=== PATIENT | female | born 1940 | race Caucasian/White ===

== ENCOUNTER 2018-11-06 17:23 | Inpatient (IN) | payer MEDICARE, BC ==
[2018-11-06] MEDS ORDERED: SODIUM CHLORIDE 0.9% 500 ML 500 ML IV STA (17:53)
[2018-11-06] MEDS ORDERED: fentaNYL (PF) 50 MCG/ML 2 ML AMP IVP STA ×3 (17:54→21:16)
--- NOTE | 2018-11-06 17:57 | ED ---
Abdominal Pain HPI - General Chief Complaint: Abdominal Pain Stated Complaint: HBP, CONSTIPATION, HEADACHE,OTHER ISSUES Time Seen by Provider: 11/06/18 17:44 Source: patient, RN notes reviewed, old records reviewed Mode of arrival: wheelchair Limitations: no limitations - History of Present Illness Initial Comments: 78-year-old female presenting for evaluation of elevated blood pressure and abdominal pain. Patient has been noted by the primary care physician of elevated blood pressure and has no known history of hypertension. She was diagnosed and treated with a salivary gland infection. She's been on multiple antibiotics over the past several weeks. Including Augmentin and clindamycin. Patient is presenting with chief complaint of abdominal pain, right-sided and hypertension today. Pain is right lower abdomen and right flank. Pain is nonradiating and constant in nature. Patient describes it as severe pain. Her last bowel movement was 5 days ago. She's had some nausea without significant vomiting. No chest pain or dyspnea. No upper abdominal pain. No fever chills , no dysuria or hematuria. - Related Data Home Medications Medication Instructions Recorded Confirmed Bisacodyl [Dulcolax] 15 mg PO DAILY 11/06/18 11/06/18 Clindamycin HCl [Cleocin] 300 mg PO TID 11/06/18 11/06/18 busPIRone HCL [Buspar] 7.5 mg PO BID 11/06/18 11/06/18 Allergies Allergy/AdvReac Type Severity Reaction Status Date / Time codeine Allergy Unknown Verified 11/06/18 18:19 Review of Systems ROS Statement: Those systems with pertinent positive or pertinent negative responses have been documented in the HPI. ROS Other: All systems not noted in ROS Statement are negative. Past Medical History Past Medical History: No Reported History History of Any Multi-Drug Resistant Organisms: None Reported Past Surgical History: Back Surgery, Orthopedic Surgery Past Psychological History: Anxiety Smoking Status: Never smoker Past Alcohol Use History: None Reported Past Drug Use History: None Reported General Exam Limitations: no limitations General appearance: alert, in no apparent distress Head exam: Present: atraumatic, normocephalic Eye exam: Present: normal appearance, PERRL ENT exam: Present: mucous membranes dry Neck exam: Present: normal inspection. Absent: tenderness, meningismus Respiratory exam: Present: normal lung sounds bilaterally. Absent: respiratory distress, wheezes Cardiovascular Exam: Present: regular rate, normal rhythm GI/Abdominal exam: Present: soft, tenderness (Right lower quadrant tenderness to palpation). Absent: distended Extremities exam: Present: normal inspection, normal capillary refill. Absent: pedal edema, calf tenderness Neurological exam: Present: alert, oriented X3, CN II-XII intact. Absent: motor sensory deficit Psychiatric exam: Present: normal affect, normal mood Skin exam: Present: warm, dry, intact. Absent: cyanosis, diaphoretic Course Vital Signs 11/06/18 11/06/18 11/06/18 17:34 19:05 20:00 Temperature 98.2 F Pulse Rate 67 65 63 Respiratory 16 18 18 Rate Blood Pressure 213/64 186/100 194/84 O2 Sat by Pulse 97 98 97 Oximetry 11/06/18 11/06/18 20:43 21:10 Temperature Pulse Rate 65 64 Respiratory 18 18 Rate Blood Pressure 190/73 152/59 O2 Sat by Pulse 98 98 Oximetry Medical Decision Making - Medical Decision Making 78-year-old female presenting with right lower quadrant abdominal pain and right flank pain. Patient's concerns for constipation as she has not had a bowel movement 5 days. Patient is noted to be hypertensive on initial evaluation, she has no history of hypertension. This may be somewhat secondary to pain as she is in moderate to severe pain. Workup in the emergency department reveals normal white blood cell count, stable hemoglobin, creatinine 1.06, normal lactic acid. Urinalysis shows signs of significant infection including greater than 182 white cells, 46 red cells, nitrate positive. Urine culture is obtained and patient is started on Rocephin. CT abdomen shows severe right-sided hydronephrosis with perinephric edema, no obstructing stone visualized on CT. These findings are discussed with urology, Dr. Leung, patient will be kept nothing by mouth for possible intervention. Case also discussed with the admitting physician. - Lab Data Result diagrams: 11/06/18 18:33 11/06/18 18:33 Lab Results 11/06/18 11/06/18 11/06/18 Range/Units 18:33 18:33 18:33 WBC 7.3 (3.8-10.6) k/uL RBC 3.76 L (3.80-5.40) m/uL Hgb 11.6 (11.4-16.0) gm/dL Hct 35.8 (34.0-46.0) % MCV 95.2 (80.0-100.0) fL MCH 30.9 (25.0-35.0) pg MCHC 32.5 (31.0-37.0) g/dL RDW 13.9 (11.5-15.5) % Plt Count 168 (150-450) k/uL Neutrophils % 80 % Lymphocytes % 12 % Monocytes % 6 % Eosinophils % 1 % Basophils % 0 % Neutrophils # 5.8 (1.3-7.7) k/uL Lymphocytes # 0.9 L (1.0-4.8) k/uL Monocytes # 0.4 (0-1.0) k/uL Eosinophils # 0.1 (0-0.7) k/uL Basophils # 0.0 (0-0.2) k/uL PT (9.0-12.0) sec INR (<1.2) APTT (22.0-30.0) sec Sodium 136 L (137-145) mmol/L Potassium 4.7 (3.5-5.1) mmol/L Chloride 102 (98-107) mmol/L Carbon Dioxide 25 (22-30) mmol/L Anion Gap 9 mmol/L BUN 25 H (7-17) mg/dL Creatinine 1.06 H (0.52-1.04) mg/dL Est GFR (CKD-EPI)AfAm 58 (>60 ml/min/1.73 sqM) Est GFR (CKD-EPI)NonAf 50 (>60 ml/min/1.73 sqM) Glucose 120 H (74-99) mg/dL Plasma Lactic Acid Rodri 1.1 (0.7-2.0) mmol/L Calcium 9.1 (8.4-10.2) mg/dL Total Bilirubin 1.2 (0.2-1.3) mg/dL AST 162 H (14-36) U/L ALT 108 H (9-52) U/L Alkaline Phosphatase 94 (38-126) U/L Total Protein 8.9 H (6.3-8.2) g/dL Albumin 4.1 (3.5-5.0) g/dL Amylase 63 (30-110) U/L Lipase 52 (23-300) U/L Urine Color Urine Appearance (Clear) Urine pH (5.0-8.0) Ur Specific [place] (1.001-1.035) Urine Protein (Negative) Urine Glucose (UA) (Negative) Urine Ketones (Negative) Urine Blood (Negative) Urine Nitrite (Negative) Urine Bilirubin (Negative) Urine Urobilinogen (<2.0) mg/dL Ur Leukocyte Esterase (Negative) Urine RBC (0-5) /hpf Urine WBC (0-5) /hpf Urine WBC Clumps (None) /hpf Ur Squamous Epith Cells (0-4) /hpf Urine Mucus (None) /hpf 11/06/18 11/06/18 Range/Units 18:33 20:29 WBC (3.8-10.6) k/uL RBC (3.80-5.40) m/uL Hgb (11.4-16.0) gm/dL Hct (34.0-46.0) % MCV (80.0-100.0) fL MCH (25.0-35.0) pg MCHC (31.0-37.0) g/dL RDW (11.5-15.5) % Plt Count (150-450) k/uL Neutrophils % % Lymphocytes % % Monocytes % % Eosinophils % % Basophils % % Neutrophils # (1.3-7.7) k/uL Lymphocytes # (1.0-4.8) k/uL Monocytes # (0-1.0) k/uL Eosinophils # (0-0.7) k/uL Basophils # (0-0.2) k/uL PT 10.7 (9.0-12.0) sec INR 1.0 (<1.2) APTT 23.1 (22.0-30.0) sec Sodium (137-145) mmol/L Potassium (3.5-5.1) mmol/L Chloride (98-107) mmol/L Carbon Dioxide (22-30) mmol/L Anion Gap mmol/L BUN (7-17) mg/dL Creatinine (0.52-1.04) mg/dL Est GFR (CKD-EPI)AfAm (>60 ml/min/1.73 sqM) Est GFR (CKD-EPI)NonAf (>60 ml/min/1.73 sqM) Glucose (74-99) mg/dL Plasma Lactic Acid Rodri (0.7-2.0) mmol/L Calcium (8.4-10.2) mg/dL Total Bilirubin (0.2-1.3) mg/dL AST (14-36) U/L ALT (9-52) U/L Alkaline Phosphatase (38-126) U/L Total Protein (6.3-8.2) g/dL Albumin (3.5-5.0) g/dL Amylase (30-110) U/L Lipase (23-300) U/L Urine Color Yellow Urine Appearance Cloudy H (Clear) Urine pH 6.5 (5.0-8.0) Ur Specific [place] 1.013 (1.001-1.035) Urine Protein 1+ H (Negative) Urine Glucose (UA) Negative (Negative) Urine Ketones 1+ H (Negative) Urine Blood Large H (Negative) Urine Nitrite Positive H (Negative) Urine Bilirubin Negative (Negative) Urine Urobilinogen <2.0 (<2.0) mg/dL Ur Leukocyte Esterase Large H (Negative) Urine RBC 43 H (0-5) /hpf Urine WBC >182 H (0-5) /hpf Urine WBC Clumps Many H (None) /hpf Ur Squamous Epith Cells 2 (0-4) /hpf Urine Mucus Rare H (None) /hpf Disposition Clinical Impression: Hydronephrosis, Urinary tract infection Disposition[facility] Condition: Stable Is patient prescribed a controlled substance at d/c from ED?: No Referrals: Dixie Staples MD [Primary Care Provider] - 1-2 days Time of Disposition: 21:41
[2018-11-06 18:52] LABS: Basophils % (A) 0 %; Eosinophils # (A) 0.1 k/uL (0-0.7); Eosinophils % (A) 1 %; HCT 35.8 % (34.0-46.0); HGB 11.6 gm/dL (11.4-16.0); Lymphocytes # (A) 0.9 k/uL (1.0-4.8); Lymphocytes % (A) 12 %; MCH 30.9 pg (25.0-35.0); MCHC 32.5 g/dL (31.0-37.0); MCV 95.2 fL (80.0-100.0); Mean Platelet Volume 8.2; Monocytes # (A) 0.4 k/uL (0-1.0); Monocytes % (A) 6 %; Neutrophils # (A) 5.8 k/uL (1.3-7.7); Neutrophils % (A) 80 %; Platelet Count 168 k/uL (150-450); RBC 3.76 m/uL (3.80-5.40); RDW 13.9 % (11.5-15.5); WBC 7.3 k/uL (3.8-10.6)
[2018-11-06 19:02] LABS: Albumin 4.1 g/dL (3.5-5.0); Calcium 9.1 mg/dL (8.4-10.2); Total Bilirubin 1.2 mg/dL (0.2-1.3); Total Protein 8.9 g/dL (6.3-8.2)
[2018-11-06 19:03] LABS: Potassium 4.7 mmol/L (3.5-5.1)
[2018-11-06 19:38] LABS: Partial Thromboplastin Time 23.1 sec (22.0-30.0); Prothrombin Time 10.7 sec (9.0-12.0)
--- NOTE | 2018-11-06 20:06 | CT ---
EXAMINATION TYPE: CT abdomen pelvis wo con DATE OF EXAM: 11/06/2018 COMPARISON: None HISTORY: Right flank pain. CT DLP: 629.2 mGycm Automated exposure control for dose reduction was used. TECHNIQUE: Helical acquisition of images was performed from the lung bases through the pelvis. FINDINGS: There is a large hiatal hernia. Heart size is slightly enlarged. There is no pericardial effusion. Th ere is interstitial infiltrate and atelectasis at the lung bases. Liver shows no focal defect. Spleen appears normal. There is no pancreatic mass. There is no adrenal mass. There is moderately severe right-sided hydronephrosis. There is right-sided perinephric edema. There is 3 cm cortical cyst anterior left kidney. Right ureter does not appear dilated. There is righ t sided periureteral edema. There is vascular calcification. There is air bubbles in the urinary blad jose that could be from catheterization. There is no free fluid in the pelvis. There are numerous dive rticula in the sigmoid colon. There is 3 cm cortical cyst upper pole right kidney. I see no evidence of a bowel obstruction. There are no dilated bowel loops. There are spondylotic changes in the lumbar spine. There is vertebroplasty of L3 with 25% compression fracture of L3 vertebral body. Uterus is anteverted. IMPRESSION: THERE IS SEVERE RIGHT-SIDED HYDRONEPHROSIS WITH EXTENSIVE PERINEPHRIC EDEMA CONSISTENT WITH HIGH-GRAD E OBSTRUCTION. BILATERAL RENAL CORTICAL CYSTS. NO DEFINITE URETERAL CALCULUS SEEN. OBSTRUCTION DUE TO NONOPAQUE STONE OR TUMOR AT THE URETEROPELVIC JUNCTION SHOULD BE CONSIDERED. ATHEROSCLEROTIC VASCULAR DISEASE. COLONIC DIVERTICULOSIS WITHOUT DIVERTICULITIS. LARGE HIATAL HERNIA.
--- NOTE | 2018-11-06 20:07 | XR ---
EXAMINATION TYPE: XR KUB DATE OF EXAM: 11/06/2018 COMPARISON: NONE HISTORY: Abdominal pain TECHNIQUE: 2 views FINDINGS: Bowel gas pattern is normal. There is no sign of intestinal obstruction or pneumoperitoneum . Fecal pattern is normal. There are no pathologic calcifications over the kidneys. Lung bases are cl ear. There is large hiatal hernia. IMPRESSION: Nonacute abdomen.
[2018-11-06] MEDS ORDERED: hydrALAZINE HCL 20 MG/ML 1 ML VIAL IVP STA ×2 (20:12→21:31)
[2018-11-06] MEDS: SODIUM CHLORIDE 0.9% 1,000 ML IV SCH (20:40)
[2018-11-06 21:07] LABS: Appearance,Urine Cloudy (Clear); Bilirubin,Urine Negative (Negative); Blood,Urine Large (Negative); Color,Urine Yellow; Glucose,Urine (UA) Negative (Negative); Ketones,Urine 1+ (Negative); Leukocyte Esterase,Urine Large (Negative); Mucus,Urine Rare /hpf; Nitrite,Urine Positive (Negative); PH, Urine 6.5 (5.0-8.0); Protein,Urine 1+ (Negative); RBC,Urine 43 /hpf (0-5); Specific Gravity,Urine 1.013 (1.001-1.035); Squamous Epithelial Cell,Urine 2 /hpf (0-4); Urobilinogen,Urine <2.0 mg/dL (<2.0); WBC,Urine >182 /hpf (0-5)
[2018-11-06] MEDS ORDERED: NALOXONE 0.4 MG/ML 1 ML VIAL IV PRN (21:29)
[2018-11-06] MEDS ORDERED: ACETAMINOPHEN TAB 325 MG TAB PO PRN (21:29)
[2018-11-06] MEDS ORDERED: amLODIPine 5 MG TAB PO STA (21:32)
[2018-11-06 22:32] LABS: Glucose,Whole Blood 123 mg/dL (75-99)
[2018-11-06] MEDS: fentaNYL (PF) 50 MCG/ML 2 ML AMP IVP PRN (23:24)
[2018-11-07] MEDS: fentaNYL (PF) 50 MCG/ML 2 ML AMP IVP PRN ×2 (02:14→07:59)
--- NOTE | 2018-11-07 07:33 | P.GSCN ---
History of Present Illness Consult date: 11/07/18 Reason for Consult: Right Hydronephrosis Requesting physician: Effie Echavarria History of present illness: The patient is an 78-year-old white female with an unremarkable urologic history. She has been treated for uncomplicated UTIs throughout her adult life. She has no prior history of urolithiasis. An ultrasound in July 2016 showed the right kidney to be normal, other than an upper pole cyst. She currently reports a one-month history of right flank pain radiating to the right lower quadrant. She has been treated with several courses of antibiotics , without symptomatic improvement. She presented to the emergency room yesterday, and a computed tomography scan showed significant right hydronephrosis with perinephric stranding. The ureter was not dilated. She was also noted to be hypertensive and was admitted. A urine culture is pending , and she is currently receiving Rocephin. Review of Systems - Constitutional Denies chills, Denies fever - Cardiovascular Reports high blood pressure - Gastrointestinal Reports nausea, Denies vomiting - Genitourinary Genitourinary: Reports flank pain, Denies dysuria, Denies hematuria, Denies kidney stones Past Medical History Past Medical History: Osteoarthritis (OA) History of Any Multi-Drug Resistant Organisms: None Reported Past Surgical History: Back Surgery, Joint Replacement, Orthopedic Surgery Past Anesthesia/Blood Transfusion Reactions: No Reported Reaction Smoking Status: Never smoker Medications and Allergies Home Medications Medication Instructions Recorded Confirmed Type Bisacodyl [Dulcolax] 15 mg PO DAILY 11/06/18 11/06/18 History Clindamycin HCl [Cleocin] 300 mg PO TID 11/06/18 11/06/18 History busPIRone HCL [Buspar] 7.5 mg PO BID 11/06/18 11/06/18 History Allergies Allergy/AdvReac Type Severity Reaction Status Date / Time codeine Allergy Unknown Verified 11/06/18 18:19 Surgical - Exam Vital Signs Temp Pulse Resp BP Pulse Ox 98.2 F 67 16 213/64 97 11/06/18 17:34 11/06/18 17:34 11/06/18 17:34 11/06/18 17:34 11/06/18 17:34 - General well developed, well nourished, no distress - Respiratory normal respiratory effort - Abdomen Abdomen: soft, tender (Mild right lower quadrant tenderness to palpation), no guarding, no rigid, no rebound - Psychiatric oriented to time, oriented to person, oriented to place, speech is normal, memory intact Results - Labs 18 18:33 18 18:33 Abnormal Lab Results - Last 24 Hours (Table) 11/06/18 11/06/18 11/06/18 Range/Units 18:33 18:33 20:29 RBC 3.76 L (3.80-5.40) m/uL Lymphocytes # 0.9 L (1.0-4.8) k/uL Sodium 136 L (137-145) mmol/L BUN 25 H (7-17) mg/dL Creatinine 1.06 H (0.52-1.04) mg/dL Glucose 120 H (74-99) mg/dL POC Glucose (mg/dL) (75-99) mg/dL AST 162 H (14-36) U/L ALT 108 H (9-52) U/L Total Protein 8.9 H (6.3-8.2) g/dL Urine Appearance Cloudy H (Clear) Urine Protein 1+ H (Negative) Urine Ketones 1+ H (Negative) Urine Blood Large H (Negative) Urine Nitrite Positive H (Negative) Ur Leukocyte Esterase Large H (Negative) Urine RBC 43 H (0-5) /hpf Urine WBC >182 H (0-5) /hpf Urine WBC Clumps Many H (None) /hpf Urine Mucus Rare H (None) /hpf 11/06/18 Range/Units 22:21 RBC (3.80-5.40) m/uL Lymphocytes # (1.0-4.8) k/uL Sodium (137-145) mmol/L BUN (7-17) mg/dL Creatinine (0.52-1.04) mg/dL Glucose (74-99) mg/dL POC Glucose (mg/dL) 123 H (75-99) mg/dL AST (14-36) U/L ALT (9-52) U/L Total Protein (6.3-8.2) g/dL Urine Appearance (Clear) Urine Protein (Negative) Urine Ketones (Negative) Urine Blood (Negative) Urine Nitrite (Negative) Ur Leukocyte Esterase (Negative) Urine RBC (0-5) /hpf Urine WBC (0-5) /hpf Urine WBC Clumps (None) /hpf Urine Mucus (None) /hpf Microbiology - Last 24 Hours (Table) 11/06/18 20:29 Urine Culture - Preliminary Urine,Voided Diabetes panel 11/06/18 Range/Units 18:33 Sodium 136 L (137-145) mmol/L Potassium 4.7 (3.5-5.1) mmol/L Chloride 102 (98-107) mmol/L Carbon Dioxide 25 (22-30) mmol/L BUN 25 H (7-17) mg/dL Creatinine 1.06 H (0.52-1.04) mg/dL Glucose 120 H (74-99) mg/dL Calcium 9.1 (8.4-10.2) mg/dL AST 162 H (14-36) U/L ALT 108 H (9-52) U/L Alkaline Phosphatase 94 (38-126) U/L Total Protein 8.9 H (6.3-8.2) g/dL Albumin 4.1 (3.5-5.0) g/dL Calcium panel 11/06/18 Range/Units 18:33 Calcium 9.1 (8.4-10.2) mg/dL Albumin 4.1 (3.5-5.0) g/dL Pituitary panel 11/06/18 Range/Units 18:33 Sodium 136 L (137-145) mmol/L Potassium 4.7 (3.5-5.1) mmol/L Chloride 102 (98-107) mmol/L Carbon Dioxide 25 (22-30) mmol/L BUN 25 H (7-17) mg/dL Creatinine 1.06 H (0.52-1.04) mg/dL Glucose 120 H (74-99) mg/dL Calcium 9.1 (8.4-10.2) mg/dL Adrenal panel 11/06/18 Range/Units 18:33 Sodium 136 L (137-145) mmol/L Potassium 4.7 (3.5-5.1) mmol/L Chloride 102 (98-107) mmol/L Carbon Dioxide 25 (22-30) mmol/L BUN 25 H (7-17) mg/dL Creatinine 1.06 H (0.52-1.04) mg/dL Glucose 120 H (74-99) mg/dL Calcium 9.1 (8.4-10.2) mg/dL Total Bilirubin 1.2 (0.2-1.3) mg/dL AST 162 H (14-36) U/L ALT 108 H (9-52) U/L Alkaline Phosphatase 94 (38-126) U/L Total Protein 8.9 H (6.3-8.2) g/dL Albumin 4.1 (3.5-5.0) g/dL - Imaging CT scan - abdomen: report reviewed, image reviewed Assessment and Plan (1) Hydronephrosis Current Visit: Yes Status: Acute Code(s): N13.30 - UNSPECIFIED HYDRONEPHROSIS SNOMED Code(s): 14103530 (2) Urinary tract infection Current Visit: Yes Status: Acute Code(s): N39.0 - URINARY TRACT INFECTION, SITE NOT SPECIFIED SNOMED Code(s): 25743095 Plan: I had a lengthy discussion with the patient and her granddaughter. I explained that hydronephrosis is typically due to obstruction, in this case at the level of the ureteropelvic junction. The presence of perinephric stranding is consistent with inflammation, and urinalysis is consistent with infection. I have suggested she undergo cystoscopy, right retrograde pyelogram, and right ureteral stent insertion. This will relieve the obstruction and make it more likely that antibiotics will effectively treat her infection. She would then require a secondary procedure after the infection has cleared, which would consist of stent removal and ureteroscopy to determine the etiology of the obstruction. Potential risks associated with stent placement were discussed, which include anesthesia and ureteral injury. She wishes to proceed and I'm hopeful that I can perform this later today. Time with Patient: Greater than 30
[2018-11-07] MEDS: amLODIPine 5 MG TAB PO SCH ×2 (09:03→09:56)
[2018-11-07] MEDS ORDERED: KETOROLAC 30 MG/ML 1 ML VIAL IVP PRN (09:43)
[2018-11-07] MEDS: SODIUM CHLORIDE 0.9% 1,000 ML IV SCH (09:56)
[2018-11-07] MEDS ORDERED: MORPHINE SULFATE 2 MG/ML SYRINGE IVP PRN (10:17)
[2018-11-07 11:42] VITALS: BMI 32.5
[2018-11-07] MEDS ORDERED: IV FLUID CONTINUATION 800 ML IV ONE (15:57)
[2018-11-07] MEDS ORDERED: ROCURONIUM BROMIDE 10 MG/ML 10 ML VIAL IV ONE (16:34)
[2018-11-07] MEDS ORDERED: ePHEDrine SULFATE/0.9% NACL/PF 50 MG/5 ML SYRINGE IV ONE (16:34)
[2018-11-07] MEDS ORDERED: PROPOFOL 10 MG/ML 20 ML VIAL IV ONE (16:34)
[2018-11-07] MEDS ORDERED: IOHEXOL 350 MG/ML 125ML BOTTLE MISCELLANE ONE (17:02)
--- NOTE | 2018-11-07 17:30 | P.OP ---
Date of Procedure: 11/07/18 Preoperative Diagnosis: Right hydronephrosis Postoperative Diagnosis: Same Procedure(s) Performed: Cystoscopy, right retrograde pyelogram, right ureteral stent insertion Anesthesia: CHEMA Surgeon: Omari Leung Estimated Blood Loss (ml): 0 IV fluids (ml): 400 Pathology: none sent Condition: stable Disposition: PACU Indications for Procedure: The patient is an 78-year-old white female with an unremarkable urologic history. An ultrasound in July 2016 showed the right kidney to be normal, other than an upper pole cyst. She currently reports a one-month history of right flank pain radiating to the right lower quadrant. She has been treated with several courses of antibiotics, without symptomatic improvement. She presented to the emergency room yesterday, and a computed tomography scan showed significant right hydronephrosis with perinephric stranding. The ureter was not dilated. She was also noted to be hypertensive and was admitted. A urine culture is pending, and she is currently receiving Rocephin. She now comes for cystoscopy, right retrograde pyelogram, right ureteral stent insertion. Operative Findings: Fibrinous exudate adherent to the bladder mucosa, consistent with chronic cystitis. Marked right hydronephrosis with obstruction at the ureteropelvic junction. Description of Procedure: The patient was taken to the operating room and placed in the dorsolithotomy position, with legs supported in Vince stirrups. The external genitalia was prepped and draped sterilely. The 30 lens was used to introduce the 22-Burkinan Stortz cystoscopic sheath through the urethra and into the bladder under direct vision. The bladder was examined in its entirety. Both ureteral orifices were of normal anatomic location and configuration, and clear urine effluxed from both. No tumors or foreign bodies were seen. However, there was evidence of cystitis, and fibrinous exudate was adherent to the bladder mucosa on much of the posterior bladder wall, greater on the right side. With several courses of bladder irrigation, and the cystoscope gently used as to sweep the exudate from the mucosa, the overwhelming majority of this was removed. Using a 10-Burkinan cone-tip catheter, a right retrograde pyelogram was performed in the standard fashion. The entire course of the ureter was seen on fluoroscopy and appeared normal. There appeared to be obstruction at the level of the ureteropelvic junction, and the right intrarenal collecting systems showed evidence of marked dilation. A 0.035 inch Glidewire was passed through the cystoscope. The right ureteral orifice was cannulated, and the Glidewire was slowly advanced up to the renal pelvis. A 26 cm, 6-Burkinan double-J ureteral stent was placed over the wire. Proper stent positioning was verified fluoroscopically and endoscopically. The bladder was emptied and the cystoscope removed. The patient tolerated the procedure well was taken to the recovery room in stable condition.
[2018-11-07] MEDS ORDERED: hydrALAZINE HCL 20 MG/ML 1 ML VIAL IVP PRN (20:06)
[2018-11-08] MEDS: SODIUM CHLORIDE 0.9% 1,000 ML IV SCH ×2 (01:07→11:59)
--- NOTE | 2018-11-08 08:24 | FL ---
EXAMINATION TYPE: FL urography retrograde DATE OF EXAM: 11/07/2018 COMPARISON: NONE HISTORY: Fluoroscopy TECHNIQUE: Fluoroscopy. FINDINGS: Fluoroscopic guidance was provided during procedure of 35 seconds. IMPRESSION: As Above.
[2018-11-08] MEDS: BISACODYL 5 MG TABLET.DR PO SCH (08:31)
[2018-11-08] MEDS: amLODIPine 10 MG TAB PO SCH (08:32)
[2018-11-08 08:33] LABS: Basophils % (A) 0 %; Eosinophils # (A) 0.1 k/uL (0-0.7); Eosinophils % (A) 1 %; HCT 30.4 % (34.0-46.0); Lymphocytes # (A) 0.8 k/uL (1.0-4.8); Lymphocytes % (A) 18 %; MCH 30.8 pg (25.0-35.0); MCHC 31.9 g/dL (31.0-37.0); MCV 96.6 fL (80.0-100.0); Mean Platelet Volume 7.9; Monocytes # (A) 0.4 k/uL (0-1.0); Monocytes % (A) 10 %; Neutrophils % (A) 69 %; Platelet Count 138 k/uL (150-450); RBC 3.15 m/uL (3.80-5.40); RDW 14.2 % (11.5-15.5); WBC 4.3 k/uL (3.8-10.6)
[2018-11-08 08:39] LABS: HGB 9.7 gm/dL (11.4-16.0)
[2018-11-08 08:41] LABS: Calcium 8.5 mg/dL (8.4-10.2); Potassium 3.7 mmol/L (3.5-5.1)
--- NOTE | 2018-11-08 09:21 | P.HPIM ---
History of Present Illness H&P Date: 11/07/18 Chief Complaint: Abdominal and right flank pain 78 female with a PMH stated below comes in with above mentioned complians.She says she started to have abdominal pain mostly in the right flank about 1 months ago. She was treated with 2 different antibiotics augmentin and clindamycin on 2 different occassions without much relief. She also says she was recenlty diagnosed with High BP about 1 month ago. She says she is nauseus without much vomiting. She otherwise does not c/o chest pain, no racing heart, no cough, no sob, no diarrhea, says she is constipated. no lightheadedness , no dizziness, no tich , no rash. In the ER lab mwork was done which was reviewed. UA was positive. CT abd was done which shows hydronephrosis and obstruction. UROLOGY was consulted and was started on rocephin. Review of Systems All systems: negative Past Medical History Past Medical History: Osteoarthritis (OA) History of Any Multi-Drug Resistant Organisms: None Reported Past Surgical History: Back Surgery, Joint Replacement, Orthopedic Surgery Past Anesthesia/Blood Transfusion Reactions: No Reported Reaction Smoking Status: Never smoker Medications and Allergies Home Medications Medication Instructions Recorded Confirmed Type Bisacodyl [Dulcolax] 15 mg PO DAILY 11/06/18 11/06/18 History Clindamycin HCl [Cleocin] 300 mg PO TID 11/06/18 11/06/18 History busPIRone HCL [Buspar] 7.5 mg PO BID 11/06/18 11/06/18 History Allergies Allergy/AdvReac Type Severity Reaction Status Date / Time codeine Allergy Unknown Verified 11/06/18 18:19 Physical Exam Vitals: Vital Signs Temp Pulse Pulse Pulse Resp BP BP 11/07/18 18:05 66 16 172/76 11/07/18 17:51 72 16 174/74 11/07/18 17:34 98.1 F 79 17 177/75 11/07/18 15:58 98.2 F 61 180/84 11/07/18 12:00 97.7 F 61 16 168/72 11/07/18 08:00 98.4 F 61 19 142/68 11/07/18 07:33 97.5 F L 67 16 181/77 11/07/18 06:00 64 18 142/68 11/07/18 04:00 98.4 F 65 15 142/68 18 02:00 66 20 151/64 11/07/18 00:00 98.1 F 68 12 157/68 18 23:30 64 14 160/64 18 23:00 62 21 162/74 11/06/18 22:50 65 11 L 166/73 11/06/18 22:40 65 17 172/69 11/06/18 22:30 97.9 F 74 17 172/69 11/06/18 22:09 98.4 F 11/06/18 22:02 68 18 165/66 11/06/18 21:10 64 18 152/59 11/06/18 20:43 65 18 190/73 11/06/18 20:00 63 18 194/84 Pulse Ox 11/07/18 18:05 94 L 11/07/18 17:51 93 L 11/07/18 17:34 94 L 11/07/18 15:58 98 11/07/18 12:00 96 11/07/18 08:00 97 11/07/18 07:33 98 11/07/18 06:00 93 L 11/07/18 04:00 94 L 11/07/18 02:00 96 11/07/18 00:00 94 L 11/06/18 23:30 96 11/06/18 23:00 97 11/06/18 22:50 97 11/06/18 22:40 96 11/06/18 22:30 97 11/06/18 22:09 11/06/18 22:02 99 11/06/18 21:10 98 11/06/18 20:43 98 11/06/18 20:00 97 Intake and Output 11/07/18 11/07/18 11/07/18 06:59 14:59 22:59 Intake Total 134 287 6105 Output Total 200 0 0 Balance 270 822 5209 Intake: IV 897 001 4807 Sodium Chloride 0.9% 1, 600 150 600 000 ml @ 75 mls/hr IV . [id number] [facility] Rx#:[id number] cefTRIAXone 1,000 mg In 50 Sodium Chloride 0.9% 50 ml @ 100 mls/hr IVPB ONCE STA Rx#:[id number] Output: Urine 200 0 Estimated Blood Loss 0 Other: Voiding Method Toilet Toilet Toilet # Voids 1 2 Weight 91.6 kg 91.6 kg - Constitutional General appearance: cooperative, mild distress - EENT Eyes: PERRLA Ears: bilateral: normal - Neck Neck: no lymphadenopathy, no thyromegaly - Respiratory Respiratory: bilateral: CTA - Cardiovascular Heart sounds: normal: S1, S2 - Gastrointestinal General gastrointestinal: no hepatomegaly, normal bowel sounds, no splenomegaly , tenderness (in the right flank and right groin area) - Neurologic Neurologic: CNII-XII intact - Musculoskeletal Musculoskeletal: strength equal bilaterally - Psychiatric Psychiatric: A&O x's 3, appropriate affect Results CBC & Chem 7: 11/06/18 18:33 11/06/18 18:33 Labs: Abnormal Lab Results - Last 24 Hours (Table) 11/06/18 11/06/18 Range/Units 20:29 22:21 POC Glucose (mg/dL) 123 H (75-99) mg/dL Urine Appearance Cloudy H (Clear) Urine Protein 1+ H (Negative) Urine Ketones 1+ H (Negative) Urine Blood Large H (Negative) Urine Nitrite Positive H (Negative) Ur Leukocyte Esterase Large H (Negative) Urine RBC 43 H (0-5) /hpf Urine WBC >182 H (0-5) /hpf Urine WBC Clumps Many H (None) /hpf Urine Mucus Rare H (None) /hpf Microbiology - Last 24 Hours (Table) 11/06/18 20:29 Urine Culture - Preliminary Urine,Voided CT scan - abdomen: report reviewed Thrombosis Risk Factor Assmnt - DVT/VTE Prophylaxis DVT/VTE Prophylaxis: Pharmacologic Prophylaxis ordered - Choose All That Apply Each Factor Represents 1 point: Obesity (BMI >25) Other Risk Factors: Yes Each Risk Factor Represents 3 Points: Age 75 years or older Other congenital or acquired thrombophilia - If yes, enter type in comment: No Thrombosis Risk Factor Assessment Total Risk Factor Score: 4 Thrombosis Risk Factor Assessment Level: Moderate Risk Assessment and Plan Assessment: 1. UTI 2. Right sided hydronephrosis secondary to obstruction 3. Accelerated HTN 4. Obesity Plan: - Will admit the patient to step down - The patient is NPO for possible cystoscopy - Will continue the antibiotics for noW, awaiting C & S. - The patient's BP is high. Probbaly due to pain. Will give her toradol and put her on morphine 2 mg [id number] PRN - Will continue norvasc. If the patient's BP remains high after pain is controlled, then cardio might need to be consulted for it - DVT and GI ppx - Will order for labs in the am - Expected length of stay is more than 2 midnights
--- NOTE | 2018-11-08 09:29 | P.PN ---
Subjective Progress Note Date: 11/08/18 Patient says that she is doing much better Pain much improved when compared to yesterday. Blood pressure also much improved when compared to yesterday. Patient complaining of no nausea no vomiting, no chest pain racing heart, no cough no shortness of breath, no diarrhea or constipation. Objective - Vital Signs Vital signs: Vital Signs Temp 98.9 F 11/08/18 08:42 Pulse 69 11/08/18 08:44 Resp 18 11/08/18 08:44 BP 133/64 11/08/18 08:42 Pulse Ox 97 11/08/18 08:42 Intake & Output 11/07/18 11/08/18 11/08/18 18:59 06:59 18:59 Intake Total 1550 1000 118 Output Total 0 1000 Balance 1550 0 118 Weight 91.6 kg 86.7 kg Intake: IV 1550 Sodium Chloride 0.9% 1, 750 000 ml @ 75 mls/hr IV . [id number] [facility] Rx#:[id number] cefTRIAXone 1,000 mg In 50 Sodium Chloride 0.9% 50 ml @ 100 mls/hr IVPB ONCE STA Rx#:[id number] Intake, IV Titration 600 Amount Sodium Chloride 0.9% 1, 600 000 ml @ 75 mls/hr IV . [id number] [facility] Rx#:[id number] Oral 400 118 Output: Urine 0 1000 Estimated Blood Loss 0 Other: Voiding Method Toilet Toilet Toilet # Voids 2 1 - Exam Constitutional General appearance: cooperative, mild distress - EENT Eyes: PERRLA Ears: bilateral: normal - Neck Neck: no lymphadenopathy, no thyromegaly - Respiratory Respiratory: bilateral: CTA - Cardiovascular Heart sounds: normal: S1, S2 - Gastrointestinal General gastrointestinal: no hepatomegaly, normal bowel sounds, no splenomegaly , she has more tenderness in the flank and groin area - Neurologic Neurologic: CNII-XII intact - Musculoskeletal Musculoskeletal: strength equal bilaterally - Psychiatric Psychiatric: A&O x's 3, appropriate affect - Labs CBC & Chem 7: 11/08/18 07:13 11/08/18 07:13 Labs: Abnormal Lab Results - Last 24 Hours (Table) 11/08/18 11/08/18 Range/Units 07:13 07:13 RBC 3.15 L (3.80-5.40) m/uL Hgb 9.7 L D (11.4-16.0) gm/dL Hct 30.4 L (34.0-46.0) % Plt Count 138 L (150-450) k/uL Lymphocytes # 0.8 L (1.0-4.8) k/uL Chloride 111 H (98-107) mmol/L BUN 21 H (7-17) mg/dL Microbiology - Last 24 Hours (Table) 11/06/18 20:29 Urine Culture - Preliminary Urine,Voided Assessment and Plan Assessment: 1. UTI 2. Right sided hydronephrosis secondary to obstruction 3. Accelerated HTN blood pressure much better controlled today 4. Obesity Plan: - Patient complains of no pain - Patient apparently had a cystoscopy with stent placement. There was purulent fluid with a stent placed that was released - Since it is a complicated UTI, will continue Rocephin, will wait for the culture results. She probably needs to be on antibiotics for 10-14 days - Her Norvasc was increased from 5 to10 mg daily. We'll see how she responds - Continue rest of the home medications - DVT and GI prophylaxis - We will order for lab work in the morning - We will continue to follow the patient
[2018-11-09] MEDS: SODIUM CHLORIDE 0.9% 1,000 ML IV SCH (02:01)
[2018-11-09 02:13] VITALS: RESP 20
[2018-11-09 07:33] VITALS: BP 152/71; PULSE 57; TEMP 98.5
[2018-11-09] MEDS: BISACODYL 5 MG TABLET.DR PO SCH (07:33)
[2018-11-09] MEDS: amLODIPine 10 MG TAB PO SCH (07:33)
[2018-11-09] MEDS ORDERED: CIPROFLOXACIN HCL 500 MG TAB PO SCH (09:00)
[2018-11-09 09:39] LABS: Calcium 8.5 mg/dL (8.4-10.2); Potassium 3.5 mmol/L (3.5-5.1)
--- NOTE | 2018-11-09 10:36 | P.PN ---
Progress Note - Text Progress Note Date: 11/09/18 Mrs. Lake's right flank pain has resolved. She remains afebrile with stable vital signs. She is being discharged home today on ciprofloxacin, and will follow-up with me in 2 weeks. The urine culture has shown gram-negative bacilli, but identification of the bacteria is pending at this time. I will follow up on this and contact her if a change in antibiotics as needed. Please notify me if I can be of any further assistance during this hospitalization.
--- NOTE | 2018-11-09 11:54 | P.DS ---
Providers Date of admission: 11/06/18 21:40 Expected date of discharge: 11/09/18 Attending physician: Effie Echavarria Consults: 11/06/18 21:30 Consult Physician Routine Consulting Provider: Omari Leung Consult Reason/Comments: Severe hydronephrosis Do you want consulting provider notified?: Yes Primary care physician: Dixie Staples - Discharge Diagnosis(es) (1) Ureteral obstruction, right Status: Acute (2) Urinary tract infection Status: Acute (3) HTN (hypertension) Status: Acute Hospital Course: Pleasant 78-year-old female comes in with complaints of right-sided flank pain radiating to the right groin since about a month. She was treated with 2 different antibiotics for her operative gland swelling on 2 different location without much relief. She said that she's been also having blood pressure elevations about a month. She was nauseous but no vomiting. She did not complain of any fever or chills, no other complaints. Patient had a UA which was positive for UTI. She also had a computed tomography scan of the abdomen and pelvis which shows that she is having obstruction in the right ureteropelvic junction. Urology was consulted and she was put on Rocephin. She had a cystoscopy with stent placement at the site of obstruction. Patient's pain significantly improved after the stent placement and a blood pressure also was stabilized with increasing dose of Norvasc from 5 mg daily to 10 mg daily. Patient's urine grew gram-negative bacilli. She was on Rocephin while in the hospital which was changed to ciprofloxacin 500 mg twice a day to complete a course of 14 days total. Patient will does be discharged if cleared by urology. She will be followed up by urology service for any changes in the bed antibiotics depending upon the urine cultures. Patient Condition at Discharge: Stable Plan - Discharge Summary Discharge Rx Participant: No New Discharge Prescriptions: New Acetaminophen Tab [Tylenol] 650 mg PO Q6HR PRN tab PRN Reason: Mild Pain Or Fever > 100.5 amLODIPine [Norvasc] 10 mg PO DAILY #30 tab Ciprofloxacin HCl [Cipro] 500 mg PO BID #22 tab Continue busPIRone HCL [Buspar] 7.5 mg PO BID Bisacodyl [Dulcolax] 15 mg PO DAILY Discontinued Clindamycin HCl [Cleocin] 300 mg PO TID Discharge Medication List Bisacodyl [Dulcolax] 15 mg PO DAILY 11/06/18 [History] busPIRone HCL [Buspar] 7.5 mg PO BID 11/06/18 [History] Acetaminophen Tab [Tylenol] 650 mg PO Q6HR PRN tab 11/09/18 [Rx] Ciprofloxacin HCl [Cipro] 500 mg PO BID #22 tab 11/09/18 [Rx] amLODIPine [Norvasc] 10 mg PO DAILY #30 tab 11/09/18 [Rx] Follow up Appointment(s)/Referral(s): Omari Leung MD [STAFF PHYSICIAN] - 2 Weeks (office will call you to set up appointment) Dixie Staples MD [Primary Care Provider] - 1-2 days (patient to call and schedule appointment) [facility] Visiting Nurse, [NON-STAFF] - Patient Instructions/Handouts: Urinary Tract Infection in Women (DC), Hypertension (DC), Hydronephrosis (DC), Ureteral Stent Placement (DC) Discharge Disposition: HOME SELF-CARE
== END 2018-11-09 10:55 | disposition home health service (06) | DRG 661 ==
LOC: EC 17:23 → 2SICU 21:40 → 3SCARD 11-07 09:45 → 4MS4W 11-09 01:10
PROVIDERS: ADMIT Hospitalist; ATTEND Hospitalist
PROC: BT1D1ZZ Fluoroscopy of Right Kidney, Ureter and Bladder using Low Osmolar Contrast (ICD-10-PCS; principal; 2018-11-07 08:20)
PROC: 0T768DZ Dilation of Right Ureter with Intraluminal Device, Via Natural or Artificial Opening Endoscopic (ICD-10-PCS; principal; 2018-11-07 08:20)
DX: N13.6 Pyonephrosis (principal); E66.9 Obesity, unspecified; I10 Essential (primary) hypertension; K59.00 Constipation, unspecified; N30.20 Other chronic cystitis without hematuria; Z88.5 Allergy status to narcotic agent; Z79.899 Other long term (current) drug therapy; Z68.31 Body mass index [BMI] 31.0-31.9, adult
CPT/HCPCS: 36415; 74018; 74176; 74420; 80048; 80053; 81001; 82150; 83605; 83690; 85025; 85610; 85730; 87077; 87086; 87186; 93005; 96365; 96375; 96376; 99285

== ENCOUNTER → 2018-12-07 | Day surgery (SDC) | payer MEDICARE, BC ==
--- NOTE | 2018-12-02 09:04 | P.GSHP ---
History of Present Illness H&P Date: 12/02/18 Chief Complaint: Right hydronephrosis The patient is an 78-year-old white female with an unremarkable urologic history. An ultrasound in July 2016 showed the right kidney to be normal, other than an upper pole cyst. She was recently hospitalized with a one-month history of right flank pain radiating to the right lower quadrant. She had been treated with several courses of antibiotics, without symptomatic improvement. She presented to the emergency room, and a CT scan showed significant right hydronephrosis with perinephric stranding. The ureter was not dilated. She was also noted to be hypertensive and was admitted. A urine culture showed Pseudomonas, and her treatment consisted of antibiotics and right ureteral stent insertion. Her pain has resolved. She now comes for cystoscopy, right ureteral stent removal, and right ureteroscopy. - Constitutional Constitutional: Denies chills, Denies fever - Gastrointestinal Gastrointestinal: Reports nausea - Genitourinary (Female) Genitourinary: Denies flank pain Past Medical History Past Medical History: Osteoarthritis (OA) History of Any Multi-Drug Resistant Organisms: None Reported Past Surgical History: Back Surgery, Joint Replacement, Orthopedic Surgery Past Anesthesia/Blood Transfusion Reactions: No Reported Reaction Smoking Status: Never smoker Medications and Allergies Home Medications Medication Instructions Recorded Confirmed Type Bisacodyl [Dulcolax] 15 mg PO DAILY 11/06/18 11/06/18 History busPIRone HCL [Buspar] 7.5 mg PO BID 11/06/18 11/06/18 History Acetaminophen Tab [Tylenol] 650 mg PO Q6HR PRN tab 11/09/18 Rx Ciprofloxacin HCl [Cipro] 500 mg PO BID #22 tab 11/09/18 Rx amLODIPine [Norvasc] 10 mg PO DAILY #30 tab 11/09/18 Rx Allergies Allergy/AdvReac Type Severity Reaction Status Date / Time codeine Allergy Unknown Verified 11/06/18 18:19 Surgical - Exam - General well developed, well nourished, no distress - Respiratory normal respiratory effort, clear to auscultation - Cardiovascular Rhythm: regular Abnormal Heart Sounds: no systolic murmur, no diastolic murmur, no rub, no S3 Gallop, no S4 Gallop, no click, no other - Abdomen Abdomen: soft, non tender, no guarding, no rigid, no rebound - Musculoskeletal normal gait, normal posture, other Assessment and Plan (1) Hydronephrosis Status: Acute Code(s): N13.30 - UNSPECIFIED HYDRONEPHROSIS SNOMED Code(s): 37121061 Plan: Cystoscopy, right ureteral stent removal, right ureteroscopy. Findings thus far are consistent with UPJ obstruction, but the fact she had a normal renal ultrasound in 2016 argues against a congenital anomaly. If indeed she was found to have UPJ obstruction, balloon dilation of the UPJ may be performed. If there are findings suggestive of malignancy, a biopsy will be obtained. All of this is been reviewed with the patient and her son. They understand the possible need for stent replacement. Potential risks were also reviewed. These include anesthesia, bleeding, infection, and ureteral injury.
[2018-12-06 08:28] VITALS: BMI 28.1
[~2018-12-07] MED LIST: DEXAMETHASONE SOD PHOSPHATE 10 MG/ML 1 ML VIAL IV ONE; HYDROmorphone 0.5 MG/0.5 ML SYRINGE IVP PRN; IOPAMIDOL-370 50ML BTL IRRIGATION ONE; LACTATED RINGERS 1,000 ML IV SCH; LEVOFLOXACIN 500MG-D5W PMX 500 MG in DEXTROSE/WATER 1 100ML.BAG IVPB ONE; LIDOCAINE 1% 20 ML VIAL (10MG/ML) FOR IV START INTRADERMA PRN; LIDOCAINE 1% INJ 10MG/ML (20 ML MDV) ONE; MIDAZOLAM (PF) 2 MG/2 ML VIAL IV PRN; ONDANSETRON 4 MG/2 ML VIAL IVP ONE; PROPOFOL 10 MG/ML 20 ML VIAL IV ONE; SCOPOLAMINE 1.5MG/72HR PATCH TRANSDERM ONE; ePHEDrine SULFATE/0.9% NACL/PF 50 MG/5 ML SYRINGE IV ONE; fentaNYL (PF) 50 MCG/ML 2 ML AMP ONE
--- NOTE | 2018-12-07 09:47 | P.OP ---
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 An ultrasound in July 2016 showed the right kidney to be normal, other than an upper pole cyst. She was recently hospitalized with a one-month history of right flank pain radiating to the right lower quadrant. She had been treated with several courses of antibiotics, without symptomatic improvement. She presented to the emergency room, and a CT scan showed significant right hydronephrosis with perinephric stranding. The ureter was not dilated. She was also noted to be hypertensive and was admitted. A urine culture showed Pseudomonas, and her treatment consisted of antibiotics and right ureteral stent insertion. Her pain has resolved. She now comes for cystoscopy, right ureteral stent removal, and right ureteroscopy. Operative Findings: Kinking of the right ureteropelvic junction is noted. Description of Procedure: The patient was taken to the operating room and placed in the dorsolithotomy position, with legs supported in Vince stirrups. The external genitalia was prepped and draped sterilely. The 30 lens was used to introduce the 22-Uzbek Stortz cystoscopic sheath through the urethra and into the bladder under direct vision. The bladder was examined in its entirety. The distal end of the right ureteral stent was readily visualized. No tumors or foreign bodies were seen. Grasping forceps were used to grasp the distal end of the right ureteral stent, which was withdrawn along with the cystoscope. The mini flexible ureteroscope was advanced into the bladder, and the right ureteral orifice was cannulated. The ureteroscope was slowly advanced under direct vision. The ureter appeared normal. Kinking of the right ureteropelvic junction was noted. There was evidence of hydronephrosis. No tumors or calculi were seen within the ureter or the renal collecting system. A 0.038 inch Glidewire was passed through the ureteroscope, which was then withdrawn. An 18-Uzbek, 4 cm balloon dilating catheter was then advanced over the wire, up to the ureteropelvic junction. The balloon was inflated, and inflation of the balloon was completed without any apparent areas of narrowing. The balloon dilating catheter was then removed, and the Glidewire was backloaded into the cystoscope. A 26 cm, 6-Uzbek double-J ureteral stent was placed over the wire. Proper stent positioning was verified fluoroscopically and endoscopically. The bladder was emptied and the cystoscope removed. The patient tolerated the procedure well and was taken to the recovery room in stable condition.
[2018-12-07 09:50] VITALS: TEMP 97
[2018-12-07 10:03] VITALS: RESP 16
[2018-12-07 10:43] VITALS: BP 175/77; PULSE 61
--- NOTE | 2018-12-07 11:59 | FL ---
Fluoroscopy HISTORY: Right ureteral stent placement 34 seconds fluoroscopy time supplied to the referring clinician. 2 intraoperative C-arm images docum ent the procedure. See dictated report from urology.
== END | disposition home or self-care (01) ==
LOC: OR 06:50
PROVIDERS: ATTEND Urology
DX: N13.0 Hydronephrosis with ureteropelvic junction obstruction (principal); I10 Essential (primary) hypertension; M19.90 Unspecified osteoarthritis, unspecified site; Z79.899 Other long term (current) drug therapy; Z88.5 Allergy status to narcotic agent; Z96.653 Presence of artificial knee joint, bilateral
CPT/HCPCS: 52332; C2625; C1758 ×2; C1769 ×2; J1100; J2405; J1956; J2001; J3010; J2704; Q9967

== ENCOUNTER → 2019-03-23 | Outpatient (CLI) | payer MEDICARE, BC ==
--- NOTE | 2019-03-24 11:25 | US ---
EXAMINATION TYPE: US kidneys/renal and bladder DATE OF EXAM: 03/23/2019 COMPARISON: NONE CLINICAL HISTORY: R93.4Abnormal findings on diagnostic imaging of ur. h/o hydronephrosis in right kid nima for months, rt flank pain EXAM MEASUREMENTS: Right Kidney: 10.3 x 5.6 x 5.7 cm Left Kidney: 10.3 x 5.0 x 5.7 cm limited imaging on the left due to elderly female with short ribcage and limited mobility. Right Kidney: severe hydronephrosis persists. Cyst seen superior pole = 3.4cm Left Kidney: Loop of bowel obscures portion of kidney, 4.1cm cyst seen superior pole. Bladder: 2 echogenic foci that may represent stones, anterior stone =0.8cm, posterior stone = 1.5cm Bilateral Jets seen: only left IMPRESSION: 1. Severe right-sided hydronephrosis. 2. Probable urinary bladder calculi. 3. Bilateral renal cysts.
== END ==
LOC: RADUSWWP 15:39
PROVIDERS: ATTEND Urology
DX: N13.30 Unspecified hydronephrosis (principal); N28.1 Cyst of kidney, acquired
CPT/HCPCS: 76770

== ENCOUNTER 2019-04-15 10:45 | Emergency (ER) | payer MEDICARE, BC ==
[2019-04-15 10:53] VITALS: PULSE 69; RESP 18; TEMP 98.5
--- NOTE | 2019-04-15 11:13 | ED ---
Fall HPI - General Chief Complaint: Fall Stated Complaint: left foot injury Time Seen by Provider: 04/15/19 10:59 Source: patient, RN notes reviewed Mode of arrival: wheelchair Limitations: no limitations - History of Present Illness Initial Comments: 78-year-old female presents emergency Department chief complaint left foot pain. Patient states [facility] States She Tripped Injuring Her Left Foot. Patient States That There Is No Ankle Tenderness No Other Injuries Noted No Head Injury No Loss Conscious. Patient States She Cannot Bear Weight on Her Left Foot Secondary to Pain. Patient States She's Had No Prior Foot Fracture. Patient Does Have Bilateral Total Knee Replacements. - Related Data Previous Rx's Medication Instructions Recorded traMADol HCl [Ultram] 50 mg PO Q6H PRN #12 tab 04/15/19 Allergies Allergy/AdvReac Type Severity Reaction Status Date / Time codeine Allergy Unknown Verified 04/15/19 11:01 Review of Systems ROS Statement: Those systems with pertinent positive or pertinent negative responses have been documented in the HPI. ROS Other: All systems not noted in ROS Statement are negative. Past Medical History Past Medical History: Hypertension, Osteoarthritis (OA) History of Any Multi-Drug Resistant Organisms: None Reported Past Surgical History: Back Surgery, Joint Replacement, Orthopedic Surgery Additional Past Surgical History / Comment(s): kidney stent Past Anesthesia/Blood Transfusion Reactions: No Reported Reaction Past Psychological History: Anxiety Smoking Status: Never smoker Past Alcohol Use History: None Reported Past Drug Use History: None Reported General Exam Limitations: no limitations General appearance: alert, in no apparent distress Head exam: Present: atraumatic, normocephalic, normal inspection Neck exam: Present: normal inspection. Absent: tenderness, meningismus, lymphadenopathy Respiratory exam: Present: normal lung sounds bilaterally. Absent: respiratory distress, wheezes, rales, rhonchi, stridor Cardiovascular Exam: Present: regular rate, normal rhythm, normal heart sounds. Absent: systolic murmur, diastolic murmur, rubs, gallop, clicks Extremities exam: Present: other (Left foot there is moderate swelling, tenderness with palpation to the metatarsal region neurovascular intact no ankle tenderness no proximal tib-fib tenderness) Skin exam: Present: warm, dry, intact, normal color. Absent: rash Course Vital Signs 04/15/19 10:49 Temperature 98.5 F Pulse Rate 69 Respiratory 18 Rate Blood Pressure 181/73 O2 Sat by Pulse 99 Oximetry Medical Decision Making - Medical Decision Making 78-year-old female presented emergency department for chief complaint of left foot pain. Patient had injury x-rays were obtained no acute fracture identified. Patient we discharged the left foot sprain. Patient will follow-up with orthopedics if no improvement return parameters were discussed. Disposition Clinical Impression: Fall, Sprain of left foot Disposition: HOME SELF-CARE Condition: Stable Instructions (If sedation given, give patient instructions): Foot Sprain (ED) Additional Instructions: Please return to the Emergency Department if symptoms worsen or any other concerns. Prescriptions: traMADol HCl [Ultram] 50 mg PO Q6H PRN #12 tab PRN Reason: Pain Is patient prescribed a controlled substance at d/c from ED?: Yes When asked, does pt state using other controlled substances?: No If prescribed controlled substance>3 days was MAPS reviewed?: Prescribed <3 Days Referrals: Dixie Staples MD [Primary Care Provider] - 1-2 days Time of Disposition: 11:48
[2019-04-15] MEDS ORDERED: HYDROcodone/APAP 5-325MG 1 EACH TAB PO STA (11:16)
[2019-04-15] MEDS ORDERED: ONDANSETRON ODT 4 MG TAB PO STA (11:16)
--- NOTE | 2019-04-15 11:36 | XR ---
Left foot HISTORY: Trauma and pain, swelling 3 views of the left foot There is soft tissue swelling. Low bone mineralization may limit sensitivity. Alignment and joint spa javan are maintained. There is a plantar calcaneal spur. IMPRESSION: Osteopenia and soft tissue swelling. No fracture or dislocation is evident. Follow-up as indicated.
[2019-04-15 12:55] VITALS: BP 137/90
== END 2019-04-15 12:41 | disposition home or self-care (01) ==
LOC: EC 10:45
DX: S93.602A Unspecified sprain of left foot, initial encounter (principal); Z88.5 Allergy status to narcotic agent; Z96.653 Presence of artificial knee joint, bilateral; W18.40XA Slipping, tripping and stumbling without falling, unspecified, initial encounter
CPT/HCPCS: 99283

== ENCOUNTER 2020-07-24 14:26 | Inpatient (IN) | payer MEDICARE, BC ==
[2020-07-24] MEDS ORDERED: SODIUM CHLORIDE 0.9% 1,000 ML IV STA (14:58)
[2020-07-24] MEDS ORDERED: SODIUM CHLORIDE 0.9% 500 ML 500 ML IV STA (14:58)
--- NOTE | 2020-07-24 15:17 | ED ---
Recheck HPI - General Source: patient Mode of arrival: ambulatory Limitations: no limitations <Mimi Hoyos - Last Filed: 07/24/20 18:30> <Bhargavi Aranda - Last Filed: 07/25/20 16:28> - General Chief Complaint: Recheck/Abnormal Lab/Rx Stated Complaint: Dehydration, Hypotensive Time Seen by Provider: 07/24/20 14:40 - History of Present Illness Initial Comments: 80-year-old female no currently on any home medications, who admits to history of HTN presenting to the emergency department today for chief complaint of sent by primary care office for possible dehydration. Patient states that she has had recent symptoms for the past 3 weeks a burning sensation in her epigastric region of her abdomen and decreased appetite. She denies any chest pain shortness of breath and nausea vomiting diarrhea dark stools or bloody stools. Patient denies any presyncope or syncope but states she has been fatigued. Patient went to her primary for basic laboratory studies there unable to obtain online and stated that this is most likely probably secondary to dehydration as she has had decreased appetite and told her to come to the emergency department for labs and IV hydration. Patient appears in no distress on arrival. (Mimi Hoyos) - Related Data Home Medications Medication Instructions Recorded Confirmed No Known Home Medications 07/24/20 07/24/20 Allergies Allergy/AdvReac Type Severity Reaction Status Date / Time codeine Allergy Unknown Verified 07/24/20 17:33 Review of Systems ROS Other: All systems not noted in ROS Statement are negative. <Mimi Hoyos - Last Filed: 07/24/20 18:30> ROS Other: All systems not noted in ROS Statement are negative. <Bhargavi Aranda - Last Filed: 07/25/20 16:28> ROS Statement: Those systems with pertinent positive or pertinent negative responses have been documented in the HPI. Past Medical History Past Medical History: Hypertension, Osteoarthritis (OA) History of Any Multi-Drug Resistant Organisms: None Reported Past Surgical History: Back Surgery, Joint Replacement, Orthopedic Surgery Additional Past Surgical History / Comment(s): kidney stent Past Anesthesia/Blood Transfusion Reactions: No Reported Reaction Past Psychological History: Anxiety Smoking Status: Never smoker Past Alcohol Use History: None Reported Past Drug Use History: None Reported <Mimi Hoyos - Last Filed: 07/24/20 18:30> General Exam Limitations: no limitations <Mimi Hoyos - Last Filed: 07/24/20 18:30> - General Exam Comments Initial Comments: General: The patient is awake and alert, in no distress, and does not appear acutely ill. Eye: +3 mm pupils are equal, round and reactive to light, extra-ocular movements are intact. No nystagmus. There is normal conjunctiva bilaterally. No signs of icterus. Ears, nose, mouth and throat: There are moist mucous membranes and no oral lesions. Neck: The neck is supple, there is no tenderness or JVD. Cardiovascular: There is a regular rate and rhythm. No murmur, rub or gallop is appreciated. Respiratory: Lungs are clear to auscultation, respirations are non-labored, breath sounds are equal. No wheezes, stridor, rales, or rhonchi. Gastrointestinal: Soft, non-distended, non-tender abdomen without masses or organomegaly noted. There is no rebound or guarding present. Musculoskeletal: Normal ROM, no tenderness. Strength 5/5. Sensation intact. Radial pulses equal bilaterally 2+. Neurological: A&O x 3. CN II-XII intact grossly, There are no obvious motor or sensory deficits. Coordination appears grossly intact. Speech is normal. Skin: Skin is warm and dry and no rashes or lesions are noted. Psychiatric: Cooperative, appropriate mood & affect, normal judgment. (Mimi Hoyos) Course Vital Signs 07/24/20 07/24/20 07/24/20 14:31 17:44 18:38 Temperature 98.1 F 97.7 F 98.6 F Pulse Rate 66 67 Pulse Rate [ 65 Pulse Oximetery ] Respiratory 18 18 18 Rate Blood Pressure 158/65 179/93 Blood Pressure 161/79 [Left Arm Supine] O2 Sat by Pulse 100 99 97 Oximetry 07/24/20 19:14 Temperature 97.8 F Pulse Rate 70 Pulse Rate [ Pulse Oximetery ] Respiratory 18 Rate Blood Pressure 175/92 Blood Pressure [Left Arm Supine] O2 Sat by Pulse 99 Oximetry Medical Decision Making - Lab Data Result diagrams: 07/24/20 15:19 07/24/20 16:10 <Mimi Hoyos - Last Filed: 07/24/20 18:30> - Lab Data Result diagrams: 07/24/20 15:19 07/25/20 05:32 <Bhargavi Aranda - Last Filed: 07/25/20 16:28> - Medical Decision Making Labs reveal leukopenia, mild anemia, denies rectal bleeding, or dark stools. AST/ALT elevated. US gas over pancreas, previous ana. CT reveals liver lesions, no noted pancreatic lesions. Lipase WNL. EKG LBBB. Troponin (-). Patient CXR clear. UA concerning for UTI. Patient does not appear toxic, given rocephin. Patient has bump in creatinine bun concerning for dehydration givne IVF after discussing case with Dr. Aranda we feel admission for IV abx, hydration appropriate at this time. Ventricular rate 64 bpm, HI interval 180 ms, QRS duration 142 ms, QT/QTC 458/472ms, myositis with left bundle branch block no ST elevation or depression appreciated. Reviewed by Shaun Aranda (Mimi Hoyos) I was available for consultation in the emergency department. The history and physical exam were done by the midlevel provider. I was consulted for this patients care. I reviewed the case with the midlevel provider and based on their presentation of the patient, I agree with the assessment, medical decision making and plan of care as documented. Chart was dictated using [employer] dictation software. Attempts were made to correct any dictation errors however some typographical errors may persist. Patient was seen during a national state of emergency due to the Covid-19 pandemic. (Bhargavi Aranda) - Lab Data Lab Results 07/24/20 07/24/20 07/24/20 Range/Units 15:19 15:19 15:19 WBC 3.3 L (3.8-10.6) k/uL RBC 3.52 L (3.80-5.40) m/uL Hgb 11.1 L (11.4-16.0) gm/dL Hct 35.3 (34.0-46.0) % MCV 100.2 H (80.0-100.0) fL MCH 31.5 (25.0-35.0) pg MCHC 31.5 (31.0-37.0) g/dL RDW 16.2 H (11.5-15.5) % Plt Count 89 L (150-450) k/uL Neutrophils % 60 % Lymphocytes % 26 % Monocytes % 10 % Eosinophils % 1 % Basophils % 1 % Neutrophils # 2.0 (1.3-7.7) k/uL Lymphocytes # 0.8 L (1.0-4.8) k/uL Monocytes # 0.3 (0-1.0) k/uL Eosinophils # 0.0 (0-0.7) k/uL Basophils # 0.0 (0-0.2) k/uL Manual Slide Review Performed Anisocytosis Slight Macrocytosis Slight PT 11.8 (9.0-12.0) sec INR 1.2 H (<1.2) APTT 21.2 L (22.0-30.0) sec Sodium (137-145) mmol/L Potassium (3.5-5.1) mmol/L Chloride (98-107) mmol/L Carbon Dioxide (22-30) mmol/L Anion Gap mmol/L BUN (7-17) mg/dL Creatinine (0.52-1.04) mg/dL Est GFR (CKD-EPI)AfAm (>60 ml/min/1.73 sqM) Est GFR (CKD-EPI)NonAf (>60 ml/min/1.73 sqM) Glucose (74-99) mg/dL Calcium (8.4-10.2) mg/dL Total Bilirubin (0.2-1.3) mg/dL AST (14-36) U/L ALT (4-34) U/L Alkaline Phosphatase (38-126) U/L Troponin I (0.000-0.034) ng/mL Total Protein (6.3-8.2) g/dL Albumin (3.5-5.0) g/dL Amylase (30-110) U/L Lipase (23-300) U/L Urine Color Light Red Urine Appearance Turbid H (Clear) Urine pH 8.0 (5.0-8.0) Ur Specific [place] 1.016 (1.001-1.035) Urine Protein 1+ H (Negative) Urine Glucose (UA) Negative (Negative) Urine Ketones Negative (Negative) Urine Blood Small H (Negative) Urine Nitrite Negative (Negative) Urine Bilirubin Negative (Negative) Urine Urobilinogen 6.0 (<2.0) mg/dL Ur Leukocyte Esterase Large H (Negative) Urine RBC 7 H (0-5) /hpf Urine WBC 41 H (0-5) /hpf Urine WBC Clumps Occasional H (None) /hpf Ur Squamous Epith Cells 7 H (0-4) /hpf Calcium Oxalate Crystal Few H (None) /hpf Urine Bacteria Moderate H (None) /hpf Hyaline Casts 5 H (0-2) /lpf Urine Mucus Rare H (None) /hpf Urine Yeast (Budding) Few H (None) /hpf Hepatitis A IgM Ab Hep Bs Antigen (Non-Reactive) Hep B Core IgM Ab (Non-Reactive) Hep C IgG Ab (Non-Reactive) Heterophile Antibody (Negative) 07/24/20 07/24/20 07/24/20 Range/Units 15:19 15:19 15:19 WBC (3.8-10.6) k/uL RBC (3.80-5.40) m/uL Hgb (11.4-16.0) gm/dL Hct (34.0-46.0) % MCV (80.0-100.0) fL MCH (25.0-35.0) pg MCHC (31.0-37.0) g/dL RDW (11.5-15.5) % Plt Count (150-450) k/uL Neutrophils % % Lymphocytes % % Monocytes % % Eosinophils % % Basophils % % Neutrophils # (1.3-7.7) k/uL Lymphocytes # (1.0-4.8) k/uL Monocytes # (0-1.0) k/uL Eosinophils # (0-0.7) k/uL Basophils # (0-0.2) k/uL Manual Slide Review Anisocytosis Macrocytosis PT (9.0-12.0) sec INR (<1.2) APTT (22.0-30.0) sec Sodium (137-145) mmol/L Potassium (3.5-5.1) mmol/L Chloride (98-107) mmol/L Carbon Dioxide (22-30) mmol/L Anion Gap mmol/L BUN (7-17) mg/dL Creatinine (0.52-1.04) mg/dL Est GFR (CKD-EPI)AfAm (>60 ml/min/1.73 sqM) Est GFR (CKD-EPI)NonAf (>60 ml/min/1.73 sqM) Glucose (74-99) mg/dL Calcium (8.4-10.2) mg/dL Total Bilirubin (0.2-1.3) mg/dL AST (14-36) U/L ALT (4-34) U/L Alkaline Phosphatase (38-126) U/L Troponin I 0.020 (0.000-0.034) ng/mL Total Protein (6.3-8.2) g/dL Albumin (3.5-5.0) g/dL Amylase (30-110) U/L Lipase (23-300) U/L Urine Color Urine Appearance (Clear) Urine pH (5.0-8.0) Ur Specific [place] (1.001-1.035) Urine Protein (Negative) Urine Glucose (UA) (Negative) Urine Ketones (Negative) Urine Blood (Negative) Urine Nitrite (Negative) Urine Bilirubin (Negative) Urine Urobilinogen (<2.0) mg/dL Ur Leukocyte Esterase (Negative) Urine RBC (0-5) /hpf Urine WBC (0-5) /hpf Urine WBC Clumps (None) /hpf Ur Squamous Epith Cells (0-4) /hpf Calcium Oxalate Crystal (None) /hpf Urine Bacteria (None) /hpf Hyaline Casts (0-2) /lpf Urine Mucus (None) /hpf Urine Yeast (Budding) (None) /hpf Hepatitis A IgM Ab Hep Bs Antigen Non-Reactive (Non-Reactive) Hep B Core IgM Ab Non-Reactive (Non-Reactive) Hep C IgG Ab Non-Reactive (Non-Reactive) Heterophile Antibody Negative (Negative) 07/24/20 07/24/20 Range/Units 16:10 17:20 WBC (3.8-10.6) k/uL RBC (3.80-5.40) m/uL Hgb (11.4-16.0) gm/dL Hct (34.0-46.0) % MCV (80.0-100.0) fL MCH (25.0-35.0) pg MCHC (31.0-37.0) g/dL RDW (11.5-15.5) % Plt Count (150-450) k/uL Neutrophils % % Lymphocytes % % Monocytes % % Eosinophils % % Basophils % % Neutrophils # (1.3-7.7) k/uL Lymphocytes # (1.0-4.8) k/uL Monocytes # (0-1.0) k/uL Eosinophils # (0-0.7) k/uL Basophils # (0-0.2) k/uL Manual Slide Review Anisocytosis Macrocytosis PT (9.0-12.0) sec INR (<1.2) APTT (22.0-30.0) sec Sodium 133 L (137-145) mmol/L Potassium 4.2 (3.5-5.1) mmol/L Chloride 103 (98-107) mmol/L Carbon Dioxide 26 (22-30) mmol/L Anion Gap 4 mmol/L BUN 29 H (7-17) mg/dL Creatinine 1.05 H (0.52-1.04) mg/dL Est GFR (CKD-EPI)AfAm 57 (>60 ml/min/1.73 sqM) Est GFR (CKD-EPI)NonAf 50 (>60 ml/min/1.73 sqM) Glucose 120 H (74-99) mg/dL Calcium 8.5 (8.4-10.2) mg/dL Total Bilirubin 1.3 (0.2-1.3) mg/dL AST 560 H (14-36) U/L ALT 325 H (4-34) U/L Alkaline Phosphatase 134 H (38-126) U/L Troponin I (0.000-0.034) ng/mL Total Protein 7.4 (6.3-8.2) g/dL Albumin 2.9 L (3.5-5.0) g/dL Amylase 50 (30-110) U/L Lipase 157 (23-300) U/L Urine Color Urine Appearance (Clear) Urine pH (5.0-8.0) Ur Specific [place] (1.001-1.035) Urine Protein (Negative) Urine Glucose (UA) (Negative) Urine Ketones (Negative) Urine Blood (Negative) Urine Nitrite (Negative) Urine Bilirubin (Negative) Urine Urobilinogen (<2.0) mg/dL Ur Leukocyte Esterase (Negative) Urine RBC (0-5) /hpf Urine WBC (0-5) /hpf Urine WBC Clumps (None) /hpf Ur Squamous Epith Cells (0-4) /hpf Calcium Oxalate Crystal (None) /hpf Urine Bacteria (None) /hpf Hyaline Casts (0-2) /lpf Urine Mucus (None) /hpf Urine Yeast (Budding) (None) /hpf Hepatitis A IgM Ab NEGATIVE Hep Bs Antigen (Non-Reactive) Hep B Core IgM Ab (Non-Reactive) Hep C IgG Ab (Non-Reactive) Heterophile Antibody (Negative) Disposition Is patient prescribed a controlled substance at d/c from ED?: No Time of Disposition: 17:25 Decision to Admit Reason: Admit from EC Decision Date: 07/24/20 Decision Time: 17:25 <Mimi Hoyos - Last Filed: 07/24/20 18:30> <Bhargavi Aranda - Last Filed: 07/25/20 16:28> Clinical Impression: UTI (urinary tract infection), Dehydration, Elevated liver enzymes, Epigastric pain, Lack of appetite Disposition: ADMITTED IP TO THIS HOSP Condition: Stable
[2020-07-24 16:06] LABS: INR 1.2 (<1.2); Partial Thromboplastin Time 21.2 sec (22.0-30.0); Prothrombin Time 11.8 sec (9.0-12.0)
--- NOTE | 2020-07-24 16:09 | US ---
EXAMINATION TYPE: US abdomen limited DATE OF EXAM: 07/24/2020 COMPARISON: 03/23/2019 CLINICAL HISTORY: epigastric region. GB removed x many years ago. Hx severe right kidney hydronephro sis per previous exams EXAM MEASUREMENTS: Liver Length: 14.2 cm CBD: 0.5 cm Right Kidney: 9.5 x 5.6 x 6.2 cm Pancreas: Obscured by bowel gas Liver: wnl Gallbladder: Surgically absent Evidence for sonographic Corey's sign: neg CBD: wnl Right Kidney: Possible severe hydronephrosis. upper pole cystic lesion - 4.2 x 3.4 x 3.2 cm IMPRESSION: Severe hydronephrosis right kidney.
[2020-07-24 16:16] LABS: Anisocytosis Slight; Basophils % (A) 1 %; Eosinophils % (A) 1 %; HCT 35.3 % (34.0-46.0); HGB 11.1 gm/dL (11.4-16.0); Lymphocytes # (A) 0.8 k/uL (1.0-4.8); Lymphocytes % (A) 26 %; MCH 31.5 pg (25.0-35.0); MCHC 31.5 g/dL (31.0-37.0); MCV 100.2 fL (80.0-100.0); Macrocytosis Slight; Mean Platelet Volume 8.2; Monocytes # (A) 0.3 k/uL (0-1.0); Monocytes % (A) 10 %; Neutrophils % (A) 60 %; Platelet Count 89 k/uL (150-450); RBC 3.52 m/uL (3.80-5.40); RDW 16.2 % (11.5-15.5); WBC 3.3 k/uL (3.8-10.6)
[2020-07-24 16:22] LABS: Appearance,Urine Turbid (Clear); Bacteria,Urine Moderate /hpf; Bilirubin,Urine Negative (Negative); Blood,Urine Small (Negative); Budding Yeast,Urine Few /hpf; Calcium Oxalate Crystals,Urine Few /hpf; Color,Urine Light Red; Glucose,Urine (UA) Negative (Negative); Hyaline Casts,Urine 5 /lpf (0-2); Ketones,Urine Negative (Negative); Leukocyte Esterase,Urine Large (Negative); Mucus,Urine Rare /hpf; Nitrite,Urine Negative (Negative); Protein,Urine 1+ (Negative); RBC,Urine 7 /hpf (0-5); Specific Gravity,Urine 1.016 (1.001-1.035); Squamous Epithelial Cell,Urine 7 /hpf (0-4); WBC,Urine 41 /hpf (0-5)
--- NOTE | 2020-07-24 16:29 | XR ---
EXAMINATION TYPE: XR chest 2V DATE OF EXAM: 07/24/2020 COMPARISON: NONE HISTORY: Shortness of breath TECHNIQUE: Frontal and lateral views of the chest are obtained. FINDINGS: Scattered senescent parenchymal changes noted. Hyperinflation compatible with COPD. No evidence for infiltrate. No evidence for atelectasis. Large fixed hiatal hernia noted. Heart size is stable. Mediastinal structures are stable and grossly unremarkable. No evidence for hilar prominence. Degenerative changes dorsal spine. IMPRESSION: 1. No evidence for acute pulmonary disease.
[2020-07-24 16:30] LABS: Albumin 2.9 g/dL (3.5-5.0); Calcium 8.5 mg/dL (8.4-10.2); Potassium 4.2 mmol/L (3.5-5.1); Total Bilirubin 1.3 mg/dL (0.2-1.3); Total Protein 7.4 g/dL (6.3-8.2)
[2020-07-24] MEDS ORDERED: cefTRIAXone IN SWFI 1,000 MG/10 ML SYRINGE IVP STA (16:47)
--- NOTE | 2020-07-24 18:05 | CT ---
EXAMINATION TYPE: CT abdomen pelvis w con DATE OF EXAM: 07/24/2020 COMPARISON: 07/24/2020 ultrasound HISTORY: Epigastric pain CT DLP: 902.7 mGycm Automated exposure control for dose reduction was used. TECHNIQUE: Helical acquisition of images was performed from the lung bases through the pelvis. CONTRAST: Performed without Oral Contrast and with IV Contrast, patient injected with 80 mL of Isovue 300. FINDINGS: VISUALIZED LOWER CHEST: There is moderate cardiomegaly and panchamber enlargement. No pericardial eff usion. There is a 1.5 cm hyperdensity in the upper right hepatic lobe posterior segment, axial image . Would suggest further characterization using liver MRI. LIVER/GB: There is caudate lobe enlargement and scalloped margins throughout the liver. PANCREAS: No significant abnormality is seen. SPLEEN: No focal lesions, but mild splenomegaly is noted. ADRENALS: No significant abnormality is seen. KIDNEYS: No significant abnormality is seen. Bilateral simple appearing renal cysts redemonstrated. FREE AIR: No free air is visualized. RETROPERITONEAL ADENOPATHY: None visualized REPRODUCTIVE ORGANS: No significant abnormality is seen URINARY BLADDER: No significant abnormality is seen. PELVIC ADENOPATHY: None visualized. OSSEOUS STRUCTURES: Heterogeneous trabecular pattern redemonstrated, no definite acute skeletal find ings. BOWEL: Only the gastric antrum is within the abdomen, the remainder of the stomach is intrathoracic in position, unchanged since the [address] OTHER: No acute vascular findings, but prominently enlarged portal venous system and prominent abdomi nal varices are noted. However, widespread atherosclerotic intimal calcifications are seen throughout the visualized arteria l anatomy with evidence of a hemodynamically significant stenosis involving the proximal right common iliac artery. IMPRESSION: NO DEFINITE ACUTE PROCESS. HEPATIC FINDINGS, WITH PORTAL VENOUS PROMINENCE, ABDOMINAL VARICES, AND MILD SPLENOMEGALY. NONURGENT ABDOMINAL MRI LIVER PROTOCOL SUGGESTED.
[2020-07-24 18:12] LABS: Hepatitis A Antibody IgM NEGATIVE
[2020-07-24] MEDS ORDERED: NALOXONE 0.4 MG/ML 1 ML VIAL IV PRN (18:23)
[2020-07-24] MEDS ORDERED: amLODIPine 5 MG TAB PO STA (18:50)
[2020-07-24] MEDS ORDERED: MORPHINE SULFATE 4 MG/ML SYRINGE IVP PRN (21:01)
[2020-07-24] MEDS: LORazepam 0.5 MG TAB PO PRN (21:21)
[2020-07-25 02:13] LABS: Hepatitis B Core IgM Non-Reactive (Non-Reactive); Hepatitis B Surface Antigen Non-Reactive (Non-Reactive); Hepatitis C IgG Antibody Non-Reactive (Non-Reactive)
[2020-07-25 06:47] LABS: Albumin 2.4 g/dL (3.5-5.0); Calcium 8.2 mg/dL (8.4-10.2); Potassium 4.1 mmol/L (3.5-5.1); Total Bilirubin 1.2 mg/dL (0.2-1.3); Total Protein 6.5 g/dL (6.3-8.2)
[2020-07-25] MEDS: SODIUM CHLORIDE 0.9% 1,000 ML IV SCH ×2 (10:19→13:16)
--- NOTE | 2020-07-25 14:47 | P.HPIM ---
History of Present Illness H&P Date: 07/25/20 Chief Complaint: Recheck/Abnormal Lab/Rx/ Dehydration, Hypotensive 80-year-old female no currently on any home medications, who admits to history of HTN presenting to the emergency department today for chief complaint of sent by primary care office for possible dehydration. Patient states that she has had recent symptoms for the past 3 weeks a burning sensation in her epigastric region of her abdomen and decreased appetite. She denies any chest pain shortness of breath and nausea vomiting diarrhea dark stools or bloody stools. Patient denies any presyncope or syncope but states she has been fatigued. Patient went to her primary for basic laboratory studies there unable to obtain online and stated that this is most likely probably secondary to dehydration as she has had decreased appetite and told her to come to the emergency department for labs and IV hydration. Patient appears in no distress on arrival. Review of Systems REVIEW OF SYSTEMS: CONSTITUTIONAL: No fever, no malaise, no fatigue. HEENT: No recent visual problems or hearing problems. Denied any sore throat. CARDIOVASCULAR: No chest pain, orthopnea, PND, no palpitations, no syncope. PULMONARY: No shortness of breath, no cough, no hemoptysis. GASTROINTESTINAL: No diarrhea, no nausea, no vomiting, no abdominal pain. NEUROLOGICAL: No headaches, no weakness, no numbness. HEMATOLOGICAL: Denies any bleeding or petechiae. GENITOURINARY: Denies any burning micturition, frequency, or urgency. MUSCULOSKELETAL/RHEUMATOLOGICAL: Denies any joint pain, swelling, or any muscle pain. ENDOCRINE: Denies any polyuria or polydipsia. The rest of the 14-point review of systems is negative. Past Medical History Past Medical History: Hypertension, Osteoarthritis (OA) History of Any Multi-Drug Resistant Organisms: None Reported Past Surgical History: Back Surgery, Cholecystectomy, Joint Replacement, Orthopedic Surgery Additional Past Surgical History / Comment(s): kidney stent Past Anesthesia/Blood Transfusion Reactions: No Reported Reaction Past Psychological History: Anxiety Smoking Status: Never smoker Past Alcohol Use History: None Reported Past Drug Use History: None Reported Medications and Allergies Home Medications Medication Instructions Recorded Confirmed Type No Known Home Medications 07/24/20 07/24/20 History Allergies Allergy/AdvReac Type Severity Reaction Status Date / Time codeine Allergy Unknown Verified 07/24/20 17:33 Physical Exam Vitals: Vital Signs Temp Pulse Pulse Resp BP BP Pulse Ox 07/25/20 03:00 98 F 80 18 145/64 97 07/24/20 21:00 98.6 F 65 16 161/79 97 07/24/20 19:30 97.8 F 70 20 185/85 99 07/24/20 19:14 97.8 F 70 18 175/92 99 07/24/20 18:38 98.6 F 65 18 161/79 97 07/24/20 17:44 97.7 F 67 18 179/93 99 07/24/20 14:31 98.1 F 66 18 158/65 100 Intake and Output 07/24/20 07/25/20 07/25/20 22:59 06:59 14:59 Intake Total 190 1040 240 Balance 190 1040 240 Intake: Intake, IV Titration 1040 Amount Sodium Chloride 0.9% 1, 1040 000 ml @ 130 mls/hr IV . Q7H42M STA Rx#:[id number] Oral 190 240 Other: Voiding Method Bedside Commode Bedside Commode # Voids 3 3 Weight 72.575 kg General: The patient is awake and alert, in no distress, and does not appear acutely ill. Eye: +3 mm pupils are equal, round and reactive to light, extra-ocular movements are intact. No nystagmus. There is normal conjunctiva bilaterally. No signs of icterus. Ears, nose, mouth and throat: There are moist mucous membranes and no oral lesions. Neck: The neck is supple, there is no tenderness or JVD. Cardiovascular: There is a regular rate and rhythm. No murmur, rub or gallop is appreciated. Respiratory: Lungs are clear to auscultation, respirations are non-labored, breath sounds are equal. No wheezes, stridor, rales, or rhonchi. Gastrointestinal: Soft, non-distended, non-tender abdomen without masses or organomegaly noted. There is no rebound or guarding present. Musculoskeletal: Normal ROM, no tenderness. Strength 5/5. Sensation intact. Ra dial pulses equal bilaterally 2+. Neurological: A&O x 3. CN II-XII intact grossly, There are no obvious motor or sensory deficits. Coordination appears grossly intact. Speech is normal. Skin: Skin is warm and dry and no rashes or lesions are noted. Results CBC & Chem 7: 07/24/20 15:19 07/25/20 05:32 Labs: Abnormal Lab Results - Last 24 Hours (Table) 07/24/20 07/24/20 07/24/20 Range/Units 15:19 15:19 15:19 WBC 3.3 L (3.8-10.6) k/uL RBC 3.52 L (3.80-5.40) m/uL Hgb 11.1 L (11.4-16.0) gm/dL MCV 100.2 H (80.0-100.0) fL RDW 16.2 H (11.5-15.5) % Plt Count 89 L (150-450) k/uL Lymphocytes # 0.8 L (1.0-4.8) k/uL INR 1.2 H (<1.2) APTT 21.2 L (22.0-30.0) sec Sodium (137-145) mmol/L Chloride (98-107) mmol/L BUN (7-17) mg/dL Creatinine (0.52-1.04) mg/dL Glucose (74-99) mg/dL Calcium (8.4-10.2) mg/dL AST (14-36) U/L ALT (4-34) U/L Alkaline Phosphatase (38-126) U/L Albumin (3.5-5.0) g/dL Urine Appearance Turbid H (Clear) Urine Protein 1+ H (Negative) Urine Blood Small H (Negative) Ur Leukocyte Esterase Large H (Negative) Urine RBC 7 H (0-5) /hpf Urine WBC 41 H (0-5) /hpf Urine WBC Clumps Occasional H (None) /hpf Ur Squamous Epith Cells 7 H (0-4) /hpf Calcium Oxalate Crystal Few H (None) /hpf Urine Bacteria Moderate H (None) /hpf Hyaline Casts 5 H (0-2) /lpf Urine Mucus Rare H (None) /hpf Urine Yeast (Budding) Few H (None) /hpf 07/24/20 07/25/20 Range/Units 16:10 05:32 WBC (3.8-10.6) k/uL RBC (3.80-5.40) m/uL Hgb (11.4-16.0) gm/dL MCV (80.0-100.0) fL RDW (11.5-15.5) % Plt Count (150-450) k/uL Lymphocytes # (1.0-4.8) k/uL INR (<1.2) APTT (22.0-30.0) sec Sodium 133 L 135 L (137-145) mmol/L Chloride 108 H (98-107) mmol/L BUN 29 H 23 H (7-17) mg/dL Creatinine 1.05 H (0.52-1.04) mg/dL Glucose 120 H (74-99) mg/dL Calcium 8.2 L (8.4-10.2) mg/dL AST 560 H 455 H (14-36) U/L ALT 325 H 288 H (4-34) U/L Alkaline Phosphatase 134 H (38-126) U/L Albumin 2.9 L 2.4 L (3.5-5.0) g/dL Urine Appearance (Clear) Urine Protein (Negative) Urine Blood (Negative) Ur Leukocyte Esterase (Negative) Urine RBC (0-5) /hpf Urine WBC (0-5) /hpf Urine WBC Clumps (None) /hpf Ur Squamous Epith Cells (0-4) /hpf Calcium Oxalate Crystal (None) /hpf Urine Bacteria (None) /hpf Hyaline Casts (0-2) /lpf Urine Mucus (None) /hpf Urine Yeast (Budding) (None) /hpf Thrombosis Risk Factor Assmnt - Choose All That Apply Any of the Below Risk Factors Present?: No Other Risk Factors: Yes Each Risk Factor Represents 3 Points: Age 75 years or older Other congenital or acquired thrombophilia - If yes, enter type in comment: No Thrombosis Risk Factor Assessment Total Risk Factor Score: 3 Thrombosis Risk Factor Assessment Level: Moderate Risk Assessment and Plan Assessment: 1. Acute renal injury/dehydration; patient remains on IV fluids in form of normal saline at rate of 75 mL an hour; we will monitor strict BALDO's, daily weights, renal function and electrolytes; avoid nephrotoxic agents and hypotension 2. UTI; ceftriaxone 1 g IV every 12 hours; blood cultures and urine cultures obtained; we will adjust antibiotic therapy once culture results are available 3. Elevated liver enzymes; CT of abdomen and pelvis done in ED reveals 1.5 cm hypodensity and right hepatic lobe; liver MRI is recommended; we will hold off on further testing Patient is seen by GI; liver enzymes are slowly trending down; we will continue to monitor closely; await GI recommendations 4. Epigastric pain/decreased appetite; etiology unclear; gastritis versus peptic ulcer disease; we will start patient on PPI; consult GI for further evaluation 5. Uncontrolled Hypertension; currently not on any antihypertensive therapy at home; patient was started on Norvasc 5 mg daily from ED; blood pressure has since stabilized and Norvasc has been discontinued; we will monitor blood pressure closely and resume Norvasc if blood pressure remains elevated DVT prophylaxis; SCDs/subcu heparin CODE STATUS; full code
[2020-07-25] MEDS: ENOXAPARIN 30 MG/0.3 ML SYRINGE SQ SCH (16:09)
--- NOTE | 2020-07-25 17:19 | CONS ---
CONSULTATION DATE OF DICTATION: 07/25/2020 REASON FOR CONSULTATION: Epigastric pain and elevated LFTs. HISTORY OF PRESENT ILLNESS: The patient is an 80-year-old pleasant white female with no significant past medical history. She went to see Dr. Staples yesterday because of epigastric pain for the last 2 weeks' duration. The pain continued to progressively get worse. She initially thought it was heartburn, took some Pepto-Bismol, with no help. The pain continued to progressively get worse with decreased appetite, some nausea and vomiting, and hence she went to see Dr. Staples yesterday. She was advised to go to the emergency room for further evaluation. In the ER, she had routine labs done which showed elevated serum transaminases and hence we are consulted in regard to this issue. The patient is feeling much better today. The abdominal pain has resolved. No nausea, no vomiting. No fever, chills or night sweats. She never had these symptoms in the past. She has remote history of gallbladder surgery almost 40 years ago. PAST MEDICAL HISTORY: Hypertension, degenerative joint disease. PAST SURGICAL HISTORY: Cholecystectomy, back surgery and kidney stent placement. MEDICATIONS AT HOME: None. ALLERGIES: CODEINE. SOCIAL HISTORY: No smoking. No alcohol use. FAMILY HISTORY: Unremarkable. REVIEW OF SYSTEMS: CARDIOPULMONARY: No chest pain or shortness of breath. GENITOURINARY: No dysuria or hematuria. MUSCULOSKELETAL: Unremarkable. SKIN: Unremarkable. ENDOCRINE: Unremarkable. PSYCHIATRIC: Unremarkable. NEUROLOGY: Unremarkable. ENT/VISION: Unremarkable. CONSTITUTIONAL: No recent weight loss. No fever, chills, night sweats. PHYSICAL EXAMINATION: She appears comfortable. No apparent distress. Vital signs are stable. Blood pressure 134/61, pulse rate 67, temperature 97.9. HEENT examination unremarkable. Conjunctivae pink. Sclerae anicteric. Oral cavity no lesions. NECK: No JVD or lymph node enlargement. CHEST: Clear to auscultation. HEART: Regular rate and rhythm. ABDOMEN: Soft. It was non-tender, non-distended. No organomegaly. EXTREMITIES: No pedal edema. SKIN: No rashes. NEUROLOGIC: Alert and oriented x3. No focal deficits. LABS: Labs at the time of admission to the hospital: WBC 3.3, hemoglobin 11.1, platelets 89,000. INR 1.2. AST and ALT are 560 and 325, respectively. T-bilirubin 1.3, alkaline phosphatase 134. Today AST is down to 455, ALT is down to 288, alkaline phosphatase 118, and T-bilirubin is 1.2. Hepatitis serologies for A, B and C were negative. She initially had an ultrasound of the abdomen that showed absent gallbladder, severe right kidney hydronephrosis. She subsequently had a CT of the abdomen and pelvis done last night that showed mild irregularity throughout the liver with enlargement of the caudate lobe but no biliary ductal dilation seen. Large hiatal hernia noted. Prominent and large portal venous system and abdominal varices noted. IMPRESSION: 1. This is a lady who presented to the hospital with severe epigastric pain for the last 2 weeks' duration and elevated serum transaminases and remote history of cholecystectomy. At this time, possibility of choledocholithiasis needs to be considered. However, this morning her symptoms have significantly improved and the pain has completely subsided. Her serum transaminases are slightly improved. T- bilirubin is normal. Alkaline phosphatase is minimally elevated. CT of the abdomen and ultrasound of the abdomen did not show any evidence of biliary ductal dilation. 2. Possible liver cirrhosis based on imaging studies with evidence of portal hypertension, abdominal varices, splenomegaly and enlarged caudate lobe of the liver, all suspicious for cirrhosis of the liver. 3. History of hypertension. 4. Remote history of cholecystectomy. RECOMMENDATIONS: 1. Obtain MRCP to rule out any CBD stones and MRI of the liver to evaluate the 1.5 cm lesion that was noted in the upper right hepatic lobe of the liver. 2. Patient already started on antibiotics, which can be continued. 3. Repeat LFTs in the morning. 4. Further workup based on MRI results. Thank you for this consultation. Will follow with you closely during this hospital stay. MMODL / IJN: [id number] /
[2020-07-25] MEDS: ONDANSETRON 4 MG/2 ML VIAL IVP PRN (19:01)
[2020-07-26 07:50] LABS: Anisocytosis Slight; Basophils % (A) 0 %; Eosinophils # (A) 0.1 k/uL (0-0.7); Eosinophils % (A) 2 %; HCT 32.6 % (34.0-46.0); HGB 10.5 gm/dL (11.4-16.0); Hypochromasia Slight; Lymphocytes # (A) 0.7 k/uL (1.0-4.8); Lymphocytes % (A) 26 %; MCH 32.6 pg (25.0-35.0); MCHC 32.3 g/dL (31.0-37.0); MCV 100.9 fL (80.0-100.0); Macrocytosis Slight; Mean Platelet Volume 8.9; Monocytes # (A) 0.3 k/uL (0-1.0); Monocytes % (A) 9 %; Neutrophils # (A) 1.7 k/uL (1.3-7.7); Neutrophils % (A) 59 %; Platelet Count 102 k/uL (150-450); RBC 3.23 m/uL (3.80-5.40); RDW 16.3 % (11.5-15.5); WBC 2.8 k/uL (3.8-10.6)
[2020-07-26 07:55] LABS: Albumin 2.2 g/dL (3.5-5.0); Bilirubin, Delta 0.5 mg/dL (0.0-0.2); Bilirubin,Unconjugated 0.4 mg/dL (0.0-1.1); Calcium 7.8 mg/dL (8.4-10.2); Potassium 4.1 mmol/L (3.5-5.1); Total Bilirubin 0.9 mg/dL (0.2-1.3); Total Protein 6.2 g/dL (6.3-8.2)
--- NOTE | 2020-07-26 11:49 | PN ---
PROGRESS NOTE Patient is an 80-year-old pleasant white female admitted to the hospital with epigastric pain for the last 3 weeks duration. She was noted to have elevated LFTs. CT scan showed nodular liver with portal hypertension suspicious for liver cirrhosis. In the meantime, patient is doing better. Her LFTs are gradually improving. She has remote history of gallbladder surgery many years ago. Because of clinical suspicion for CBD stone, she is scheduled for an MRCP today, which is scheduled for 2:00 PM this afternoon. In the meantime, she is doing well. No abdominal pain. No nausea, no vomiting. PHYSICAL EXAMINATION: Appears comfortable. VITAL SIGNS: Stable. Blood pressure 136/77, pulse rate 77, temperature 97.2. HEENT: Examination unremarkable. Conjunctivae are pink. Sclerae anicteric. Oral cavity no lesions. NECK: No JVD or lymph node enlargement. CHEST: Clear to auscultation. HEART: Regular rate and rhythm. ABDOMEN: Soft. No tenderness in the epigastric area. Bowel sounds are positive. No organomegaly. EXTREMITIES: No pedal edema. SKIN: No rashes. NEUROLOGIC: Alert and oriented x3. No focal deficits. LABS: From today WBC 2.9, hemoglobin 10.5, platelets 102. AST and ALT are 415 and 260 respectively, alkaline phosphatase is 108, and T-bilirubin is 0.9. Hepatitis serologies for A, B and C are negative. IMPRESSION: 1. Epigastric pain of 2 weeks duration and elevated serum transaminases in this lady with remote history of previous gallbladder surgery 20 years ago. At this time, possibility of common bile duct stones cannot be excluded. The patient is doing well. Her abdominal pain has resolved. LFTs are gradually improving. 2. Mild pancytopenia probably explained on the basis of underlying chronic liver disease. 3. Nodular liver with portal hypertension and abdominal varices noted on recent CT scan suggestive of cirrhosis of the liver. RECOMMENDATION: 1. Await for MRCP results. 2. Advance diet as tolerated after the MRCP is done. 3. Further recommendations will be made based on the MRCP results. The nursing staff were notified to page me with the results. Thank you for this consultation. MMODL / IJN: [id number] /
--- NOTE | 2020-07-26 14:14 | MR ---
EXAMINATION TYPE: MR liver wo/w con and MRCP DATE OF EXAM: 07/26/2020 COMPARISON: Correlation CT 07/24/2020 HISTORY: 80-year-old female 1.5 cm lesion in the liver, elevated LFT, r/o CBD stone Technique: Multiplanar, multisequence images of the abdomen were obtained before and after administra tion of 7 mL intravenous Gadavist gadolinium contrast. Additional highly T2 weighted images of the p ancreaticobiliary system for MRCP. Rotational 3-D reconstructions generated on a dedicated workstatio n. FINDINGS: Heart is mildly enlarged. Large hiatal hernia is demonstrated. Trace pleural effusions. Liver normal size 13.6 cm. No T2-weighted focal liver lesion seen. No abnormal area of accelerated wa shout on the postcontrast images. Mild loss of signal within the liver parenchyma on out of phase T1- weighted sequence suggests mild fatty infiltration. Possible portosystemic shunt is noted at the righ t upper lobe. Mild nodular contour outlined by trace perihepatic ascites. Portal venous system is patent. Large caliber to the main portal vein at 1.5 cm. Prominent collateral s noted in the left upper quadrant. Bile duct has a caliber of 9 mm with normal distal tapering. This is acceptable given postcholecystec shavon status and patient's age. No suspicious filling defect is seen. Gallbladder surgically absent. Multiple left-sided renal cysts measuring up to 4.8 cm. Pancreas and adrenal glands show no gross abnormality. There is severe right-sided hydronephrosis. No excretion of contrast from the right kidney is visuali zed during the course of the study. Right renal parenchymal thinning. Spleen measures up to 12.8 cm but is thickened up to 6.6 cm. Generalized anasarca change. Bettie hepatic lymph nodes are borderline enlarged measuring up to 1 cm. Trace perihepatic ascites. No gross bowel abnormality in the upper abdomen. IMPRESSION: 1. Bile duct mildly dilated at 9 mm with normal distal tapering. This is acceptable given postcholecy stectomy status and patient's age. No suspicious filling defect is seen. 2. Cirrhotic morphology of the liver. There is anasarca change with trace effusions and trace perihep atic ascites as well as large caliber to the main portal vein suggesting underlying portal venous hyp ertension. No suspicious finding to suggest hepatoma. 3. Severe right-sided hydronephrosis with renal parenchymal thinning. Correlate for possible UPJ obst ruction. 4. Large hiatal hernia.
[2020-07-26] MEDS: SODIUM CHLORIDE 0.9% 1,000 ML IV SCH (15:46)
[2020-07-26] MEDS: ENOXAPARIN 30 MG/0.3 ML SYRINGE SQ SCH (17:07)
--- NOTE | 2020-07-26 17:11 | P.PN ---
Subjective Progress Note Date: 07/26/20 Principal diagnosis: Abnormal labs/dehydration/hypotension Hepatic lesion with elevated liver enzymes UTI Pancytopenia AK I 80-year-old female no currently on any home medications, who admits to history of HTN presenting to the emergency department today for chief complaint of sent by primary care office for possible dehydration. Patient states that she has had recent symptoms for the past 3 weeks a burning sensation in her epigastric region of her abdomen and decreased appetite. She denies any chest pain shortness of breath and nausea vomiting diarrhea dark stools or bloody stools. Patient denies any presyncope or syncope but states she has been fatigued. Patient went to her primary for basic laboratory studies there unable to obtain online and stated that this is most likely probably secondary to dehydration as she has had decreased appetite and told her to come to the emergency department for labs and IV hydration. Patient appears in no distress on arrival. 07/26/2020 Patient is seen and evaluated with family members at bedside; did have MRCP/MRI of the liver done this morning; results are pending Vital signs are reviewed and are stable; renal function is stable. BUN/creatinine of 20/0.97; we will continue with IV fluid hydration; AST/ALT 455/288 trending down to 415/260; patient remains on IV antibiotics for UTI; antibiotic therapy will be tailored once final culture and sensitivity results are available; patient has pancytopenia; given hepatic lesion we will consult oncology for further recommendations Objective - Vital Signs Vital signs: Vital Signs Temp 97.2 F L 07/26/20 08:43 Pulse 77 07/26/20 08:43 Resp 13 07/26/20 08:43 BP 136/77 07/26/20 08:43 Pulse Ox 96 07/26/20 08:43 Intake & Output 07/25/20 07/26/20 07/26/20 18:59 06:59 18:59 Intake Total 615 Output Total 401 Balance 214 Intake: Oral 415 Other 200 Output: Urine 400 Stool 1 Other: Voiding Method Bedside Commode Bedside Commode # Voids 1 2 - Exam General: The patient is awake and alert, in no distress, and does not appear acutely ill. Eye: +3 mm pupils are equal, round and reactive to light, extra-ocular movements are intact. No nystagmus. There is normal conjunctiva bilaterally. No signs of icterus. Ears, nose, mouth and throat: There are moist mucous membranes and no oral lesions. Neck: The neck is supple, there is no tenderness or JVD. Cardiovascular: There is a regular rate and rhythm. No murmur, rub or gallop is appreciated. Respiratory: Lungs are clear to auscultation, respirations are non-labored, breath sounds are equal. No wheezes, stridor, rales, or rhonchi. Gastrointestinal: Soft, non-distended, non-tender abdomen without masses or organomegaly noted. There is no rebound or guarding present. Musculoskeletal: Normal ROM, no tenderness. Strength 5/5. Sensation intact. Radial pulses equal bilaterally 2+. Neurological: A&O x 3. CN II-XII intact grossly, There are no obvious motor or sensory deficits. Coordination appears grossly intact. Speech is normal. Skin: Skin is warm and dry and no rashes or lesions are noted. - Labs CBC & Chem 7: 07/26/20 07:03 07/26/20 07:03 Labs: Abnormal Lab Results - Last 24 Hours (Table) 07/26/20 07/26/20 Range/Units 07:03 07:03 WBC 2.8 L (3.8-10.6) k/uL RBC 3.23 L (3.80-5.40) m/uL Hgb 10.5 L (11.4-16.0) gm/dL Hct 32.6 L (34.0-46.0) % MCV 100.9 H (80.0-100.0) fL RDW 16.3 H (11.5-15.5) % Plt Count 102 L (150-450) k/uL Lymphocytes # 0.7 L (1.0-4.8) k/uL Sodium 136 L (137-145) mmol/L Chloride 109 H (98-107) mmol/L BUN 20 H (7-17) mg/dL Calcium 7.8 L (8.4-10.2) mg/dL Delta Bilirubin 0.5 H (0.0-0.2) mg/dL AST 415 H (14-36) U/L ALT 260 H (4-34) U/L Total Protein 6.2 L (6.3-8.2) g/dL Albumin 2.2 L (3.5-5.0) g/dL Microbiology - Last 24 Hours (Table) 07/24/20 15:19 Urine Culture - Preliminary Urine,Voided Assessment and Plan Assessment: 1. Acute renal injury/dehydration; patient remains on IV fluids in form of normal saline at rate of 75 mL an hour; we will monitor strict BALDO's, daily weights, renal function and electrolytes; avoid nephrotoxic agents and hypotension 2. UTI; ceftriaxone 1 g IV every 12 hours; blood cultures and urine cultures obtained; we will adjust antibiotic therapy once culture results are available 3. Elevated liver enzymes; CT of abdomen and pelvis done in ED reveals 1.5 cm hypodensity and right hepatic lobe; liver MRI is recommended; we will hold off on further testing Patient is seen by GI; liver enzymes are slowly trending down; we will continue to monitor closely; await GI recommendations 4. Epigastric pain/decreased appetite; etiology unclear; gastritis versus peptic ulcer disease; we will start patient on PPI; consult GI for further evaluation 5. Uncontrolled Hypertension; currently not on any antihypertensive therapy at home; patient was started on Norvasc 5 mg daily from ED; blood pressure has since stabilized and Norvasc has been discontinued; we will monitor blood pressure closely and resume Norvasc if blood pressure remains elevated DVT prophylaxis; SCDs/subcu heparin CODE STATUS; full code
[2020-07-26] MEDS: ONDANSETRON 4 MG/2 ML VIAL IVP PRN (17:13)
[2020-07-27] MEDS: ONDANSETRON 4 MG/2 ML VIAL IVP PRN (00:11)
[2020-07-27] MEDS: LORazepam 0.5 MG TAB PO PRN (00:15)
[2020-07-27] MEDS: SODIUM CHLORIDE 0.9% 1,000 ML IV SCH (03:05)
[2020-07-27 08:04] LABS: Albumin 2.3 g/dL (3.5-5.0); Bilirubin, Delta 0.6 mg/dL (0.0-0.2); Bilirubin,Unconjugated 0.5 mg/dL (0.0-1.1); Calcium 7.9 mg/dL (8.4-10.2); Potassium 3.9 mmol/L (3.5-5.1); Total Bilirubin 1.1 mg/dL (0.2-1.3); Total Protein 6.4 g/dL (6.3-8.2)
[2020-07-27 08:07] VITALS: BP 156/77; PULSE 68; RESP 14; TEMP 98.1
[2020-07-27 08:24] LABS: Anisocytosis Slight; Basophils % (A) 1 %; Eosinophils # (A) 0.1 k/uL (0-0.7); Eosinophils % (A) 3 %; HGB 10.4 gm/dL (11.4-16.0); Hypochromasia Slight; Lymphocytes # (A) 0.5 k/uL (1.0-4.8); Lymphocytes % (A) 19 %; MCH 31.7 pg (25.0-35.0); MCHC 31.5 g/dL (31.0-37.0); MCV 100.5 fL (80.0-100.0); Macrocytosis Slight; Monocytes # (A) 0.2 k/uL (0-1.0); Monocytes % (A) 9 %; Neutrophils # (A) 1.8 k/uL (1.3-7.7); Neutrophils % (A) 65 %; Platelet Count 101 k/uL (150-450); RBC 3.28 m/uL (3.80-5.40); RDW 16.3 % (11.5-15.5); WBC 2.8 k/uL (3.8-10.6)
--- NOTE | 2020-07-27 10:41 | PN ---
PROGRESS NOTE DATE OF SERVICE: 07/27/2020 INTERVAL HISTORY: The patient is an 80-year-old pleasant white female admitted to the hospital with epigastric pain for the last 2 weeks duration. She was noted to have elevated serum transaminases with AST and ALT at 560 and 325 respectively with normal T bilirubin and alkaline phosphatase. She has remote history of cholecystectomy. Because of clinical suspicion for CBD stone, she underwent an MRCP yesterday. The MRCP revealed a slightly dilated CBD at 9 mm, but no filling defects noted. However, there was nodular appearing liver consistent with liver cirrhosis and changes consistent with portal hypertension. In the meantime, patient continues to remain asymptomatic. She wants to go home. LABORATORY DATA: Labs from today show a bilirubin of 1.1, AST and ALT of 438 and 272 respectively, and alkaline phosphatase is 117. Hepatitis serologies for A, B and C negative. PHYSICAL EXAMINATION: She appears comfortable. No apparent distress. VITAL SIGNS: Stable. Blood pressure is 156/77, pulse rate 68, temperature 98.1. HEENT: Examination unremarkable. Conjunctivae are pink. Sclerae anicteric. Oral cavity no lesions. NECK: No JVD or lymph node enlargement. CHEST: Clear to auscultation. HEART: Regular rate and rhythm. ABDOMEN: Soft. Bowel sounds are positive. No organomegaly. EXTREMITIES: No pedal edema. SKIN: No rashes. NEUROLOGIC: Alert and oriented x3. No focal deficits. LABS: From today WBC 2.8, hemoglobin 10.4, platelets 101. AST and ALT are 438 and 272 respectively. T-bilirubin 1.1, alkaline phosphatase 117. Hepatitis serologies for A, B and C are negative. IMPRESSION: Epigastric pain, elevated LFTs. MRCP done yesterday did not show any evidence of common bile duct filling defects. Most likely the elevated LFTs are hepatocellular in origin. No evidence of biliary obstruction. MRI also showed liver cirrhosis of unclear etiology. RECOMMENDATIONS: 1. We will do workup for chronic liver disease. 2. After labs are done, she can be discharged home today with an outpatient followup within a week. 3. Based on the labs, we will decide if she needs to have a liver biopsy in the near future. The plan was discussed with the patient. She is agreeable to it. Thank you for this consultation. MMODL / IJN: [id number] /
--- NOTE | 2020-07-27 12:36 | P.GSCN ---
History of Present Illness Consult date: 07/27/20 Reason for Consult: right hydronehprosis History of present illness: Ms Lake is an 80-year-old female she is admittted to the hospital with chief complaint of epigastric pain and dehydration. Urology is consulted for right sided hydronephrosis. She has hx of right sided hydronephrosis since 2018, she underwent a diagnostic ureteroscopy and baloon dilation in 11/2018. diagnostic ureteroscopy showed no evidence of malignancy in UPJ. At this time she denies any flank pain or any urinary issues. Her CT showed evidence of severe hydronephrosis with parenchymal thinning, her creat is stable at her baseline. Review of Systems - Constitutional Reports weight loss, Denies chills, Denies fever - Cardiovascular Denies chest pain, Denies shortness of breath - Respiratory Denies cough, Denies 7 - Gastrointestinal Reports abdominal pain, Reports nausea - Genitourinary Genitourinary: Denies dysuria, Denies flank pain, Denies hematuria, Denies kidney stones Past Medical History Past Medical History: Hypertension, Osteoarthritis (OA) History of Any Multi-Drug Resistant Organisms: None Reported Past Surgical History: Back Surgery, Cholecystectomy, Joint Replacement, Orthope dic Surgery Additional Past Surgical History / Comment(s): kidney stent Past Anesthesia/Blood Transfusion Reactions: No Reported Reaction Past Psychological History: Anxiety Smoking Status: Never smoker Past Alcohol Use History: None Reported Past Drug Use History: None Reported Medications and Allergies Home Medications Medication Instructions Recorded Confirmed Type No Known Home Medications 07/24/20 07/24/20 History Allergies Allergy/AdvReac Type Severity Reaction Status Date / Time codeine Allergy Unknown Verified 07/24/20 17:33 Surgical - Exam Vital Signs Temp Pulse Resp BP Pulse Ox 98.1 F 66 18 158/65 100 07/24/20 14:31 07/24/20 14:31 07/24/20 14:31 07/24/20 14:31 07/24/20 14:31 - General well developed, well nourished, no distress, no pain - Eyes PERRL, normal ocular movement - ENT normal nares, normal mucosa - Respiratory normal expansion, normal respiratory effort - Psychiatric oriented to time, oriented to person, oriented to place Results - Labs 07/27/20 07:12 07/27/20 07:12 Abnormal Lab Results - Last 24 Hours (Table) 07/27/20 07/27/20 Range/Units 07:12 07:12 WBC 2.8 L (3.8-10.6) k/uL RBC 3.28 L (3.80-5.40) m/uL Hgb 10.4 L (11.4-16.0) gm/dL Hct 33.0 L (34.0-46.0) % MCV 100.5 H (80.0-100.0) fL RDW 16.3 H (11.5-15.5) % Plt Count 101 L (150-450) k/uL Lymphocytes # 0.5 L (1.0-4.8) k/uL Sodium 134 L (137-145) mmol/L Chloride 108 H (98-107) mmol/L BUN 18 H (7-17) mg/dL Calcium 7.9 L (8.4-10.2) mg/dL Delta Bilirubin 0.6 H (0.0-0.2) mg/dL AST 438 H (14-36) U/L ALT 272 H (4-34) U/L Albumin 2.3 L (3.5-5.0) g/dL Microbiology - Last 24 Hours (Table) 07/24/20 15:19 Urine Culture - Final Urine,Voided Escherichia coli Aerococcus urinae Diabetes panel 07/27/20 Range/Units 07:12 Sodium 134 L (137-145) mmol/L Potassium 3.9 (3.5-5.1) mmol/L Chloride 108 H (98-107) mmol/L Carbon Dioxide 24 (22-30) mmol/L BUN 18 H (7-17) mg/dL Creatinine 0.99 (0.52-1.04) mg/dL Glucose 74 (74-99) mg/dL Calcium 7.9 L (8.4-10.2) mg/dL AST 438 H (14-36) U/L ALT 272 H (4-34) U/L Alkaline Phosphatase 117 (38-126) U/L Total Protein 6.4 (6.3-8.2) g/dL Albumin 2.3 L (3.5-5.0) g/dL Calcium panel 07/27/20 Range/Units 07:12 Calcium 7.9 L (8.4-10.2) mg/dL Albumin 2.3 L (3.5-5.0) g/dL Pituitary panel 07/27/20 Range/Units 07:12 Sodium 134 L (137-145) mmol/L Potassium 3.9 (3.5-5.1) mmol/L Chloride 108 H (98-107) mmol/L Carbon Dioxide 24 (22-30) mmol/L BUN 18 H (7-17) mg/dL Creatinine 0.99 (0.52-1.04) mg/dL Glucose 74 (74-99) mg/dL Calcium 7.9 L (8.4-10.2) mg/dL Adrenal panel 07/27/20 Range/Units 07:12 Sodium 134 L (137-145) mmol/L Potassium 3.9 (3.5-5.1) mmol/L Chloride 108 H (98-107) mmol/L Carbon Dioxide 24 (22-30) mmol/L BUN 18 H (7-17) mg/dL Creatinine 0.99 (0.52-1.04) mg/dL Glucose 74 (74-99) mg/dL Calcium 7.9 L (8.4-10.2) mg/dL Total Bilirubin 1.1 (0.2-1.3) mg/dL AST 438 H (14-36) U/L ALT 272 H (4-34) U/L Alkaline Phosphatase 117 (38-126) U/L Total Protein 6.4 (6.3-8.2) g/dL Albumin 2.3 L (3.5-5.0) g/dL - Imaging CT scan - abdomen: other (severe right sided hydronephrosis with thinning of parenchyma) Assessment and Plan Assessment: 80 yo female admitted with epigastric pain and dehydration. Urology is consulted for right sided hydronephrosis, she is S/P right dignostic ureteroscopy which was negative for malignancy and balloon dilation on 11/2018. 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 She is asymptomatic at this time, and creat is at baseline. No acute intervention at this time, I discussed with her to address her UPJO she will need a pyeloplasty, but will need Mag3 prior to any intervention. I discussed with her given her age she is at an increased risk of complication. I discussed with her given her lack of symptoms and stable kidney function observation is an alternative. She can f/u with Dr Leung in 2-3 weeks to discuss options further, ok for discharge from urology standpoint
--- NOTE | 2020-07-27 14:07 | P.DS ---
Providers Date of admission: 07/26/20 09:12 Expected date of discharge: 07/27/20 Attending physician: Effie Echavarria Consults: 07/25/20 09:27 Consult Physician Routine Consulting Provider: Jennifer Mitchell Consult Reason/Comments: Elevated liver enzymes/ Heptic lesion Do you want consulting provider notified?: Yes 07/27/20 09:54 Consult Physician Routine Consulting Provider: Daniel Gillespie Consult Reason/Comments: Severe right-sided hydronephrosis Do you want consulting provider notified?: Yes Primary care physician: Dixie Staples [facility] Course: 80-year-old female no currently on any home medications, who admits to history of HTN presenting to the emergency department today for chief complaint of sent by primary care office for possible dehydration. Patient states that she has had recent symptoms for the past 3 weeks a burning sensation in her epigastric region of her abdomen and decreased appetite. She denies any chest pain shortness of breath and nausea vomiting diarrhea dark stools or bloody stools. Patient denies any presyncope or syncope but states she has been fatigued. Patient went to her primary for basic laboratory studies there unable to obtain online and stated that this is most likely probably secondary to dehydration as she has had decreased appetite and told her to come to the emergency department for labs and IV hydration. Patient appears in no distress on arrival. 07/26/2020 Patient is seen and evaluated with family members at bedside; did have MRCP/MRI of the liver done this morning; results are pending Vital signs are reviewed and are stable; renal function is stable. BUN/creatinine of 20/0.97; we will continue with IV fluid hydration; AST/ALT 455/288 trending down to 415/260; patient remains on IV antibiotics for UTI; antibiotic therapy will be tailored once final culture and sensitivity results are available; patient has pancytopenia; given hepatic lesion we will consult oncology for further recommendations Patient had an MRA done which did not show any hepatic lesion but did show right severe hydronephrosis; urology was consulted and due to patient being asymptomatic and given her age and medical history, no intervention was planned and she was recommended outpatient follow-up; patient will be placed on oral Cipro for UTI and will be discharged home to follow-up with PCP and also with Marilee Person as an outpatient Patient Condition at Discharge: Stable Plan - Discharge Summary Discharge Rx Participant: No New Discharge Prescriptions: New Ciprofloxacin HCl [Cipro] 250 mg PO Q12HR 3 Days #6 tab Discharge Medication List Ciprofloxacin HCl [Cipro] 250 mg PO Q12HR 3 Days #6 tab 07/27/20 [Rx] Follow up Appointment(s)/Referral(s): Omari Leung MD [STAFF PHYSICIAN] - 2 Weeks Jennifer Mitchell MD [STAFF PHYSICIAN] - 1 Week Dixie Staples MD [Primary Care Provider] - 1-2 days Activity/Diet/Wound Care/Special Instructions: Activity limited until follow up with primary care physician. Diet as tolerated. Please make follow up appointments with physicians. Offices currently closed. Recommendations to follow up with Dr. Leung in 2-3 weeks. Discharge Disposition: HOME SELF-CARE
[2020-07-27 16:36] LABS: % Iron Saturation 41.41 (12.00-45.00)
[2020-07-27 16:46] LABS: Ferritin 57.5 ng/mL (10.0-291.0)
[2020-07-28 11:08] LABS: Alpha Fetoprotein, Tumor Mkr 3.4 ng/mL (0.0-7.9)
[2020-07-29 07:44] LABS: Ceruloplasmin 25.3 mg/dL (20.0-60.0)
== END 2020-07-27 15:00 | disposition home or self-care (01) | DRG 683 ==
LOC: EC 14:26 → 1SOBS 18:19 → OBSVTOIN 07-26 09:12
PROVIDERS: ADMIT Hospitalist; ATTEND Hospitalist
DX: N17.9 Acute kidney failure, unspecified (principal); D61.818 Other pancytopenia; K76.6 Portal hypertension; N13.6 Pyonephrosis; E86.0 Dehydration; F41.9 Anxiety disorder, unspecified; I10 Essential (primary) hypertension; I44.7 Left bundle-branch block, unspecified; K74.60 Unspecified cirrhosis of liver; K83.8 Other specified diseases of biliary tract; Z90.49 Acquired absence of other specified parts of digestive tract; Z88.5 Allergy status to narcotic agent; Z96.60 Presence of unspecified orthopedic joint implant
CPT/HCPCS: 36415; 71046; 74177; 74183; 76705; 80048; 80053; 80074; 80076; 81001; 82103; 82105; 82150; 82390; 82728; 83516; 83540; 83550; 83690; 84165; 84484; 85025; 85610; 85730; 86038; 86308; 87077; 87086; 87186; 93005; 96361; 96374; 99285

== ENCOUNTER → 2020-08-27 | Outpatient (CLI) | payer MEDICARE, BC ==
[2020-08-27 15:10] LABS: Anisocytosis Slight; HCT 36.7 % (34.0-46.0); HGB 11.5 gm/dL (11.4-16.0); MCH 32.2 pg (25.0-35.0); MCHC 31.4 g/dL (31.0-37.0); MCV 102.6 fL (80.0-100.0); Macrocytosis Moderate; Mean Platelet Volume 7.8; Platelet Count 126 k/uL (150-450); RBC 3.57 m/uL (3.80-5.40); RDW 16.8 % (11.5-15.5); WBC 3.9 k/uL (3.8-10.6)
[2020-08-27 22:40] LABS: African American GFR (CKD) 54.1 (60.0-200.0); Albumin 2.7 g/dL (3.80-4.90); Albumin/Globulin Ratio 0.64 (1.60-3.17); Anion Gap 5.5 mmol/L (4.00-12.00); BUN/Creat Ratio 17.27 Ratio (12.00-20.00); Calcium 8.6 mg/dL (8.7-10.3); Carbon Dioxide 23.5 mmol/L (21.6-31.8); Globulin 4.2 g/dL (1.6-3.3); Non-African American GFR(CKD) 46.7 (60.0-200.0); Potassium 4.4 mmol/L (3.5-5.5); Total Bilirubin 1.3 mg/dL (0.3-1.2); Total Protein 6.9 g/dL (6.2-8.2)
[2020-08-28 02:28] LABS: INR 1.13 (0.90-1.11)
== END | disposition home or self-care (01) ==
LOC: LABWHC1 14:00
PROVIDERS: ATTEND Internal Medicine Gastroenterology
DX: K74.60 Unspecified cirrhosis of liver (principal)
CPT/HCPCS: 36415; 80053; 85027; 85610

== ENCOUNTER 2020-09-04 10:40 | Day surgery (SDC) | payer MEDICARE, BC ==
[2020-09-02 13:06] VITALS: BMI 29.6
[~2020-09-04 10:40] MED LIST changes: -DEXAMETHASONE SOD PHOSPHATE 10 MG/ML 1 ML VIAL IV ONE; -HYDROmorphone 0.5 MG/0.5 ML SYRINGE IVP PRN; -IOPAMIDOL-370 50ML BTL IRRIGATION ONE; -LEVOFLOXACIN 500MG-D5W PMX 500 MG in DEXTROSE/WATER 1 100ML.BAG IVPB ONE; -LIDOCAINE 1% 20 ML VIAL (10MG/ML) FOR IV START INTRADERMA PRN; -LIDOCAINE 1% INJ 10MG/ML (20 ML MDV) ONE; -MIDAZOLAM (PF) 2 MG/2 ML VIAL IV PRN; -ONDANSETRON 4 MG/2 ML VIAL IVP ONE; -PROPOFOL 10 MG/ML 20 ML VIAL IV ONE; -SCOPOLAMINE 1.5MG/72HR PATCH TRANSDERM ONE; -ePHEDrine SULFATE/0.9% NACL/PF 50 MG/5 ML SYRINGE IV ONE; -fentaNYL (PF) 50 MCG/ML 2 ML AMP ONE
[2020-09-04 11:11] VITALS: TEMP 97.3
[2020-09-04] MEDS ORDERED: LIDOCAINE 1% (10MG/ML) FOR IV START INTRADERMA ONE (11:23)
[2020-09-04] MEDS ORDERED: PROPOFOL 10 MG/ML 20 ML VIAL IV ONE (11:43)
[2020-09-04] MEDS ORDERED: KETAMINE 10 MG/ML 20 ML VIAL ONE (11:43)
[2020-09-04] MEDS ORDERED: LIDOCAINE 1% INJ 10MG/ML (20 ML MDV) ONE (11:43)
--- NOTE | 2020-09-04 12:09 | P.PCN ---
Date of Procedure: 09/04/20 Procedure(s) Performed: Brief history: Patient is a pleasant 80-year-old white female scheduled for an elective upper endoscopy as well as colonoscopy as a part of evaluation of epigastric pain, lower abdominal pain and progressive weight loss of almost 30 pounds in the last 1 year duration. She complains of early satiety and nausea and has been started on Omeprazole 20 Mg Daily and Symptoms Are Gradually Improving. Procedure performed: Esophagogastroduodenoscopy with biopsy Colonoscopy Preoperative diagnosis: Epigastric pain/lower abdominal pain Progressive weight loss of 30 pounds Anesthesia: MAC Procedure: After informed consent was obtained from the patient was brought into the endos copy unit and IV sedation was administered by anesthesia under continuous monitoring. Initially upper endoscopy was done. The Olympus GF 160 video endoscope was inserted inserted into the mouth and esophagus intubated without any difficulty and was gradually advanced into the stomach and duodenum and carefully examined. The bulb and second part of the duodenum appeared normal. Abscesses were done from the duodenum to rule out celiac disease. The scope was then withdrawn into the stomach adequately insufflated with air and upon careful examination the antrum had mild diffuse gastritis and biopsies were done from this area. The body, cardia and fundus appeared normal. There was a moderate to large size hiatal hernia. The diaphragmatic impression was located at 42 cm from the incisors. The scope was then withdrawn into the esophagus. The GE junction was located at 33 cm to the incisors. It appeared regular with no erythema erosions or ulcerations. Rest of the esophagus appeared normal. Patient tolerated the procedure well. At this time the patient continued to remain sedation. Initial digital rectal examination was normal. Olympus CF 160 video colonoscope was then inserted into the rectum and gradually advanced to the cecum without any difficulty. Careful examination was performed as the scope was gradually being withdrawn. The prep was excellent. The cecum, ascending colon, transverse colon, descending colon, sigmoid colon and rectum appeared normal. Scattered left-sided diverticulosis seen. Retroflexion was performed in the rectum and small internal hemorrhoids were noted. Patient tolerated the procedure well. Impression: 1. Upper endoscopy revealed moderate to large size hiatal hernia and diffuse antral gastritis 2. Colonoscopy revealed scattered left-sided diverticulosis and small internal hemorrhoids Recommendations: Findings of this examination were discussed with the patient as well as her family. She was advised to follow with the biopsy results. She will continue with Prilosec 20 mg daily and follow antireflux measures. She'll use Zofran as needed. He'll be seen in office in one week.
[2020-09-04 12:17] VITALS: RESP 20
[2020-09-04 12:41] VITALS: BP 187/62; PULSE 78
== END 2020-09-04 13:08 | disposition home or self-care (01) ==
LOC: ORWHC2ENDO 10:40
PROVIDERS: ATTEND Internal Medicine Gastroenterology
DX: K57.30 Diverticulosis of large intestine without perforation or abscess without bleeding (principal); K64.8 Other hemorrhoids; K29.50 Unspecified chronic gastritis without bleeding; K44.9 Diaphragmatic hernia without obstruction or gangrene; I10 Essential (primary) hypertension; K21.9 Gastro-esophageal reflux disease without esophagitis; I44.7 Left bundle-branch block, unspecified; K76.6 Portal hypertension; I85.10 Secondary esophageal varices without bleeding; F41.9 Anxiety disorder, unspecified; Z88.5 Allergy status to narcotic agent; Z79.899 Other long term (current) drug therapy; Z97.2 Presence of dental prosthetic device (complete) (partial); Z87.442 Personal history of urinary calculi; Z87.448 Personal history of other diseases of urinary system; Z98.890 Other specified postprocedural states; Z90.49 Acquired absence of other specified parts of digestive tract; Z96.0 Presence of urogenital implants
CPT/HCPCS: 88305; 45378; 43239; J2001; J2704

== ENCOUNTER → 2020-09-29 | Outpatient (CLI) | payer MEDICARE, BC ==
[2020-09-29 13:58] LABS: HCT 34.8 % (34.0-46.0); HGB 11.3 gm/dL (11.4-16.0); MCH 33.8 pg (25.0-35.0); MCHC 32.5 g/dL (31.0-37.0); MCV 104.1 fL (80.0-100.0); Macrocytosis Moderate; Mean Platelet Volume 8.2; Platelet Count 100 k/uL (150-450); RBC 3.34 m/uL (3.80-5.40); RDW 15.3 % (11.5-15.5); WBC 2.8 k/uL (3.8-10.6)
[2020-09-29 20:05] LABS: African American GFR (CKD) 37.2 (60.0-200.0); Albumin 2.7 g/dL (3.80-4.90); Albumin/Globulin Ratio 0.66 (1.60-3.17); Anion Gap 6.4 mmol/L (4.00-12.00); BUN/Creat Ratio 14.67 Ratio (12.00-20.00); Calcium 8.4 mg/dL (8.7-10.3); Carbon Dioxide 25.6 mmol/L (21.6-31.8); Globulin 4.1 g/dL (1.6-3.3); Non-African American GFR(CKD) 32.1 (60.0-200.0); Potassium 4.5 mmol/L (3.5-5.5); Total Bilirubin 1.3 mg/dL (0.2-1.2); Total Protein 6.8 g/dL (6.2-8.2)
== END | disposition home or self-care (01) ==
LOC: LABWHC1 10:14
PROVIDERS: ATTEND Internal Medicine Gastroenterology
DX: K57.30 Diverticulosis of large intestine without perforation or abscess without bleeding (principal)
CPT/HCPCS: 36415; 80053; 85027

== ENCOUNTER 2021-01-20 15:36 | Emergency (ER) | payer MEDICARE, BC ==
[2021-01-20 15:42] VITALS: RESP 18; TEMP 98.1
--- NOTE | 2021-01-20 16:27 | ED ---
General Adult HPI - General Chief complaint: Extremity Injury, Lower Stated complaint: feet swelling/bruising Source: patient Mode of arrival: wheelchair Limitations: no limitations - History of Present Illness Initial comments: 80-year-old female with a past medical history of GERD, hypertension presents to the emergency room for several complaints. Patient's main complaint today is left foot pain. Patient states she fell about a week ago and has had left foot pain since that time. States it was swollen and purple earlier but has since resolved. CT is able to walk on the foot especially towards the front of the foot. Patient also complaining of right shoulder pain. This has been ongoing for years. She sees orthopedics Dr. Childs for this. Denies any new symptoms about the right shoulder. Patient also states that she has had a sensation of feeling associates to urinate. Concerned she may have a urinary tract infection. No fevers. No abdominal pain. No constitutional symptoms.Patient has no other complaints at this time including shortness of breath, chest pain, abdominal pain, nausea or vomiting, headache, or visual changes. - Related Data Previous Rx's Medication Instructions Recorded Amoxicillin/Potassium Clav 1 tab PO Q12HR #20 tab 01/20/21 [Augmentin 875-125 Tablet] Allergies Allergy/AdvReac Type Severity Reaction Status Date / Time codeine Allergy dizziness Verified 01/20/21 17:01 and passes out Review of Systems ROS Statement: Those systems with pertinent positive or pertinent negative responses have been documented in the HPI. ROS Other: All systems not noted in ROS Statement are negative. Past Medical History Past Medical History: Cancer, GERD/Reflux, Hypertension, Osteoarthritis (OA) Additional Past Medical History / Comment(s): no blood pressure meds, states hx of cancer spine , hiatal hernia, right hydronephrosis, states stomach pain and nausea. History of Any Multi-Drug Resistant Organisms: None Reported Past Surgical History: Back Surgery, Cholecystectomy, Joint Replacement, Orthopedic Surgery Additional Past Surgical History / Comment(s): kidney stent, sarah shoulder surgery, sarah total knees. Past Anesthesia/Blood Transfusion Reactions: No Reported Reaction Past Psychological History: Anxiety Smoking Status: Never smoker Past Alcohol Use History: None Reported Past Drug Use History: None Reported - Past Family History Mother Family Medical History: No Reported History General Exam Limitations: no limitations General appearance: alert, in no apparent distress Head exam: Present: atraumatic, normocephalic, normal inspection Eye exam: Present: normal appearance, PERRL, EOMI. Absent: scleral icterus, conjunctival injection ENT exam: Present: normal exam, mucous membranes moist Neck exam: Present: normal inspection, full ROM. Absent: tenderness, meningismus, lymphadenopathy Respiratory exam: Present: normal lung sounds bilaterally. Absent: respiratory distress, wheezes, rales, rhonchi, stridor Cardiovascular Exam: Present: regular rate, normal rhythm, normal heart sounds. Absent: systolic murmur, diastolic murmur, rubs, gallop, clicks GI/Abdominal exam: Present: soft, normal bowel sounds. Absent: distended, tenderness, guarding, rebound, rigid Extremities exam: Present: full ROM (Full range of motion of the left foot), tenderness (Mild tenderness noted to the generalized forefoot of the left lower extremity. No ankle tenderness. No calf tenderness.), normal capillary refill (Capillary refill less than 2 seconds left lower extremity, DP pulse 2+. Patient does have several varicose veins noted of the left foot), joint swelling (Minimal edema of the left ankle. No significant edema noted.), other (Sensation intact left lower extremity. No erythema or evidence of infection). Absent: calf tenderness (Negative Homans sign) Course Vital Signs 01/20/21 15:41 Temperature 98.1 F Pulse Rate 76 Respiratory 18 Rate Blood Pressure 170/76 O2 Sat by Pulse 98 Oximetry Medical Decision Making - Medical Decision Making Vitals are stable. Patient is well-appearing. Patient is here for left foot pain after a fall about a week ago. Neurovascular status intact, DP pulse 2+. X-ray did show soft tissue swelling without fracture. Ultrasound of the left leg shows no evidence of DVT. Patient may have sprained her foot. She is ambulatory on the foot. At this point I think splinting the foot would lead to increased risk of falls. Patient will follow-up with orthopedics. She sees Dr. Childs. Urinalysis did show evidence of infection. She does not have any CVA or abdominal tenderness. No fever. No nausea vomiting, eating and drinking normally. Patient will be treated with Augmentin as I did review her past cultures and she is sensitive to this. This was discussed with Dr. Palomino. Patient will follow up with urology as she has had persistent urinary tract infections. She sees Dr. Leung. She will also follow up with primary care to review results. She'll return here for fevers or any other worsening symptoms. - Lab Data Lab Results 01/20/21 Range/Units 16:46 Urine Color Dark Yellow Urine Appearance Turbid H (Clear) Urine pH 7.5 (5.0-8.0) Ur Specific [place] 1.017 (1.001-1.035) Urine Protein 2+ H (Negative) Urine Glucose (UA) Negative (Negative) Urine Ketones Negative (Negative) Urine Blood Moderate H (Negative) Urine Nitrite Negative (Negative) Urine Bilirubin Negative (Negative) Urine Urobilinogen 8.0 (<2.0) mg/dL Ur Leukocyte Esterase Large H (Negative) Urine RBC 122 H (0-5) /hpf Urine WBC >182 H (0-5) /hpf Urine WBC Clumps Rare H (None) /hpf Ur Squamous Epith Cells 12 H (0-4) /hpf Amorphous Sediment Rare H (None) /hpf Urine Bacteria Many H (None) /hpf Hyaline Casts 5 H (0-2) /lpf Urine Mucus Rare H (None) /hpf Disposition Clinical Impression: Foot pain, left, Urinary tract infection Disposition: HOME SELF-CARE Condition: Good Instructions (If sedation given, give patient instructions): Urinary Tract Infection in Women (ED), Arthralgia (ED) Additional Instructions: Please take Tylenol for pain. Please follow-up with orthopedics for left foot pain. Take antibiotic as directed for urinary tract infection and follow-up with urology and primary care. If patient has any worsening symptoms such as fevers or inability to keep down antibiotics return to the emergency room. Prescriptions: Amoxicillin/Potassium Clav [Augmentin 875-125 Tablet] 1 tab PO Q12HR #20 tab Is patient prescribed a controlled substance at d/c from ED?: No Referrals: Dixie Staples MD [Primary Care Provider] - 1-2 days Time of Disposition: 18:22
--- NOTE | 2021-01-20 16:41 | XR ---
EXAMINATION TYPE: XR ankle complete LT DATE OF EXAM: 01/20/2021 COMPARISON: NONE HISTORY: Foot and ankle pain and swelling TECHNIQUE: 3 views FINDINGS: There is soft tissue swelling around the lower leg. Ankle mortise is anatomic. There is nidhi ntar calcaneal spurring. I see no fracture nor dislocation. IMPRESSION: Soft tissue swelling. No fracture.
--- NOTE | 2021-01-20 16:43 | XR ---
EXAMINATION TYPE: XR foot complete LT DATE OF EXAM: 01/20/2021 COMPARISON: NONE HISTORY: Foot and ankle pain TECHNIQUE: 3 views FINDINGS: There is soft tissue swelling of the foot and ankle. The metatarsals are intact there is mi ld multiple hammertoe deformity. There is plantar calcaneal spurring. I see no focal bone destruction . IMPRESSION: Soft tissue swelling. No fracture.
[2021-01-20 16:55] LABS: Amorphous Sediment,Urine Rare /hpf; Appearance,Urine Turbid (Clear); Bacteria,Urine Many /hpf; Bilirubin,Urine Negative (Negative); Blood,Urine Moderate (Negative); Glucose,Urine (UA) Negative (Negative); Hyaline Casts,Urine 5 /lpf (0-2); Ketones,Urine Negative (Negative); Leukocyte Esterase,Urine Large (Negative); Mucus,Urine Rare /hpf; Nitrite,Urine Negative (Negative); PH, Urine 7.5 (5.0-8.0); Protein,Urine 2+ (Negative); RBC,Urine 122 /hpf (0-5); Specific Gravity,Urine 1.017 (1.001-1.035); Squamous Epithelial Cell,Urine 12 /hpf (0-4); WBC,Urine >182 /hpf (0-5)
[2021-01-20 16:57] LABS: Color,Urine Dark Yellow
--- NOTE | 2021-01-20 17:35 | US ---
EXAMINATION TYPE: US venous doppler duplex LE LT DATE OF EXAM: 01/20/2021 5:24 PM COMPARISON: NONE CLINICAL HISTORY: edema. Edema x 1 day. Fall 1 week ago. Hx bilateral knee replacement. No hx of DVT. Patient does not take blood thinners. SIDE PERFORMED: Left TECHNIQUE: The lower extremity deep venous system is examined utilizing real time linear array sonog mushtaq with graded compression, doppler sonography and color-flow sonography. VESSELS IMAGED: Common Femoral Vein Deep Femoral Vein Greater Saphenous Vein * Femoral Vein Popliteal Vein Small Saphenous Vein * Proximal Calf Veins (* superficial vessels) Left Leg: No evidence of DVT in veins imaged at this time from prox calf veins to CFV/GSV. IMPRESSION: No evidence of deep vein thrombosis in the left leg.
[2021-01-20] MEDS ORDERED: AMOXIC-POT CLAV 875MG STARTER PACK 2 TAB BTL PO STA (18:18)
[2021-01-20 18:45] VITALS: BP 171/86; PULSE 68
== END 2021-01-20 18:44 | disposition home or self-care (01) ==
LOC: EC 15:36
DX: M79.672 Pain in left foot (principal); N39.0 Urinary tract infection, site not specified; I10 Essential (primary) hypertension; M19.90 Unspecified osteoarthritis, unspecified site; W19.XXXA Unspecified fall, initial encounter; Z90.49 Acquired absence of other specified parts of digestive tract; Z85.9 Personal history of malignant neoplasm, unspecified
CPT/HCPCS: 81001; 87077; 87086; 87186; 99284

== ENCOUNTER → 2021-02-05 | Outpatient (CLI) | payer MEDICARE, BC ==
[2021-02-06 00:35] LABS: Basophils # (A) 0.01 X 10*3/uL (0.00-0.10); Basophils % (A) 0.4 %; Eosinophils # (A) 0.05 X 10*3/uL (0.04-0.35); Eosinophils % (A) 2.1 %; HCT 29.1 % (37.2-46.3); HGB 9.5 g/dL (12.0-15.0); Lymphocytes # (A) 0.57 X 10*3/uL (0.90-5.00); Lymphocytes % (A) 24.3 %; MCH 32.2 pg (27.0-32.0); MCHC 32.6 g/dL (32.0-37.0); MCV 98.6 fL (80.0-97.0); Monocytes # (A) 0.33 X 10*3/uL (0.20-1.00); Neutrophils # (A) 1.39 X 10*3/uL (1.80-7.70); Neutrophils % (A) 59.2 %; Platelet Count 90 X 10*3/uL (140-440); RBC 2.95 X 10*6/uL (4.10-5.20); RDW 17.5 % (11.5-14.5); WBC 2.35 X 10*3/uL (4.50-10.00)
[2021-02-06 02:52] LABS: African American GFR (CKD) 37.2 (60.0-200.0); Albumin 3.1 g/dL (3.80-4.90); Albumin/Globulin Ratio 0.76 (1.60-3.17); Anion Gap 8.2 mmol/L (4.00-12.00); BUN/Creat Ratio 18.67 Ratio (12.00-20.00); Calcium 8.7 mg/dL (8.7-10.3); Carbon Dioxide 19.8 mmol/L (21.6-31.8); Chol/HDL Ratio 4.32; Globulin 4.1 g/dL (1.6-3.3); LDL Cholesterol,Calculated 101.2 mg/dL (0.0-131.0); Non-African American GFR(CKD) 32.1 (60.0-200.0); Potassium 4.1 mmol/L (3.5-5.5); Total Bilirubin 0.8 mg/dL (0.3-1.2); Total Protein 7.2 g/dL (6.2-8.2); VLDL Calculation 11.8 mg/dL (5.00-40.00)
== END | disposition home or self-care (01) ==
LOC: LABWHC1 12:05
PROVIDERS: ATTEND Internal Medicine
DX: Z00.01 Encounter for general adult medical examination with abnormal findings (principal); E78.00 Pure hypercholesterolemia, unspecified
CPT/HCPCS: 36415; 80053; 80061; 85025

== ENCOUNTER 2021-03-07 20:01 | Observation (INO) | payer MEDICARE, BC ==
[2021-03-07] MEDS ORDERED: SODIUM CHLORIDE 0.9% 1,000 ML IV STA (20:50)
[2021-03-07 21:30] LABS: Albumin 2.9 g/dL (3.5-5.0); Calcium 8.5 mg/dL (8.4-10.2); Magnesium 1.8 mg/dL (1.6-2.3); Potassium 4.2 mmol/L (3.5-5.1); Total Bilirubin 1.4 mg/dL (0.2-1.3); Total Protein 6.8 g/dL (6.3-8.2)
--- NOTE | 2021-03-07 21:34 | XR ---
EXAMINATION TYPE: XR chest 2V DATE OF EXAM: 03/07/2021 COMPARISON: 07/24/2020 HISTORY: Weakness TECHNIQUE: FINDINGS: Heart is enlarged. There is no heart failure. Costophrenic angles are clear. There are no h ilar masses. There is bilateral shoulder prosthesis. Lungs are clear of consolidation. There is hiata l hernia. IMPRESSION: No active cardiopulmonary disease. Cardiomegaly and hiatal hernia. No change.
[2021-03-07 21:35] LABS: INR 1.1 (<1.2); Prothrombin Time 11.6 sec (9.0-12.0)
--- NOTE | 2021-03-07 21:47 | ED ---
General Adult HPI - General Chief complaint: Weakness Stated complaint: poss reaction to covid vaccine Time Seen by Provider: 03/07/21 20:26 Source: patient, EMS Mode of arrival: EMS Limitations: no limitations - History of Present Illness Initial comments: 40-year-old female with history of hypertension and GERD presents to emergency Department with a chief complaint of weakness. Granddaughter is also present in the room to answer any additional questions. Patient reports ever since Tuesday she has developed increased weakness after getting the first dose of the moderna vaccine. Granddaughter reports the patient as having difficulty and bleeding between rooms with a walker. Patient has also complaining of bilateral lower extremity edema that has been going on for about one year and she was supposed to be started on diuretics but is yet to happen. Patient denies any chest pain or shortness of breath at this time. She denies any urinary symptoms. She denies any fevers or chills cough. Denies any headaches one- sided weakness of paresthesias. - Related Data Previous Rx's Medication Instructions Recorded Amoxicillin/Potassium Clav 1 tab PO Q12HR #20 tab 01/20/21 [Augmentin 875-125 Tablet] Allergies Allergy/AdvReac Type Severity Reaction Status Date / Time codeine Allergy dizziness Verified 01/20/21 17:01 and passes out Review of Systems ROS Statement: Those systems with pertinent positive or pertinent negative responses have been documented in the HPI. ROS Other: All systems not noted in ROS Statement are negative. Past Medical History Past Medical History: Cancer, GERD/Reflux, Hypertension, Osteoarthritis (OA) Additional Past Medical History / Comment(s): no blood pressure meds, states hx of cancer spine , hiatal hernia, right hydronephrosis, states stomach pain and nausea. History of Any Multi-Drug Resistant Organisms: None Reported Past Surgical History: Back Surgery, Cholecystectomy, Joint Replacement, Orthopedic Surgery Additional Past Surgical History / Comment(s): kidney stent, sarah shoulder surgery, sarah total knees. Past Anesthesia/Blood Transfusion Reactions: No Reported Reaction Past Psychological History: Anxiety Smoking Status: Never smoker Past Alcohol Use History: None Reported Past Drug Use History: None Reported - Past Family History Mother Family Medical History: No Reported History General Exam Limitations: no limitations General appearance: alert, in no apparent distress Head exam: Present: atraumatic, normocephalic, normal inspection Eye exam: Present: normal appearance, PERRL, EOMI Pupils: Present: normal accommodation ENT exam: Present: normal exam, normal oropharynx, mucous membranes moist, TM's normal bilaterally, normal external ear exam Neck exam: Present: normal inspection, full ROM. Absent: tenderness Respiratory exam: Present: normal lung sounds bilaterally. Absent: respiratory distress, wheezes, rales, rhonchi, stridor Cardiovascular Exam: Present: regular rate, normal rhythm, systolic murmur (Faint systolic murmur). Absent: diastolic murmur GI/Abdominal exam: Present: soft. Absent: distended, tenderness, guarding, rebound Extremities exam: Present: normal inspection, full ROM, normal capillary refill, pedal edema (Bilateral lower extremity edema), other (Palpable DP and PT bilat erally.). Absent: tenderness, joint swelling, calf tenderness Back exam: Present: normal inspection, full ROM. Absent: tenderness, CVA tenderness (R), CVA tenderness (L) Neurological exam: Present: alert, oriented X3 Psychiatric exam: Present: normal affect, normal mood Skin exam: Present: warm, dry, intact, normal color Course Vital Signs 03/07/21 03/07/21 03/07/21 20:04 21:56 22:55 Temperature 97.8 F Pulse Rate 76 80 75 Respiratory 16 16 16 Rate Blood Pressure 169/62 129/77 177/82 O2 Sat by Pulse 100 98 97 Oximetry EKG Findings - EKG Comments: EKG Findings:: Sinus rhythm with left sided ventricular hypertrophy. Ventricular rate 73, WA 164, QRS 140, QTC 469. Medical Decision Making - Medical Decision Making 80-year-old female presents to emergency Department with chief complaint of weakness. On physical examination, patient has a faint systolic murmur. Bilateral lower extremity edema. CBC reveals anemia of 10.5. Elevated BUN/creatinine of 35 and 1.17, respectively. Covid negative. UA unremarkable. Troponin within normal limits. BNP of 10,800.atient started on IV Lasix and emergency department. Chest x-ray reveals cardiomegaly. EKG showed left-sided ventricular hypertrophy. I spoke with who will admit the patient further medical management. He recommended neurology and cardiology consult. Case discussed with - Lab Data Result diagrams: 03/07/21 21:10 03/07/21 21:10 Lab Results 03/07/21 03/07/21 03/07/21 Range/Units 21:10 21:10 21:10 WBC 4.4 (3.8-10.6) k/uL RBC 3.18 L (3.80-5.40) m/uL Hgb 10.5 L (11.4-16.0) gm/dL Hct 32.2 L (34.0-46.0) % MCV 101.5 H (80.0-100.0) fL MCH 33.1 (25.0-35.0) pg MCHC 32.7 (31.0-37.0) g/dL RDW 17.5 H (11.5-15.5) % MPV 8.7 Anisocytosis Slight Macrocytosis Moderate PT 11.6 (9.0-12.0) sec INR 1.1 (<1.2) APTT 21.4 L (22.0-30.0) sec Sodium 132 L (137-145) mmol/L Potassium 4.2 (3.5-5.1) mmol/L Chloride 105 (98-107) mmol/L Carbon Dioxide 21 L (22-30) mmol/L Anion Gap 6 mmol/L BUN 35 H (7-17) mg/dL Creatinine 1.17 H (0.52-1.04) mg/dL Est GFR (CKD-EPI)AfAm 50 (>60 ml/min/1.73 sqM) Est GFR (CKD-EPI)NonAf 44 (>60 ml/min/1.73 sqM) Glucose 98 (74-99) mg/dL Plasma Lactic Acid Rodri (0.7-2.0) mmol/L Calcium 8.5 (8.4-10.2) mg/dL Magnesium 1.8 (1.6-2.3) mg/dL Total Bilirubin 1.4 H (0.2-1.3) mg/dL AST 95 H (14-36) U/L ALT 71 H (4-34) U/L Alkaline Phosphatase 82 (38-126) U/L Troponin I (0.000-0.034) ng/mL NT-Pro-B Natriuret Pep pg/mL Total Protein 6.8 (6.3-8.2) g/dL Albumin 2.9 L (3.5-5.0) g/dL Urine Color Urine Appearance (Clear) Urine pH (5.0-8.0) Ur Specific Graton (1.001-1.035) Urine Protein (Negative) Urine Glucose (UA) (Negative) Urine Ketones (Negative) Urine Blood (Negative) Urine Nitrite (Negative) Urine Bilirubin (Negative) Urine Urobilinogen (<2.0) mg/dL Ur Leukocyte Esterase (Negative) Urine RBC (0-5) /hpf Urine WBC (0-5) /hpf Ur Squamous Epith Cells (0-4) /hpf Triple Phos Crystals (None) /hpf Amorphous Sediment (None) /hpf Urine Bacteria (None) /hpf Urine Mucus (None) /hpf Coronavirus (PCR) (Not Detectd) 03/07/21 03/07/21 03/07/21 Range/Units 21:10 21:10 21:10 WBC (3.8-10.6) k/uL RBC (3.80-5.40) m/uL Hgb (11.4-16.0) gm/dL Hct (34.0-46.0) % MCV (80.0-100.0) fL MCH (25.0-35.0) pg MCHC (31.0-37.0) g/dL RDW (11.5-15.5) % MPV Anisocytosis Macrocytosis PT (9.0-12.0) sec INR (<1.2) APTT (22.0-30.0) sec Sodium (137-145) mmol/L Potassium (3.5-5.1) mmol/L Chloride (98-107) mmol/L Carbon Dioxide (22-30) mmol/L Anion Gap mmol/L BUN (7-17) mg/dL Creatinine (0.52-1.04) mg/dL Est GFR (CKD-EPI)AfAm (>60 ml/min/1.73 sqM) Est GFR (CKD-EPI)NonAf (>60 ml/min/1.73 sqM) Glucose (74-99) mg/dL Plasma Lactic Acid Rodri 1.4 (0.7-2.0) mmol/L Calcium (8.4-10.2) mg/dL Magnesium (1.6-2.3) mg/dL Total Bilirubin (0.2-1.3) mg/dL AST (14-36) U/L ALT (4-34) U/L Alkaline Phosphatase (38-126) U/L Troponin I 0.031 (0.000-0.034) ng/mL NT-Pro-B Natriuret Pep 08554 pg/mL Total Protein (6.3-8.2) g/dL Albumin (3.5-5.0) g/dL Urine Color Urine Appearance (Clear) Urine pH (5.0-8.0) Ur Specific Graton (1.001-1.035) Urine Protein (Negative) Urine Glucose (UA) (Negative) Urine Ketones (Negative) Urine Blood (Negative) Urine Nitrite (Negative) Urine Bilirubin (Negative) Urine Urobilinogen (<2.0) mg/dL Ur Leukocyte Esterase (Negative) Urine RBC (0-5) /hpf Urine WBC (0-5) /hpf Ur Squamous Epith Cells (0-4) /hpf Triple Phos Crystals (None) /hpf Amorphous Sediment (None) /hpf Urine Bacteria (None) /hpf Urine Mucus (None) /hpf Coronavirus (PCR) (Not Detectd) 03/07/21 03/07/21 Range/Units 21:56 22:08 WBC (3.8-10.6) k/uL RBC (3.80-5.40) m/uL Hgb (11.4-16.0) gm/dL Hct (34.0-46.0) % MCV (80.0-100.0) fL MCH (25.0-35.0) pg MCHC (31.0-37.0) g/dL RDW (11.5-15.5) % MPV Anisocytosis Macrocytosis PT (9.0-12.0) sec INR (<1.2) APTT (22.0-30.0) sec Sodium (137-145) mmol/L Potassium (3.5-5.1) mmol/L Chloride (98-107) mmol/L Carbon Dioxide (22-30) mmol/L Anion Gap mmol/L BUN (7-17) mg/dL Creatinine (0.52-1.04) mg/dL Est GFR (CKD-EPI)AfAm (>60 ml/min/1.73 sqM) Est GFR (CKD-EPI)NonAf (>60 ml/min/1.73 sqM) Glucose (74-99) mg/dL Plasma Lactic Acid Rodri (0.7-2.0) mmol/L Calcium (8.4-10.2) mg/dL Magnesium (1.6-2.3) mg/dL Total Bilirubin (0.2-1.3) mg/dL AST (14-36) U/L ALT (4-34) U/L Alkaline Phosphatase (38-126) U/L Troponin I (0.000-0.034) ng/mL NT-Pro-B Natriuret Pep pg/mL Total Protein (6.3-8.2) g/dL Albumin (3.5-5.0) g/dL Urine Color Yellow Urine Appearance Cloudy H (Clear) Urine pH 8.0 (5.0-8.0) Ur Specific Graton 1.015 (1.001-1.035) Urine Protein Trace H (Negative) Urine Glucose (UA) Negative (Negative) Urine Ketones Negative (Negative) Urine Blood Trace H (Negative) Urine Nitrite Negative (Negative) Urine Bilirubin Negative (Negative) Urine Urobilinogen 6.0 (<2.0) mg/dL Ur Leukocyte Esterase Negative (Negative) Urine RBC 11 H (0-5) /hpf Urine WBC 2 (0-5) /hpf Ur Squamous Epith Cells 2 (0-4) /hpf Triple Phos Crystals Occasional H (None) /hpf Amorphous Sediment Occasional H (None) /hpf Urine Bacteria Rare H (None) /hpf Urine Mucus Rare H (None) /hpf Coronavirus (PCR) Not Detected (Not Detectd) Disposition Clinical Impression: Weakness, Heart failure Disposition: ADMITTED IP TO THIS [facility] Condition: Fair Is patient prescribed a controlled substance at d/c from ED?: No Referrals: Dixie Staples MD [Primary Care Provider] - 1-2 days Time of Disposition: 00:34
[2021-03-07 22:12] LABS: Anisocytosis Slight; Basophils % (A) 0 %; Eosinophils # (A) 0.1 k/uL (0-0.7); Eosinophils % (A) 1 %; HCT 32.2 % (34.0-46.0); HGB 10.5 gm/dL (11.4-16.0); Lymphocytes # (A) 0.3 k/uL (1.0-4.8); Lymphocytes % (A) 7 %; MCH 33.1 pg (25.0-35.0); MCHC 32.7 g/dL (31.0-37.0); MCV 101.5 fL (80.0-100.0); Macrocytosis Moderate; Mean Platelet Volume 8.7; Monocytes # (A) 0.3 k/uL (0-1.0); Monocytes % (A) 6 %; Neutrophils # (A) 3.7 k/uL (1.3-7.7); RBC 3.18 m/uL (3.80-5.40); RDW 17.5 % (11.5-15.5); WBC 4.4 k/uL (3.8-10.6)
[2021-03-07 22:23] LABS: Partial Thromboplastin Time 21.4 sec (22.0-30.0)
[2021-03-07 23:01] LABS: Amorphous Sediment,Urine Occasional /hpf; Appearance,Urine Cloudy (Clear); Bacteria,Urine Rare /hpf; Bilirubin,Urine Negative (Negative); Blood,Urine Trace (Negative); Color,Urine Yellow; Glucose,Urine (UA) Negative (Negative); Ketones,Urine Negative (Negative); Leukocyte Esterase,Urine Negative (Negative); Mucus,Urine Rare /hpf; Nitrite,Urine Negative (Negative); Protein,Urine Trace (Negative); RBC,Urine 11 /hpf (0-5); Specific Gravity,Urine 1.015 (1.001-1.035); Squamous Epithelial Cell,Urine 2 /hpf (0-4); Triple Phosphate Crystal,Urine Occasional /hpf; WBC,Urine 2 /hpf (0-5)
[2021-03-08 00:14] LABS: Platelet Count 55 k/uL (150-450); Polychromasia Present
[2021-03-08] MEDS ORDERED: FUROSEMIDE 10 MG/ML 4 ML VIAL IV SCH (03:15)
[2021-03-08] MEDS: HEPARIN SODIUM,PORCINE/PF 5,000 UNIT/0.5 ML SYRINGE SQ SCH ×2 (09:27→21:40)
[2021-03-08] MEDS: NITROGLYCERIN OINT 1 INCH/GM PACKET TOPICAL SCH ×4 (09:28→22:12)
[2021-03-08] MEDS ORDERED: amLODIPine 10 MG TAB PO SCH (13:45)
[2021-03-08] MEDS: PANTOPRAZOLE 40 MG TABLET PO SCH (14:28)
--- NOTE | 2021-03-08 14:39 | XR ---
EXAMINATION TYPE: XR shoulder complete RT DATE OF EXAM: 03/08/2021 COMPARISON: NONE HISTORY: Shoulder pain. TECHNIQUE: 3 views FINDINGS: There is right shoulder prosthesis. There are some erosion of the glenoid. AC joint is spike omic. I see no fracture nor dislocation. IMPRESSION: There are erosive changes of the glenoid. No fracture seen.
[2021-03-08] MEDS ORDERED: IBUPROFEN 400 MG TAB PO PRN (17:53)
--- NOTE | 2021-03-08 22:43 | P.HPIM ---
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 Patient states that she did have Moderna vaccine on her right shoulder. Ever since redness did she developed increasing weakness and right shoulder pain and unable to lift her right shoulder. Patient was also complaining of bilateral lower extremity swelling for the past 1 year and supposed to be started on diuretics but currently not on any diuretic medications. Denies any complaints of chest pain or shortness of breath. No dysuria or hematuria. No fever no chills. No headache or dizziness or lightheadedness. No focal weakness. Chest x-ray showed no active cardiopulmonary disease. Cardiomegaly and hiatal hernia. No change. Laboratory showed WBC 4.4 hemoglobin 10.5 platelets 55 MCV one 1.5 Sodium 132 potassium 4.2 chloride 105 bicarb is 21 BUN 35 creatinine 1.1 pound magnesium 1.8 total bilirubin 1.4 AST 95 ALT 71 troponin times one 0.031 and NT proBNP [id number] Urinalysis negative for infection COVID-19 PCR not detected Review of Systems Constitutional: Patient does have generalized weakness. No fever no chills.. Abdomen: Patient denied nausea vomiting and diarrhea and abdominal pain. Cardiovascular: Patient denies any chest pain or short of breath no palpitations. Respiratory: patient denied any cough or sputum production. No shortness of breath Neurologic: Patient denied any numbness or tingling headache. Musculoskeletal: Patient denies any complaints of joint swelling or deformity.Right shoulder pain Complete review of systems could not be obtained from the patient. Past Medical History Past Medical History: Cancer, GERD/Reflux, Hypertension, Osteoarthritis (OA) Additional Past Medical History / Comment(s): no blood pressure meds, states hx of cancer spine , hiatal hernia, right hydronephrosis, states stomach pain and nausea. History of Any Multi-Drug Resistant Organisms: None Reported Past Surgical History: Back Surgery, Cholecystectomy, Joint Replacement, Orthopedic Surgery Additional Past Surgical History / Comment(s): kidney stent, sarah shoulder surgery, sarah total knees. Past Anesthesia/Blood Transfusion Reactions: No Reported Reaction Past Psychological History: Anxiety Smoking Status: Never smoker Past Alcohol Use History: None Reported Past Drug Use History: None Reported - Past Family History Mother Family Medical History: No Reported History Medications and Allergies Home Medications Medication Instructions Recorded Confirmed Type No Known Home Medications 03/08/21 03/08/21 History Allergies Allergy/AdvReac Type Severity Reaction Status Date / Time codeine AdvReac dizziness Verified 03/08/21 08:21 and passes out Physical Exam Vitals: Vital Signs Temp Pulse Pulse Resp BP BP Pulse Ox 03/08/21 13:14 184/69 03/08/21 11:58 98.5 F 77 18 182/72 96 03/08/21 04:52 98.4 F 74 18 184/72 96 03/08/21 04:25 78 18 171/76 98 03/08/21 03:15 98.3 F 80 16 158/71 98 03/08/21 02:00 72 16 141/86 97 03/08/21 00:45 98.0 F 75 16 162/91 97 03/07/21 22:55 75 16 177/82 97 03/07/21 21:56 80 16 129/77 98 03/07/21 20:04 97.8 F 76 16 169/62 100 Intake and Output 03/07/21 03/08/21 03/08/21 22:59 06:59 14:59 Output Total 1 Balance -1 Output: Urine 1 Other: Voiding Method Bedside Commode # Voids 1 Weight 74.843 kg 74.843 kg PHYSICAL EXAMINATION: Patient is lying in the bed comfortably, no acute distress, awake alert and oriented.Mild cognitive impairment. HEENT: Normocephalic. Neck is supple. Pupils reactive. Nostrils clear. Oral cavity is moist. Ears reveal no drainage. Neck reveals no JVD, carotid bruits, or thyromegaly. CHEST EXAMINATION: Trachea is central. Symmetrical expansion. Lung ludwig clear to auscultation and percussion. CARDIAC: Normal S1, S2 with no gallops. No murmurs ABDOMEN: Soft. Bowel sounds normal. No organomegaly. No abdominal bruits. Extremities: Bilateral lower extremity nonpitting edema. No clubbing or cyanosis Neurologically awake, alert, oriented x2-3 with well-coordinated movements. No focal deficits noted Skin: No rash or skin lesions. Psychiatric: Coperative. Nonsuicidal Musculoskeletal: No joint swelling or deformity. Normal range of motion. Results CBC & Chem 7: 03/07/21 21:10 03/07/21 21:10 Labs: Abnormal Lab Results - Last 24 Hours (Table) 03/07/21 03/07/21 03/07/21 Range/Units 21:10 21:10 21:10 RBC 3.18 L (3.80-5.40) m/uL Hgb 10.5 L (11.4-16.0) gm/dL Hct 32.2 L (34.0-46.0) % MCV 101.5 H (80.0-100.0) fL RDW 17.5 H (11.5-15.5) % Plt Count 55 L (150-450) k/uL Lymphocytes # 0.3 L (1.0-4.8) k/uL APTT 21.4 L (22.0-30.0) sec Sodium 132 L (137-145) mmol/L Carbon Dioxide 21 L (22-30) mmol/L BUN 35 H (7-17) mg/dL Creatinine 1.17 H (0.52-1.04) mg/dL Total Bilirubin 1.4 H (0.2-1.3) mg/dL AST 95 H (14-36) U/L ALT 71 H (4-34) U/L Albumin 2.9 L (3.5-5.0) g/dL Urine Appearance (Clear) Urine Protein (Negative) Urine Blood (Negative) Urine RBC (0-5) /hpf Triple Phos Crystals (None) /hpf Amorphous Sediment (None) /hpf Urine Bacteria (None) /hpf Urine Mucus (None) /hpf 03/07/21 Range/Units 21:56 RBC (3.80-5.40) m/uL Hgb (11.4-16.0) gm/dL Hct (34.0-46.0) % MCV (80.0-100.0) fL RDW (11.5-15.5) % Plt Count (150-450) k/uL Lymphocytes # (1.0-4.8) k/uL APTT (22.0-30.0) sec Sodium (137-145) mmol/L Carbon Dioxide (22-30) mmol/L BUN (7-17) mg/dL Creatinine (0.52-1.04) mg/dL Total Bilirubin (0.2-1.3) mg/dL AST (14-36) U/L ALT (4-34) U/L Albumin (3.5-5.0) g/dL Urine Appearance Cloudy H (Clear) Urine Protein Trace H (Negative) Urine Blood Trace H (Negative) Urine RBC 11 H (0-5) /hpf Triple Phos Crystals Occasional H (None) /hpf Amorphous Sediment Occasional H (None) /hpf Urine Bacteria Rare H (None) /hpf Urine Mucus Rare H (None) /hpf Thrombosis Risk Factor Assmnt - DVT/VTE Prophylaxis DVT/VTE Prophylaxis: Pharmacologic Prophylaxis ordered - Choose All That Apply Any of the Below Risk Factors Present?: Yes Each Factor Represents 1 point: Heart failure (<1month), Obesity (BMI >25), Swollen legs (current) Other Risk Factors: Yes Each Risk Factor Represents 3 Points: Age 75 years or older Thrombosis Risk Factor Assessment Total Risk Factor Score: 6 Thrombosis Risk Factor Assessment Level: High Risk Assessment and Plan Assessment: Generalized weakness and right shoulder pain.. Started 1 day after having coronavirus vaccine first dose. Chronic bilateral lower extremity lymphedema. Elevated D-dimer level without other evidence of CHF Uncontrolled hypertension. 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 Outpatient GI follow-up recommended. 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 DVT prophylaxis with heparin subcu Plan: Patient was given IV fluid bolus in the ER. Patient was given IV Lasix which will be discontinued since there is no pitting edema of the bilateral lower extremities except minimal ankle swelling.. X-ray of the shoulder showed no acute fracture. Monitor electrolytes and monitor hemoglobin level. 2D echocardiogram. TSH, B12 and folate levels will be ordered. PT OT will be consulted encourage oral intake. Further recommendations based on clinical course. Prognosis guarded this time. Time with Patient: Greater than 30
[2021-03-08 23:13] LABS: Hemoglobin A1C 4.9 % (4.0-6.0)
[2021-03-09 06:42] LABS: Anisocytosis Slight; Basophils % (A) 0 %; Eosinophils % (A) 1 %; HCT 28.9 % (34.0-46.0); HGB 9.9 gm/dL (11.4-16.0); Lymphocytes # (A) 0.5 k/uL (1.0-4.8); Lymphocytes % (A) 14 %; MCH 34.4 pg (25.0-35.0); MCHC 34.3 g/dL (31.0-37.0); MCV 100.3 fL (80.0-100.0); Macrocytosis Slight; Mean Platelet Volume 8.3; Monocytes # (A) 0.2 k/uL (0-1.0); Monocytes % (A) 7 %; Neutrophils # (A) 2.5 k/uL (1.3-7.7); Neutrophils % (A) 75 %; RBC 2.88 m/uL (3.80-5.40); RDW 16.7 % (11.5-15.5); WBC 3.3 k/uL (3.8-10.6)
[2021-03-09 06:44] LABS: Platelet Count 61 k/uL (150-450)
[2021-03-09] MEDS: ASPIRIN 81 MG PO SCH (09:36)
[2021-03-09] MEDS: HEPARIN SODIUM,PORCINE/PF 5,000 UNIT/0.5 ML SYRINGE SQ SCH ×2 (09:36→21:32)
[2021-03-09] MEDS: PANTOPRAZOLE 40 MG TABLET PO SCH (09:36)
[2021-03-09] MEDS: amLODIPine 5 MG TAB PO SCH (09:36)
[2021-03-09] MEDS: NITROGLYCERIN OINT 1 INCH/GM PACKET TOPICAL SCH (09:38)
--- NOTE | 2021-03-09 10:28 | P.CRDCN ---
History of Present Illness History of present illness: HISTORY OF PRESENTING ILLNESS This is a pleasant 80-year-old female past medical history significant for hypertension not on meds. She denies prior history of coronary and does not follow in the office with a help desk supervisor. We have been asked to see in consultation for elevated BNP. She presented to the hospital with symptoms of generalized weakness mostly in the legs and right should pain after getting her COVID vaccine Tuesday. The patient herself denies having any symptoms of shortness of breath or chest pain. However, ER documentation states her granddaughter was present there and she has noticed increased shotness of breath recently with some associated lower extremity edema. Apparently this has been going on for the last 1-year. She is seen and examined sitting up in bed in no acute distress. DIAGNOSTICS EKG reveals sinus mechanism with biphasic and inverted T-waves laterally and LVH. Telemetry tracings indicate sinus mechanism. Chest xray negative for an acute cardiopulmonary process. Laboratory reviewed, WBC 3.3, hgb 9.9, plt 31, sodium 132, potassium 4.2, creatinine 1.17, magnesium 1.8, troponin negative x1, NTproBNP 10,800, TSH 3.42. She takes no daily medications. REVIEW OF SYSTEMS At the time of my exam: CONSTITUTIONAL: Denies fever or chills. CARDIOVASCULAR: Denies chest pain, shortness of breath, orthopnea, PND or palpitations. RESPIRATORY: Denies cough. GASTROINTESTINAL: Denies abdominal pain, diarrhea, constipation, nausea or vomiting. MUSCULOSKELETAL: Denies myalgias. NEUROLOGIC: Denies numbness, tingling, headacbe or weakness. ENDOCRINE: Denies fatigue, weight change, polydipsia or polyurina. GENITOURINARY: Denies burning, hematuria or urgency with micturation. HEMATOLOGIC: Denies history of anemia or bleeding. PHYSICAL EXAMINATION Blood pressure 152/78 heart rate 67 afebrile and maintaining oxygen saturation on room air. CONSTITUTIONAL: No apparent distress. HEENT: Head is normocephalic. Pupils are equal, round. Sclerae anicteric. Mucous membranes of the mouth are moist. No JVD. No carotid bruit. CHEST EXAMINATION: Lungs are clear to auscultation. No chest wall tenderness is noted on palpation or with deep breathing. HEART EXAMINATION: Regular rate and rhythm. S1, S2 heard. Soft systolic ejection murmur at the left sternal border, no gallops or rub. ABDOMEN: Soft, nontender. Positive bowel sounds. EXTREMITIES: 2+ peripheral pulses, bilatearal lower extremity edema with JEAN-PIERRE wraps in place, non-pitting and no calf tenderness. NEUROLOGIC EXAMINATION: Patient is awake, alert and oriented x3. ASSESSMENT Generalized weakness Pancytopenia Acute kidney injury Elevated BNP of unclear significance. Clinically euvolemic Hypertension PLAN Clinically she is euvolemic and not in acute heart failure. Elevated BNP could be related to renal function as well. We will obtain and echo and assess LV function. Continue current medical regimen. Thank you kindly for this consultation. Nurse Practitioner note has been reviewed, I agree with a documented findings and plan of care. Patient was seen and examined. Past Medical History Past Medical History: Cancer, GERD/Reflux, Hypertension, Osteoarthritis (OA) Additional Past Medical History / Comment(s): no blood pressure meds, states hx of cancer spine , hiatal hernia, right hydronephrosis, states stomach pain and nausea. History of Any Multi-Drug Resistant Organisms: None Reported Past Surgical History: Back Surgery, Cholecystectomy, Joint Replacement, Orthopedic Surgery Additional Past Surgical History / Comment(s): kidney stent, sarah shoulder surgery, sarah total knees. Past Anesthesia/Blood Transfusion Reactions: No Reported Reaction Past Psychological History: Anxiety Smoking Status: Never smoker Past Alcohol Use History: None Reported Past Drug Use History: None Reported - Past Family History Mother Family Medical History: No Reported History Medications and Allergies Home Medications Medication Instructions Recorded Confirmed Type No Known Home Medications 03/08/21 03/08/21 History Allergies Allergy/AdvReac Type Severity Reaction Status Date / Time codeine AdvReac dizziness Verified 03/08/21 08:21 and passes out Physical Exam Vitals: Vital Signs Temp Pulse Resp BP BP Pulse Ox 03/09/21 04:45 98.1 F 67 20 152/78 99 03/08/21 19:35 99.6 F 74 20 169/70 97 03/08/21 13:14 184/69 03/08/21 11:58 98.5 F 77 18 182/72 96 Intake and Output 03/08/21 03/09/21 03/09/21 22:59 06:59 14:59 Intake Total 100 Balance 100 Intake: Oral 100 Other: Voiding Method Bedside Commode # Voids 3 1 Results 03/09/21 05:28 03/07/21 21:10 CBC 03/09/21 Range/Units 05:28 WBC 3.3 L (3.8-10.6) k/uL RBC 2.88 L (3.80-5.40) m/uL Hgb 9.9 L (11.4-16.0) gm/dL Hct 28.9 L (34.0-46.0) % Plt Count 61 L (150-450) k/uL Current Medications Generic Name Dose Route Start Last Admin Trade Name Freq PRN Reason Stop Dose Admin Amlodipine Besylate 5 mg 03/09/21 09:00 03/09/21 09:36 Amlodipine 5 Mg Tab PO 5 mg DAILY DEBORA Administration Aspirin 81 mg 03/09/21 09:00 03/09/21 09:36 Aspirin 81 Mg PO 81 mg DAILY DEBORA Administration Heparin Sodium (Porcine) 5,000 unit 03/08/21 09:00 03/09/21 09:36 Heparin Sodium,Porcine/Pf 5,000 Unit/0.5 Ml Syringe SQ 5,000 unit Q12HR DEBORA Administration Ibuprofen 400 mg 03/08/21 17:53 03/08/21 18:26 Ibuprofen 400 Mg Tab PO 400 mg Q4HR PRN Administration Menstrual Cramps Pantoprazole Sodium 40 mg 03/08/21 13:45 03/09/21 09:36 Pantoprazole 40 Mg Tablet PO 40 mg [id number] DEBORA Administration Sodium Chloride 10 ml 03/08/21 09:00 03/09/21 09:36 Sodium Chloride 0.9% Flush 10 Ml Syringe IV 10 ml BID DEBORA Administration Intake and Output 03/08/21 03/09/21 03/09/21 22:59 06:59 14:59 Intake Total 100 Balance 100 Intake: Oral 100 Other: Voiding Method Bedside Commode # Voids 3 1 03/09/21 05:28 03/07/21 21:10
[2021-03-09 10:49] LABS: African American GFR (CKD) 48.7 (60.0-200.0); Albumin 2.5 g/dL (3.80-4.90); Albumin/Globulin Ratio 0.81 (1.60-3.17); Anion Gap 5.5 mmol/L (4.00-12.00); BUN/Creat Ratio 27.5 Ratio (12.00-20.00); Calcium 8.1 mg/dL (8.7-10.3); Carbon Dioxide 23.5 mmol/L (21.6-31.8); Globulin 3.1 g/dL (1.6-3.3); Non-African American GFR(CKD) 42.1 (60.0-200.0); Potassium 3.8 mmol/L (3.5-5.5); Total Bilirubin 1.3 mg/dL (0.3-1.2); Total Protein 5.6 g/dL (6.2-8.2)
--- NOTE | 2021-03-09 12:00 | ECHOF ---
Referral Reason:Elevated BNP MEASUREMENTS -------- HEIGHT: 170.2 cm WEIGHT: 74.8 kg BP: 152/78 RVIDd: 2.8 cm (< 3.3) IVSd: 1.8 cm (0.6 - 1.1) LVIDd: 3.2 cm (3.9 - 5.3) LVPWd: 1.6 cm (0.6 - 1.1) IVSs: 2.2 cm LVIDs: 1.8 cm LVPWs: 1.9 cm LAESV Index (A-L): 56.31 ml/m Ao Diam: 3.0 cm (2.0 - 3.7) AV Cusp: 1.7 cm (1.5 - 2.6) LA Diam: 3.9 cm (2.7 - 3.8) MV EXCURSION: 15.944 mm (> 18.000) MV EF SLOPE: 44 mm/s (70 - 150) EPSS: 0.4 cm MV E Nathan: 0.91 m/s MV DecT: 233 ms MV A Nathan: 0.50 m/s MV E/A Ratio: 1.84 RAP: 15.00 mmHg RVSP: 60.27 mmHg FINDINGS -------- This was a technically good study. The left ventricular size is normal. There is severe concentric left ventricular hypertrophy. Ove rall left ventricular systolic function is normal with, an EF between 55 - 60 %. Increased LAP Grad e 3 Diastolic Dysfunction. The right ventricle is normal in size. LA is severely dilated >40 ml/m2 The right atrial size is normal. Aortic valve is trileaflet and is mildly thickened. The mitral valve is normal. The mitral valve leaflets are mildly thickened. Mild mitral annular c alcification present. Yktyfklh-jn-bxeihy mitral regurgitation is present , predominately a posterio rly directed jet. The tricuspid valve appears structurally normal. Moderate tricuspid regurgitation present. There is moderate pulmonary hypertension. The right ventricular systolic pressure, as measured by Doppler , is 60.27mmHg. Moderate pulmonic regurgitation. The aortic root size is normal. The inferior vena cava is mildly dilated. There is no pericardial effusion. CONCLUSIONS -------- 1. The left ventricular size is normal. 2. There is severe concentric left ventricular hypertrophy. 3. Overall left ventricular systolic function is normal with, an EF between 55 - 60 %. 4. Increased LAP Grade 3 Diastolic Dysfunction. 5. LA is severely dilated >40 ml/m2 6. Aortic valve is trileaflet and is mildly thickened. 7. The mitral valve leaflets are mildly thickened. 8. Mild mitral annular calcification present. 9. Vvshocsc-qh-jtyyas mitral regurgitation is present. 10. , predominately a posteriorly directed jet. 11. Moderate tricuspid regurgitation present. 12. There is moderate pulmonary hypertension. 13. The right ventricular systolic pressure, as measured by Doppler, is 60.27mmHg. 14. Moderate pulmonic regurgitation. 15. The inferior vena cava is mildly dilated. 16. There is no pericardial effusion. DIRECTOR OF PAYROLL: Anila Lambert RDCS
[2021-03-09 12:49] VITALS: BMI 25.8
--- NOTE | 2021-03-09 13:14 | P.CNNES ---
History of Present Illness Consult date: 03/09/21 Requesting physician: Vish Guillory Reason for Consult: Weakness History of Present Illness: Patient is a 80-year-old the hospital by ambulance on 03/07/2021 at 8:01 PM for increased weakness since Tuesday, 5 days ago, since she received her first dose of Moderna Covid vaccine. Patient complaining of bilateral lower extremity edema, that has been going on for about 1 year. No chest pain or shortness of breath. No urinary symptoms. No focal weakness or focal paresthesias. Per EMS flow sheet, on their arrival, patient was seated accompanied by family members, in some distress and she makes eye contact upon greeting. She was alert 4, complaining of generalized weakness, no recent changes to her medication, fever or chills. Patient's vitals at the scene was blood pressure 190/84, pulse rate 78, respiration 18, saturation 98% Vital signs on arrival blood pressure 169/62, pulse rate 76, temperature 97.8. Patient's chest x-ray showed no active cardiac pulmonary disease. Cardiomegaly and hiatal hernia. EKG shows normal sinus rhythm. Left ventricle hypertrophy with QRS widening and repolarization abnormality. Shoulder x-ray showed erosive changes of the glenoid. No fracture. Blood test shows normal WBC hemoglobin 10.5, platelets are low 55. PT/PTT normal, sodium 132 potassium is 4.2, BUN 35, creatinine 1.17. AST is mildly elevated 95, ALT 71, troponin negative. B12 381, TSH 3.42. UA shows no infection. Feliz virus PCR negative. Patient does have chronically elevated LFTs. She had negative hepatitis panel in the past. Anti-smooth muscle antibodies were +86/20. Alpha-1 antitrypsin and ceruloplasmin are normal. I spoke to patient's son Mr. Calderon on the phone, who informed me that patient received Covid back sedation on 03/04/2021. The next day she got significant chills. On Tuesday she was somewhat better. However on Tuesday she felt very weak, could not get out of the chair. Patient has been getting physical therapy twice a week since last week and also had an appointment with the doctor. Patient probably was significantly worn out, and could not get up on her feet. Therefore patient was brought to the hospital. Patient's son and the patient herself denies any slurred speech facial droop, focal numbness tingling weakness or any strokelike symptoms. Patient lives alone, and her son lives close to her and checks on her. Patient does have a visiting nurse comes once a week and physical therapy twice a week. Patient has been started on aspirin 81 mg, amlodipine 5 mg daily. 2-D echo has been initiated. Patient denies any history of tobacco or alcohol use. He Has history of bilateral knee replacement. Review of Systems As above in HPI. All other 14 point review of systems unremarkable. Denies any chest pain shortness of breath, wheezing or cough. Denies any loss of vision, double vision, denies any focal numbness tingling. Denies diarrhea. No constipation. No nausea vomiting. Patient does have arthritis. Patient has bilateral knee replacement in the past. Patient has edema. Past Medical History Past Medical History: Cancer, GERD/Reflux, Hypertension, Osteoarthritis (OA) Additional Past Medical History / Comment(s): no blood pressure meds, states hx of cancer spine , hiatal hernia, right hydronephrosis, states stomach pain and nausea. History of Any Multi-Drug Resistant Organisms: None Reported Past Surgical History: Back Surgery, Cholecystectomy, Joint Replacement, Or thopedic Surgery Additional Past Surgical History / Comment(s): kidney stent, sarah shoulder surgery, sarah total knees. Past Anesthesia/Blood Transfusion Reactions: No Reported Reaction Past Psychological History: Anxiety Smoking Status: Never smoker Past Alcohol Use History: None Reported Past Drug Use History: None Reported - Past Family History Mother Family Medical History: No Reported History Medications and Allergies Home Medications Medication Instructions Recorded Confirmed Type No Known Home Medications 03/08/21 03/08/21 History Allergies Allergy/AdvReac Type Severity Reaction Status Date / Time codeine AdvReac dizziness Verified 03/08/21 08:21 and passes out Physical Examination - Vital Signs Vital Signs: Vital Signs Temp Pulse Resp BP BP Pulse Ox 03/09/21 04:45 98.1 F 67 20 152/78 99 03/08/21 19:35 99.6 F 74 20 169/70 97 03/08/21 13:14 184/69 03/08/21 11:58 98.5 F 77 18 182/72 96 Intake and Output 03/08/21 03/09/21 03/09/21 22:59 06:59 14:59 Intake Total 100 Balance 100 Intake: Oral 100 Other: Voiding Method Bedside Commode # Voids 3 1 Patient is an elderly female, very pleasant, in no acute distress. Patient is laying comfortably in the bed. Patient is alert awake oriented to time place and person. Patient knows it is 03/09/2021 and that she is in [place] in [place]. Speech and language functions are normal. Attention, concentration and fund of knowledge is adeq uate. On cranial examination, pupils are round and reacting to light, visual ludwig are full on confrontation, extraocular muscles are intact with no nystagmus. Face is symmetric, tongue protrudes to the midline. Palatal elevation and sensation normal, hearing and shoulder shrug normal, facial sensation normal. Shoulder shrug normal. On muscle strength testing, there is no pronator drift and the strength is normal in arms and legs distally and proximally, except hip flexion, which is 3 on the right, 2 on the left. Patient has evidence of bilateral knee replacement. Deep tendon reflexes are 2 in the upper limbs, absent in the lower limbs and plantars downgoing bilaterally. Sensory to touch is equal with no neglect. Cerebellar function showed no ataxia for wvdiam-jf-aplo testing. No dysdiadochokinesia. Tone and bulk of muscles normal. Gait deferred. On general examination, there is no carotid bruit or murmur, S1-S2 audible. Mild murmur heard. Abdomen is soft nontender. Chest is clear. Patient has moderate peripheral edema bilaterally. Results - Laboratory Findings CBC and BMP: 03/09/21 05:28 03/09/21 05:28 Abnormal Lab Findings: Abnormal Labs 03/07/21 03/07/21 03/07/21 21:10 21:10 21:10 WBC RBC 3.18 L Hgb 10.5 L Hct 32.2 L MCV 101.5 H RDW 17.5 H Plt Count 55 L Lymphocytes # 0.3 L APTT 21.4 L Sodium 132 L Carbon Dioxide 21 L BUN 35 H Creatinine 1.17 H Total Bilirubin 1.4 H AST 95 H ALT 71 H Albumin 2.9 L Urine Appearance Urine Protein Urine Blood Urine RBC Triple Phos Crystals Amorphous Sediment Urine Bacteria Urine Mucus 03/07/21 03/09/21 21:56 05:28 WBC 3.3 L RBC 2.88 L Hgb 9.9 L Hct 28.9 L MCV 100.3 H RDW 16.7 H Plt Count 61 L Lymphocytes # 0.5 L APTT Sodium Carbon Dioxide BUN Creatinine Total Bilirubin AST ALT Albumin Urine Appearance Cloudy H Urine Protein Trace H Urine Blood Trace H Urine RBC 11 H Triple Phos Crystals Occasional H Amorphous Sediment Occasional H Urine Bacteria Rare H Urine Mucus Rare H Assessment and Plan Assessment: * Generalized weakness, likely multifactorial. Patient's recent receiving Moderna Covid vaccination, along with mild renal insufficiency, ?CHF and worsening peripheral edema are the likely causes. Her examination is nonfocal. * Elevated liver enzymes, chronic. * Hypertension * Peripheral edema * Osteoarthritis Plan: * Patient's examination is nonfocal. * No other neurological workup indicated. * Patient's B12 is borderline 381, therefore we will give B12 injection 1000 g 1. * Await folic acid * Hydration * 2-D echo showed normal left-ventricular size. Severe concentric LVH, EF is 55-60%. Left atrium is severely dilated. Aortic valve is trileaflet and is mildly thickened. Moderate to severe MR, predominantly a posteriorly directed jet. Moderate TR. Cardiology on board. * Neurologically clear.
[2021-03-09] MEDS ORDERED: CYANOCOBALAMIN 1,000 MCG/ML 1 ML VIAL IM ONE (13:30)
--- NOTE | 2021-03-09 14:11 | P.PN ---
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 Patient states that she did have Moderna vaccine on her right shoulder. Ever since redness did she developed increasing weakness and right shoulder pain and unable to lift her right shoulder. Patient was also complaining of bilateral lower extremity swelling for the past 1 year and supposed to be started on diuretics but currently not on any diuretic medications. Denies any complaints of chest pain or shortness of breath. No dysuria or hematuria. No fever no chills. No headache or dizziness or lightheadedness. No focal weakness. Chest x-ray showed no active cardiopulmonary disease. Cardiomegaly and hiatal hernia. No change. Laboratory showed WBC 4.4 hemoglobin 10.5 platelets 55 MCV one 1.5 Sodium 132 potassium 4.2 chloride 105 bicarb is 21 BUN 35 creatinine 1.1 pound magnesium 1.8 total bilirubin 1.4 AST 95 ALT 71 troponin times one 0.031 and NT proBNP 00111 Urinalysis negative for infection COVID-19 PCR not detected 03/09/2021 Patient is seen and evaluated this morning and follow-up with no acute overnight issues. Patient does continue to have bilateral lower extremity swelling but no pitting edema noted. Patient underwent 2-D echo showing severe concentric left ventricular hypertrophy with overall left ventricular systolic function is normal with an EF between 55 and 60% with increased LEP grade 3 diastolic dysfunction with moderate to severe mitral regurgitation present and moderate tricuspid regurgitation present with moderate pulmonary hypertension and m oderate pulmonic regurgitation. Cardiology is following. Lasix has been discontinued and we'll continue with Vinicius wraps to bilateral lower extremities from the toes up to the knees and elevate extremities while at rest. Will have PT/OT evaluate the patient. Patient was cleared neurologically. Review of systems: Constitutional: No reports of fatigue, fever, or chills, reports continued right arm discomfort and inability to raise above shoulder height Cardiovascular: No reports of chest pain or palpitations Respiratory: No reports of shortness of breath or cough GI: No reports of nausea, vomiting, or diarrhea : No reports of dysuria or retention Neurovascular: No reports of weakness or numbness All medications have been reviewed Objective - Vital Signs Vital signs: Vital Signs Temp 97.8 F 03/09/21 12:25 Pulse 59 L 03/09/21 12:25 Resp 18 03/09/21 12:25 BP 164/75 03/09/21 12:25 Pulse Ox 99 03/09/21 12:25 Intake & Output 03/08/21 03/09/21 03/09/21 18:59 06:59 18:59 Intake Total 100 Balance 100 Weight 74.843 kg Intake: Oral 100 Other: Voiding Method Bedside Commode Bedside Commode # Voids 3 1 - Exam Patient is sitting up at the side of the bed comfortably, no acute distress, awake alert and oriented.Mild cognitive impairment. HEENT: Normocephalic. Neck is supple. Pupils reactive. Nostrils clear. Oral cavity is moist. Ears reveal no drainage. Neck reveals no JVD, carotid bruits, or thyromegaly. CHEST EXAMINATION: Trachea is central. Symmetrical expansion. Lung ludwig clear to auscultation and percussion. CARDIAC: Normal S1, S2 with no gallops. No murmurs ABDOMEN: Soft. Bowel sounds normal. No organomegaly. No abdominal bruits. Extremities: Bilateral lower extremity non-pitting edema. No clubbing or cyanosis Vinicius wraps noted Neurologically awake, alert, oriented x2-3 with well-coordinated movements. No focal deficits noted Skin: No rash or skin lesions. Psychiatric: Cooperative. Non-suicidal Musculoskeletal: No joint swelling or deformity. Normal range of motion. - Labs CBC & Chem 7: 03/09/21 05:28 03/09/21 05:28 Labs: Abnormal Lab Results - Last 24 Hours (Table) 03/09/21 03/09/21 Range/Units 05:28 05:28 WBC 3.3 L (3.8-10.6) k/uL RBC 2.88 L (3.80-5.40) m/uL Hgb 9.9 L (11.4-16.0) gm/dL Hct 28.9 L (34.0-46.0) % MCV 100.3 H (80.0-100.0) fL RDW 16.7 H (11.5-15.5) % Plt Count 61 L (150-450) k/uL Lymphocytes # 0.5 L (1.0-4.8) k/uL BUN 33.0 H (9.0-27.0) mg/dL Est GFR (CKD-EPI)AfAm 48.7 L (60.0-200.0) Est GFR (CKD-EPI)NonAf 42.1 L (60.0-200.0) BUN/Creatinine Ratio 27.50 H (12.00-20.00) Ratio Calcium 8.1 L (8.7-10.3) mg/dL Total Bilirubin 1.3 H (0.3-1.2) mg/dL AST 52 H (13-35) U/L ALT 52 H (8-44) U/L Total Protein 5.6 L (6.2-8.2) g/dL Albumin 2.50 L (3.80-4.90) g/dL Albumin/Globulin Ratio 0.81 L (1.60-3.17) g/dL Assessment and Plan Assessment: Generalized weakness and right shoulder pain.. Started 1 day after having coronavirus vaccine first dose. Chronic bilateral lower extremity lymphedema. Elevated D-dimer level without other evidence of CHF Uncontrolled hypertension. 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 Outpatient GI follow-up recommended. 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 DVT prophylaxis with heparin subcu Plan: Continue with current medications. Cardiology following the patient and patient underwent 2-D echo as mentioned previously. Patient was also seen and evaluated by neurology and was cleared with no deficits noted. Patient will be evaluated by PT/OT therapy. Continue with Vinicius wraps from the toes up to the knees and elevate lower extremities while at rest. Will continue to monitor closely and await PT/OT therapy notes and anticipate possible discharge in 24 hours.
[2021-03-10 01:28] VITALS: RESP 20
[2021-03-10 06:15] VITALS: BP 167/76; PULSE 69; TEMP 97.8
[2021-03-10] MEDS: HEPARIN SODIUM,PORCINE/PF 5,000 UNIT/0.5 ML SYRINGE SQ SCH (08:36)
[2021-03-10] MEDS: amLODIPine 5 MG TAB PO SCH (08:36)
[2021-03-10] MEDS: PANTOPRAZOLE 40 MG TABLET PO SCH (08:36)
[2021-03-10] MEDS: ASPIRIN 81 MG PO SCH (08:36)
--- NOTE | 2021-03-10 12:41 | P.PN ---
Subjective HISTORY OF PRESENTING ILLNESS This is a pleasant 80-year-old female past medical history significant for hypertension not on meds. She denies prior history of coronary and does not follow in the office with a x ray equipment mechanic. We have been asked to see in consultation for elevated BNP. She presented to the hospital with symptoms of generalized weakness mostly in the legs and right should pain after getting her COVID vaccine Tuesday. The patient herself denies having any symptoms of shortness of breath or chest pain. However, ER documentation states her granddaughter was present there and she has noticed increased shotness of breath recently with some associated lower extremity edema. Apparently this has been going on for the last 1-year. She is seen and examined sitting up in bed in no acute distress. 03/11/2021 Echocardiogram obtained reveals preserved LV systolic function with ejection fraction 55-60%, grade 3 diastolic dysfunction, moderate to severe mitral regurgitation with posterior directed jet, moderate tricuspid regurgitation and pulmonary hypertension with an RVSP of 60 mmHg. Laboratory data reviewed, WBC 3.3, hemoglobin 9.9, platelets 61, sodium 136, potassium 3.8 and creatinine 1.2. PHYSICAL EXAMINATION CONSTITUTIONAL: No apparent distress. HEENT: Head is normocephalic. Pupils are equal, round. Sclerae anicteric. Mucous membranes of the mouth are moist. No JVD. No carotid bruit. CHEST EXAMINATION: Lungs are clear to auscultation. No chest wall tenderness is noted on palpation or with deep breathing. HEART EXAMINATION: Regular rate and rhythm. S1, S2 heard. Soft systolic ejection murmur at the left sternal border, no gallops or rub. EXTREMITIES: 2+ peripheral pulses, bilatearal lower extremity edema with JEAN-PIERRE wraps in place, non-pitting and no calf tenderness. ASSESSMENT Generalized weakness Pancytopenia Acute kidney injury Elevated BNP of unclear significance. Clinically euvolemic Hypertension PLAN Add small dose of daily diuretics. Follow up with Dr. Enamorado in the office in 2 weeks. Nurse Practitioner note has been reviewed, I agree with a documented findings and plan of care. Patient was seen and examined. Objective - Vital Signs Vital signs: Vital Signs Temp 97.8 F 03/10/21 05:15 Pulse 69 03/10/21 05:15 Resp 20 03/10/21 05:15 BP 167/76 03/10/21 05:15 Pulse Ox 97 03/10/21 05:15 Intake & Output 03/09/21 03/10/21 03/10/21 18:59 06:59 18:59 Intake Total 200 Balance 200 Weight 74.843 kg Intake: Oral 200 Other: Voiding Method Bedside Commode # Voids 3 2 - Labs CBC & Chem 7: 03/09/21 05:28 03/09/21 05:28 Labs: Abnormal Lab Results - Last 24 Hours (Table) 03/08/21 Range/Units 16:06 RBC Folate 978 H (280 - 791) ng/mL
[2021-03-10 14:23] LABS: Reticulocyte % 2.3 % (0.5-2.0)
--- NOTE | 2021-03-10 15:13 | P.DS ---
Providers Date of admission: 03/08/21 03:03 Expected date of discharge: 03/10/21 Attending physician: Effie Echavarria Consults: 03/09/21 08:26 Consult Physician Routine Consulting Provider: Negro Enamorado Consult Reason/Comments: Right sided heart failure Do you want consulting provider notified?: Already Contacted 03/09/21 08:46 Consult Physician Routine Consulting Provider: Victor M Anthony Consult Reason/Comments: Weakness Do you want consulting provider notified?: Yes Primary care physician: Dixie Staples Hospital Course: Final diagnosis Generalized weakness and right shoulder pain.. Started 1 day after having coronavirus vaccine first dose. Chronic bilateral lower extremity lymphedema. Elevated D-dimer level without other evidence of CHF Uncontrolled hypertension. 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 Outpatient GI follow-up recommended. 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 DVT prophylaxis Discharge disposition Patient is being discharged in a stable condition with guarded prognosis to [facility] for continued PT/OT therapy. Patient will follow-up with Dr. Staples upon discharge. Patient also instructed to follow-up with GI and cardiology and hematology oncology once discharged from the [facility]. Total time taken is greater than 35 minutes. Hospital course Patient is a 80-year-old female with known history of hypertension, GERD, osteoarthritis, chronic right hydronephrosis with ureteral outlet chronic obstruction, hiatal hernia status post EGD about 1 year ago and chronic hepatitis on follow-up with the GI clinic list ER with complaints of generalized weakness. Patient states that she did have Moderna vaccine on her right shoulder. Ever since redness did she developed increasing weakness and right s houlder pain and unable to lift her right shoulder. Patient was also complaining of bilateral lower extremity swelling for the past 1 year and supposed to be started on diuretics but currently not on any diuretic medications. Denies any complaints of chest pain or shortness of breath. No dysuria or hematuria. No fever no chills. No headache or dizziness or lightheadedness. No focal weakness. Chest x-ray showed no active cardiopulmonary disease. Cardiomegaly and hiatal hernia. No change. Laboratory showed WBC 4.4 hemoglobin 10.5 platelets 55 MCV one 1.5 Sodium 132 potassium 4.2 chloride 105 bicarb is 21 BUN 35 creatinine 1.1 pound magnesium 1.8 total bilirubin 1.4 AST 95 ALT 71 troponin times one 0.031 and NT proBNP 81341 Urinalysis negative for infection COVID-19 PCR not detected 03/09/2021 Patient is seen and evaluated this morning and follow-up with no acute overnight issues. Patient does continue to have bilateral lower extremity swelling but no pitting edema noted. Patient underwent 2-D echo showing severe concentric left ventricular hypertrophy with overall left ventricular systolic function is normal with an EF between 55 and 60% with increased LEP grade 3 diastolic dysfunction with moderate to severe mitral regurgitation present and moderate tricuspid regurgitation present with moderate pulmonary hypertension and moderate pulmonic regurgitation. Cardiology is following. Lasix has been discontinued and we'll continue with Vinicius wraps to bilateral lower extremities from the toes up to the knees and elevate extremities while at rest. Will have PT/OT evaluate the patient. Patient was cleared neurologically. 03/10/2021 Patient is seen and evaluated and follow-up and was seen and evaluated by PT/OT therapy and unable to get up out of the wheelchair and family at the bedside unable to transport the patient as well and is now agreeable to rehab. Social work consult was placed and patient will be going to [facility] for continued PT/OT therapy. Patient to continue to elevate lower extremities while at rest and continue to Vinicius wrap from the toes up to the knees and patient was started on low-dose Lasix 20 mg daily and will need to follow-up with cardiology outpatient. Patient will also need GI follow-up for elevated liver enzymes that appear to be chronic. Patient was to follow with Dr. Villagran a few weeks ago for labs and further testing and labs were drawn prior to discharge and patient will need to follow-up once discharged from the ECF with nurse practitioner Kasandra Forbes and Dr. Villagran. Currently no reports of chest pain, shortness of breath, or palpitations. Patient is afebrile. No reports of nausea or vomiting and patient is tolerating diet. Patient will be discharged to ECF today. Guarded prognosis. On exam vital signs are stable. Cardio S1, S2 are muffled. Respiratory shows diminished breath sounds at the bases with a few scattered rhonchi noted. Abdomen is soft and nontender. Nervous system shows diffuse weakness. Please refer to medication reconciliation sheet for a list of medications. Patient Condition at Discharge: Fair Plan - Discharge Summary Discharge Rx Participant: Yes New Discharge Prescriptions: New Aspirin 81 mg PO DAILY 30 Days #30 chew Furosemide [Lasix] 20 mg PO DAILY #90 tab Ibuprofen [Motrin] 400 mg PO Q4HR PRN tab PRN Reason: Menstrual Cramps amLODIPine [Norvasc] 5 mg PO DAILY 30 Days #30 tab Pantoprazole [Protonix] 40 mg PO AC-BRKFST 30 Days #30 tablet.dr Discharge Medication List Aspirin 81 mg PO DAILY 30 Days #30 chew 03/10/21 [Rx] Furosemide [Lasix] 20 mg PO DAILY #90 tab 03/10/21 [Rx] Ibuprofen [Motrin] 400 mg PO Q4HR PRN tab 03/10/21 [Rx] Pantoprazole [Protonix] 40 mg PO AC-BRKFST 30 Days #30 tablet. 03/10/21 [Rx] amLODIPine [Norvasc] 5 mg PO DAILY 30 Days #30 tab 03/10/21 [Rx] Follow up Appointment(s)/Referral(s): Negro Enamorado MD [STAFF PHYSICIAN] - 2 Weeks Jennifer Mitchell MD [STAFF PHYSICIAN] - 1 Week Dixie Staples MD [Primary Care Provider] - 1-2 days Activity/Diet/Wound Care/Special Instructions: [facility] - Activity Limited until follow-up Follow-up with primary care provider upon discharge Follow-up cardiology outpatient Follow-up GI outpatient Continue current diet Continue with Vinicius wraps from the toes up to the knees and elevate lower extremities while at rest Continue with home care and rehab in the home Discharge Disposition: HOME WITH HOME HEALTH SERVICES
[2021-03-10 15:21] LABS: Anisocytosis (M) Present; Poikilocytosis (M) Present
[2021-03-10 15:22] LABS: Crenated RBC Present; RBC Fragments Present
--- NOTE | 2021-03-10 15:46 | P.PN ---
Subjective Progress Note Date: 03/10/21 Patient offers no complaints. Sitting in the recliner. Very comfortable. Objective - Vital Signs Vital signs: Vital Signs Temp 97.8 F 03/10/21 05:15 Pulse 69 03/10/21 05:15 Resp 20 03/10/21 05:15 BP 167/76 03/10/21 05:15 Pulse Ox 97 03/10/21 05:15 Intake & Output 03/09/21 03/10/21 03/10/21 18:59 06:59 18:59 Intake Total 200 Balance 200 Weight 74.843 kg Intake: Oral 200 Other: Voiding Method Bedside Commode # Voids 3 2 - Exam Patient's mental status, speech and language functions are normal. Cranial nerves are normal. Muscle strength is normal. No ataxia. - Labs CBC & Chem 7: 03/09/21 05:28 03/09/21 05:28 Labs: Abnormal Lab Results - Last 24 Hours (Table) 03/08/21 03/09/21 Range/Units 16:06 05:28 WBC 3.3 L (3.8-10.6) k/uL RBC 2.88 L (3.80-5.40) m/uL Hgb 9.9 L (11.4-16.0) gm/dL Hct 28.9 L (34.0-46.0) % MCV 100.3 H (80.0-100.0) fL RDW 16.7 H (11.5-15.5) % Plt Count 61 L (150-450) k/uL Lymphocytes # 0.5 L (1.0-4.8) k/uL Retic Count 2.3 H (0.5-2.0) % RBC Folate 978 H (280 - 791) ng/mL Assessment and Plan Assessment: * Generalized weakness, likely multifactorial. Patient's recent receiving Moderna Covid vaccination, along with mild renal insufficiency, ?CHF and worsening peripheral edema are the likely causes. Her examination is n onfocal. * Elevated liver enzymes, chronic. * Hypertension * Peripheral edema * Osteoarthritis Plan: * Patient's examination is nonfocal. * No other neurological workup indicated. * Patient's B12 is borderline 381, therefore we will give B12 injection 1000 g 1. Recommend continue oral B12 replacement 1000 g per day. * RBC folate is normal. * Hydration * 2-D echo showed normal left-ventricular size. Severe concentric LVH, EF is 55-60%. Left atrium is severely dilated. Aortic valve is trileaflet and is mildly thickened. Moderate to severe MR, predominantly a posteriorly directed jet. Moderate TR. Cardiology on board. * Neurologically clear. We will sign off.
[2021-03-10] MEDS ORDERED: FUROSEMIDE 20 MG TAB PO SCH (16:00)
[2021-03-10] MEDS ORDERED: CYANOCOBALAMIN 500 MCG TAB PO SCH (16:00)
--- NOTE | 2021-03-10 21:46 | P.CONS ---
History of Present Illness - Reason for Consult Consult date: 03/10/21 Pancytopenia Requesting physician: Yulisa Mathew - Chief Complaint Weakness - History of Present Illness Mrs. Lake was originally referred to Dr. Loredo by her Primary Care Provider regarding her pancytopenia. She was scheduled for a new patient consultation last week in office although she was unable to make this appointment as she was not feeling well. She was rescheduled yesterday in office, although due to hospitalization we have been asked to evaluate while inpatient. Over review of Mrs. Garcia bloodwork trends it appears she has chronic anemia, although since July of 2020 this has become progressively worse and with evidence of macrocytosis. Her platelet count has slowing trended down since this time (07/2020), and lymphocytopenia has also been evidence since this time. July of 2020 it is noted her liver function was increased (known hx of chronic hepatitis). She received her covid vaccination recently in right shoulder and since this time has felt increased muscle/skeletal pains and weakness. She has a documented medical history of hypertension, GERD, osteoarthritis, chronic right hydronephrosis with ureteral outlet chronic obstruction, hiatal hernia status post EGD about 1 year ago and chronic hepatitis. Patient up in chair, son at bedside. She is unable to stand and ADLs alone without assistance, therefore primary team is currently working on discharge plan for rehab at this time. SHe complains of feeling weak and fatigued that has worsened since her hospitalization in July of 2020, and this is in alignment with her trending down of labs. Review of Systems All systems: negative Constitutional: Reports as per HPI Past Medical History Past Medical History: Cancer, GERD/Reflux, Hypertension, Osteoarthritis (OA) Additional Past Medical History / Comment(s): no blood pressure meds, states hx of cancer spine , hiatal hernia, right hydronephrosis, states stomach pain and nausea. History of Any Multi-Drug Resistant Organisms: None Reported Past Surgical History: Back Surgery, Cholecystectomy, Joint Replacement, Orthopedic Surgery Additional Past Surgical History / Comment(s): kidney stent, sarah shoulder surgery, sarah total knees. Past Anesthesia/Blood Transfusion Reactions: No Reported Reaction Past Psychological History: Anxiety Smoking Status: Never smoker Past Alcohol Use History: None Reported Past Drug Use History: None Reported - Past Family History Mother Family Medical History: No Reported History Medications and Allergies Home Medications Medication Instructions Recorded Confirmed Type Aspirin 81 mg PO DAILY 30 Days #30 chew 03/10/21 Rx Furosemide [Lasix] 20 mg PO DAILY #90 tab 03/10/21 Rx Ibuprofen [Motrin] 400 mg PO Q4HR PRN tab 03/10/21 Rx Pantoprazole [Protonix] 40 mg PO AC-BRKFST 30 Days #30 03/10/21 Rx tablet. amLODIPine [Norvasc] 5 mg PO DAILY 30 Days #30 tab 03/10/21 Rx Allergies Allergy/AdvReac Type Severity Reaction Status Date / Time codeine AdvReac dizziness Verified 03/08/21 08:21 and passes out Physical Exam Vitals: Vital Signs Temp Pulse Resp BP Pulse Ox 03/10/21 05:15 97.8 F 69 20 167/76 97 03/09/21 20:00 98.2 F 72 20 147/68 97 03/09/21 12:25 97.8 F 59 L 18 164/75 99 Intake and Output 03/09/21 03/10/21 03/10/21 22:59 06:59 14:59 Intake Total 100 100 Balance 100 100 Intake: Oral 100 100 Other: Voiding Method Bedside Commode # Voids 3 2 - Constitutional General appearance: cooperative, no acute distress - EENT Eyes: EOMI ENT: hard of hearing, NA/AT - Neck Neck: normal ROM - Respiratory Respiratory: bilateral: diminished - Cardiovascular Rhythm: irregularly irregular leg Peripheral Edema: bilateral: Trace - Gastrointestinal General gastrointestinal: distended, hepatomegaly, soft - Integumentary Integumentary: pale - Neurologic Neurologic: CNII-XII intact - Musculoskeletal Musculoskeletal: generalized weakness, strength equal bilaterally - Psychiatric poor historian Results CBC & Chem 7: 03/09/21 05:28 03/09/21 05:28 Labs: Abnormal Lab Results - Last 24 Hours (Table) 03/08/21 Range/Units 16:06 RBC Folate 978 H (280 - 791) ng/mL Assessment and Plan Plan: Assessment and Recommendations: Pancytopenia: Mild Leukopenia, Lymphopenia: Macrocytic Anemia: - Stable although trending down over past 7 months Thrombocytopenia: - Continued mild decrease over past 7 months Pancytopenia work-up has been ordered, differentials include chronic liver disease plus/minus low grade MDS/Marrow disorder. Plan for patient to be discharged to [facility] for increased performance. She will follow-up after she is discharged from rehab and further recommendations will be provided as initial work-up will be resulted.
[2021-03-10 23:40] LABS: Protein, Total 6.4 g/dL (6.2-8.2)
[2021-03-11 15:33] LABS: Gamma Globulin 1.82 g/dL (0.70-1.50)
[2021-03-12 08:07] LABS: Methylmalonic Acid 0.58 umol/L (<0.40)
== END 2021-03-10 17:05 ==
LOC: EC 20:01 → 5NMEDONC 03-08 03:03
PROVIDERS: ADMIT Hospitalist; ATTEND Hospitalist
DX: I11.0 Hypertensive heart disease with heart failure (principal); I50.810 Right heart failure, unspecified; I27.29 Other secondary pulmonary hypertension; K73.9 Chronic hepatitis, unspecified; N13.30 Unspecified hydronephrosis; D61.818 Other pancytopenia; I89.0 Lymphedema, not elsewhere classified; N17.9 Acute kidney failure, unspecified; I08.1 Rheumatic disorders of both mitral and tricuspid valves; D75.89 Other specified diseases of blood and blood-forming organs; K44.9 Diaphragmatic hernia without obstruction or gangrene; M25.511 Pain in right shoulder; M19.90 Unspecified osteoarthritis, unspecified site; K21.9 Gastro-esophageal reflux disease without esophagitis; F41.9 Anxiety disorder, unspecified; E66.9 Obesity, unspecified; Z68.25 Body mass index [BMI] 25.0-25.9, adult; Z88.5 Allergy status to narcotic agent; Z79.899 Other long term (current) drug therapy; Z79.82 Long term (current) use of aspirin; Z90.49 Acquired absence of other specified parts of digestive tract; Z20.822 Contact with and (suspected) exposure to COVID-19; Z96.653 Presence of artificial knee joint, bilateral; Z85.830 Personal history of malignant neoplasm of bone
CPT/HCPCS: 96361 ×2; 96372 ×3; 96375; 96374; 99285; 36415; 93005; 93306; 97162; 97535; 97166; 83921; 82747; 83880; 80053 ×2; 84443; 82607; 83605; 83625; 83735; 84484; 85025 ×2; 85610; 85045; 85730; 86431; 81001; 82784 ×3; 84165; 82668; 83010; 86038; 86334; 83883; 83036; 87635; 73030; 71046; G0378 ×3; J3420; J1940; J1644 ×3

== ENCOUNTER 2021-04-11 15:01 | Inpatient (IN) | payer MEDICARE, BC ==
--- NOTE | 2021-04-11 15:19 | ED ---
Altered Mental Status HPI - General Chief Complaint: Altered Mental Status Stated Complaint: unresponsive Time Seen by Provider: 04/11/21 15:04 Source: patient, EMS Mode of arrival: EMS Limitations: altered mental status - History of Present Illness Initial Comments: Melly is an 80-year-old female who is brought to the ER today by ambulance unresponsive. Per the son the patient has not been sleeping well the past couple nights she's had urinary frequency. Her son brought her in bed around 4 AM and reports he got she was sleeping all day however when he checked on her is afternoon he could not wake her and EMS was contacted. EMS reports that the patient was hypotensive bradycardic upon their initial evaluation. - Related Data Home Medications Medication Instructions Recorded Confirmed Atorvastatin [Lipitor] 20 mg PO HS 04/11/21 04/11/21 Omeprazole 20 mg PO DAILY 04/11/21 04/11/21 Potassium Chloride ER [K-Dur 20] 40 meq PO DAILY 04/11/21 04/11/21 amLODIPine [Norvasc] 10 mg PO DAILY 04/11/21 04/11/21 traMADol HCL 50 mg PO Q6H PRN 04/11/21 04/11/21 Previous Rx's Medication Instructions Recorded Aspirin 81 mg PO DAILY 30 Days #30 chew 03/10/21 Furosemide [Lasix] 20 mg PO DAILY #90 tab 03/10/21 Allergies Allergy/AdvReac Type Severity Reaction Status Date / Time codeine AdvReac dizziness Verified 04/11/21 16:58 and passes out Review of Systems ROS Statement: Those systems with pertinent positive or pertinent negative responses have been documented in the HPI. ROS Other: All systems not noted in ROS Statement are negative. Past Medical History Past Medical History: Cancer, GERD/Reflux, Hypertension, Osteoarthritis (OA) Additional Past Medical History / Comment(s): no blood pressure meds, states hx of cancer spine , hiatal hernia, right hydronephrosis, states stomach pain and nausea. History of Any Multi-Drug Resistant Organisms: None Reported Past Surgical History: Back Surgery, Cholecystectomy, Joint Replacement, Orthopedic Surgery Additional Past Surgical History / Comment(s): kidney stent, sarah shoulder surgery, sarah total knees. Past Anesthesia/Blood Transfusion Reactions: No Reported Reaction Past Psychological History: Anxiety Smoking Status: Never smoker Past Alcohol Use History: None Reported Past Drug Use History: None Reported - Past Family History Mother Family Medical History: No Reported History General Exam - General Exam Comments Initial Comments: Physical Exam GENERAL: Chronically ill appearing HENT: Normocephalic, Atraumatic. EYES: Eyes deviated to right PULMONARY: Minimal respiratory effort CARDIOVASCULAR: Bradycardia ABDOMEN: Soft and nontender with normal bowel sounds. SKIN: Skin is clear with no lesions or rashes and otherwise unremarkable. : Normal external genitalia NEUROLOGIC: Unresponsive Cough during intubation MUSCULOSKELETAL: No obvious trauma PSYCHIATRIC: Unable to assess Limitations: altered mental status Course Vital Signs 04/11/21 04/11/21 04/11/21 15:02 15:11 15:28 Temperature 97.3 F L Pulse Rate 56 L 54 L 50 L Respiratory 18 12 12 Rate Blood Pressure 143/125 110/47 111/47 O2 Sat by Pulse 78 L 97 98 Oximetry 04/11/21 04/11/21 04/11/21 15:38 15:45 15:51 Temperature Pulse Rate 55 L 52 L 58 L Respiratory 12 14 16 Rate Blood Pressure 135/56 127/56 139/59 O2 Sat by Pulse 100 98 98 Oximetry 04/11/21 04/11/21 04/11/21 15:55 15:59 16:17 Temperature Pulse Rate 55 L 55 L 51 L Respiratory 20 18 18 Rate Blood Pressure 138/57 132/54 115/48 O2 Sat by Pulse 98 99 99 Oximetry 04/11/21 04/11/21 04/11/21 16:31 16:58 17:05 Temperature Pulse Rate 49 L 48 L 48 L Respiratory 18 18 18 Rate Blood Pressure 109/46 106/47 108/49 O2 Sat by Pulse 99 98 98 Oximetry 04/11/21 04/11/21 04/11/21 17:22 17:40 17:55 Temperature Pulse Rate 49 L 80 68 Respiratory 18 Rate Blood Pressure 115/51 O2 Sat by Pulse 98 Oximetry 04/11/21 04/11/21 04/11/21 18:09 18:11 18:24 Temperature Pulse Rate 38 L 58 L 50 L Respiratory 16 18 Rate Blood Pressure 112/44 119/56 O2 Sat by Pulse 100 98 Oximetry 04/11/21 18:42 Temperature Pulse Rate 44 L Respiratory 16 Rate Blood Pressure 114/47 O2 Sat by Pulse 10 L Oximetry Procedures - Intubation Sedative: Etomidate Paralytic: Rocuronium Laryngoscope: fiber optic video scope Size: 4 ET Tube Size: 7 ET Tube Uncuffed: No Tube Secured Depth (cm): 22 Tube Secured Location: lips Tube Placement Confirmation: visualized tube passing through cords, equal breath sounds bilaterally, no breath sounds over epigastrium, confirmation by capnometry Patient Tolerated Procedure: well Intubation Complications: none Medical Decision Making - Medical Decision Making Visual seen and evaluated upon arrival to the emergency department patient was unresponsive but was breathing oxygen saturation was 9090s with a nonrebreather mask Patient's eyes were deviated I had concern that she may have intracranial hemorrhage, accompanied the patient to computed tomography scan EMS was able to contact patient's family while patient was in computed tomography scan they confirm full CODE STATUS I saw no acute intracranial abnormalities during the scan we return to the resuscitation Dan patient was intubated NG tube and John catheter replaced, thick dark urine was collected CBC was reviewed, urinalysis concerning for urinary tract infection Due to significant abnormalities the CMP was reran 2 times per the lab and didn' t result for nearly 2 hours, it resulted with critical hyperkalemia which was treated with insulin, D50, bicarb, calcium and IV fluids She is in acute renal failure she appears to be prerenal therefore IV fluids were ordered Patient was noted to have some bradycardia in the emergency department and calcium was ordered for further cardiac stabilization due to hyperkalemia She care was discussed with Dr. Echavarria and Dr. Anthony who accept the patient to the ICU for unresponsiveness, acute renal failure, urinary tract infection - Lab Data Result diagrams: 04/11/21 15:09 04/11/21 15:09 Lab Results 04/11/21 04/11/21 04/11/21 Range/Units 15:09 15:09 15:09 WBC 6.4 (3.8-10.6) k/uL RBC 3.47 L (3.80-5.40) m/uL Hgb 10.7 L (11.4-16.0) gm/dL Hct 34.3 (34.0-46.0) % MCV 99.0 (80.0-100.0) fL MCH 30.9 (25.0-35.0) pg MCHC 31.2 (31.0-37.0) g/dL RDW 17.5 H (11.5-15.5) % Plt Count 289 D (150-450) k/uL MPV 7.5 Neutrophils % 85 % Lymphocytes % 8 % Monocytes % 5 % Eosinophils % 0 % Basophils % 0 % Neutrophils # 5.4 (1.3-7.7) k/uL Lymphocytes # 0.5 L (1.0-4.8) k/uL Monocytes # 0.3 (0-1.0) k/uL Eosinophils # 0.0 (0-0.7) k/uL Basophils # 0.0 (0-0.2) k/uL Anisocytosis Slight Macrocytosis Slight PT 12.4 H (9.0-12.0) sec INR 1.2 H (<1.2) APTT 39.1 H (22.0-30.0) sec Sample Site ABG pH (7.35-7.45) ABG pCO2 (35-45) mmHg ABG pO2 (83-108) mmHg ABG HCO3 (21-25) mmol/L ABG Total CO2 (19-24) mmol/L ABG O2 Saturation (94-97) % ABG Base Excess mmol/L Vince Test FiO2 % Sodium (137-145) mmol/L Potassium (3.5-5.1) mmol/L Chloride (98-107) mmol/L Carbon Dioxide (22-30) mmol/L Anion Gap mmol/L BUN (7-17) mg/dL Creatinine (0.52-1.04) mg/dL Est GFR (CKD-EPI)AfAm (>60 ml/min/1.73 sqM) Est GFR (CKD-EPI)NonAf (>60 ml/min/1.73 sqM) Glucose (74-99) mg/dL Calcium (8.4-10.2) mg/dL Total Bilirubin (0.2-1.3) mg/dL AST (14-36) U/L ALT (4-34) U/L Alkaline Phosphatase (38-126) U/L Troponin I (0.000-0.034) ng/mL Total Protein (6.3-8.2) g/dL Albumin (3.5-5.0) g/dL TSH (0.465-4.680) mIU/L Free T4 (0.78-2.19) ng/dL Urine Color Red Urine Appearance Turbid H (Clear) Urine pH 7.5 (5.0-8.0) Ur Specific [place] 1.018 (1.001-1.035) Urine Protein 2+ H (Negative) Urine Glucose (UA) Negative (Negative) Urine Ketones Negative (Negative) Urine Blood Moderate H (Negative) Urine Nitrite Negative (Negative) Urine Bilirubin Negative (Negative) Urine Urobilinogen 4.0 (<2.0) mg/dL Ur Leukocyte Esterase Large H (Negative) Urine RBC 143 H (0-5) /hpf Urine WBC >182 H (0-5) /hpf Urine WBC Clumps Many H (None) /hpf Ur Squamous Epith Cells 6 H (0-4) /hpf Amorphous Sediment Moderate H (None) /hpf Urine Bacteria Many H (None) /hpf Urine Mucus Few H (None) /hpf 04/11/21 04/11/21 04/11/21 Range/Units 15:09 15:09 16:37 WBC (3.8-10.6) k/uL RBC (3.80-5.40) m/uL Hgb (11.4-16.0) gm/dL Hct (34.0-46.0) % MCV (80.0-100.0) fL MCH (25.0-35.0) pg MCHC (31.0-37.0) g/dL RDW (11.5-15.5) % Plt Count (150-450) k/uL MPV Neutrophils % % Lymphocytes % % Monocytes % % Eosinophils % % Basophils % % Neutrophils # (1.3-7.7) k/uL Lymphocytes # (1.0-4.8) k/uL Monocytes # (0-1.0) k/uL Eosinophils # (0-0.7) k/uL Basophils # (0-0.2) k/uL Anisocytosis Macrocytosis PT (9.0-12.0) sec INR (<1.2) APTT (22.0-30.0) sec Sample Site RAD ABG pH 7.44 (7.35-7.45) ABG pCO2 32 L (35-45) mmHg ABG pO2 91 (83-108) mmHg ABG HCO3 21 (21-25) mmol/L ABG Total CO2 22 (19-24) mmol/L ABG O2 Saturation 96.9 (94-97) % ABG Base Excess -2.7 mmol/L Vince Test Yes FiO2 60 % Sodium 131 L (137-145) mmol/L Potassium 7.1 H* (3.5-5.1) mmol/L Chloride 106 (98-107) mmol/L Carbon Dioxide 16 L (22-30) mmol/L Anion Gap 9 mmol/L BUN 89 H (7-17) mg/dL Creatinine 3.49 H (0.52-1.04) mg/dL Est GFR (CKD-EPI)AfAm 13 (>60 ml/min/1.73 sqM) Est GFR (CKD-EPI)NonAf 12 (>60 ml/min/1.73 sqM) Glucose 89 (74-99) mg/dL Calcium 8.0 L (8.4-10.2) mg/dL Total Bilirubin 2.1 H (0.2-1.3) mg/dL AST 291 H (14-36) U/L ALT 111 H (4-34) U/L Alkaline Phosphatase 770 H (38-126) U/L Troponin I 0.066 H* (0.000-0.034) ng/mL Total Protein 6.8 (6.3-8.2) g/dL Albumin 2.6 L (3.5-5.0) g/dL TSH 14.100 H (0.465-4.680) mIU/L Free T4 2.41 H (0.78-2.19) ng/dL Urine Color Urine Appearance (Clear) Urine pH (5.0-8.0) Ur Specific [place] (1.001-1.035) Urine Protein (Negative) Urine Glucose (UA) (Negative) Urine Ketones (Negative) Urine Blood (Negative) Urine Nitrite (Negative) Urine Bilirubin (Negative) Urine Urobilinogen (<2.0) mg/dL Ur Leukocyte Esterase (Negative) Urine RBC (0-5) /hpf Urine WBC (0-5) /hpf Urine WBC Clumps (None) /hpf Ur Squamous Epith Cells (0-4) /hpf Amorphous Sediment (None) /hpf Urine Bacteria (None) /hpf Urine Mucus (None) /hpf Critical Care Time Critical Care Time: Yes Total Critical Care Time: 35 Disposition Clinical Impression: ARF (acute renal failure), Hyperkalemia, Unresponsive, UTI (urinary tract infection) Disposition: ADMITTED IP TO THIS [facility] Condition: Poor
[2021-04-11] MEDS ORDERED: ETOMIDATE 2 MG/ML 10 ML VIAL IVP STA (15:30)
[2021-04-11 15:35] LABS: INR 1.2 (<1.2); Partial Thromboplastin Time 39.1 sec (22.0-30.0); Prothrombin Time 12.4 sec (9.0-12.0)
[2021-04-11] MEDS ORDERED: ROCURONIUM 10 MG/ML (5 ML VIAL) IV ONE (15:37)
[2021-04-11 15:47] LABS: Anisocytosis Slight; Basophils % (A) 0 %; Eosinophils % (A) 0 %; HCT 34.3 % (34.0-46.0); HGB 10.7 gm/dL (11.4-16.0); Lymphocytes # (A) 0.5 k/uL (1.0-4.8); Lymphocytes % (A) 8 %; MCH 30.9 pg (25.0-35.0); MCHC 31.2 g/dL (31.0-37.0); Macrocytosis Slight; Mean Platelet Volume 7.5; Monocytes # (A) 0.3 k/uL (0-1.0); Monocytes % (A) 5 %; Neutrophils # (A) 5.4 k/uL (1.3-7.7); Neutrophils % (A) 85 %; RBC 3.47 m/uL (3.80-5.40); RDW 17.5 % (11.5-15.5); WBC 6.4 k/uL (3.8-10.6)
[2021-04-11 15:48] LABS: Platelet Count 289 k/uL (150-450)
[2021-04-11 15:56] LABS: Amorphous Sediment,Urine Moderate /hpf; Appearance,Urine Turbid (Clear); Bacteria,Urine Many /hpf; Bilirubin,Urine Negative (Negative); Blood,Urine Moderate (Negative); Color,Urine Red; Glucose,Urine (UA) Negative (Negative); Ketones,Urine Negative (Negative); Leukocyte Esterase,Urine Large (Negative); Mucus,Urine Few /hpf; Nitrite,Urine Negative (Negative); PH, Urine 7.5 (5.0-8.0); Protein,Urine 2+ (Negative); RBC,Urine 143 /hpf (0-5); Squamous Epithelial Cell,Urine 6 /hpf (0-4); WBC,Urine >182 /hpf (0-5)
[2021-04-11 15:58] LABS: Specific Gravity,Urine 1.018 (1.001-1.035)
--- NOTE | 2021-04-11 15:59 | CT ---
EXAM: CT brain wo con for TPA CLINICAL HISTORY: Neuro deficit. Suspected stroke. COMPARISON: None TECHNIQUE: Contiguous axial noncontrast images of the brain were obtained. Coronal and sagittal refor mats were generated and reviewed. Automated dose control was used for this exam. FINDINGS: There is no evidence for intracranial hemorrhage, mass effect or midline shift. The right matter is g rossly preserved. There is mild parenchymal volume loss. Ventricular size and configuration is within normal limits for degree of parenchymal volume. The paranasal sinuses are clear. The mastoid air cells are clear. No evidence for calvarial fracture. 1.6 cm right parietal scalp benign calcification seen. IMPRESSION: No acute intracranial abnormality.
[2021-04-11] MEDS ORDERED: cefTRIAXone IN SWFI 1,000 MG/10 ML SYRINGE IVP STA (16:06)
[2021-04-11] MEDS ORDERED: HYDROCORTISONE SUCCINATE 100 MG/2 ML VIAL IV STA (16:13)
--- NOTE | 2021-04-11 16:21 | XR ---
EXAMINATION TYPE: XR chest 1V portable DATE OF EXAM: 04/11/2021 COMPARISON: 03/07/2021. HISTORY: Tube placement. TECHNIQUE: Single frontal view of the chest is obtained. FINDINGS: There is demonstration of an endotracheal tube terminating 3.9 cm above the violeta. There is a nasogastric tube with tip just distal to the diaphragm and overlying region of the gastroesophag eal junction. There are new moderate perihilar and bibasilar opacities. There is small left greater t kolb right pleural effusions. No pneumothorax. The cardiac silhouette size is mildly enlarged. The osseous structures are unchanged. IMPRESSION: Status post support apparatus as above. New moderate opacities with small pleural effusions, may represent interstitial edema/atelectasis wit h superimposed infiltrates not excluded.
[2021-04-11] MEDS: LEVOTHYROXINE IVP 100 MCG/5 ML VIAL IV SCH (16:34)
[2021-04-11 16:42] LABS: ABG Base Excess -2.7 mmol/L; ABG HCO3 21 mmol/L (21-25); ABG Oxygen Saturation 96.9 % (94-97); ABG PCO2 32 mmHg (35-45); ABG PH 7.44 (7.35-7.45); ABG PO2 91 mmHg (83-108); ABG TCO2 22 mmol/L (19-24); Allen Test Performed? Yes
[2021-04-11 16:59] LABS: Albumin 2.6 g/dL (3.5-5.0); Total Bilirubin 2.1 mg/dL (0.2-1.3); Total Protein 6.8 g/dL (6.3-8.2)
[2021-04-11 17:14] LABS: T4, Free (Free Thyroxine) 2.41 ng/dL (0.78-2.19)
[2021-04-11 17:16] LABS: Potassium 7.1 mmol/L (3.5-5.1)
[2021-04-11] MEDS ORDERED: ALBUTEROL NEB (CONC) 2.5 MG/0.5 ML INHALATION ONE (17:21)
[2021-04-11] MEDS ORDERED: DEXTROSE 50% SYRINGE 50 ML IVP ONE (17:21)
[2021-04-11] MEDS ORDERED: INSULIN REGULAR 100 UNIT/ML VIAL IV ONE (17:21)
[2021-04-11] MEDS ORDERED: SODIUM BICARB 8.4% 50 ML SYR (1 MEQ/ML) IV ONE (17:21)
[2021-04-11] MEDS ORDERED: SODIUM POLYSTYRENE SULFONATE 15 GM/60 ML BOTTLE PO STA (17:34)
[2021-04-11] MEDS ORDERED: NALOXONE 0.4 MG/ML 1 ML VIAL IV PRN (17:41)
[2021-04-11] MEDS ORDERED: SODIUM CHLORIDE 0.9% 1,000 ML IV ONE (17:42)
[2021-04-11] MEDS ORDERED: CALCIUM GLUCONATE 1 GM in SODIUM CHLORIDE 0.9% 100 ML IVPB ONE (17:45)
[2021-04-11] MEDS: SODIUM CHLORIDE 0.9% 1,000 ML IV SCH (18:05)
--- NOTE | 2021-04-11 18:05 | P.HPIM ---
History of Present Illness 80-year-old female was brought in after an episode of unresponsiveness. Patient was subsequently intubated. Patient is being admitted for severe sepsis which was believed to be secondary to urinary tract infection patient urine analysis is significantly abnormal and looked purulent. Patient appears to have multiorgan dysfunction as well. Patient was apparently not doing well since last couple days and family has been with her all night last night earlier today morning patient was found to be unresponsive. Patient is found to be hyponatremic with hyperkalemia of 7.1 bradycardia anion gap metabolic acidosis lactic acid is presently not available elevated creatinine of 3.49 baseline is around 1. Patient has elevated liver enzymes these appear to be chronic since her last hospitalization and patient was diagnosed with primary biliary cirrhosis at that time. Patient has highly elevated TSH and free T4 is around 2.41. Patient is presently intubated. Patient is presently not on any pressor support, receiving fluids at 1 30 mL per hour. Patient received calcium gluconate insulin and beta agonist for hyperkalemia, I'm also ordering Kayexalate. Patient was recently hospital is about 3 weeks ago for dehydration generalized weakness subsequently [facility] patient is supposed to be there for about a month after 2 weeks please stop drinking rehabilitation because of which patient was taken home about a week ago. Patient does have some cognitive impairment although doesn't have any significant dementia as per the the patient's family. Patient usually uses a cane for ambulation. Fairly functional.patient had Morganella morganii which is sensitive to Ur generation cephalosporins from her recent urine cultures. . Review of Systems unable to obtain due to her clinical condition Past Medical History Past Medical History: Cancer, GERD/Reflux, Hypertension, Osteoarthritis (OA) Additional Past Medical History / Comment(s): no blood pressure meds, states hx of cancer spine , hiatal hernia, right hydronephrosis, states stomach pain and nausea. History of Any Multi-Drug Resistant Organisms: None Reported Past Surgical History: Back Surgery, Cholecystectomy, Joint Replacement, Orthopedic Surgery Additional Past Surgical History / Comment(s): kidney stent, sarah shoulder surgery, sarah total knees. Past Anesthesia/Blood Transfusion Reactions: No Reported Reaction Past Psychological History: Anxiety Smoking Status: Never smoker Past Alcohol Use History: None Reported Past Drug Use History: None Reported - Past Family History Mother Family Medical History: No Reported History Medications and Allergies Home Medications Medication Instructions Recorded Confirmed Type Aspirin 81 mg PO DAILY 30 Days #30 chew 03/10/21 04/11/21 Rx Furosemide [Lasix] 20 mg PO DAILY #90 tab 03/10/21 04/11/21 Rx Atorvastatin [Lipitor] 20 mg PO HS 04/11/21 04/11/21 History Omeprazole 20 mg PO DAILY 04/11/21 04/11/21 History Potassium Chloride ER [K-Dur 20] 40 meq PO DAILY 04/11/21 04/11/21 History amLODIPine [Norvasc] 10 mg PO DAILY 04/11/21 04/11/21 History traMADol HCL 50 mg PO Q6H PRN 04/11/21 04/11/21 History Allergies Allergy/AdvReac Type Severity Reaction Status Date / Time codeine AdvReac dizziness Verified 04/11/21 16:58 and passes out Physical Exam Vitals: Vital Signs Temp Pulse Resp BP Pulse Ox 04/11/21 17:40 80 04/11/21 17:22 49 L 18 115/51 98 04/11/21 17:05 48 L 18 108/49 98 04/11/21 16:58 48 L 18 106/47 98 04/11/21 16:31 49 L 18 109/46 99 04/11/21 16:17 51 L 18 115/48 99 04/11/21 15:59 55 L 18 132/54 99 04/11/21 15:55 55 L 20 138/57 98 04/11/21 15:51 58 L 16 139/59 98 04/11/21 15:45 52 L 14 127/56 98 04/11/21 15:38 55 L 12 135/56 100 04/11/21 15:28 50 L 12 111/47 98 04/11/21 15:11 54 L 12 110/47 97 04/11/21 15:02 97.3 F L 56 L 18 143/125 78 L Intake and Output 04/11/21 04/11/21 04/11/21 06:59 14:59 22:59 Other: Weight 108.862 kg PHYSICAL EXAMINATION: GENERAL: Patient is intubated and started on propofol on ventilatory support. Thin built female HEENT: Pupils are round and equally reacting to light. EOMI. No scleral icterus. No conjunctival pallor. Normocephalic, atraumatic. No pharyngeal erythema. No thyromegaly. CARDIOVASCULAR: S1 and S2 present. No murmurs, rubs, or gallops. PULMONARY: Chest is clear to auscultation, no wheezing or crackles. ABDOMEN: Soft, nontender, nondistended, normoactive bowel sounds. No palpable organomegaly. The catheter in place MUSCULOSKELETAL: No joint swelling or deformity. EXTREMITIES: No cyanosis, clubbing, or pedal edema. NEUROLOGICAL: Intubated and sedated SKIN: No rashes. Results CBC & Chem 7: 04/11/21 15:09 04/11/21 15:09 Labs: Abnormal Lab Results - Last 24 Hours (Table) 04/11/21 04/11/21 04/11/21 Range/Units 15:09 15:09 15:09 RBC 3.47 L (3.80-5.40) m/uL Hgb 10.7 L (11.4-16.0) gm/dL RDW 17.5 H (11.5-15.5) % Lymphocytes # 0.5 L (1.0-4.8) k/uL PT 12.4 H (9.0-12.0) sec INR 1.2 H (<1.2) APTT 39.1 H (22.0-30.0) sec ABG pCO2 (35-45) mmHg Sodium (137-145) mmol/L Potassium (3.5-5.1) mmol/L Carbon Dioxide (22-30) mmol/L BUN (7-17) mg/dL Creatinine (0.52-1.04) mg/dL Calcium (8.4-10.2) mg/dL Total Bilirubin (0.2-1.3) mg/dL AST (14-36) U/L ALT (4-34) U/L Alkaline Phosphatase (38-126) U/L Troponin I (0.000-0.034) ng/mL Albumin (3.5-5.0) g/dL TSH (0.465-4.680) mIU/L Free T4 (0.78-2.19) ng/dL Urine Appearance Turbid H (Clear) Urine Protein 2+ H (Negative) Urine Blood Moderate H (Negative) Ur Leukocyte Esterase Large H (Negative) Urine RBC 143 H (0-5) /hpf Urine WBC >182 H (0-5) /hpf Urine WBC Clumps Many H (None) /hpf Ur Squamous Epith Cells 6 H (0-4) /hpf Amorphous Sediment Moderate H (None) /hpf Urine Bacteria Many H (None) /hpf Urine Mucus Few H (None) /hpf 04/11/21 04/11/21 04/11/21 Range/Units 15:09 15:09 16:37 RBC (3.80-5.40) m/uL Hgb (11.4-16.0) gm/dL RDW (11.5-15.5) % Lymphocytes # (1.0-4.8) k/uL PT (9.0-12.0) sec INR (<1.2) APTT (22.0-30.0) sec ABG pCO2 32 L (35-45) mmHg Sodium 131 L (137-145) mmol/L Potassium 7.1 H* (3.5-5.1) mmol/L Carbon Dioxide 16 L (22-30) mmol/L BUN 89 H (7-17) mg/dL Creatinine 3.49 H (0.52-1.04) mg/dL Calcium 8.0 L (8.4-10.2) mg/dL Total Bilirubin 2.1 H (0.2-1.3) mg/dL AST 291 H (14-36) U/L ALT 111 H (4-34) U/L Alkaline Phosphatase 770 H (38-126) U/L Troponin I 0.066 H* (0.000-0.034) ng/mL Albumin 2.6 L (3.5-5.0) g/dL TSH 14.100 H (0.465-4.680) mIU/L Free T4 2.41 H (0.78-2.19) ng/dL Urine Appearance (Clear) Urine Protein (Negative) Urine Blood (Negative) Ur Leukocyte Esterase (Negative) Urine RBC (0-5) /hpf Urine WBC (0-5) /hpf Urine WBC Clumps (None) /hpf Ur Squamous Epith Cells (0-4) /hpf Amorphous Sediment (None) /hpf Urine Bacteria (None) /hpf Urine Mucus (None) /hpf Assessment and Plan Plan: Possible severe sepsis: Probably secondary to urinary tract infection urine cultures and blood cultures were obtained. Patient will be can you done Rocephenri patient is being admitted to ICU patient is presently intubated. Patient will be continued on IV fluids -Acute hypoxic respiratory failure secondary to severe sepsis -Hyperkalemia: Multifactorial secondary to acute renal failure which is again secondary to acute tubular necrosis from severe sepsis potassium supplementation and also metabolic acidosis -Anion metabolic acidosis probably secondary to acute renal failure as well as lactic is doses -acute renal failure secondary to most probably acute tubular necrosis from severe sepsis IV fluids will be continued consult nephrology -Mildly elevated troponin secondary to severe sepsis and renal failure -Elevated TSH and as well as free T4 these abnormalities are probably secondary to sepsis, will need a repeat T4 and TSH in about couple weeks -Elevated liver enzymes patient appears to have elevated liver enzymes during the her previous hospitalization as well and patient was diagnosed with primary biliary cirrhosis and outpatient follow-up with gastroenterology was made at the time -Generalized deconditioning -Hypertension: Holding off antiarrhythmic his medications because of severe sepsis and concerns for septic shock. -Chronic of right-sided hydronephrosis -DVT prophylaxis with subcutaneous heparin GI prophylaxis with Protonix or Pepcid
[2021-04-11] MEDS ORDERED: CALCIUM CHLORIDE 100 MG/ML 10 ML SYRINGE IVP STA (18:42)
[2021-04-11 19:16] LABS: Glucose,Whole Blood 137 mg/dL (75-99)
[2021-04-11] MEDS: ATORVASTATIN 20 MG TAB PO SCH (20:28)
[2021-04-11 20:35] LABS: Glucose,Whole Blood 159 mg/dL (75-99)
[2021-04-11] MEDS: CHLORHEXIDINE GLUCONATE 15 ML CUP MUCOUS MEM SCH (21:12)
[2021-04-11] MEDS: HEPARIN SODIUM,PORCINE/PF 5,000 UNIT/0.5 ML SYRINGE SQ SCH (21:12)
[2021-04-11 23:41] LABS: Glucose,Whole Blood 135 mg/dL (75-99)
[2021-04-12] MEDS: SODIUM CHLORIDE 0.9% 1,000 ML IV SCH ×3 (01:36→16:37)
[2021-04-12 04:34] LABS: Anisocytosis Slight; Basophils % (A) 0 %; Eosinophils % (A) 0 %; HCT 30.8 % (34.0-46.0); HGB 10.2 gm/dL (11.4-16.0); Hypochromasia Slight; Lymphocytes # (A) 0.4 k/uL (1.0-4.8); Lymphocytes % (A) 5 %; MCH 32.8 pg (25.0-35.0); MCHC 33.1 g/dL (31.0-37.0); MCV 99.1 fL (80.0-100.0); Macrocytosis Slight; Mean Platelet Volume 8.4; Monocytes # (A) 0.3 k/uL (0-1.0); Monocytes % (A) 4 %; Neutrophils % (A) 90 %; Platelet Count 192 k/uL (150-450); RBC 3.11 m/uL (3.80-5.40); WBC 7.8 k/uL (3.8-10.6)
[2021-04-12 04:53] LABS: Calcium 7.9 mg/dL (8.4-10.2)
[2021-04-12 04:56] LABS: ABG Base Excess -2.4 mmol/L; ABG HCO3 21 mmol/L (21-25); ABG Oxygen Saturation 96.7 % (94-97); ABG PCO2 28 mmHg (35-45); ABG PH 7.49 (7.35-7.45); ABG PO2 80 mmHg (83-108); ABG TCO2 22 mmol/L (19-24); Allen Test Performed? Yes
[2021-04-12 05:13] LABS: Potassium 6.3 mmol/L (3.5-5.1)
[2021-04-12] MEDS ORDERED: INSULIN REGULAR 100 UNIT/ML VIAL IV ONE ×2 (05:27→16:11)
[2021-04-12] MEDS ORDERED: DEXTROSE 50% SYRINGE 50 ML IVP STA ×2 (05:27→16:11)
[2021-04-12] MEDS ORDERED: SODIUM POLYSTYRENE SULFONATE 15 GM/60 ML BOTTLE PO STA (05:27)
[2021-04-12 06:11] LABS: Glucose,Whole Blood 122 mg/dL (75-99)
--- NOTE | 2021-04-12 06:33 | XR ---
EXAMINATION TYPE: XR chest 1V portable DATE OF EXAM: 04/12/2021 CLINICAL HISTORY: Difficulty breathing progress study. TECHNIQUE: Single AP portable semiupright view of the chest is obtained. COMPARISON: Chest x-ray from one day earlier and older studies. CT abdomen and pelvis July 24 FINDINGS: Stable endotracheal and orogastric tubes. Orogastric tube likely coiled in intrathoracic s tomach. Improved aeration right lung but worsening diffuse left lung opacity. Persistent cardiomegaly with at herosclerotic thoracic aorta. Metallic hardware from bilateral shoulder surgery is once again partial ly imaged. IMPRESSION: Cardiomegaly with small bilateral pleural effusions redemonstrated. Improved aeration ri ght lung. Worsening left lung infiltrates are noted.
[2021-04-12] MEDS: LEVOTHYROXINE IVP 100 MCG/5 ML VIAL IV SCH (08:20)
[2021-04-12] MEDS: CHLORHEXIDINE GLUCONATE 15 ML CUP MUCOUS MEM SCH ×2 (08:20→20:33)
[2021-04-12] MEDS: HEPARIN SODIUM,PORCINE/PF 5,000 UNIT/0.5 ML SYRINGE SQ SCH ×2 (08:34→20:33)
[2021-04-12] MEDS ORDERED: FUROSEMIDE 10 MG/ML 10 ML VIAL IV STA ×2 (10:38→16:10)
[2021-04-12] MEDS ORDERED: SODIUM POLYSTYRENE SULFONATE 30 GM/120 ML BOTTLE RECTAL STA (10:50)
[2021-04-12] MEDS: FAMOTIDINE 20 MG TAB PO SCH (10:57)
[2021-04-12] MEDS: ASPIRIN 81 MG PO SCH (10:57)
--- NOTE | 2021-04-12 11:01 | P.NPCON ---
History of Present Illness - Reason for Consult acute renal failure - Chief Complaint Syncope sepsis - History of Present Illness This is a 80-year-old female, seen in consultation because of acute kidney injury hyperkalemia. [facility] after having had a syncopal episode and unresponsiveness and subsequently intubated. Currently she is on 50% FiO2. Her urine output is decreased and she is oliguric. Patient was recently hospitalized on 03/07/2021 for generalized weakness after having received: Vaccine and discharged 03/10/2021. 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 She also is known with chronic edema of both legs but currently her left leg is significantly worse than the right possibility of DVT. A chest x-ray shows left lower lobe infiltrate worsening since yesterday. Her blood pressures are in the 90s she is afebrile. Past Medical History Past Medical History: Cancer, GERD/Reflux, Hypertension, Osteoarthritis (OA) Additional Past Medical History / Comment(s): no blood pressure meds, states hx of cancer spine , hiatal hernia, right hydronephrosis, states stomach pain and nausea. History of Any Multi-Drug Resistant Organisms: None Reported Past Surgical History: Back Surgery, Cholecystectomy, Joint Replacement, Orthopedic Surgery Additional Past Surgical History / Comment(s): kidney stent, sarah shoulder surgery, sarah total knees. Past Anesthesia/Blood Transfusion Reactions: No Reported Reaction Past Psychological History: Anxiety Smoking Status: Never smoker Past Alcohol Use History: None Reported Past Drug Use History: None Reported - Past Family History Mother Family Medical History: No Reported History Medications and Allergies Home Medications Medication Instructions Recorded Confirmed Type Aspirin 81 mg PO DAILY 30 Days #30 chew 03/10/21 04/11/21 Rx Furosemide [Lasix] 20 mg PO DAILY #90 tab 03/10/21 04/11/21 Rx Atorvastatin [Lipitor] 20 mg PO HS 04/11/21 04/11/21 History Omeprazole 20 mg PO DAILY 04/11/21 04/11/21 History Potassium Chloride ER [K-Dur 20] 40 meq PO DAILY 04/11/21 04/11/21 History amLODIPine [Norvasc] 10 mg PO DAILY 04/11/21 04/11/21 History traMADol HCL 50 mg PO Q6H PRN 04/11/21 04/11/21 History Allergies Allergy/AdvReac Type Severity Reaction Status Date / Time codeine AdvReac dizziness Verified 04/11/21 16:58 and passes out Physical Exam Vitals: Vital Signs Temp Pulse Resp BP Pulse Ox 04/12/21 10:00 71 21 94/41 99 04/12/21 09:30 70 19 92/39 100 04/12/21 09:00 69 18 90/47 100 04/12/21 08:30 71 18 95/43 04/12/21 08:00 98.5 F 73 18 94/41 99 04/12/21 07:30 71 20 99/43 96 04/12/21 07:00 77 18 102/44 98 04/12/21 06:30 64 18 106/47 99 04/12/21 06:00 62 21 101/42 99 04/12/21 05:30 62 17 104/46 04/12/21 05:00 64 55 H 100/41 95 04/12/21 04:30 63 23 101/42 96 04/12/21 04:00 97.1 F L 62 21 103/40 95 04/12/21 03:30 61 16 104/42 98 04/12/21 03:00 63 15 106/46 04/12/21 02:30 60 20 108/44 92 L 04/12/21 02:00 96.1 F L 61 28 H 107/42 98 04/12/21 01:30 60 22 104/42 04/12/21 01:00 57 L 18 105/41 100 04/12/21 00:30 58 L 19 105/42 96 04/12/21 00:16 59 L 17 105/42 97 04/12/21 00:00 95.2 F L 60 17 107/42 96 04/11/21 23:30 59 L 20 106/42 97 04/11/21 23:00 60 18 111/42 97 04/11/21 22:30 66 23 117/45 96 04/11/21 22:00 66 18 129/57 93 L 04/11/21 21:30 69 16 114/44 100 04/11/21 21:00 65 14 107/42 04/11/21 20:30 64 17 103/42 100 04/11/21 20:00 95.2 F L 66 18 105/42 100 04/11/21 19:30 68 17 135/55 100 04/11/21 19:15 135/55 04/11/21 18:42 44 L 16 114/47 10 L 04/11/21 18:24 50 L 04/11/21 18:11 58 L 18 119/56 98 04/11/21 18:09 38 L 16 112/44 100 04/11/21 17:55 68 04/11/21 17:40 80 04/11/21 17:22 49 L 18 115/51 98 04/11/21 17:05 48 L 18 108/49 98 04/11/21 16:58 48 L 18 106/47 98 04/11/21 16:31 49 L 18 109/46 99 04/11/21 16:17 51 L 18 115/48 99 04/11/21 15:59 55 L 18 132/54 99 04/11/21 15:55 55 L 20 138/57 98 04/11/21 15:51 58 L 16 139/59 98 04/11/21 15:45 52 L 14 127/56 98 04/11/21 15:38 55 L 12 135/56 100 04/11/21 15:28 50 L 12 111/47 98 04/11/21 15:11 54 L 12 110/47 97 04/11/21 15:02 97.3 F L 56 L 18 143/125 78 L Intake and Output 04/11/21 04/12/21 04/12/21 22:59 06:59 14:59 Intake Total 359.981 4970.460 669.281 Output Total 40 85 60 Balance 019.795 7340.460 609.281 Intake: IV 520 1040 520 Sodium Chloride 0.9% 1, 520 1040 520 000 ml @ 130 mls/hr IV . [id number] [facility] Rx#:[id number] Intake, IV Titration 60.528 187.460 149.281 Amount cefTRIAXone 2 gm In 50 Sodium Chloride 0.9% 50 ml @ 100 mls/hr IVPB Q24HR [facility] Rx#:[id number] propofoL 1,000 mg In 60.528 187.460 99.281 Empty Bag 1 bag @ 10 MCG/ KG/MIN 6.532 mls/hr IV . [id number] [facility] Rx#:[id number] Output: Urine 40 85 60 Uretheral (John) 5 Other: Voiding Method Indwelling Catheter Indwelling Catheter Indwelling Catheter Weight 80.2 kg 78.6 kg On examination she is on the ventilator on 50% FiO2 HEENT exam no JVP neck is supple Lungs are clear to auscultation fairly good air entry bilaterally Heart sounds unremarkable normal sinus rhythm no murmur rub gallop Abdomen soft no masses felt. Nondistended Extremity exam was mild edema on the right and moderate on the left with the left leg more swollen than the right Neurologically obtunded intubated Results - Lab Results Most recent lab results ABG pH 7.49 (7.35-7.45) H 04/12/21 04:55 ABG pCO2 28 mmHg (35-45) L 04/12/21 04:55 ABG pO2 80 mmHg (83-108) L 04/12/21 04:55 ABG HCO3 21 mmol/L (21-25) 04/12/21 04:55 ABG O2 Saturation 96.7 % (94-97) 04/12/21 04:55 Calcium 7.9 mg/dL (8.4-10.2) L 04/12/21 03:44 04/12/21 03:44 04/12/21 03:44 Assessment and Plan Assessment: Impression 1. Acute kidney injury from sepsis secondary to left lower lobe pneumonia and UTI 2. 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 Associated with urinary tract infection possibly 3. Dementia, syncope 4. Respiratory alkalosis with pH of 7.4 and pCO2 of 28 on ventilator. 5. Hyperkalemia, potassium was 7.1 down to 6.3 after conservative treatment, secondary to Kidney injury, the right hydronephrosis may be worse 6. non-gap acidosis from acute kidney injury bicarb was 16 and gap was 9, etiology is acute kidney injury 7. Possible DVT left leg Pigmentation 1. Because of hyperkalemia agree with IV Lasix 60 mg 1 dose and see how her urine output is. 2. Urine output is satisfactory continue her more saline and continue diuretics to improve her potassium loss in the urine 3. Attempted Kayexalate through the NG tube was unsuccessful as the NG tube could not be advanced. 4. Patient is no code. 5. Consider Doppler for DVT left leg. 6. Redo labs in about 4 hours to see how her potassium is Thank you for this consultation
[2021-04-12 11:30] LABS: Glucose,Whole Blood 86 mg/dL (75-99)
--- NOTE | 2021-04-12 12:22 | P.CNPUL ---
History of Present Illness Consult date: 04/12/21 Requesting physician: Matthew E Grace Reason for consult: hypoxemia, other Chief complaint: Urinary tract infection, septic shock, respiratory failure. History of present illness: Pulmonary consult dated 04/12/2021. This is an 80-year-old female, who was brought to the emergency room, by russan gissell, and was unresponsive at that time she presented to the emergency department. She apparently recently has been having urinary frequency. Subsequent to that, a family member checked her, and she was apparently either poorly responsive are unresponsive and EMS was called. In the emergency department, she was unresponsive, and she was intubated by Dr. Hopper. I spoke to her on the phone about the patient and accepted the patient into the emergency room. Initially, she was hypotensive and bradycardic according to EMS. Currently, she is in the ICU on the mechanical ventilator. She is a DO NOT RESUSCITATE. She was admitted on April 11. Currently, she is on the volume assist control mode, rate 12, tidal volume 400, FiO2 60%, and a PEEP of 5. Blood gases show pO2 of 80, PaCO2 28, pH is 7.49. She's getting saline at 130 mL an hour, and propofol at 30 g kilogram per minute. No tube feeds as yet. The patient has a history of spinal cancer, hiatal hernia, right hydronephrosis with stents, biliary cirrhosis, hypertension, hypothyroidism, and osteoarthritis. White count is 7.8, hemoglobin 10.2, hematocrit 30.8, platelet count 192,000. PT 12.4, INR 1.2, and PTT is 39.1. Sodium 133, potassium 6.3, chlorides 107, CO2 19, anion gap is 7, BUN 88, creatinine 3.38. AST is 291. ALTs 111. Troponin is 0.066, TSH is 14.1, and urine suggests infection. Chest x-ray shows cardiomegaly with small bilateral pleural effusions, and some worsening left lung infiltrates. Review of Systems Review of systems cannot be obtained. The patient's currently on the mechanical ventilator. She is sedated with propofol. No history was obtained by the ER physician either. The patient was just found unresponsive. Past Medical History Past Medical History: Cancer, GERD/Reflux, Hypertension, Osteoarthritis (OA) Additional Past Medical History / Comment(s): no blood pressure meds, states hx of cancer spine , hiatal hernia, right hydronephrosis, states stomach pain and nausea. History of Any Multi-Drug Resistant Organisms: None Reported Past Surgical History: Back Surgery, Cholecystectomy, Joint Replacement, Orthopedic Surgery Additional Past Surgical History / Comment(s): kidney stent, sarah shoulder surgery, sarah total knees. Past Anesthesia/Blood Transfusion Reactions: No Reported Reaction Past Psychological History: Anxiety Smoking Status: Never smoker Past Alcohol Use History: None Reported Past Drug Use History: None Reported - Past Family History Mother Family Medical History: No Reported History Medications and Allergies Home Medications Medication Instructions Recorded Confirmed Type Aspirin 81 mg PO DAILY 30 Days #30 chew 03/10/21 04/11/21 Rx Furosemide [Lasix] 20 mg PO DAILY #90 tab 03/10/21 04/11/21 Rx Atorvastatin [Lipitor] 20 mg PO HS 04/11/21 04/11/21 History Omeprazole 20 mg PO DAILY 04/11/21 04/11/21 History Potassium Chloride ER [K-Dur 20] 40 meq PO DAILY 04/11/21 04/11/21 History amLODIPine [Norvasc] 10 mg PO DAILY 04/11/21 04/11/21 History traMADol HCL 50 mg PO Q6H PRN 04/11/21 04/11/21 History Allergies Allergy/AdvReac Type Severity Reaction Status Date / Time codeine AdvReac dizziness Verified 04/11/21 16:58 and passes out Physical Exam Osteopathic Statement: *. No significant issues noted on an osteopathic structural exam other than those noted in the History and Physical/Consult. Vitals: Vital Signs Temp Pulse Resp BP Pulse Ox 04/12/21 11:30 76 17 106/51 100 04/12/21 11:00 74 19 106/45 100 04/12/21 10:30 73 17 104/44 99 04/12/21 10:00 71 21 94/41 99 04/12/21 09:30 70 19 92/39 100 04/12/21 09:00 69 18 90/47 100 04/12/21 08:30 71 18 95/43 04/12/21 08:00 98.5 F 73 18 94/41 99 04/12/21 07:30 71 20 99/43 96 04/12/21 07:00 77 18 102/44 98 04/12/21 06:30 64 18 106/47 99 04/12/21 06:00 62 21 101/42 99 04/12/21 05:30 62 17 104/46 04/12/21 05:00 64 55 H 100/41 95 04/12/21 04:30 63 23 101/42 96 04/12/21 04:00 97.1 F L 62 21 103/40 95 04/12/21 03:30 61 16 104/42 98 04/12/21 03:00 63 15 106/46 04/12/21 02:30 60 20 108/44 92 L 04/12/21 02:00 96.1 F L 61 28 H 107/42 98 04/12/21 01:30 60 22 104/42 04/12/21 01:00 57 L 18 105/41 100 04/12/21 00:30 58 L 19 105/42 96 04/12/21 00:16 59 L 17 105/42 97 04/12/21 00:00 95.2 F L 60 17 107/42 96 04/11/21 23:30 59 L 20 106/42 97 04/11/21 23:00 60 18 111/42 97 04/11/21 22:30 66 23 117/45 96 04/11/21 22:00 66 18 129/57 93 L 04/11/21 21:30 69 16 114/44 100 04/11/21 21:00 65 14 107/42 04/11/21 20:30 64 17 103/42 100 04/11/21 20:00 95.2 F L 66 18 105/42 100 04/11/21 19:30 68 17 135/55 100 04/11/21 19:15 135/55 04/11/21 18:42 44 L 16 114/47 10 L 04/11/21 18:24 50 L 04/11/21 18:11 58 L 18 119/56 98 04/11/21 18:09 38 L 16 112/44 100 04/11/21 17:55 68 04/11/21 17:40 80 04/11/21 17:22 49 L 18 115/51 98 04/11/21 17:05 48 L 18 108/49 98 04/11/21 16:58 48 L 18 106/47 98 04/11/21 16:31 49 L 18 109/46 99 04/11/21 16:17 51 L 18 115/48 99 04/11/21 15:59 55 L 18 132/54 99 04/11/21 15:55 55 L 20 138/57 98 04/11/21 15:51 58 L 16 139/59 98 04/11/21 15:45 52 L 14 127/56 98 04/11/21 15:38 55 L 12 135/56 100 04/11/21 15:28 50 L 12 111/47 98 04/11/21 15:11 54 L 12 110/47 97 04/11/21 15:02 97.3 F L 56 L 18 143/125 78 L Intake and Output 04/11/21 04/12/21 04/12/21 22:59 06:59 14:59 Intake Total 260.347 5395.460 769.281 Output Total 40 85 110 Balance 776.929 8211.460 659.281 Intake: IV 520 1040 620 Sodium Chloride 0.9% 1, 520 1040 620 000 ml @ 50 mls/hr IV . Q20H [facility] Rx#:[id number] Intake, IV Titration 60.528 187.460 149.281 Amount cefTRIAXone 2 gm In 50 Sodium Chloride 0.9% 50 ml @ 100 mls/hr IVPB Q24HR [facility] Rx#:[id number] propofoL 1,000 mg In 60.528 187.460 99.281 Empty Bag 1 bag @ 10 MCG/ KG/MIN 6.532 mls/hr IV . [id number] [facility] Rx#:[id number] Output: Urine 40 85 110 Uretheral (John) 5 Other: Voiding Method Indwelling Catheter Indwelling Catheter Indwelling Catheter Weight 80.2 kg 78.6 kg Results No acute distress, sedated, with an orally placed endotracheal tube. An NG tube could not be placed. HEENT examination is grossly unremarkable. Neck supple. Full range of motion. No adenopathy thyromegaly or neck vein distention. Cardiovascular examination reveals regular rhythm rate. S1-S2 normal. No S3 or S4. No discernible murmur noted. Heart rate 76 bpm. Heart sounds are distant. Lungs reveal few scattered rhonchi. Breath sounds equal bilaterally. No wheezes or crackles. Abdomen is soft without bowel sounds. No masses. Extremities are intact. No cyanosis or clubbing. There is significant edema both in the upper extremities and lower extremities. Skin is without rash or lesion. Neurologic examination could not be adequately assessed as the patient's currently sedated on propofol. - Laboratory Findings CBC and BMP: 04/12/21 03:44 04/12/21 03:44 ABG ABG pH 7.49 (7.35-7.45) H 04/12/21 04:55 ABG pCO2 28 mmHg (35-45) L 04/12/21 04:55 ABG pO2 80 mmHg (83-108) L 04/12/21 04:55 ABG O2 Saturation 96.7 % (94-97) 04/12/21 04:55 PT/INR, D-dimer PT 12.4 sec (9.0-12.0) H 04/11/21 15:09 INR 1.2 (<1.2) H 04/11/21 15:09 Abnormal lab findings: Abnormal Labs 04/11/21 04/11/21 04/11/21 15:09 15:09 15:09 RBC 3.47 L Hgb 10.7 L Hct RDW 17.5 H Lymphocytes # 0.5 L PT 12.4 H INR 1.2 H APTT 39.1 H ABG pH ABG pCO2 ABG pO2 Sodium Potassium Carbon Dioxide BUN Creatinine Glucose POC Glucose (mg/dL) Calcium Total Bilirubin AST ALT Alkaline Phosphatase Troponin I Albumin TSH Free T4 Urine Appearance Turbid H Urine Protein 2+ H Urine Blood Moderate H Ur Leukocyte Esterase Large H Urine RBC 143 H Urine WBC >182 H Urine WBC Clumps Many H Ur Squamous Epith Cells 6 H Amorphous Sediment Moderate H Urine Bacteria Many H Urine Mucus Few H 04/11/21 04/11/21 04/11/21 15:09 15:09 16:37 RBC Hgb Hct RDW Lymphocytes # PT INR APTT ABG pH ABG pCO2 32 L ABG pO2 Sodium 131 L Potassium 7.1 H* Carbon Dioxide 16 L BUN 89 H Creatinine 3.49 H Glucose POC Glucose (mg/dL) Calcium 8.0 L Total Bilirubin 2.1 H AST 291 H ALT 111 H Alkaline Phosphatase 770 H Troponin I 0.066 H* Albumin 2.6 L TSH 14.100 H Free T4 2.41 H Urine Appearance Urine Protein Urine Blood Ur Leukocyte Esterase Urine RBC Urine WBC Urine WBC Clumps Ur Squamous Epith Cells Amorphous Sediment Urine Bacteria Urine Mucus 04/11/21 04/11/21 04/11/21 19:14 20:33 22:13 RBC Hgb Hct RDW Lymphocytes # PT INR APTT ABG pH ABG pCO2 ABG pO2 Sodium Potassium 6.2 H* Carbon Dioxide BUN Creatinine Glucose POC Glucose (mg/dL) 137 H 159 H Calcium Total Bilirubin AST ALT Alkaline Phosphatase Troponin I Albumin TSH Free T4 Urine Appearance Urine Protein Urine Blood Ur Leukocyte Esterase Urine RBC Urine WBC Urine WBC Clumps Ur Squamous Epith Cells Amorphous Sediment Urine Bacteria Urine Mucus 04/11/21 04/12/21 04/12/21 23:38 03:44 03:44 RBC 3.11 L Hgb 10.2 L Hct 30.8 L RDW 17.0 H Lymphocytes # 0.4 L PT INR APTT ABG pH ABG pCO2 ABG pO2 Sodium 133 L Potassium 6.3 H* Carbon Dioxide 19 L BUN 88 H Creatinine 3.38 H Glucose 119 H POC Glucose (mg/dL) 135 H Calcium 7.9 L Total Bilirubin AST ALT Alkaline Phosphatase Troponin I Albumin TSH Free T4 Urine Appearance Urine Protein Urine Blood Ur Leukocyte Esterase Urine RBC Urine WBC Urine WBC Clumps Ur Squamous Epith Cells Amorphous Sediment Urine Bacteria Urine Mucus 04/12/21 04/12/21 04:55 06:09 RBC Hgb Hct RDW Lymphocytes # PT INR APTT ABG pH 7.49 H ABG pCO2 28 L ABG pO2 80 L Sodium Potassium Carbon Dioxide BUN Creatinine Glucose POC Glucose (mg/dL) 122 H Calcium Total Bilirubin AST ALT Alkaline Phosphatase Troponin I Albumin TSH Free T4 Urine Appearance Urine Protein Urine Blood Ur Leukocyte Esterase Urine RBC Urine WBC Urine WBC Clumps Ur Squamous Epith Cells Amorphous Sediment Urine Bacteria Urine Mucus Assessment and Plan Assessment: Acute hypoxemic respiratory failure secondary to urinary tract infection/urosepsis, with intubation and mechanical ventilation on April 11. Rule out sepsis secondary to urinary tract infection. Hyperkalemia. Acute renal failure/acute kidney injury. History of hiatal hernia. History of right hydronephrosis with stent placement. History of biliary cirrhosis. History of hypertension. Hypothyroidism. History of hyperlipidemia. History of acid reflux disease. History of cancer of the spine. Plan: Plan dated 04/12/2021. The patient's FiO2 was dropped from 60% down to 50%. In addition, the saline IV is decreased more 130 mL an hour down to 50 mL an hour. We'll start the patient on tube feeds. We'll ask interventional radiology to place a PICC line. In addition, the patient will get Lasix 60 mg IV push times one. Additional recommendations and suggestions are forthcoming. Urine cultures are currently pending. The patient remains on Rocephin as an antibiotic for his presumed urinary tract infection. The patient is a DO NOT RESUSCITATE. We will continue to follow make recommendations where appropriate. Time with Patient: Greater than 30
--- NOTE | 2021-04-12 14:46 | P.PN ---
Subjective 80-year-old female was brought in after an episode of unresponsiveness. Patient was subsequently intubated. Patient is being admitted for severe sepsis which was believed to be secondary to urinary tract infection patient urine analysis is significantly abnormal and looked purulent. Patient appears to have multiorgan dysfunction as well. Patient was apparently not doing well since last couple days and family has been with her all night last night earlier today morning patient was found to be unresponsive. Patient is found to be hyponatremic with hyperkalemia of 7.1 bradycardia anion gap metabolic acidosis lactic acid is presently not available elevated creatinine of 3.49 baseline is around 1. Patient has elevated liver enzymes these appear to be chronic since her last hospitalization and patient was diagnosed with primary biliary cirrhosis at that time. Patient has highly elevated TSH and free T4 is around 2.41. Patient is presently intubated. Patient is presently not on any pressor support, receiving fluids at 1 30 mL per hour. Patient received calcium gluconate insulin and beta agonist for hyperkalemia, I'm also ordering Kayexalate. Patient was recently hospital is about 3 weeks ago for dehydration generalized weakness subsequently discharged to subacute custodial patient is supposed to be there for about a month after 2 weeks please stop drinking rehabilitation because of which patient was taken home about a week ago. Patient does have some cognitive impairment although doesn't have any significant dementia as per the the patient's family. Patient usually uses a cane for ambulation. Fairly functional.patient had Morganella morganii which is sensitive to Ur generation cephalosporins from her recent urine cultures. . 04/12/2021 Patient remains a major to support patient's IV normal saline was decreased as her respiratory status is bit worse. Patient actually received Lasix once. Patient's creatinine is bit worse and is 3.8 DOWN THE ROCEPHIN DOSE TO 1 G DAILY URINE CULTURES ARE STILL PENDING. We're systems: Unable to obtain due to her clinical condition All inpatient medications were reviewed and appropriate changes in these medications as dictated in the interval history and assessment and plan. Objective - Vital Signs Vital signs: Vital Signs Temp 97.5 F L 04/12/21 12:00 Pulse 75 04/12/21 14:00 Resp 20 04/12/21 14:00 BP 96/45 04/12/21 14:00 Pulse Ox 100 04/12/21 14:00 Intake & Output 04/11/21 04/12/2104/12/21 18:59 06:59 18:59 Intake Total 1807.988 928.393 Output Total 5 120 130 Balance -5 1687.988 798.393 Weight 80.2 kg 78.6 kg Intake: IV 1560 720 Sodium Chloride 0.9% 1, 1560 720 000 ml @ 50 mls/hr IV . Q20H [facility] Rx#:[id number] Intake, IV Titration 247.988 208.393 Amount cefTRIAXone 2 gm In 50 Sodium Chloride 0.9% 50 ml @ 100 mls/hr IVPB Q24HR [facility] Rx#:[id number] propofoL 1,000 mg In 247.988 158.393 Empty Bag 1 bag @ 10 MCG/ KG/MIN 6.532 mls/hr IV . [id number] [facility] Rx#:[id number] Output: Urine 5 120 130 Uretheral (John) 5 Other: Voiding Method Indwelling Catheter Indwelling Catheter - Exam PHYSICAL EXAMINATION: GENERAL: Patient is intubated and started on propofol on ventilatory support. Thin built female HEENT: Pupils are round and equally reacting to light. EOMI. No scleral icterus. No conjunctival pallor. Normocephalic, atraumatic. No pharyngeal erythema. No thyromegaly. CARDIOVASCULAR: S1 and S2 present. No murmurs, rubs, or gallops. PULMONARY: Chest is clear to auscultation, no wheezing or crackles. ABDOMEN: Soft, nontender, nondistended, normoactive bowel sounds. No palpable o rganomegaly. The catheter in place MUSCULOSKELETAL: No joint swelling or deformity. EXTREMITIES: No cyanosis, clubbing, or pedal edema. NEUROLOGICAL: Intubated and sedated SKIN: No rashes. - Labs CBC & Chem 7: 04/12/21 03:44 04/12/21 03:44 Labs: Abnormal Lab Results - Last 24 Hours (Table) 04/11/21 04/11/21 04/11/21 Range/Units 15:09 15:09 15:09 RBC 3.47 L (3.80-5.40) m/uL Hgb 10.7 L (11.4-16.0) gm/dL Hct (34.0-46.0) % RDW 17.5 H (11.5-15.5) % Lymphocytes # 0.5 L (1.0-4.8) k/uL PT 12.4 H (9.0-12.0) sec INR 1.2 H (<1.2) APTT 39.1 H (22.0-30.0) sec ABG pH (7.35-7.45) ABG pCO2 (35-45) mmHg ABG pO2 (83-108) mmHg Sodium (137-145) mmol/L Potassium (3.5-5.1) mmol/L Carbon Dioxide (22-30) mmol/L BUN (7-17) mg/dL Creatinine (0.52-1.04) mg/dL Glucose (74-99) mg/dL POC Glucose (mg/dL) (75-99) mg/dL Calcium (8.4-10.2) mg/dL Total Bilirubin (0.2-1.3) mg/dL AST (14-36) U/L ALT (4-34) U/L Alkaline Phosphatase (38-126) U/L Troponin I (0.000-0.034) ng/mL Albumin (3.5-5.0) g/dL TSH (0.465-4.680) mIU/L Free T4 (0.78-2.19) ng/dL Urine Appearance Turbid H (Clear) Urine Protein 2+ H (Negative) Urine Blood Moderate H (Negative) Ur Leukocyte Esterase Large H (Negative) Urine RBC 143 H (0-5) /hpf Urine WBC >182 H (0-5) /hpf Urine WBC Clumps Many H (None) /hpf Ur Squamous Epith Cells 6 H (0-4) /hpf Amorphous Sediment Moderate H (None) /hpf Urine Bacteria Many H (None) /hpf Urine Mucus Few H (None) /hpf 04/11/21 04/11/21 04/11/21 Range/Units 15:09 15:09 16:37 RBC (3.80-5.40) m/uL Hgb (11.4-16.0) gm/dL Hct (34.0-46.0) % RDW (11.5-15.5) % Lymphocytes # (1.0-4.8) k/uL PT (9.0-12.0) sec INR (<1.2) APTT (22.0-30.0) sec ABG pH (7.35-7.45) ABG pCO2 32 L (35-45) mmHg ABG pO2 (83-108) mmHg Sodium 131 L (137-145) mmol/L Potassium 7.1 H* (3.5-5.1) mmol/L Carbon Dioxide 16 L (22-30) mmol/L BUN 89 H (7-17) mg/dL Creatinine 3.49 H (0.52-1.04) mg/dL Glucose (74-99) mg/dL POC Glucose (mg/dL) (75-99) mg/dL Calcium 8.0 L (8.4-10.2) mg/dL Total Bilirubin 2.1 H (0.2-1.3) mg/dL AST 291 H (14-36) U/L ALT 111 H (4-34) U/L Alkaline Phosphatase 770 H (38-126) U/L Troponin I 0.066 H* (0.000-0.034) ng/mL Albumin 2.6 L (3.5-5.0) g/dL TSH 14.100 H (0.465-4.680) mIU/L Free T4 2.41 H (0.78-2.19) ng/dL Urine Appearance (Clear) Urine Protein (Negative) Urine Blood (Negative) Ur Leukocyte Esterase (Negative) Urine RBC (0-5) /hpf Urine WBC (0-5) /hpf Urine WBC Clumps (None) /hpf Ur Squamous Epith Cells (0-4) /hpf Amorphous Sediment (None) /hpf Urine Bacteria (None) /hpf Urine Mucus (None) /hpf 04/11/21 04/11/21 04/11/21 Range/Units 19:14 20:33 22:13 RBC (3.80-5.40) m/uL Hgb (11.4-16.0) gm/dL Hct (34.0-46.0) % RDW (11.5-15.5) % Lymphocytes # (1.0-4.8) k/uL PT (9.0-12.0) sec INR (<1.2) APTT (22.0-30.0) sec ABG pH (7.35-7.45) ABG pCO2 (35-45) mmHg ABG pO2 (83-108) mmHg Sodium (137-145) mmol/L Potassium 6.2 H* (3.5-5.1) mmol/L Carbon Dioxide (22-30) mmol/L BUN (7-17) mg/dL Creatinine (0.52-1.04) mg/dL Glucose (74-99) mg/dL POC Glucose (mg/dL) 137 H 159 H (75-99) mg/dL Calcium (8.4-10.2) mg/dL Total Bilirubin (0.2-1.3) mg/dL AST (14-36) U/L ALT (4-34) U/L Alkaline Phosphatase (38-126) U/L Troponin I (0.000-0.034) ng/mL Albumin (3.5-5.0) g/dL TSH (0.465-4.680) mIU/L Free T4 (0.78-2.19) ng/dL Urine Appearance (Clear) Urine Protein (Negative) Urine Blood (Negative) Ur Leukocyte Esterase (Negative) Urine RBC (0-5) /hpf Urine WBC (0-5) /hpf Urine WBC Clumps (None) /hpf Ur Squamous Epith Cells (0-4) /hpf Amorphous Sediment (None) /hpf Urine Bacteria (None) /hpf Urine Mucus (None) /hpf 04/11/21 04/12/21 04/12/21 Range/Units 23:38 03:44 03:44 RBC 3.11 L (3.80-5.40) m/uL Hgb 10.2 L (11.4-16.0) gm/dL Hct 30.8 L (34.0-46.0) % RDW 17.0 H (11.5-15.5) % Lymphocytes # 0.4 L (1.0-4.8) k/uL PT (9.0-12.0) sec INR (<1.2) APTT (22.0-30.0) sec ABG pH (7.35-7.45) ABG pCO2 (35-45) mmHg ABG pO2 (83-108) mmHg Sodium 133 L (137-145) mmol/L Potassium 6.3 H* (3.5-5.1) mmol/L Carbon Dioxide 19 L (22-30) mmol/L BUN 88 H (7-17) mg/dL Creatinine 3.38 H (0.52-1.04) mg/dL Glucose 119 H (74-99) mg/dL POC Glucose (mg/dL) 135 H (75-99) mg/dL Calcium 7.9 L (8.4-10.2) mg/dL Total Bilirubin (0.2-1.3) mg/dL AST (14-36) U/L ALT (4-34) U/L Alkaline Phosphatase (38-126) U/L Troponin I (0.000-0.034) ng/mL Albumin (3.5-5.0) g/dL TSH (0.465-4.680) mIU/L Free T4 (0.78-2.19) ng/dL Urine Appearance (Clear) Urine Protein (Negative) Urine Blood (Negative) Ur Leukocyte Esterase (Negative) Urine RBC (0-5) /hpf Urine WBC (0-5) /hpf Urine WBC Clumps (None) /hpf Ur Squamous Epith Cells (0-4) /hpf Amorphous Sediment (None) /hpf Urine Bacteria (None) /hpf Urine Mucus (None) /hpf 04/12/21 04/12/21 Range/Units 04:55 06:09 RBC (3.80-5.40) m/uL Hgb (11.4-16.0) gm/dL Hct (34.0-46.0) % RDW (11.5-15.5) % Lymphocytes # (1.0-4.8) k/uL PT (9.0-12.0) sec INR (<1.2) APTT (22.0-30.0) sec ABG pH 7.49 H (7.35-7.45) ABG pCO2 28 L (35-45) mmHg ABG pO2 80 L (83-108) mmHg Sodium (137-145) mmol/L Potassium (3.5-5.1) mmol/L Carbon Dioxide (22-30) mmol/L BUN (7-17) mg/dL Creatinine (0.52-1.04) mg/dL Glucose (74-99) mg/dL POC Glucose (mg/dL) 122 H (75-99) mg/dL Calcium (8.4-10.2) mg/dL Total Bilirubin (0.2-1.3) mg/dL AST (14-36) U/L ALT (4-34) U/L Alkaline Phosphatase (38-126) U/L Troponin I (0.000-0.034) ng/mL Albumin (3.5-5.0) g/dL TSH (0.465-4.680) mIU/L Free T4 (0.78-2.19) ng/dL Urine Appearance (Clear) Urine Protein (Negative) Urine Blood (Negative) Ur Leukocyte Esterase (Negative) Urine RBC (0-5) /hpf Urine WBC (0-5) /hpf Urine WBC Clumps (None) /hpf Ur Squamous Epith Cells (0-4) /hpf Amorphous Sediment (None) /hpf Urine Bacteria (None) /hpf Urine Mucus (None) /hpf Microbiology - Last 24 Hours (Table) 04/11/21 15:09 Urine Culture - Preliminary Urine,Voided Assessment and Plan Plan: Possible severe sepsis: Probably secondary to urinary tract infection urine cultures and blood cultures were obtained. Patient remains intubated and is on 1 g of Rocephin at this time -Acute hypoxic respiratory failure secondary to severe sepsis -Hyperkalemia: Multifactorial secondary to acute renal failure which is again secondary to acute tubular necrosis from severe sepsis potassium supplementation and also metabolic acidosis. Patient's serum potassium is still elevated to 6.3 -Anion metabolic acidosis probably secondary to acute renal failure as well as lactic is doses -acute renal failure secondary to most probably acute tubular necrosis from severe sepsis IV fluids and nephrology valid the patient patient is presently on D5 with bicarbonate. -Mildly elevated troponin secondary to severe sepsis and renal failure -Elevated TSH and as well as free T4 these abnormalities are probably secondary to sepsis, will need a repeat T4 and TSH in about couple weeks -Elevated liver enzymes patient appears to have elevated liver enzymes during the her previous hospitalization as well and patient was diagnosed with primary biliary cirrhosis and outpatient follow-up with gastroenterology was made at the time -Generalized deconditioning -Hypertension: Holding off antiarrhythmic his medications because of severe sepsis and concerns for septic shock. -Chronic of right-sided hydronephrosis -DVT prophylaxis with subcutaneous heparin GI prophylaxis with Protonix or Pepcid
[2021-04-12 18:05] LABS: Glucose,Whole Blood 122 mg/dL (75-99)
[2021-04-12] MEDS: ATORVASTATIN 20 MG TAB PO SCH (20:29)
[2021-04-13 04:04] LABS: Anisocytosis Slight; Basophils % (A) 0 %; Eosinophils # (A) 0.1 k/uL (0-0.7); Eosinophils % (A) 1 %; HCT 34.1 % (34.0-46.0); Hypochromasia Moderate; Lymphocytes # (A) 0.4 k/uL (1.0-4.8); Lymphocytes % (A) 6 %; MCH 32.8 pg (25.0-35.0); MCHC 32.2 g/dL (31.0-37.0); MCV 102.1 fL (80.0-100.0); Macrocytosis Moderate; Mean Platelet Volume 7.5; Monocytes # (A) 0.4 k/uL (0-1.0); Monocytes % (A) 5 %; Neutrophils # (A) 6.7 k/uL (1.3-7.7); Neutrophils % (A) 86 %; Platelet Count 182 k/uL (150-450); RBC 3.34 m/uL (3.80-5.40); RDW 17.4 % (11.5-15.5); WBC 7.7 k/uL (3.8-10.6)
[2021-04-13 04:24] LABS: Calcium 7.8 mg/dL (8.4-10.2); Potassium 5.3 mmol/L (3.5-5.1)
[2021-04-13 04:46] LABS: ABG Base Excess -4.1 mmol/L; ABG HCO3 20 mmol/L (21-25); ABG Oxygen Saturation 96.7 % (94-97); ABG PCO2 29 mmHg (35-45); ABG PH 7.45 (7.35-7.45); ABG PO2 85 mmHg (83-108); ABG TCO2 21 mmol/L (19-24); Allen Test Performed? Yes
[2021-04-13] MEDS: LEVOTHYROXINE IVP 100 MCG/5 ML VIAL IV SCH (08:12)
[2021-04-13] MEDS: CHLORHEXIDINE GLUCONATE 15 ML CUP MUCOUS MEM SCH ×2 (08:12→19:47)
[2021-04-13] MEDS: HEPARIN SODIUM,PORCINE/PF 5,000 UNIT/0.5 ML SYRINGE SQ SCH ×2 (08:12→19:47)
--- NOTE | 2021-04-13 09:39 | XR ---
EXAMINATION TYPE: XR chest 1V portable DATE OF EXAM: 04/13/2021 COMPARISON: Chest x-ray 04/12/2021 HISTORY: Intubated TECHNIQUE: Single frontal view of the chest is obtained. FINDINGS: Endotracheal tube is overlying the tracheal air column in appropriate position. The orogas tric tube has been removed. No evident pneumothorax. Apical pleural thickening is again noted on the right. Heart is enlarged. Bibasilar density persists, the hemidiaphragms are obscured and there is bl unting the costophrenic angles. Prominence of pulmonary artery region is noted, bilateral shoulder ar throplasty change is again seen. Interstitium is mildly increased. IMPRESSION: Bibasilar effusions and associated atelectasis, correlate to exclude pneumonia. There ma y be underlying pulmonary artery hypertension. Cardiomegaly. Correlate for possible interstitial fareed a.
--- NOTE | 2021-04-13 10:16 | P.PN ---
Subjective Patient is seen in follow-up for acute kidney injury. Renal function stable. Potassium level V.3 this morning. She remains acidotic. Maintained on normal saline. Intubated. On 50% FiO2. Urine output about 30 mL an hour. Vital signs are stable. General: The patient appeared well nourished and normally developed. HEENT: Intubated. LUNGS: Breath sounds decreased. HEART: Rate and Rhythm are regular. ABDOMEN: Soft, no distention. EXTREMITITES: No edema. Objective - Vital Signs Vital signs: Vital Signs Temp 96.4 F L 04/13/21 04:00 Pulse 56 L 04/13/21 07:00 Resp 18 04/13/21 07:00 BP 98/44 04/13/21 07:00 Pulse Ox 100 04/13/21 07:00 Intake & Output 04/12/21 04/13/21 04/13/21 18:59 06:59 18:59 Intake Total 1227.161 718.583 84.291 Output Total 235 280 30 Balance 992.161 438.583 54.291 Weight 81.3 kg Intake: IV 970 550 50 Sodium Chloride 0.9% 1, 970 550 50 000 ml @ 50 mls/hr IV . Q20H [facility] Rx#:[id number] Intake, IV Titration 257.161 168.583 34.291 Amount cefTRIAXone 2 gm In 50 Sodium Chloride 0.9% 50 ml @ 100 mls/hr IVPB Q24HR [facility] Rx#:[id number] propofoL 1,000 mg In 207.161 168.583 34.291 Empty Bag 1 bag @ 10 MCG/ KG/MIN 6.532 mls/hr IV . [id number] [facility] Rx#:[id number] Output: Urine 235 280 30 Other: Voiding Method Indwelling Catheter Indwelling Catheter - Labs CBC & Chem 7: 04/13/21 03:40 04/13/21 03:40 Labs: Abnormal Lab Results - Last 24 Hours (Table) 04/12/21 04/12/21 04/12/21 Range/Units 14:13 18:03 20:11 RBC (3.80-5.40) m/uL Hgb (11.4-16.0) gm/dL MCV (80.0-100.0) fL RDW (11.5-15.5) % Lymphocytes # (1.0-4.8) k/uL ABG pCO2 (35-45) mmHg ABG HCO3 (21-25) mmol/L Sodium (137-145) mmol/L Potassium 6.2 H* 5.3 H (3.5-5.1) mmol/L Chloride (98-107) mmol/L Carbon Dioxide (22-30) mmol/L BUN (7-17) mg/dL Creatinine (0.52-1.04) mg/dL POC Glucose (mg/dL) 122 H (75-99) mg/dL Calcium (8.4-10.2) mg/dL 04/13/21 04/13/21 04/13/21 Range/Units 03:40 03:40 04:44 RBC 3.34 L (3.80-5.40) m/uL Hgb 11.0 L (11.4-16.0) gm/dL MCV 102.1 H (80.0-100.0) fL RDW 17.4 H (11.5-15.5) % Lymphocytes # 0.4 L (1.0-4.8) k/uL ABG pCO2 29 L (35-45) mmHg ABG HCO3 20 L (21-25) mmol/L Sodium 133 L (137-145) mmol/L Potassium 5.3 H (3.5-5.1) mmol/L Chloride 109 H (98-107) mmol/L Carbon Dioxide 15 L (22-30) mmol/L BUN 88 H (7-17) mg/dL Creatinine 3.39 H (0.52-1.04) mg/dL POC Glucose (mg/dL) (75-99) mg/dL Calcium 7.8 L (8.4-10.2) mg/dL Microbiology - Last 24 Hours (Table) 04/11/21 15:09 Urine Culture - Final Urine,Voided Assessment and Plan Plan: Assessment: 1. Acute kidney injury secondary to ATN secondary to infection. Creatinine stable at 3.39 today. Baseline creatinine 1-1.2. 2. Metabolic acidosis secondary to acute kidney injury. 3. Hyperkalemia secondary to acute kidney injury and metabolic acidosis. Improved. 4. History of right-sided hydronephrosis status post ureteral stent placement. 5. Chronic diastolic CHF with moderate to severe mitral regurgitation, tricuspid regurgitation and pulmonary hypertension. 6. Acute hypoxic respiratory failure. Plan: Stop normal saline. Agree with bicarb drip. Repeat BMP this evening. Follow-up renal ultrasound. Follow-up cultures. Avoid nephrotoxins. Status post IV Lasix May no significant response in urine output. Continue to monitor renal function and urine output. Continue to assess daily for need for renal replacement therapy.
[2021-04-13] MEDS: DEXTROSE 5% IN WATER 1,000 ML with SOD BICARB SYR 8.4% (1 MEQ/ML) 150 ML IV SCH (10:35)
[2021-04-13] MEDS: FAMOTIDINE 20 MG TAB PO SCH (10:37)
[2021-04-13] MEDS: ASPIRIN 81 MG PO SCH (10:37)
--- NOTE | 2021-04-13 11:19 | P.PN ---
Subjective Progress Note Date: 04/13/21 04/13/2021, the patient is being seen for a follow-up. The patient is currently sedated, comfortable likely distress. Patient is being gradually weaned off to assess the patient's underlying mental status. The patient's propofol has been cut down from 30 g down to 5 mg/kg per minute. The patient is not following any commands. She is not grimacing and she is not withdrawing to painful stimulation. The patient is currently on a mechanical ventilator. She is an assist-control mode at the rate of 12 with a tidal volume of 400 and FiO2 of 50% with a PEEP of 5. The chest x-ray showing bibasilar effusion and atelectatic changes in lung bases bilaterally. There is also cardiomegaly. There is may be some mild interstitial edema. The patient also has a pH of 7.45 with a pCO2 of 29 and pO2 of 85 based on the above-mentioned ventilator setting. Ejection fraction is around 55-60%. She has moderate severe mitral regurgitation with a pulmonary artery pressure of 60 based on the echocardiogram. There is a concern for underlying liver cirrhosis. 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 The patient also has a previous history of right kidney hydronephrosis with a insertion of a double-J stent ultrasound of the kidney will be done. Creatinine for now is stable at 3.39. Note that the patient is currently on no pressors. The patient has negative cultures. The patient remains on IV Rocephin. The patient has a white cell count of 7.7 with hemoglobin of 11.0 which is stable compared to yesterday. Objective - Vital Signs Vital signs: Vital Signs Temp 96.4 F L 04/13/21 04:00 Pulse 56 L 04/13/21 07:00 Resp 18 04/13/21 07:00 BP 98/44 04/13/21 07:00 Pulse Ox 100 04/13/21 07:00 Intake & Output 04/12/21 04/13/21 04/13/21 18:59 06:59 18:59 Intake Total 1227.161 718.583 72.861 Output Total 235 280 30 Balance 992.161 438.583 42.861 Weight 81.3 kg Intake: IV 970 550 50 Sodium Chloride 0.9% 1, 970 550 50 000 ml @ 50 mls/hr IV . Q20H [facility] Rx#:[id number] Intake, IV Titration 257.161 168.583 22.861 Amount cefTRIAXone 2 gm In 50 Sodium Chloride 0.9% 50 ml @ 100 mls/hr IVPB Q24HR [facility] Rx#:[id number] propofoL 1,000 mg In 207.161 168.583 22.861 Empty Bag 1 bag @ 10 MCG/ KG/MIN 6.532 mls/hr IV . [id number] [facility] Rx#:[id number] Output: Urine 235 280 30 Other: Voiding Method Indwelling Catheter Indwelling Catheter - Exam No acute distress, sedated, with an orally placed endotracheal tube. An NG tube could not be placed. Noted the patient is unresponsive this morning. The patient will be gradually weaned off the sedation. Head exam was generally normal. There was no scleral icterus or corneal arcus. Mucous membranes were moist. HEENT examination is grossly unremarkable. Neck supple. Full range of motion. No adenopathy thyromegaly or neck vein distention. Cardiovascular examination reveals regular rhythm rate. S1-S2 normal. No S3 or S4. No discernible murmur noted. Lungs reveal few scattered rhonchi. Breath sounds equal bilaterally. No wheezes or crackles. Abdomen is soft without bowel sounds. No masses. Extremities are intact. No cyanosis or clubbing. There is significant edema both in the upper extremities and lower extremities. Skin is without rash or lesion. Neurologic examination could not be adequately assessed as the patient's currently sedated on propofol. - Labs CBC & Chem 7: 04/13/21 03:40 04/13/21 03:40 Labs: Abnormal Lab Results - Last 24 Hours (Table) 04/12/21 04/12/21 04/12/21 Range/Units 14:13 18:03 20:11 RBC (3.80-5.40) m/uL Hgb (11.4-16.0) gm/dL MCV (80.0-100.0) fL RDW (11.5-15.5) % Lymphocytes # (1.0-4.8) k/uL ABG pCO2 (35-45) mmHg ABG HCO3 (21-25) mmol/L Sodium (137-145) mmol/L Potassium 6.2 H* 5.3 H (3.5-5.1) mmol/L Chloride (98-107) mmol/L Carbon Dioxide (22-30) mmol/L BUN (7-17) mg/dL Creatinine (0.52-1.04) mg/dL POC Glucose (mg/dL) 122 H (75-99) mg/dL Calcium (8.4-10.2) mg/dL 04/13/21 04/13/21 04/13/21 Range/Units 03:40 03:40 04:44 RBC 3.34 L (3.80-5.40) m/uL Hgb 11.0 L (11.4-16.0) gm/dL MCV 102.1 H (80.0-100.0) fL RDW 17.4 H (11.5-15.5) % Lymphocytes # 0.4 L (1.0-4.8) k/uL ABG pCO2 29 L (35-45) mmHg ABG HCO3 20 L (21-25) mmol/L Sodium 133 L (137-145) mmol/L Potassium 5.3 H (3.5-5.1) mmol/L Chloride 109 H (98-107) mmol/L Carbon Dioxide 15 L (22-30) mmol/L BUN 88 H (7-17) mg/dL Creatinine 3.39 H (0.52-1.04) mg/dL POC Glucose (mg/dL) (75-99) mg/dL Calcium 7.8 L (8.4-10.2) mg/dL Microbiology - Last 24 Hours (Table) 04/11/21 15:09 Urine Culture - Final Urine,Voided Assessment and Plan Plan: 1 Acute hypoxemic respiratory failure secondary to urinary tract infection/urosepsis, with intubation and mechanical ventilation on April 11. The patient remains on a mechanical ventilator. Currently on an FiO2 of 50% with a PEEP of 5. Blood gases was noted. Chest x-ray showing some mild interstitial edema. 2 sepsis secondary to urinary tract infection. 3 Hyperkalemia, treated, recovered 4 Acute renal failure, possibly on top of chronic kidney disease, the patient has a right-sided hydronephrosis and the pulp beater on the case. Ultrasound t he kidneys and been ordered 5 History of hiatal hernia. 6 History of right hydronephrosis with stent placement. 7 History of biliary cirrhosis. LFTs are abnormal and the patient has elevated alkaline phosphatase 8 History of hypertension. 9 Hypothyroidism. 10 History of hyperlipidemia. 11 History of acid reflux disease. 12 History of cancer of the spine. 13 Moderate to severe MR and secondary pulmoinary hypertension Plan: Give the patient is sedation holiday and assess the patient's mental status Check ammonia level knowing that the patient has history of biliary cirrhosis The Propofol and Discontinue If Needed Switch this patient a bicarb infusion as the patient is currently having a component of non-anion gap metabolic acidosis. Serum bicarbonate is 15. We will run the bicarb infusion rate of 50 mL an hour GI to insert an orogastric tube due to difficulties in this insertion Continue IV Rocephin Monitor cultures DNR/DNI CODE STATUS from this point anion Account some the kidneys Coordinate with nephrology regarding the renal failure We'll continue to follow make further recommendations. Currently care evaluation that was on a more than 30 minutes. Time with Patient: Greater than 30
[2021-04-13 11:31] LABS: Glucose,Whole Blood 93 mg/dL (75-99)
--- NOTE | 2021-04-13 11:48 | US ---
EXAMINATION TYPE: US kidneys/renal and bladder DATE OF EXAM: 04/13/2021 COMPARISON: Prior ultrasound 07/24/2020, CT 07/24/2020 CLINICAL HISTORY: acute pulm edema. acute pulm edema exam limitations patient unable to roll on vent. EXAM MEASUREMENTS: Right Kidney: 9.8 x 6.4 x 7.2 cm Left Kidney: 9.2 x 3.9 x 4.6 cm Right Kidney: renal tissue not well visualized due to anechoic area measuring 6.8 x 6.1 x 7.2 cm. Left Kidney: anechoic area seen mid pole 5.7 x 4.1 x 5.0 cm. Bladder: Not visualized Bilateral Jets seen: no Suspect there is some ascites in the pelvis IMPRESSION: Simple cyst again seen left kidney. Bladder is not seen. Markedly hydronephrotic right kidney is agai n seen. Suspect ascites is present
[2021-04-13] MEDS ORDERED: LIDOCAINE 1% INJ 10MG/ML (20 ML MDV) ONE ×2 (13:49→13:50)
[2021-04-13] MEDS ORDERED: LIDOCAINE 1% INJ 10MG/ML (20 ML MDV) SQ ONE (14:15)
--- NOTE | 2021-04-13 14:44 | XR ---
EXAMINATION TYPE: XR chest 1V confirm line [facility] DATE OF EXAM: 04/13/2021 COMPARISON: 04/13/2021 HISTORY: PICC line placement TECHNIQUE: Single frontal view of the chest is obtained. FINDINGS: Low lung volumes. Endotracheal tube with its tip approximately 4 cm above the violeta. Righ t PICC line with its tip at the cavoatrial junction. Low lung volumes. Heart size is enlarged. After spike aorta. Patchy perihilar airspace opacities may represent edema. Bibasilar airspace opacities. R ight apical pleural thickening is stable. Small pleural effusions. No pneumothorax. Bilateral shoulde r prostheses. IMPRESSION: 1. Cardiomegaly,. Hilar interstitial air space opacities. Small bilateral pleural effusions. Consider congestive heart failure. 2. Bibasilar airspace opacities may represent atelectasis or developing pneumonia. 3. Right PICC line with its tip at the cavoatrial junction. Endotracheal tube is in position.
--- NOTE | 2021-04-13 14:57 | P.PN ---
Subjective 80-year-old female was brought in after an episode of unresponsiveness. Patient was subsequently intubated. Patient is being admitted for severe sepsis which was believed to be secondary to urinary tract infection patient urine analysis is significantly abnormal and looked purulent. Patient appears to have multiorgan dysfunction as well. Patient was apparently not doing well since last couple days and family has been with her all night last night earlier today morning patient was found to be unresponsive. Patient is found to be hyponatremic with hyperkalemia of 7.1 bradycardia anion gap metabolic acidosis lactic acid is presently not available elevated creatinine of 3.49 baseline is around 1. Patient has elevated liver enzymes these appear to be chronic since her last hospitalization and patient was diagnosed with primary biliary cirrhosis at that time. Patient has highly elevated TSH and free T4 is around 2.41. Patient is presently intubated. Patient is presently not on any pressor support, receiving fluids at 1 30 mL per hour. Patient received calcium gluconate insulin and beta agonist for hyperkalemia, I'm also ordering Kayexalate. Patient was recently hospital is about 3 weeks ago for dehydration generalized weakness subsequently discharged to subacute alf patient is supposed to be there for about a month after 2 weeks please stop drinking rehabilitation because of which patient was taken home about a week ago. Patient does have some cognitive impairment although doesn't have any significant dementia as per the the patient's family. Patient usually uses a cane for ambulation. Fairly functional.patient had Morganella morganii which is sensitive to Ur generation cephalosporins from her recent urine cultures. . 04/12/2021 Patient remains a major to support patient's IV normal saline was decreased as her respiratory status is bit worse. Patient actually received Lasix once. Patient's creatinine is bit worse and is 3.8 DOWN THE ROCEPHIN DOSE TO 1 G DAILY URINE CULTURES ARE STILL PENDING. 04/13/2021 is a mechanical ventilator had an ultrasound of the kidney which showed hydronephrosis and urology is evaluating the patient patient creatinine is fairly stable at 3.39 urine output is only 10 mL per hour nephrology is following the patient urine cultures are although negative. Chest x-ray showed mild interstitial edema. In spite of weaning of on the sedation patient is still not awake enough ammonia level was obtained which is fairly close to normal patient may need a CT of the head if she doesn't respond by tomorrow morning. We're systems: Unable to obtain due to her clinical condition All inpatient medications were reviewed and appropriate changes in these medications as dictated in the interval history and assessment and plan. Objective - Vital Signs Vital signs: Vital Signs Temp 97.5 F L 04/13/21 12:00 Pulse 66 04/13/21 12:30 Resp 19 04/13/21 12:30 BP 107/47 04/13/21 12:30 Pulse Ox 94 L 04/13/21 12:30 Intake & Output 04/12/21 04/13/21 04/13/21 18:59 06:59 18:59 Intake Total 1227.161 718.583 514.571 Output Total 235 280 75 Balance 992.161 438.583 439.571 Weight 81.3 kg Intake: IV 970 550 150 Sodium Chloride 0.9% 1, 970 550 150 000 ml @ 50 mls/hr IV . Q20H [facility] Rx#:[id number] Intake, IV Titration 257.161 168.583 364.571 Amount Dextrose 5% in Water 1, 225 000 ml @ 75 mls/hr IV . [id number] [facility] with Sod Bicarb Syr 8.4% (1 Meq/ml ) 150 ml Rx#:[id number] cefTRIAXone 2 gm In 50 100 Sodium Chloride 0.9% 50 ml @ 100 mls/hr IVPB Q24HR [facility] Rx#:[id number] propofoL 1,000 mg In 207.161 168.583 39.571 Empty Bag 1 bag @ 10 MCG/ KG/MIN 6.532 mls/hr IV . [id number] [facility] Rx#:[id number] Output: Urine 235 280 75 Other: Voiding Method Indwelling Catheter Indwelling Catheter Indwelling Catheter - Exam PHYSICAL EXAMINATION: GENERAL: Patient is intubated and started on propofol on ventilatory support. Thin built female HEENT: Pupils are round and equally reacting to light. EOMI. No scleral icterus. No conjunctival pallor. Normocephalic, atraumatic. No pharyngeal er ythema. No thyromegaly. CARDIOVASCULAR: S1 and S2 present. No murmurs, rubs, or gallops. PULMONARY: Few scattered rhonchi ABDOMEN: Soft, nontender, nondistended, normoactive bowel sounds. No palpable organomegaly. The catheter in place MUSCULOSKELETAL: No joint swelling or deformity. EXTREMITIES: No cyanosis, clubbing, or pedal edema. NEUROLOGICAL: Intubated and sedated SKIN: No rashes. - Labs CBC & Chem 7: 04/13/21 03:40 04/13/21 03:40 Labs: Abnormal Lab Results - Last 24 Hours (Table) 04/12/21 04/12/21 04/12/21 Range/Units 14:13 18:03 20:11 RBC (3.80-5.40) m/uL Hgb (11.4-16.0) gm/dL MCV (80.0-100.0) fL RDW (11.5-15.5) % Lymphocytes # (1.0-4.8) k/uL ABG pCO2 (35-45) mmHg ABG HCO3 (21-25) mmol/L Sodium (137-145) mmol/L Potassium 6.2 H* 5.3 H (3.5-5.1) mmol/L Chloride (98-107) mmol/L Carbon Dioxide (22-30) mmol/L BUN (7-17) mg/dL Creatinine (0.52-1.04) mg/dL POC Glucose (mg/dL) 122 H (75-99) mg/dL Calcium (8.4-10.2) mg/dL Ammonia (<30) umol/L 04/13/21 04/13/21 04/13/21 Range/Units 03:40 03:40 04:44 RBC 3.34 L (3.80-5.40) m/uL Hgb 11.0 L (11.4-16.0) gm/dL MCV 102.1 H (80.0-100.0) fL RDW 17.4 H (11.5-15.5) % Lymphocytes # 0.4 L (1.0-4.8) k/uL ABG pCO2 29 L (35-45) mmHg ABG HCO3 20 L (21-25) mmol/L Sodium 133 L (137-145) mmol/L Potassium 5.3 H (3.5-5.1) mmol/L Chloride 109 H (98-107) mmol/L Carbon Dioxide 15 L (22-30) mmol/L BUN 88 H (7-17) mg/dL Creatinine 3.39 H (0.52-1.04) mg/dL POC Glucose (mg/dL) (75-99) mg/dL Calcium 7.8 L (8.4-10.2) mg/dL Ammonia (<30) umol/L 04/13/21 Range/Units 09:35 RBC (3.80-5.40) m/uL Hgb (11.4-16.0) gm/dL MCV (80.0-100.0) fL RDW (11.5-15.5) % Lymphocytes # (1.0-4.8) k/uL ABG pCO2 (35-45) mmHg ABG HCO3 (21-25) mmol/L Sodium (137-145) mmol/L Potassium (3.5-5.1) mmol/L Chloride (98-107) mmol/L Carbon Dioxide (22-30) mmol/L BUN (7-17) mg/dL Creatinine (0.52-1.04) mg/dL POC Glucose (mg/dL) (75-99) mg/dL Calcium (8.4-10.2) mg/dL Ammonia 31 H (<30) umol/L Microbiology - Last 24 Hours (Table) 04/11/21 15:09 Urine Culture - Final Urine,Voided Assessment and Plan Plan: Possible severe sepsis: Probably secondary to urinary tract infection urine cultures and blood cultures are negative. Patient remains intubated and is on 1 g of Rocephin at this time -Acute hypoxic respiratory failure secondary to severe sepsis -Hyperkalemia: Multifactorial secondary to acute renal failure which is again secondary to acute tubular necrosis from severe sepsis potassium supplementation and also metabolic acidosis. Improved as there is around 5.3 provided. -Anion metabolic acidosis probably secondary to acute renal failure as well as lactic is doses -acute renal failure secondary to most probably acute tubular necrosis from severe sepsis IV fluids and nephrology valid the patient patient is presently on D5 with bicarbonate. -Mildly elevated troponin secondary to severe sepsis and renal failure -Elevated TSH and as well as free T4 these abnormalities are probably secondary to sepsis, will need a repeat T4 and TSH in about couple weeks -Elevated liver enzymes patient appears to have elevated liver enzymes during the her previous hospitalization as well and patient was diagnosed with primary biliary cirrhosis and outpatient follow-up with gastroenterology was made at the time -Generalized deconditioning -Hypertension: Holding off antiarrhythmic his medications because of severe sepsis and concerns for septic shock. -Chronic of right-sided hydronephrosis -DVT prophylaxis with subcutaneous heparin GI prophylaxis with Protonix or Pepcid
--- NOTE | 2021-04-13 16:03 | IR ---
EXAMINATION TYPE: IR cvc insert >=5 years DATE OF EXAM: 04/13/2021 COMPARISON: NONE HISTORY: Sepsis, urinary tract infection FINDINGS: Maximal barrier technique was utilized. Hand hygiene obtained with soap and water and alco hol-based hand rub. The skin overlying the right brachial vein was localized with ultrasound and note d to be compressible and patent by ultrasound. An ultrasound image was obtained and submitted on pat jackson's chart. Sterile technique utilized with the ultrasound machine. The skin overlying was prepped and draped and Lidocaine used for local anesthesia. A skin elías was made with a scalpel. Access was gained to the vein under direct ultrasound guidance with a 21-gauge needle and a 0.018 inch wire was advanced. Access site was dilated with a peel-away sheath and the catheter tailored to length. Cat heter advanced centrally and a post procedure chest x-ray verified placement with tip at the superior vena cava. Catheter was fixed to the skin and a sterile dressing placed. Hemostasis achieved and t he catheter was aspirated and flushed with sterile saline. The patient remained in stable condition. IMPRESSION: STATUS POST ULTRASOUND GUIDED PICC LINE PLACEMENT, READY FOR USE. THIS PROCEDURE WAS PER FORMED BY THE UNDERSIGNED. FOR USE. THIS PROCEDURE WAS PERFORMED BY THE UNDERSIGNED.
[2021-04-13 17:17] LABS: Glucose,Whole Blood 110 mg/dL (75-99)
--- NOTE | 2021-04-13 18:20 | CONS ---
CONSULTATION DATE OF DICTATION: 04/13/2021 REASON FOR CONSULTATION: NG tube/Dobbhoff replacement. HISTORY OF PRESENT ILLNESS: The patient is an 80-year-old white female admitted to the hospital for altered mental status, and subsequently she was diagnosed with severe sepsis/septic shock secondary to UTI, for which she is currently in the intensive care unit, intubated on the vent. Apparently the nursing staff had tried to place an NG tube several times and was not successful, and hence we are requested to do so. PAST MEDICAL HISTORY: Significant for hypertension, degenerative joint disease, gastroesophageal reflux disease. PAST SURGICAL HISTORY: Cholecystectomy, back surgery, kidney stent placement, bilateral shoulder surgery and bilateral total knees. MEDICATIONS: Medications at home include Lasix, tramadol, Norvasc, K-Dur, Lipitor, omeprazole. ALLERGIES: CODEINE. SOCIAL HISTORY: No smoking. No alcohol use. FAMILY HISTORY: Unremarkable. REVIEW OF SYSTEMS: Review of systems could not be obtained, as patient is sedated on the vent. PHYSICAL EXAMINATION: She is on the vent, sedated. Vital signs show a blood pressure of 107/47, pulse rate 66, temperature 97.5. HEENT examination unremarkable. Conjunctivae pink. Sclerae anicteric. NECK: No JVD. CHEST: Clear to auscultation. HEART: Regular rate and rhythm. ABDOMEN: Soft. Bowel sounds are positive. EXTREMITIES: No pedal edema. NEUROLOGIC: She is sedated. IMPRESSION: 1. Sepsis/septic shock, on broad-spectrum antibiotics. 2. Acute urinary tract infection. 3. Altered mental status, status post intubated on the vent. 4. Unable to pass the NG tube as per the nursing staff. RECOMMENDATIONS: I attempted to pass a Dobbhoff tube several times from both nostrils, with no success. The tube was coiling in the mouth, and despite multiple attempts and tilting her head and keeping her in different positions, I was not able to advance the Dobbhoff tube any further. At this time I aborted the procedure and will try to redo this tomorrow based on her overall clinical condition. Will follow with you closely. Thank you for this consultation. MMODL / IJN: [id number] /
[2021-04-13 18:32] LABS: Calcium 7.6 mg/dL (8.4-10.2); Potassium 4.8 mmol/L (3.5-5.1)
[2021-04-13] MEDS: ATORVASTATIN 20 MG TAB PO SCH (19:47)
[2021-04-13 23:17] LABS: Glucose,Whole Blood 136 mg/dL (75-99)
[2021-04-14] MEDS: DEXTROSE 5% IN WATER 1,000 ML with SOD BICARB SYR 8.4% (1 MEQ/ML) 150 ML IV SCH (01:18)
[2021-04-14 04:25] LABS: Anisocytosis Slight; Basophils % (A) 0 %; Eosinophils # (A) 0.1 k/uL (0-0.7); Eosinophils % (A) 1 %; HCT 30.6 % (34.0-46.0); HGB 10.2 gm/dL (11.4-16.0); Lymphocytes # (A) 0.4 k/uL (1.0-4.8); Lymphocytes % (A) 6 %; MCH 32.7 pg (25.0-35.0); MCHC 33.5 g/dL (31.0-37.0); MCV 97.7 fL (80.0-100.0); Macrocytosis Slight; Mean Platelet Volume 7.5; Monocytes # (A) 0.5 k/uL (0-1.0); Monocytes % (A) 6 %; Neutrophils # (A) 6.6 k/uL (1.3-7.7); Neutrophils % (A) 86 %; Platelet Count 235 k/uL (150-450); RBC 3.13 m/uL (3.80-5.40); RDW 17.5 % (11.5-15.5); WBC 7.7 k/uL (3.8-10.6)
[2021-04-14 04:46] LABS: Albumin 2.2 g/dL (3.5-5.0); Calcium 7.5 mg/dL (8.4-10.2); Potassium 4.8 mmol/L (3.5-5.1); Total Bilirubin 1.1 mg/dL (0.2-1.3); Total Protein 5.9 g/dL (6.3-8.2)
[2021-04-14 05:16] LABS: ABG Base Excess -0.9 mmol/L; ABG HCO3 22 mmol/L (21-25); ABG Oxygen Saturation 99.2 % (94-97); ABG PCO2 26 mmHg (35-45); ABG PH 7.54 (7.35-7.45); ABG PO2 124 mmHg (83-108); ABG TCO2 23 mmol/L (19-24); Allen Test Performed? Yes
[2021-04-14] MEDS: ASPIRIN 81 MG PO SCH (07:51)
[2021-04-14] MEDS: FAMOTIDINE 20 MG TAB PO SCH (07:51)
--- NOTE | 2021-04-14 08:17 | XR ---
EXAMINATION TYPE: XR chest 1V portable DATE OF EXAM: 04/14/2021 COMPARISON: Chest x-ray 04/13/2021 HISTORY: Intubated TECHNIQUE: Single frontal view of the chest is obtained. FINDINGS: Right-sided PICC line shows the distal tip in the right atrium. Endotracheal tube is overl [place] the tracheal air column. No evident pneumothorax. Bibasilar increased density is again seen. Hea rt remains enlarged. Aorta is dense. IMPRESSION: Findings similar to prior exam. Basilar effusions and associated atelectasis versus pneu monia or edema. Cardiomegaly.
[2021-04-14] MEDS: CHLORHEXIDINE GLUCONATE 15 ML CUP MUCOUS MEM SCH ×2 (08:54→20:54)
[2021-04-14] MEDS: HEPARIN SODIUM,PORCINE/PF 5,000 UNIT/0.5 ML SYRINGE SQ SCH ×2 (08:54→20:54)
[2021-04-14] MEDS: LEVOTHYROXINE IVP 100 MCG/5 ML VIAL IV SCH (08:54)
--- NOTE | 2021-04-14 09:13 | P.PN ---
Subjective Progress Note Date: 04/14/21 04/13/2021, the patient is being seen for a follow-up. The patient is currently sedated, comfortable likely distress. Patient is being gradually weaned off to assess the patient's underlying mental status. The patient's propofol has been cut down from 30 g down to 5 mg/kg per minute. The patient is not following any commands. She is not grimacing and she is not withdrawing to painful stimulation. The patient is currently on a mechanical ventilator. She is an assist-control mode at the rate of 12 with a tidal volume of 400 and FiO2 of 50% with a PEEP of 5. The chest x-ray showing bibasilar effusion and atelectatic changes in lung bases bilaterally. There is also cardiomegaly. There is may be some mild interstitial edema. The patient also has a pH of 7.45 with a pCO2 of 29 and pO2 of 85 based on the above-mentioned ventilator setting. Ejection fraction is around 55-60%. She has moderate severe mitral regurgitation with a pulmonary artery pressure of 60 based on the echocardiogram. There is a concern for underlying liver cirrhosis. 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 The patient also has a previous history of right kidney hydronephrosis with a insertion of a double-J stent ultrasound of the kidney will be done. Creatinine for now is stable at 3.39. Note that the patient is currently on no pressors. The patient has negative cultures. The patient remains on IV Rocephin. The patient has a white cell count of 7.7 with hemoglobin of 11.0 which is stable compared to yesterday. On today's evaluation of 04/14/2021, the patient remains off sedation for the past 24 hours. I stop the sedation yesterday and I monitor the mental status over the next 24 hours. This morning, she seems to be more responsive note that she was completely unresponsive yesterday. She opens eyes occasionally. She does occasionally grimace to deep painful stimulation. She is moving her head also. No purposeful activity. Doesn't follow any orders or commands. She remains intubated on a mechanical ventilator. On today's evaluation, she is on assist-control at the rate of 12 with a tidal volume of 400 and FiO2 of 50% with a PEEP of 5. Her blood gases from this morning is showing a pH of 7.54 with a pCO2 of 26 and pO2 of 124. His chest x-ray from today is showing adequate positioning of the oral tracheal tube. The patient also has a PICC line in the right upper extremity. There are small bilateral pleural effusions. There is also cardiomegaly. Note that the patient had an attempted Dobbhoff catheter insertion yesterday and this again failed by gastroenterology. We are seeking the possibility of school directed PEG tube insertion by gastroenterology. Meanwhile, hemodynamically, the patient is stable. The patient remains on a bicarb infusion at the rate of 75 mL an hour and his serum bicarb today is at 21. Her BUN is at 91 with a creatinine of 3.6. The patient had an ultrasound the kidneys yesterday that showed evidence of hydronephrosis on the right which was again seen and this was comparable to the previous ultrasound from 2019 and there was a simple cyst in the involving the left kidney. The cultures remain negative. Urine cultures negative. Blood cultures have been sent. There is also still pending for now. The patient remains on IV Rocephin. The patient is afebrile. White cell count is still low. The ammonia level was also low at 31. Her CODE STATUS is DNR/DNI. Objective - Vital Signs Vital signs: Vital Signs Temp 98.7 F 04/14/21 08:00 Pulse 73 04/14/21 08:00 Resp 13 04/14/21 08:00 BP 111/43 04/14/21 08:00 Pulse Ox 100 04/14/21 08:00 Intake & Output 04/13/21 04/14/21 04/14/21 18:59 06:59 18:59 Intake Total 964.571 975 75 Output Total 130 90 25 Balance 834.571 885 50 Weight 83.5 kg Intake: IV 150 Sodium Chloride 0.9% 1, 150 000 ml @ 50 mls/hr IV . Q20H [facility] Rx#:[id number] Intake, IV Titration 814.571 975 75 Amount Dextrose 5% in Water 1, 675 975 75 000 ml @ 75 mls/hr IV . [id number] [facility] with Sod Bicarb Syr 8.4% (1 Meq/ml ) 150 ml Rx#:[id number] cefTRIAXone 2 gm In 100 Sodium Chloride 0.9% 50 ml @ 100 mls/hr IVPB Q24HR [facility] Rx#:[id number] propofoL 1,000 mg In 39.571 Empty Bag 1 bag @ 10 MCG/ KG/MIN 6.532 mls/hr IV . [id number] [facility] Rx#:[id number] Output: Urine 130 90 25 Other: Voiding Method Indwelling Catheter Indwelling Catheter Indwelling Catheter - Exam No acute distress, sedated, with an orally placed endotracheal tube. An NG tube could not be placed. Noted the patient is unresponsive this morning. The patient is off sedation for the past 24 hours and she remains unresponsive alt lia slightly more active compared to yesterday. Head exam was generally normal. There was no scleral icterus or corneal arcus. Mucous membranes were moist. HEENT examination is grossly unremarkable. Neck supple. Full range of motion. No adenopathy thyromegaly or neck vein distention. Cardiovascular examination reveals regular rhythm rate. S1-S2 normal. No S3 or S4. No discernible murmur noted. Lungs reveal few scattered rhonchi. Breath sounds equal bilaterally. No wheezes or crackles. Abdomen is soft without bowel sounds. No masses. Extremities are intact. No cyanosis or clubbing. There is significant edema both in the upper extremities and lower extremities. Skin is without rash or lesion. Neurologic examination and reactive pupils. Positive cough. Positive gag. Grimace is only to deep painful stimulation. Overall, unresponsive - Labs CBC & Chem 7: 04/14/21 03:50 04/14/21 03:50 Labs: Abnormal Lab Results - Last 24 Hours (Table) 04/13/21 04/13/21 04/13/21 Range/Units 09:35 17:16 18:10 RBC (3.80-5.40) m/uL Hgb (11.4-16.0) gm/dL Hct (34.0-46.0) % RDW (11.5-15.5) % Lymphocytes # (1.0-4.8) k/uL ABG pH (7.35-7.45) ABG pCO2 (35-45) mmHg ABG pO2 (83-108) mmHg ABG O2 Saturation (94-97) % Sodium 133 L (137-145) mmol/L Carbon Dioxide 19 L (22-30) mmol/L BUN 88 H (7-17) mg/dL Creatinine 3.58 H (0.52-1.04) mg/dL Glucose 129 H (74-99) mg/dL POC Glucose (mg/dL) 110 H (75-99) mg/dL Calcium 7.6 L (8.4-10.2) mg/dL AST (14-36) U/L ALT (4-34) U/L Alkaline Phosphatase (38-126) U/L Ammonia 31 H (<30) umol/L Total Protein (6.3-8.2) g/dL Albumin (3.5-5.0) g/dL 04/13/21 04/14/21 04/14/21 Range/Units 23:16 03:50 03:50 RBC 3.13 L (3.80-5.40) m/uL Hgb 10.2 L (11.4-16.0) gm/dL Hct 30.6 L (34.0-46.0) % RDW 17.5 H (11.5-15.5) % Lymphocytes # 0.4 L (1.0-4.8) k/uL ABG pH (7.35-7.45) ABG pCO2 (35-45) mmHg ABG pO2 (83-108) mmHg ABG O2 Saturation (94-97) % Sodium 132 L (137-145) mmol/L Carbon Dioxide 21 L (22-30) mmol/L BUN 91 H (7-17) mg/dL Creatinine 3.66 H (0.52-1.04) mg/dL Glucose 119 H (74-99) mg/dL POC Glucose (mg/dL) 136 H (75-99) mg/dL Calcium 7.5 L (8.4-10.2) mg/dL AST 167 H (14-36) U/L ALT 80 H (4-34) U/L Alkaline Phosphatase 645 H (38-126) U/L Ammonia (<30) umol/L Total Protein 5.9 L (6.3-8.2) g/dL Albumin 2.2 L (3.5-5.0) g/dL 04/14/21 Range/Units 05:10 RBC (3.80-5.40) m/uL Hgb (11.4-16.0) gm/dL Hct (34.0-46.0) % RDW (11.5-15.5) % Lymphocytes # (1.0-4.8) k/uL ABG pH 7.54 H (7.35-7.45) ABG pCO2 26 L (35-45) mmHg ABG pO2 124 H (83-108) mmHg ABG O2 Saturation 99.2 H (94-97) % Sodium (137-145) mmol/L Carbon Dioxide (22-30) mmol/L BUN (7-17) mg/dL Creatinine (0.52-1.04) mg/dL Glucose (74-99) mg/dL POC Glucose (mg/dL) (75-99) mg/dL Calcium (8.4-10.2) mg/dL AST (14-36) U/L ALT (4-34) U/L Alkaline Phosphatase (38-126) U/L Ammonia (<30) umol/L Total Protein (6.3-8.2) g/dL Albumin (3.5-5.0) g/dL Assessment and Plan Plan: 1 Acute hypoxemic respiratory failure secondary to urinary tract infection/urosepsis, with intubation and mechanical ventilation on April 11. The patient remains on a mechanical ventilator. Currently on an FiO2 of 50% with a PEEP of 5. Blood gases was noted. Chest x-ray showing some mild interstitial edema and small bilateral pleural effusion. Blood gases from today showing a component of respiratory alkalosis. FiO2 will be dropped down to 40%. We'll keep the PEEP at 5. Not ready for further weaning as long as her mental status is significantly down and altered. 2 sepsis secondary to urinary tract infection. Cultures are negative and the patient is on Rocephin 3 Hyperkalemia, treated, recovered 4 Acute renal failure, possibly on top of chronic kidney disease, the patient has a right-sided hydronephrosis and the pasting inspector on the case. Ultrasound the kidneys noted 5 History of hiatal hernia. 6 History of right hydronephrosis with stent placement. 7 History of biliary cirrhosis. LFTs are abnormal and the patient has elevated alkaline phosphatase 8 History of hypertension. 9 Hypothyroidism. 10 History of hyperlipidemia. 11 History of acid reflux disease. 12 History of cancer of the spine. 13 Moderate to severe MR and secondary pulmoinary hypertension, normal ejection fraction severe secondary pulmonary hypertension with a right-sided pressure of around 60 mmHg. Plan: Continue monitoring the mental status and consider another CAT scan of the brain if there is no improvement within next 24 hours. She is obviously more active compared to yesterday. Nevertheless she remains unresponsive and ammonia level has been low and the patient is currently off propofol. Discontinue the bicarb infusion With the patient normal saline at the rate of 50 mL an hour Gastroenterology to establish a orogastric tube probably EGD guided Continue IV Rocephin Drop the FiO2 down to 40% Ultrasound the kidneys were noted We'll initiate enteral feeding once the patient has a or G-tube established Monitor cultures DNR/DNI CODE STATUS from this point anion Coordinate with nephrology regarding the renal failure We'll continue to follow make further recommendations. Currently care evaluation that was on a more than 30 minutes.
[2021-04-14] MEDS: SODIUM CHLORIDE 0.9% 1,000 ML IV SCH (10:05)
[2021-04-14] MEDS ORDERED: FUROSEMIDE 10 MG/ML 10 ML VIAL IV STA (10:10)
--- NOTE | 2021-04-14 10:13 | P.PN ---
Subjective Patient is seen in follow-up for acute kidney injury. Renal function worse. Potassium level normal. Acidosis improved. Maintained on normal saline. Intubated. On 40% FiO2. Urine output about 15-20 mL an hour. Vital signs are stable. General: The patient appeared well nourished and normally developed. HEENT: Intubated. LUNGS: Breath sounds decreased. HEART: Rate and Rhythm are regular. ABDOMEN: Soft, no distention. EXTREMITITES: Trace edema. Objective - Vital Signs Vital signs: Vital Signs Temp 98.7 F 04/14/21 08:00 Pulse 75 04/14/21 09:00 Resp 14 04/14/21 09:00 BP 115/51 04/14/21 09:00 Pulse Ox 100 04/14/21 09:00 Intake & Output 04/13/21 04/14/21 04/14/21 18:59 06:59 18:59 Intake Total 964.571 975 160 Output Total 130 90 40 Balance 834.571 885 120 Weight 83.5 kg Intake: IV 150 85 Dextrose 5% in Water 1, 75 000 ml @ 75 mls/hr IV . [id number] [facility] with Sod Bicarb Syr 8.4% (1 Meq/ml ) 150 ml Rx#:[id number] Sodium Chloride 0.9% 1, 150 10 000 ml @ 50 mls/hr IV . Q20H [facility] Rx#:[id number] Intake, IV Titration 814.571 975 75 Amount Dextrose 5% in Water 1, 675 975 75 000 ml @ 75 mls/hr IV . [id number] [facility] with Sod Bicarb Syr 8.4% (1 Meq/ml ) 150 ml Rx#:[id number] cefTRIAXone 2 gm In 100 Sodium Chloride 0.9% 50 ml @ 100 mls/hr IVPB Q24HR [facility] Rx#:[id number] propofoL 1,000 mg In 39.571 Empty Bag 1 bag @ 10 MCG/ KG/MIN 6.532 mls/hr IV . [id number] [facility] Rx#:[id number] Output: Urine 130 90 40 Other: Voiding Method Indwelling Catheter Indwelling Catheter Indwelling Catheter - Labs CBC & Chem 7: 04/14/21 03:50 04/14/21 03:50 Labs: Abnormal Lab Results - Last 24 Hours (Table) 04/13/21 04/13/21 04/13/21 Range/Units 09:35 17:16 18:10 RBC (3.80-5.40) m/uL Hgb (11.4-16.0) gm/dL Hct (34.0-46.0) % RDW (11.5-15.5) % Lymphocytes # (1.0-4.8) k/uL ABG pH (7.35-7.45) ABG pCO2 (35-45) mmHg ABG pO2 (83-108) mmHg ABG O2 Saturation (94-97) % Sodium 133 L (137-145) mmol/L Carbon Dioxide 19 L (22-30) mmol/L BUN 88 H (7-17) mg/dL Creatinine 3.58 H (0.52-1.04) mg/dL Glucose 129 H (74-99) mg/dL POC Glucose (mg/dL) 110 H (75-99) mg/dL Calcium 7.6 L (8.4-10.2) mg/dL AST (14-36) U/L ALT (4-34) U/L Alkaline Phosphatase (38-126) U/L Ammonia 31 H (<30) umol/L Total Protein (6.3-8.2) g/dL Albumin (3.5-5.0) g/dL 04/13/21 04/14/21 04/14/21 Range/Units 23:16 03:50 03:50 RBC 3.13 L (3.80-5.40) m/uL Hgb 10.2 L (11.4-16.0) gm/dL Hct 30.6 L (34.0-46.0) % RDW 17.5 H (11.5-15.5) % Lymphocytes # 0.4 L (1.0-4.8) k/uL ABG pH (7.35-7.45) ABG pCO2 (35-45) mmHg ABG pO2 (83-108) mmHg ABG O2 Saturation (94-97) % Sodium 132 L (137-145) mmol/L Carbon Dioxide 21 L (22-30) mmol/L BUN 91 H (7-17) mg/dL Creatinine 3.66 H (0.52-1.04) mg/dL Glucose 119 H (74-99) mg/dL POC Glucose (mg/dL) 136 H (75-99) mg/dL Calcium 7.5 L (8.4-10.2) mg/dL AST 167 H (14-36) U/L ALT 80 H (4-34) U/L Alkaline Phosphatase 645 H (38-126) U/L Ammonia (<30) umol/L Total Protein 5.9 L (6.3-8.2) g/dL Albumin 2.2 L (3.5-5.0) g/dL 04/14/21 Range/Units 05:10 RBC (3.80-5.40) m/uL Hgb (11.4-16.0) gm/dL Hct (34.0-46.0) % RDW (11.5-15.5) % Lymphocytes # (1.0-4.8) k/uL ABG pH 7.54 H (7.35-7.45) ABG pCO2 26 L (35-45) mmHg ABG pO2 124 H (83-108) mmHg ABG O2 Saturation 99.2 H (94-97) % Sodium (137-145) mmol/L Carbon Dioxide (22-30) mmol/L BUN (7-17) mg/dL Creatinine (0.52-1.04) mg/dL Glucose (74-99) mg/dL POC Glucose (mg/dL) (75-99) mg/dL Calcium (8.4-10.2) mg/dL AST (14-36) U/L ALT (4-34) U/L Alkaline Phosphatase (38-126) U/L Ammonia (<30) umol/L Total Protein (6.3-8.2) g/dL Albumin (3.5-5.0) g/dL Assessment and Plan Plan: Assessment: 1. Acute kidney injury secondary to ATN secondary to infection. Renal function a little worse. Creatinine 3.66 today. Baseline creatinine 1-1.2. Right-sided hydronephrosis noted on kidney ultrasound. 2. Metabolic acidosis secondary to acute kidney injury. Better. 3. Hyperkalemia secondary to acute kidney injury and metabolic acidosis. Improved. 4. History of right-sided hydronephrosis status post ureteral stent placement. 5. Chronic diastolic CHF with moderate to severe mitral regurgitation, tricuspid regurgitation and pulmonary hypertension. 6. Acute hypoxic respiratory failure. 7. Hyponatremia secondary to acute kidney injury. Hypervolemic. Plan: Bicarb drip discontinued. Lasix 80 mg IV once today. Urology consulted for the hydronephrosis. Avoid nephrotoxins. Check phosphorus level. Continue to monitor renal function and urine output. Continue to assess daily for need for renal replacement therapy.
--- NOTE | 2021-04-14 11:32 | P.GSCN ---
History of Present Illness Consult date: 04/14/21 History of present illness: 80 female in the hospital with uti with sepsis. On the ventilator. Found to have creatinine of 3.5 Us right hydro. Pateient with known upj obstruction ofn the right patient on the ventilator Review of Systems ROS unobtainable: due to mental status Past Medical History Past Medical History: Cancer, GERD/Reflux, Hypertension, Osteoarthritis (OA) Additional Past Medical History / Comment(s): no blood pressure meds, states hx of cancer spine , hiatal hernia, right hydronephrosis, states stomach pain and nausea. History of Any Multi-Drug Resistant Organisms: None Reported Past Surgical History: Back Surgery, Cholecystectomy, Joint Replacement, Orthopedic Surgery Additional Past Surgical History / Comment(s): kidney stent, sarah shoulder surgery, sarah total knees. Past Anesthesia/Blood Transfusion Reactions: No Reported Reaction Past Psychological History: Anxiety Smoking Status: Never smoker Past Alcohol Use History: None Reported Past Drug Use History: None Reported - Past Family History Mother Family Medical History: No Reported History Medications and Allergies Home Medications Medication Instructions Recorded Confirmed Type Aspirin 81 mg PO DAILY 30 Days #30 chew 03/10/21 04/11/21 Rx Furosemide [Lasix] 20 mg PO DAILY #90 tab 03/10/21 04/11/21 Rx Atorvastatin [Lipitor] 20 mg PO HS 04/11/21 04/11/21 History Omeprazole 20 mg PO DAILY 04/11/21 04/11/21 History Potassium Chloride ER [K-Dur 20] 40 meq PO DAILY 04/11/21 04/11/21 History amLODIPine [Norvasc] 10 mg PO DAILY 04/11/21 04/11/21 History traMADol HCL 50 mg PO Q6H PRN 04/11/21 04/11/21 History Allergies Allergy/AdvReac Type Severity Reaction Status Date / Time codeine AdvReac dizziness Verified 04/11/21 16:58 and passes out Surgical - Exam Vital Signs Temp Pulse Resp BP Pulse Ox 97.3 F L 56 L 18 143/125 78 L 04/11/21 15:02 04/11/21 15:02 04/11/21 15:02 04/11/21 15:02 04/11/21 15:02 - General chronically ill - Respiratory ventialtor - Cardiovascular Rhythm: regular - Abdomen Abdomen: soft, non tender Results - Labs 04/14/21 03:50 04/14/21 03:50 Abnormal Lab Results - Last 24 Hours (Table) 04/13/21 04/13/21 04/13/21 Range/Units 17:16 18:10 23:16 RBC (3.80-5.40) m/uL Hgb (11.4-16.0) gm/dL Hct (34.0-46.0) % RDW (11.5-15.5) % Lymphocytes # (1.0-4.8) k/uL ABG pH (7.35-7.45) ABG pCO2 (35-45) mmHg ABG pO2 (83-108) mmHg ABG O2 Saturation (94-97) % Sodium 133 L (137-145) mmol/L Carbon Dioxide 19 L (22-30) mmol/L BUN 88 H (7-17) mg/dL Creatinine 3.58 H (0.52-1.04) mg/dL Glucose 129 H (74-99) mg/dL POC Glucose (mg/dL) 110 H 136 H (75-99) mg/dL Calcium 7.6 L (8.4-10.2) mg/dL AST (14-36) U/L ALT (4-34) U/L Alkaline Phosphatase (38-126) U/L Total Protein (6.3-8.2) g/dL Albumin (3.5-5.0) g/dL 04/14/21 04/14/21 04/14/21 Range/Units 03:50 03:50 05:10 RBC 3.13 L (3.80-5.40) m/uL Hgb 10.2 L (11.4-16.0) gm/dL Hct 30.6 L (34.0-46.0) % RDW 17.5 H (11.5-15.5) % Lymphocytes # 0.4 L (1.0-4.8) k/uL ABG pH 7.54 H (7.35-7.45) ABG pCO2 26 L (35-45) mmHg ABG pO2 124 H (83-108) mmHg ABG O2 Saturation 99.2 H (94-97) % Sodium 132 L (137-145) mmol/L Carbon Dioxide 21 L (22-30) mmol/L BUN 91 H (7-17) mg/dL Creatinine 3.66 H (0.52-1.04) mg/dL Glucose 119 H (74-99) mg/dL POC Glucose (mg/dL) (75-99) mg/dL Calcium 7.5 L (8.4-10.2) mg/dL AST 167 H (14-36) U/L ALT 80 H (4-34) U/L Alkaline Phosphatase 645 H (38-126) U/L Total Protein 5.9 L (6.3-8.2) g/dL Albumin 2.2 L (3.5-5.0) g/dL Microbiology - Last 24 Hours (Table) 04/13/21 08:07 Blood Culture - Preliminary Blood No Growth after 24 hours 04/13/21 07:58 Blood Culture - Preliminary Blood No Growth after 24 hours Diabetes panel 04/13/21 04/14/21 Range/Units 18:10 03:50 Sodium 133 L 132 L (137-145) mmol/L Potassium 4.8 4.8 (3.5-5.1) mmol/L Chloride 107 103 (98-107) mmol/L Carbon Dioxide 19 L 21 L (22-30) mmol/L BUN 88 H 91 H (7-17) mg/dL Creatinine 3.58 H 3.66 H (0.52-1.04) mg/dL Glucose 129 H 119 H (74-99) mg/dL Calcium 7.6 L 7.5 L (8.4-10.2) mg/dL AST 167 H (14-36) U/L ALT 80 H (4-34) U/L Alkaline Phosphatase 645 H (38-126) U/L Total Protein 5.9 L (6.3-8.2) g/dL Albumin 2.2 L (3.5-5.0) g/dL Calcium panel 04/13/21 04/14/21 Range/Units 18:10 03:50 Calcium 7.6 L 7.5 L (8.4-10.2) mg/dL Albumin 2.2 L (3.5-5.0) g/dL Pituitary panel 04/13/21 04/14/21 Range/Units 18:10 03:50 Sodium 133 L 132 L (137-145) mmol/L Potassium 4.8 4.8 (3.5-5.1) mmol/L Chloride 107 103 (98-107) mmol/L Carbon Dioxide 19 L 21 L (22-30) mmol/L BUN 88 H 91 H (7-17) mg/dL Creatinine 3.58 H 3.66 H (0.52-1.04) mg/dL Glucose 129 H 119 H (74-99) mg/dL Calcium 7.6 L 7.5 L (8.4-10.2) mg/dL Adrenal panel 04/13/21 04/14/21 Range/Units 18:10 03:50 Sodium 133 L 132 L (137-145) mmol/L Potassium 4.8 4.8 (3.5-5.1) mmol/L Chloride 107 103 (98-107) mmol/L Carbon Dioxide 19 L 21 L (22-30) mmol/L BUN 88 H 91 H (7-17) mg/dL Creatinine 3.58 H 3.66 H (0.52-1.04) mg/dL Glucose 129 H 119 H (74-99) mg/dL Calcium 7.6 L 7.5 L (8.4-10.2) mg/dL Total Bilirubin 1.1 (0.2-1.3) mg/dL AST 167 H (14-36) U/L ALT 80 H (4-34) U/L Alkaline Phosphatase 645 H (38-126) U/L Total Protein 5.9 L (6.3-8.2) g/dL Albumin 2.2 L (3.5-5.0) g/dL - Imaging US - kidney/bladder: report reviewed, image reviewed Assessment and Plan Assessment: Impression: Uti with sepsis. UPJ obstruction right with poorly draineing urine Plan: Cysto with double j cath
[2021-04-14 12:03] LABS: Glucose,Whole Blood 107 mg/dL (75-99)
--- NOTE | 2021-04-14 12:59 | P.PN ---
Subjective 80-year-old female was brought in after an episode of unresponsiveness. Patient was subsequently intubated. Patient is being admitted for severe sepsis which was believed to be secondary to urinary tract infection patient urine analysis is significantly abnormal and looked purulent. Patient appears to have multiorgan dysfunction as well. Patient was apparently not doing well since last couple days and family has been with her all night last night earlier today morning patient was found to be unresponsive. Patient is found to be hyponatremic with hyperkalemia of 7.1 bradycardia anion gap metabolic acidosis lactic acid is presently not available elevated creatinine of 3.49 baseline is around 1. Patient has elevated liver enzymes these appear to be chronic since her last hospitalization and patient was diagnosed with primary biliary cirrhosis at that time. Patient has highly elevated TSH and free T4 is around 2.41. Patient is presently intubated. Patient is presently not on any pressor support, receiving fluids at 1 30 mL per hour. Patient received calcium gluconate insulin and beta agonist for hyperkalemia, I'm also ordering Kayexalate. Patient was recently hospital is about 3 weeks ago for dehydration generalized weakness subsequently discharged to subacute halfway patient is supposed to be there for about a month after 2 weeks please stop drinking rehabilitation because of which patient was taken home about a week ago. Patient does have some cognitive impairment although doesn't have any significant dementia as per the the patient's family. Patient usually uses a cane for ambulation. Fairly functional.patient had Morganella morganii which is sensitive to Ur generation cephalosporins from her recent urine cultures. . 04/12/2021 Patient remains a major to support patient's IV normal saline was decreased as her respiratory status is bit worse. Patient actually received Lasix once. Patient's creatinine is bit worse and is 3.8 DOWN THE ROCEPHIN DOSE TO 1 G DAILY URINE CULTURES ARE STILL PENDING. 04/13/2021 is a mechanical ventilator had an ultrasound of the kidney which showed hydronephrosis and urology is evaluating the patient patient creatinine is fairly stable at 3.39 urine output is only 10 mL per hour nephrology is following the patient urine cultures are although negative. Chest x-ray showed mild interstitial edema. In spite of weaning of on the sedation patient is still not awake enough ammonia level was obtained which is fairly close to normal patient may need a CT of the head if she doesn't respond by tomorrow morning. 04/14/2021 Patient's sedation is completely of for about a day patient is bit more responsive today because of which will continue to monitor her urine cultures are so far negative. Patient remains intubated on mechanical ventilator on a ssist control ventilation with set up respiratory rate of 12 patient is breathing over the ventilator tidal volume of 400 50% PEEP of 5 blood gases are GERD except for mild alkalosis, unable to place an NG tube because of her hiatal hernia Dobbhoff will be attempted with the upper GI endoscopy. On a PEG tube insertion by gastroenterology patient remains on bicarbonate infusion nephrology is following the patient patient doesn't creatinine is 3.6 ultrasound of the kidney showed hydronephrosis on the right, patient remains on IV Rocephin. Review of systems: Unable to obtain due to her clinical condition All inpatient medications were reviewed and appropriate changes in these medications as d ictated in the interval history and assessment and plan. Objective - Vital Signs Vital signs: Vital Signs Temp 98.7 F 04/14/21 08:00 Pulse 78 04/14/21 11:00 Resp 14 04/14/21 11:00 BP 116/45 04/14/21 11:00 Pulse Ox 99 04/14/21 11:00 Intake & Output 04/13/21 04/14/21 04/14/21 18:59 06:59 18:59 Intake Total 964.571 975 260 Output Total 130 90 70 Balance 834.571 885 190 Weight 83.5 kg Intake: IV 150 185 Dextrose 5% in Water 1, 75 000 ml @ 75 mls/hr IV . [id number] [facility] with Sod Bicarb Syr 8.4% (1 Meq/ml ) 150 ml Rx#:[id number] Sodium Chloride 0.9% 1, 150 110 000 ml @ 50 mls/hr IV . Q20H [facility] Rx#:[id number] Intake, IV Titration 814.571 975 75 Amount Dextrose 5% in Water 1, 675 975 75 000 ml @ 75 mls/hr IV . [id number] [facility] with Sod Bicarb Syr 8.4% (1 Meq/ml ) 150 ml Rx#:[id number] cefTRIAXone 2 gm In 100 Sodium Chloride 0.9% 50 ml @ 100 mls/hr IVPB Q24HR [facility] Rx#:[id number] propofoL 1,000 mg In 39.571 Empty Bag 1 bag @ 10 MCG/ KG/MIN 6.532 mls/hr IV . [id number] [facility] Rx#:[id number] Output: Urine 130 90 70 Other: Voiding Method Indwelling Catheter Indwelling Catheter Indwelling Catheter - Exam PHYSICAL EXAMINATION: GENERAL: Patient is intubated and started on propofol on ventilatory support. Thin built female HEENT: Pupils are round and equally reacting to light. EOMI. No scleral icterus. No conjunctival pallor. Normocephalic, atraumatic. No pharyngeal erythema. No thyromegaly. CARDIOVASCULAR: S1 and S2 present. No murmurs, rubs, or gallops. PULMONARY: Few scattered rhonchi ABDOMEN: Soft, nontender, nondistended, normoactive bowel sounds. No palpable organomegaly. The catheter in place MUSCULOSKELETAL: No joint swelling or deformity. EXTREMITIES: No cyanosis, clubbing, or pedal edema. NEUROLOGICAL: Intubated and sedated SKIN: No rashes. - Labs CBC & Chem 7: 04/14/21 03:50 04/14/21 03:50 Labs: Abnormal Lab Results - Last 24 Hours (Table) 04/13/21 04/13/21 04/13/21 Range/Units 17:16 18:10 23:16 RBC (3.80-5.40) m/uL Hgb (11.4-16.0) gm/dL Hct (34.0-46.0) % RDW (11.5-15.5) % Lymphocytes # (1.0-4.8) k/uL ABG pH (7.35-7.45) ABG pCO2 (35-45) mmHg ABG pO2 (83-108) mmHg ABG O2 Saturation (94-97) % Sodium 133 L (137-145) mmol/L Carbon Dioxide 19 L (22-30) mmol/L BUN 88 H (7-17) mg/dL Creatinine 3.58 H (0.52-1.04) mg/dL Glucose 129 H (74-99) mg/dL POC Glucose (mg/dL) 110 H 136 H (75-99) mg/dL Calcium 7.6 L (8.4-10.2) mg/dL AST (14-36) U/L ALT (4-34) U/L Alkaline Phosphatase (38-126) U/L Total Protein (6.3-8.2) g/dL Albumin (3.5-5.0) g/dL 04/14/21 04/14/21 04/14/21 Range/Units 03:50 03:50 05:10 RBC 3.13 L (3.80-5.40) m/uL Hgb 10.2 L (11.4-16.0) gm/dL Hct 30.6 L (34.0-46.0) % RDW 17.5 H (11.5-15.5) % Lymphocytes # 0.4 L (1.0-4.8) k/uL ABG pH 7.54 H (7.35-7.45) ABG pCO2 26 L (35-45) mmHg ABG pO2 124 H (83-108) mmHg ABG O2 Saturation 99.2 H (94-97) % Sodium 132 L (137-145) mmol/L Carbon Dioxide 21 L (22-30) mmol/L BUN 91 H (7-17) mg/dL Creatinine 3.66 H (0.52-1.04) mg/dL Glucose 119 H (74-99) mg/dL POC Glucose (mg/dL) (75-99) mg/dL Calcium 7.5 L (8.4-10.2) mg/dL AST 167 H (14-36) U/L ALT 80 H (4-34) U/L Alkaline Phosphatase 645 H (38-126) U/L Total Protein 5.9 L (6.3-8.2) g/dL Albumin 2.2 L (3.5-5.0) g/dL 04/14/21 Range/Units 12:02 RBC (3.80-5.40) m/uL Hgb (11.4-16.0) gm/dL Hct (34.0-46.0) % RDW (11.5-15.5) % Lymphocytes # (1.0-4.8) k/uL ABG pH (7.35-7.45) ABG pCO2 (35-45) mmHg ABG pO2 (83-108) mmHg ABG O2 Saturation (94-97) % Sodium (137-145) mmol/L Carbon Dioxide (22-30) mmol/L BUN (7-17) mg/dL Creatinine (0.52-1.04) mg/dL Glucose (74-99) mg/dL POC Glucose (mg/dL) 107 H (75-99) mg/dL Calcium (8.4-10.2) mg/dL AST (14-36) U/L ALT (4-34) U/L Alkaline Phosphatase (38-126) U/L Total Protein (6.3-8.2) g/dL Albumin (3.5-5.0) g/dL Microbiology - Last 24 Hours (Table) 04/13/21 08:07 Blood Culture - Preliminary Blood No Growth after 24 hours 04/13/21 07:58 Blood Culture - Preliminary Blood No Growth after 24 hours Assessment and Plan Plan: Possible severe sepsis: Probably secondary to urinary tract infection urine cultures and blood cultures are negative. Patient remains intubated and is on 1 g of Rocephin at this time -Acute hypoxic respiratory failure secondary to severe sepsis -Hyperkalemia: Multifactorial secondary to acute renal failure which is again secondary to acute tubular necrosis from severe sepsis potassium supplementation and also metabolic acidosis. Improved as there is around 5.3 provided. -Anion metabolic acidosis probably secondary to acute renal failure as well as lactic is doses -acute renal failure secondary to most probably acute tubular necrosis from severe sepsis IV fluids and nephrology valid the patient patient is presently on D5 with bicarbonate. -Mildly elevated troponin secondary to severe sepsis and renal failure -Elevated TSH and as well as free T4 these abnormalities are probably secondary to sepsis, will need a repeat T4 and TSH in about couple weeks -Elevated liver enzymes patient appears to have elevated liver enzymes during the her previous hospitalization as well and patient was diagnosed with primary biliary cirrhosis . Patient liver enzymes are bit better compared to admission -Generalized deconditioning -Hypertension: Holding off antihypertensive medications because of concerns of hypotension secondary to severe sepsis -Chronic of right-sided hydronephrosis -DVT prophylaxis with subcutaneous heparin GI prophylaxis with Protonix or Pepcid
--- NOTE | 2021-04-14 14:07 | P.PN ---
Subjective Progress Note Date: 04/14/21 Principal diagnosis: Need for NG tube/Dobbhoff replacement Is a 80-year-old white female admitted to the hospital with altered mental status and subsequently diagnosed with severe sepsis septic shock secondary to UTI which she is currently in the intensive care unit on mechanical ventilation. Yesterday they started weaning her from her sedation which she has more awake today, does respond to painful stimuli, however still not following directions or commands. Was seen yesterday with attempt for passing Dobbhoff tube for feeding, however that was unsuccessful. Reevaluating today for possibility to try again for Dobbhoff placement versus need for possible PEG tube placement as stated in the note from pulmonology. Objective - Vital Signs Vital signs: Vital Signs Temp 98.7 F 04/14/21 08:00 Pulse 75 04/14/21 09:00 Resp 14 04/14/21 09:00 BP 115/51 04/14/21 09:00 Pulse Ox 100 04/14/21 09:00 Intake & Output 04/13/21 04/14/21 04/14/21 18:59 06:59 18:59 Intake Total 964.571 975 160 Output Total 130 90 40 Balance 834.571 885 120 Weight 83.5 kg Intake: IV 150 85 Dextrose 5% in Water 1, 75 000 ml @ 75 mls/hr IV . [id number] [facility] with Sod Bicarb Syr 8.4% (1 Meq/ml ) 150 ml Rx#:[id number] Sodium Chloride 0.9% 1, 150 10 000 ml @ 50 mls/hr IV . Q20H [facility] Rx#:[id number] Intake, IV Titration 814.571 975 75 Amount Dextrose 5% in Water 1, 675 975 75 000 ml @ 75 mls/hr IV . [id number] [facility] with Sod Bicarb Syr 8.4% (1 Meq/ml ) 150 ml Rx#:[id number] cefTRIAXone 2 gm In 100 Sodium Chloride 0.9% 50 ml @ 100 mls/hr IVPB Q24HR [facility] Rx#:[id number] propofoL 1,000 mg In 39.571 Empty Bag 1 bag @ 10 MCG/ KG/MIN 6.532 mls/hr IV . [id number] [facility] Rx#:[id number] Output: Urine 130 90 40 Other: Voiding Method Indwelling Catheter Indwelling Catheter Indwelling Catheter - Exam General appearance: The patient is on mechanical ventilation, only responsive to painful stimuli. HET: Head is normocephalic and atraumatic. Conjunctiva pink. Sclera anicteric. Neck: Supple without lymphadenopathy. Abdomen: Soft, nontender, nondistended with bowel sounds. No guarding or rigidity. Extremities: Normal skin color and turgor. No pedal edema Skin: No rashes, no jaundice Neurological: On mechanical ventilation, unable to follow commands. Responsive to painful stimuli.. - Labs CBC & Chem 7: 04/14/21 03:50 04/14/21 03:50 Labs: Abnormal Lab Results - Last 24 Hours (Table) 04/13/21 04/13/21 04/13/21 Range/Units 17:16 18:10 23:16 RBC (3.80-5.40) m/uL Hgb (11.4-16.0) gm/dL Hct (34.0-46.0) % RDW (11.5-15.5) % Lymphocytes # (1.0-4.8) k/uL ABG pH (7.35-7.45) ABG pCO2 (35-45) mmHg ABG pO2 (83-108) mmHg ABG O2 Saturation (94-97) % Sodium 133 L (137-145) mmol/L Carbon Dioxide 19 L (22-30) mmol/L BUN 88 H (7-17) mg/dL Creatinine 3.58 H (0.52-1.04) mg/dL Glucose 129 H (74-99) mg/dL POC Glucose (mg/dL) 110 H 136 H (75-99) mg/dL Calcium 7.6 L (8.4-10.2) mg/dL AST (14-36) U/L ALT (4-34) U/L Alkaline Phosphatase (38-126) U/L Total Protein (6.3-8.2) g/dL Albumin (3.5-5.0) g/dL 04/14/21 04/14/21 04/14/21 Range/Units 03:50 03:50 05:10 RBC 3.13 L (3.80-5.40) m/uL Hgb 10.2 L (11.4-16.0) gm/dL Hct 30.6 L (34.0-46.0) % RDW 17.5 H (11.5-15.5) % Lymphocytes # 0.4 L (1.0-4.8) k/uL ABG pH 7.54 H (7.35-7.45) ABG pCO2 26 L (35-45) mmHg ABG pO2 124 H (83-108) mmHg ABG O2 Saturation 99.2 H (94-97) % Sodium 132 L (137-145) mmol/L Carbon Dioxide 21 L (22-30) mmol/L BUN 91 H (7-17) mg/dL Creatinine 3.66 H (0.52-1.04) mg/dL Glucose 119 H (74-99) mg/dL POC Glucose (mg/dL) (75-99) mg/dL Calcium 7.5 L (8.4-10.2) mg/dL AST 167 H (14-36) U/L ALT 80 H (4-34) U/L Alkaline Phosphatase 645 H (38-126) U/L Total Protein 5.9 L (6.3-8.2) g/dL Albumin 2.2 L (3.5-5.0) g/dL Microbiology - Last 24 Hours (Table) 04/13/21 08:07 Blood Culture - Preliminary Blood No Growth after 24 hours 04/13/21 07:58 Blood Culture - Preliminary Blood No Growth after 24 hours Assessment and Plan (1) Sepsis Narrative/Plan: An 80-year-old female who is admitted to the ICU and subsequently intubated in sedated. The patient's been weaned from her sedation however still unable to f ollow commands, only responding to painful stimuli. Was attempted yesterday to pass a Dobbhoff tube several times from both nostrils with no success. The tube was coming out the mouth despite multiple attempts and tilting of her head, it was unable to advance. Procedure was aborted at that time. Current Visit: Yes Status: Acute Code(s): A41.9 - SEPSIS, UNSPECIFIED ORGANISM SNOMED Code(s): 22908638 (2) Altered mental status Current Visit: Yes Status: Acute Code(s): R41.82 - ALTERED MENTAL STATUS, UNSPECIFIED SNOMED Code(s): 376273730 (3) ARF (acute renal failure) Current Visit: Yes Status: Acute Code(s): N17.9 - ACUTE KIDNEY FAILURE, UNSPECIFIED SNOMED Code(s): 25079802 (4) Urinary tract infection Narrative/Plan: Neurology following patient, plans on cystoscopy with double-J cath Current Visit: Yes Status: Acute Code(s): N39.0 - URINARY TRACT INFECTION, SITE NOT SPECIFIED SNOMED Code(s): 47783748 Plan: 1. Continue to keep patient nothing by mouth 2. Dobbhoff tube insertion attempted again through right nostril 2-3 times without success, coiling in mouth 3. Recommend parental nutrition for 3-4 days while patient re-evaluated for mental status/non-responsiveness and possibility of weaning ventilation, otherwise can consider proceeding with PEG tube placement if family wishes Thank you for this consultation, we'll continue to follow Dr. Henry Mitchell I agree with the dictator's note, documented as a scribe by Jackelyn Soto.
--- NOTE | 2021-04-14 15:58 | XR ---
Abdomen HISTORY: Dobbhoff tube placement Frontal view the abdomen is submitted. Comparison to chest x-ray same dated earlier time, CT 07/24/2020 . There are limitations to the exam, the left lateral hemiabdomen is not entirely included. Retained fe abdi debris is present throughout the distribution of the colon. There is left-sided calcification whi ch is likely within the splenic artery. Aorta is dense. There is a sclerotic focus involving the L3 v ertebral body, suspect prior vertebroplasty change, correlate. Probable basilar effusion and possible associated edema, atelectasis or pneumonia. IMPRESSION: Dobbhoff tube is not seen on this exam. Correlate for fecal stasis. Additional findings a arnoldo.
[2021-04-14] MEDS ORDERED: IV FLUID CONTINUATION 1,000 ML IV ONE (16:07)
[2021-04-14] MEDS ORDERED: LACTATED RINGERS 1,000 ML IV ONE (16:29)
--- NOTE | 2021-04-14 16:38 | P.OP ---
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 She is in the ICU with the urinary tract infection with sepsis on the ventilator. Her creatinine is 3.5. She has a right UPJ obstruction. She has markedly inflamed urine. Because of this a stent should be placed Description of Procedure: The patient is already on the ventilator. She is brought to the operating room from the ICU. She's placed lithotomy position with sterile prep and drape. The John catheter is been removed. 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 I am unable to identify the ureteral office on either side after a good 20-30 minute attempted. The bladder strain a John cath was replaced The eye was unable to place a double-J catheter due to chronic inflammation of the bladder. I nephrostomy tube will have to be placed to accelerate and improve function and relieve the sepsis.
--- NOTE | 2021-04-14 17:10 | P.PN ---
Progress Note - Text Progress Note Date: 04/14/21 I was unable to place a double-J catheter due to severe cystitis in the bladder and an inability to identify ureteral orifices. The patient will need nephrostomy tube to the right kidney to relieve the UPJ obstruction and drain the infected urine. This has been discussed with the daughter and she concurs
--- NOTE | 2021-04-14 17:38 | FL ---
Fluoroscopy HISTORY: Hydronephrosis 4 seconds fluoroscopy time supplied to the referring clinician. 1 intraoperative C-arm images docume nt the procedure. See dictated report from urology.
[2021-04-14 19:11] LABS: Glucose,Whole Blood 112 mg/dL (75-99)
[2021-04-14] MEDS: ATORVASTATIN 20 MG TAB PO SCH ×2 (20:54→20:57)
[2021-04-15 00:48] LABS: Glucose,Whole Blood 92 mg/dL (75-99)
[2021-04-15 05:08] LABS: Anisocytosis Slight; HCT 29.6 % (34.0-46.0); HGB 10.1 gm/dL (11.4-16.0); MCH 33.2 pg (25.0-35.0); MCHC 34.1 g/dL (31.0-37.0); MCV 97.4 fL (80.0-100.0); Macrocytosis Slight; Mean Platelet Volume 7.7; Platelet Count 177 k/uL (150-450); RBC 3.04 m/uL (3.80-5.40); RDW 17.3 % (11.5-15.5); WBC 7.7 k/uL (3.8-10.6)
[2021-04-15 05:20] LABS: ABG Base Excess -1.6 mmol/L; ABG HCO3 21 mmol/L (21-25); ABG PCO2 26 mmHg (35-45); ABG PH 7.52 (7.35-7.45); ABG PO2 149 mmHg (83-108); ABG TCO2 22 mmol/L (19-24); Allen Test Performed? Yes
[2021-04-15 05:27] LABS: Calcium 6.6 mg/dL (8.4-10.2); Phosphorus 6.1 mg/dL (2.5-4.5); Potassium 3.9 mmol/L (3.5-5.1)
[2021-04-15] MEDS: SODIUM CHLORIDE 0.9% 1,000 ML IV SCH (06:23)
--- NOTE | 2021-04-15 07:42 | XR ---
EXAMINATION TYPE: XR chest 1V portable DATE OF EXAM: 04/15/2021 COMPARISON: Chest x-ray dated 04/14/2021 HISTORY: Tube placement, intubated TECHNIQUE: Single frontal view of the chest is obtained. FINDINGS: Endotracheal tube, right-sided PICC line are stable and overlying similar positions. No ev ident pneumothorax. Bibasilar density persists, the hemidiaphragms are obscured. There is prominence interstitium, bilateral airspace disease. Heart remains enlarged. Aorta is dense. Prominence of the p ulmonary artery region. Postop changes noted to the shoulders, there are overlying artifacts. Heart r emains enlarged. IMPRESSION: Correlate for congestive heart failure, pneumonia, pleural effusions not excluded. Cardi omegaly.
--- NOTE | 2021-04-15 08:27 | P.PN ---
Subjective Progress Note Date: 04/15/21 The patient is in the intensive care unit with urinary tract infection with sepsis. She has a known history of a right UPJ obstruction. Her creatinine normally in the mid 1 range is going to 3.5. Attempted cystoscopy and stent placement yesterday failed due to chronic and acute cystitis. He also squamous dysplasia of the bladder. She'll get a nephrostomy tube placed today. I discussed this at length with her daughter last night and they wish to proceed. Objective - Vital Signs Vital signs: Vital Signs Temp 97.5 F L 04/15/21 04:00 Pulse 87 04/15/21 07:00 Resp 21 04/15/21 07:00 BP 123/51 04/15/21 07:00 Pulse Ox 99 04/15/21 07:00 Intake & Output 04/14/21 04/15/21 04/15/21 18:59 06:59 18:59 Intake Total 910 600 50 Output Total 185 275 15 Balance 725 325 35 Weight 85.7 kg Intake: IV 835 600 50 Dextrose 5% in Water 1, 75 000 ml @ 75 mls/hr IV . [id number] [facility] with Sod Bicarb Syr 8.4% (1 Meq/ml ) 150 ml Rx#:[id number] Sodium Chloride 0.9% 1, 460 600 50 000 ml @ 50 mls/hr IV . Q20H [facility] Rx#:[id number] Intake, IV Titration 75 Amount Dextrose 5% in Water 1, 75 000 ml @ 75 mls/hr IV . [id number] [facility] with Sod Bicarb Syr 8.4% (1 Meq/ml ) 150 ml Rx#:[id number] Output: Urine 185 275 15 Estimated Blood Loss 0 Other: Voiding Method Indwelling Catheter Indwelling Catheter - Labs CBC & Chem 7: 04/15/21 05:00 04/15/21 05:00 Labs: Abnormal Lab Results - Last 24 Hours (Table) 04/14/21 04/14/21 04/15/21 Range/Units 12:02 19:10 05:00 RBC (3.80-5.40) m/uL Hgb (11.4-16.0) gm/dL Hct (34.0-46.0) % RDW (11.5-15.5) % ABG pH (7.35-7.45) ABG pCO2 (35-45) mmHg ABG pO2 (83-108) mmHg ABG O2 Saturation (94-97) % Sodium 136 L (137-145) mmol/L Chloride 109 H (98-107) mmol/L Carbon Dioxide 17 L (22-30) mmol/L BUN 83 H (7-17) mg/dL Creatinine 3.35 H (0.52-1.04) mg/dL POC Glucose (mg/dL) 107 H 112 H (75-99) mg/dL Calcium 6.6 L (8.4-10.2) mg/dL Phosphorus 6.1 H (2.5-4.5) mg/dL 04/15/21 04/15/21 Range/Units 05:00 05:15 RBC 3.04 L (3.80-5.40) m/uL Hgb 10.1 L (11.4-16.0) gm/dL Hct 29.6 L (34.0-46.0) % RDW 17.3 H (11.5-15.5) % ABG pH 7.52 H (7.35-7.45) ABG pCO2 26 L (35-45) mmHg ABG pO2 149 H (83-108) mmHg ABG O2 Saturation 99.0 H (94-97) % Sodium (137-145) mmol/L Chloride (98-107) mmol/L Carbon Dioxide (22-30) mmol/L BUN (7-17) mg/dL Creatinine (0.52-1.04) mg/dL POC Glucose (mg/dL) (75-99) mg/dL Calcium (8.4-10.2) mg/dL Phosphorus (2.5-4.5) mg/dL Microbiology - Last 24 Hours (Table) 04/13/21 08:07 Blood Culture - Preliminary Blood No Growth after 24 hours 04/13/21 07:58 Blood Culture - Preliminary Blood No Growth after 24 hours
--- NOTE | 2021-04-15 10:13 | P.PN ---
Subjective Progress Note Date: 04/15/21 04/13/2021, the patient is being seen for a follow-up. The patient is currently sedated, comfortable likely distress. Patient is being gradually weaned off to assess the patient's underlying mental status. The patient's propofol has been cut down from 30 g down to 5 mg/kg per minute. The patient is not following any commands. She is not grimacing and she is not withdrawing to painful stimulation. The patient is currently on a mechanical ventilator. She is an assist-control mode at the rate of 12 with a tidal volume of 400 and FiO2 of 50% with a PEEP of 5. The chest x-ray showing bibasilar effusion and atelectatic changes in lung bases bilaterally. There is also cardiomegaly. There is may be some mild interstitial edema. The patient also has a pH of 7.45 with a pCO2 of 29 and pO2 of 85 based on the above-mentioned ventilator setting. Ejection fraction is around 55-60%. She has moderate severe mitral regurgitation with a pulmonary artery pressure of 60 based on the echocardiogram. There is a concern for underlying liver cirrhosis. 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 The patient also has a previous history of right kidney hydronephrosis with a insertion of a double-J stent ultrasound of the kidney will be done. Creatinine for now is stable at 3.39. Note that the patient is currently on no pressors. The patient has negative cultures. The patient remains on IV Rocephin. The patient has a white cell count of 7.7 with hemoglobin of 11.0 which is stable compared to yesterday. On today's evaluation of 04/14/2021, the patient remains off sedation for the past 24 hours. I stop the sedation yesterday and I monitor the mental status over the next 24 hours. This morning, she seems to be more responsive note that she was completely unresponsive yesterday. She opens eyes occasionally. She does occasionally grimace to deep painful stimulation. She is moving her head also. No purposeful activity. Doesn't follow any orders or commands. She remains intubated on a mechanical ventilator. On today's evaluation, she is on assist-control at the rate of 12 with a tidal volume of 400 and FiO2 of 50% with a PEEP of 5. Her blood gases from this morning is showing a pH of 7.54 with a pCO2 of 26 and pO2 of 124. His chest x-ray from today is showing adequate positioning of the oral tracheal tube. The patient also has a PICC line in the right upper extremity. There are small bilateral pleural effusions. There is also cardiomegaly. Note that the patient had an attempted Dobbhoff catheter insertion yesterday and this again failed by gastroenterology. We are seeking the possibility of school directed PEG tube insertion by gastroenterology. Meanwhile, hemodynamically, the patient is stable. The patient remains on a bicarb infusion at the rate of 75 mL an hour and his serum bicarb today is at 21. Her BUN is at 91 with a creatinine of 3.6. The patient had an ultrasound the kidneys yesterday that showed evidence of hydronephrosis on the right which was again seen and this was comparable to the previous ultrasound from 2019 and there was a simple cyst in the involving the left kidney. The cultures remain negative. Urine cultures negative. Blood cultures have been sent. There is also still pending for now. The patient remains on IV Rocephin. The patient is afebrile. White cell count is still low. The ammonia level was also low at 31. Her CODE STATUS is DNR/DNI. On today's evaluation of 04/15/2021, the patient remains intubated on a mechanical ventilator. This morning, she is an assist-control mode at a rate of 12 with tidal volume of 400 and FiO2 of 40% with a PEEP of 5. Chest x-ray showing small bilateral pleural effusion and some cardiomegaly. ET tube is in a good location. Blood gases from today showing a pH of 7.52 with a pCO2 of 26 and a pO2 of 149. Meanwhile, neurologically, the patient remains off sedation. The patient is still quite lethargic. She remains only to deep painful s timulation. No seizure activity has been noted. Meanwhile, we are considering a CAT scan of the brain in view of her slow neurologic recovery off sedation. We think her diminished level of consciousness probably related to metabolic encephalopathy. The patient continues to be in renal failure. Creatinine is currently at 3.35 in the urine output is quite low despite being on Lasix. Her net fluid balance over the past 24 hours has been +1.7 L and the patient is hesitant hours positive fluid balance for today. She was given Lasix yesterday with limited response in terms of urine output. The patient was taken to the operating room yesterday by urology. Discussed the case with Dr. Hernandez. The initial plan was to proceed with a double-J stent placement on the right. Nevertheless, the procedure itself was unsuccessful as the urologist was unable to identify the ureteral orifice and this was essentially a failed procedure. The plan for now is to obtain consent from the family to proceed with a nephrostomy tube insertion. In terms of the renal function, creatinine remains elevated at 3.35. Discussed the case with nephrology. Would like to go to dialysis as a last resort. Meanwhile, we have requested gastroenterology to insert an OG. The attempt was unsuccessful. I did a bedside procedure today when I inserted the catheter over the laryngoscope and awaiting a chest x-ray for [place] acute positioning. The patient remains nothing by mouth for now. The cultures are all negative for now. The patient is on empiric antibiotic coverage with IV Rocephin. The patient remains on IV fluids and the patient is receiving normal saline at the rate of 50 mL an hour. Serum bicarb today is at 17. No pressors. Hemodynamically stable. Afebrile. Objective - Vital Signs Vital signs: Vital Signs Temp 97.5 F L 04/15/21 04:00 Pulse 87 04/15/21 07:00 Resp 21 04/15/21 07:00 BP 123/51 04/15/21 07:00 Pulse Ox 99 04/15/21 07:00 Intake & Output 04/14/21 04/15/21 04/15/21 18:59 06:59 18:59 Intake Total 910 600 50 Output Total 185 275 15 Balance 725 325 35 Weight 85.7 kg Intake: IV 835 600 50 Dextrose 5% in Water 1, 75 000 ml @ 75 mls/hr IV . [id number] DEBORA with Sod Bicarb Syr 8.4% (1 Meq/ml ) 150 ml Rx#:[id number] Sodium Chloride 0.9% 1, 460 600 50 000 ml @ 50 mls/hr IV . Q20H DEBORA Rx#:[id number] Intake, IV Titration 75 Amount Dextrose 5% in Water 1, 75 000 ml @ 75 mls/hr IV . [id number] DEBORA with Sod Bicarb Syr 8.4% (1 Meq/ml ) 150 ml Rx#:[id number] Output: Urine 185 275 15 Estimated Blood Loss 0 Other: Voiding Method Indwelling Catheter Indwelling Catheter - Exam No acute distress, sedated, with an orally placed endotracheal tube. An NG was placed. Noted the patient is unresponsive this morning. The patient is off sedation for the past 48 hours and she remains unresponsive and only to painful stimulation. Head exam was generally normal. There was no scleral icterus or corneal arcus. Mucous membranes were moist. HEENT examination is grossly unremarkable. Neck supple. Full range of motion. No adenopathy thyromegaly or neck vein distention. Cardiovascular examination reveals regular rhythm rate. S1-S2 normal. No S3 or S4. No discernible murmur noted. Lungs reveal few scattered rhonchi. Breath sounds equal bilaterally. No wheezes or crackles. Abdomen is soft without bowel sounds. No masses. Extremities are intact. No cyanosis or clubbing. There is significant edema both in the upper extremities and lower extremities. Skin is without rash or lesion. Neurologic examination and reactive pupils. Positive cough. Positive gag. Grimace is only to deep painful stimulation. Overall, unresponsive - Labs CBC & Chem 7: 04/15/21 05:00 04/15/21 05:00 Labs: Abnormal Lab Results - Last 24 Hours (Table) 04/14/21 04/14/21 04/15/21 Range/Units 12:02 19:10 05:00 RBC (3.80-5.40) m/uL Hgb (11.4-16.0) gm/dL Hct (34.0-46.0) % RDW (11.5-15.5) % ABG pH (7.35-7.45) ABG pCO2 (35-45) mmHg ABG pO2 (83-108) mmHg ABG O2 Saturation (94-97) % Sodium 136 L (137-145) mmol/L Chloride 109 H (98-107) mmol/L Carbon Dioxide 17 L (22-30) mmol/L BUN 83 H (7-17) mg/dL Creatinine 3.35 H (0.52-1.04) mg/dL POC Glucose (mg/dL) 107 H 112 H (75-99) mg/dL Calcium 6.6 L (8.4-10.2) mg/dL Phosphorus 6.1 H (2.5-4.5) mg/dL 04/15/21 04/15/21 Range/Units 05:00 05:15 RBC 3.04 L (3.80-5.40) m/uL Hgb 10.1 L (11.4-16.0) gm/dL Hct 29.6 L (34.0-46.0) % RDW 17.3 H (11.5-15.5) % ABG pH 7.52 H (7.35-7.45) ABG pCO2 26 L (35-45) mmHg ABG pO2 149 H (83-108) mmHg ABG O2 Saturation 99.0 H (94-97) % Sodium (137-145) mmol/L Chloride (98-107) mmol/L Carbon Dioxide (22-30) mmol/L BUN (7-17) mg/dL Creatinine (0.52-1.04) mg/dL POC Glucose (mg/dL) (75-99) mg/dL Calcium (8.4-10.2) mg/dL Phosphorus (2.5-4.5) mg/dL Microbiology - Last 24 Hours (Table) 04/13/21 08:07 Blood Culture - Preliminary Blood No Growth after 24 hours 04/13/21 07:58 Blood Culture - Preliminary Blood No Growth after 24 hours Assessment and Plan Plan: 1 Acute hypoxemic respiratory failure secondary to urinary tract infection/urosepsis, with intubation and mechanical ventilation on April 11. Today showing small bilateral pleural effusions. Oxygenation is stable. Ventilation is stable. No active pulmonary issues for now and the patient remains intubated on a mechanical ventilator because of altered mentation and ongoing issues with renal insufficiency/failure and encephalopathy. 2 sepsis secondary to urinary tract infection. Cultures are negative and the patient is on Rocephin recovered and the patient's cultures of been all negative. 3 Hyperkalemia, treated, recovered 4 Acute renal failure, possibly on top of chronic kidney disease, the patient has a right-sided hydronephrosis , attempted to insert the double-J catheters on the right and this was failed due to failure to identify the ureteral orifice. Patient is being considered for a nephrostomy tube insertion on the right. 5 History of hiatal hernia. 6 History of right hydronephrosis with a previous insertion and removal of a stent placement. 7 History of biliary cirrhosis. LFTs are abnormal and the patient has elevated alkaline phosphatase 8 History of hypertension. 9 Hypothyroidism. 10 History of hyperlipidemia. 11 History of acid reflux disease. 12 History of cancer of the spine. 13 Moderate to severe MR and secondary pulmoinary hypertension, normal ejection fraction severe secondary pulmonary hypertension with a right-sided pressure of around 60 mmHg. Plan: CAT scan of the brain, no contrast Obtain a consent for nephrostomy tube insertion from the family, attempted to insert a double-J stent on the right and it was failed and this attempt was done by urology. The family and obtain a consent for a nephrostomy tube insertion. We'll monitor the renal function post nephrostomy tube insertion. We'll keep the patient intubated on a mechanical ventilator for now as long as she remains quite encephalopathic. With the patient normal saline at the rate of 50 mL an hour Gastroenterology to establish a orogastric tube probably EGD guided Continue IV Rocephin We'll initiate enteral feeding Monitor cultures DNR/DNI CODE STATUS We'll continue to follow make further recommendations. Currently care evaluation that was on a more than 30 minutes. Time with Patient: Greater than 30
--- NOTE | 2021-04-15 10:40 | XR ---
EXAMINATION TYPE: XR chest 1V portable DATE OF EXAM: 04/15/2021 CLINICAL HISTORY: OG tube placement. TECHNIQUE: Single AP portable semiupright view of the chest is obtained. COMPARISON: Chest x-ray from earlier today and older studies FINDINGS: Orogastric tube still terminates near level of left diaphragmatic hiatus, recommend advanc ing roughly 8 cm. Stable endotracheal tube and right-sided PICC line. Surgical change bilateral shoulders redemonstrated. Persistent mild cardiomegaly with upper thoracic aorta and central vascular congestion along with bibasilar opacities. IMPRESSION: As above.
--- NOTE | 2021-04-15 10:43 | P.PN ---
Subjective Patient is seen in follow-up for acute kidney injury. Creatinine better. Potassium level normal. Maintained on normal saline. Intubated. On 40% FiO2. Urine output about 15-20 mL an hour. Vital signs are stable. General: The patient appeared well nourished and normally developed. HEENT: Intubated. LUNGS: Breath sounds decreased. HEART: Rate and Rhythm are regular. ABDOMEN: Soft, no distention. EXTREMITITES: Trace edema. Objective - Vital Signs Vital signs: Vital Signs Temp 97.5 F L 04/15/21 04:00 Pulse 87 04/15/21 07:00 Resp 21 04/15/21 07:00 BP 123/51 04/15/21 07:00 Pulse Ox 99 04/15/21 07:00 Intake & Output 04/14/21 04/15/21 04/15/21 18:59 06:59 18:59 Intake Total 910 600 50 Output Total 185 275 15 Balance 725 325 35 Weight 85.7 kg Intake: IV 835 600 50 Dextrose 5% in Water 1, 75 000 ml @ 75 mls/hr IV . [id number] DEBORA with Sod Bicarb Syr 8.4% (1 Meq/ml ) 150 ml Rx#:[id number] Sodium Chloride 0.9% 1, 460 600 50 000 ml @ 50 mls/hr IV . Q20H DEBORA Rx#:[id number] Intake, IV Titration 75 Amount Dextrose 5% in Water 1, 75 000 ml @ 75 mls/hr IV . [id number] DEBORA with Sod Bicarb Syr 8.4% (1 Meq/ml ) 150 ml Rx#:[id number] Output: Urine 185 275 15 Estimated Blood Loss 0 Other: Voiding Method Indwelling Catheter Indwelling Catheter - Labs CBC & Chem 7: 04/15/21 05:00 04/15/21 05:00 Labs: Abnormal Lab Results - Last 24 Hours (Table) 04/14/21 04/14/21 04/15/21 Range/Units 12:02 19:10 05:00 RBC (3.80-5.40) m/uL Hgb (11.4-16.0) gm/dL Hct (34.0-46.0) % RDW (11.5-15.5) % ABG pH (7.35-7.45) ABG pCO2 (35-45) mmHg ABG pO2 (83-108) mmHg ABG O2 Saturation (94-97) % Sodium 136 L (137-145) mmol/L Chloride 109 H (98-107) mmol/L Carbon Dioxide 17 L (22-30) mmol/L BUN 83 H (7-17) mg/dL Creatinine 3.35 H (0.52-1.04) mg/dL POC Glucose (mg/dL) 107 H 112 H (75-99) mg/dL Calcium 6.6 L (8.4-10.2) mg/dL Phosphorus 6.1 H (2.5-4.5) mg/dL 04/15/21 04/15/21 Range/Units 05:00 05:15 RBC 3.04 L (3.80-5.40) m/uL Hgb 10.1 L (11.4-16.0) gm/dL Hct 29.6 L (34.0-46.0) % RDW 17.3 H (11.5-15.5) % ABG pH 7.52 H (7.35-7.45) ABG pCO2 26 L (35-45) mmHg ABG pO2 149 H (83-108) mmHg ABG O2 Saturation 99.0 H (94-97) % Sodium (137-145) mmol/L Chloride (98-107) mmol/L Carbon Dioxide (22-30) mmol/L BUN (7-17) mg/dL Creatinine (0.52-1.04) mg/dL POC Glucose (mg/dL) (75-99) mg/dL Calcium (8.4-10.2) mg/dL Phosphorus (2.5-4.5) mg/dL Microbiology - Last 24 Hours (Table) 04/13/21 07:58 Blood Culture - Preliminary Blood No Growth after 48 hours 04/13/21 08:07 Blood Culture - Preliminary Blood No Growth after 48 hours Assessment and Plan Plan: Assessment: 1. Acute kidney injury secondary to ATN secondary to infection. Also has right-sided hydronephrosis. Creatinine better - 3.35 today. Urine output 15-20 mL an hour. Baseline creatinine 1-1.2. Right-sided hydronephrosis noted on kidney ultrasound. 2. Metabolic acidosis secondary to acute kidney injury. Partially compensatory for respiratory alkalosis. 3. Hyperkalemia secondary to acute kidney injury and metabolic acidosis. Improved. 4. History of right-sided hydronephrosis - ureteral stent could not be placed. Nephrostomy tube pending. Urology following. 5. Chronic diastolic CHF with moderate to severe mitral regurgitation, tricuspid regurgitation and pulmonary hypertension. 6. Acute hypoxic respiratory failure. 7. Hyponatremia secondary to acute kidney injury. Hypervolemic. Better. 8. Hyperphosphatemia secondary to acute kidney injury. Plan: No response in urine output post IV Lasix given April 14. Avoid nephrotoxins. Continue to monitor renal function and urine output. Continue to assess daily for need for renal replacement therapy. No urgency at this time. Nephrostomy to pending. Will add PhosLo once feeds initiated. Add oral bicarbonate. Potential need for renal replacement therapy will be discussed with the family.
[2021-04-15 12:03] LABS: Glucose,Whole Blood 83 mg/dL (75-99)
--- NOTE | 2021-04-15 12:45 | P.PN ---
Subjective 80-year-old female was brought in after an episode of unresponsiveness. Patient was subsequently intubated. Patient is being admitted for severe sepsis which was believed to be secondary to urinary tract infection patient urine analysis is significantly abnormal and looked purulent. Patient appears to have multiorgan dysfunction as well. Patient was apparently not doing well since last couple days and family has been with her all night last night earlier today morning patient was found to be unresponsive. Patient is found to be hyponatremic with hyperkalemia of 7.1 bradycardia anion gap metabolic acidosis lactic acid is presently not available elevated creatinine of 3.49 baseline is around 1. Patient has elevated liver enzymes these appear to be chronic since her last hospitalization and patient was diagnosed with primary biliary cirrhosis at that time. Patient has highly elevated TSH and free T4 is around 2.41. Patient is presently intubated. Patient is presently not on any pressor support, receiving fluids at 1 30 mL per hour. Patient received calcium gluconate insulin and beta agonist for hyperkalemia, I'm also ordering Kayexalate. Patient was recently hospital is about 3 weeks ago for dehydration generalized weakness subsequently discharged to subacute longterm patient is supposed to be there for about a month after 2 weeks please stop drinking rehabilitation because of which patient was taken home about a week ago. Patient does have some cognitive impairment although doesn't have any significant dementia as per the the patient's family. Patient usually uses a cane for ambulation. Fairly functional.patient had Morganella morganii which is sensitive to Ur generation cephalosporins from her recent urine cultures. . 04/12/2021 Patient remains a major to support patient's IV normal saline was decreased as her respiratory status is bit worse. Patient actually received Lasix once. Patient's creatinine is bit worse and is 3.8 DOWN THE ROCEPHIN DOSE TO 1 G DAILY URINE CULTURES ARE STILL PENDING. 04/13/2021 is a mechanical ventilator had an ultrasound of the kidney which showed hydronephrosis and urology is evaluating the patient patient creatinine is fairly stable at 3.39 urine output is only 10 mL per hour nephrology is following the patient urine cultures are although negative. Chest x-ray showed mild interstitial edema. In spite of weaning of on the sedation patient is still not awake enough ammonia level was obtained which is fairly close to normal patient may need a CT of the head if she doesn't respond by tomorrow morning. 04/14/2021 Patient's sedation is completely of for about a day patient is bit more responsive today because of which will continue to monitor her urine cultures are so far negative. Patient remains intubated on mechanical ventilator on a ssist control ventilation with set up respiratory rate of 12 patient is breathing over the ventilator tidal volume of 400 50% PEEP of 5 blood gases are GERD except for mild alkalosis, unable to place an NG tube because of her hiatal hernia Dobbhoff will be attempted with the upper GI endoscopy. On a PEG tube insertion by gastroenterology patient remains on bicarbonate infusion nephrology is following the patient patient doesn't creatinine is 3.6 ultrasound of the kidney showed hydronephrosis on the right, patient remains on IV Rocephin. 04/15/2021 Patient is a mechanical ventilator patient is an episode of 40% PEEP of 5 patient is still not responding off sedation patient will undergo CT of the head. Patient creatinine is 3.35 low urine output despite being on Lasix. Patient is positive fluid balance of 1.7 L last 24 hours. Patient has hydronephrosis plan to put a triple stent with failed., Patient probably will need a nephrostomy tube. Patient's urine cultures are negative. Review of systems: Unable to obtain due to her clinical condition All inpatient medications were reviewed and appropriate changes in these medications as dictated in the interval history and assessment and plan. Objective - Vital Signs Vital signs: Vital Signs Temp 97.5 F L 04/15/21 04:00 Pulse 87 04/15/21 07:00 Resp 21 04/15/21 07:00 BP 123/51 04/15/21 07:00 Pulse Ox 99 04/15/21 07:00 Intake & Output 04/14/21 04/15/21 04/15/21 18:59 06:59 18:59 Intake Total 910 600 50 Output Total 185 275 15 Balance 725 325 35 Weight 85.7 kg 85.7 kg Intake: IV 835 600 50 Dextrose 5% in Water 1, 75 000 ml @ 75 mls/hr IV . [id number] [facility]A with Sod Bicarb Syr 8.4% (1 Meq/ml ) 150 ml Rx#:[id number] Sodium Chloride 0.9% 1, 460 600 50 000 ml @ 50 mls/hr IV . Q20H [facility] Rx#:[id number] Intake, IV Titration 75 Amount Dextrose 5% in Water 1, 75 000 ml @ 75 mls/hr IV . [id number] DEB[facility]A with Sod Bicarb Syr 8.4% (1 Meq/ml ) 150 ml Rx#:[id number] Output: Urine 185 275 15 Estimated Blood Loss 0 Other: Voiding Method Indwelling Catheter Indwelling Catheter - Exam PHYSICAL EXAMINATION: GENERAL: Patient is intubated and started on propofol on ventilatory support. Thin built female HEENT: Pupils are round and equally reacting to light. EOMI. No scleral icterus. No conjunctival pallor. Normocephalic, atraumatic. No pharyngeal erythema. No thyromegaly. CARDIOVASCULAR: S1 and S2 present. No murmurs, rubs, or gallops. PULMONARY: Few scattered rhonchi ABDOMEN: Soft, nontender, nondistended, normoactive bowel sounds. No palpable organomegaly. The catheter in place MUSCULOSKELETAL: No joint swelling or deformity. EXTREMITIES: No cyanosis, clubbing, or pedal edema. NEUROLOGICAL: Intubated and sedated SKIN: No rashes. - Labs CBC & Chem 7: 04/15/21 05:00 04/15/21 05:00 Labs: Abnormal Lab Results - Last 24 Hours (Table) 04/14/21 04/15/21 04/15/21 Range/Units 19:10 05:00 05:00 RBC 3.04 L (3.80-5.40) m/uL Hgb 10.1 L (11.4-16.0) gm/dL Hct 29.6 L (34.0-46.0) % RDW 17.3 H (11.5-15.5) % ABG pH (7.35-7.45) ABG pCO2 (35-45) mmHg ABG pO2 (83-108) mmHg ABG O2 Saturation (94-97) % Sodium 136 L (137-145) mmol/L Chloride 109 H (98-107) mmol/L Carbon Dioxide 17 L (22-30) mmol/L BUN 83 H (7-17) mg/dL Creatinine 3.35 H (0.52-1.04) mg/dL POC Glucose (mg/dL) 112 H (75-99) mg/dL Calcium 6.6 L (8.4-10.2) mg/dL Phosphorus 6.1 H (2.5-4.5) mg/dL 04/15/21 Range/Units 05:15 RBC (3.80-5.40) m/uL Hgb (11.4-16.0) gm/dL Hct (34.0-46.0) % RDW (11.5-15.5) % ABG pH 7.52 H (7.35-7.45) ABG pCO2 26 L (35-45) mmHg ABG pO2 149 H (83-108) mmHg ABG O2 Saturation 99.0 H (94-97) % Sodium (137-145) mmol/L Chloride (98-107) mmol/L Carbon Dioxide (22-30) mmol/L BUN (7-17) mg/dL Creatinine (0.52-1.04) mg/dL POC Glucose (mg/dL) (75-99) mg/dL Calcium (8.4-10.2) mg/dL Phosphorus (2.5-4.5) mg/dL Microbiology - Last 24 Hours (Table) 04/13/21 07:58 Blood Culture - Preliminary Blood No Growth after 48 hours 04/13/21 08:07 Blood Culture - Preliminary Blood No Growth after 48 hours Assessment and Plan Plan: Possible severe sepsis: Probably secondary to urinary tract infection urine cultures and blood cultures are negative. Patient remains intubated and is on 1 g of Rocephin at this time Right-sided hydronephrosis and pyelonephritis: Patient may need ureteral stent as urology was unable to place a ureteral stent test today. -Acute hypoxic respiratory failure secondary to severe sepsis -Hyperkalemia: Multifactorial secondary to acute renal failure which is again secondary to acute tubular necrosis from severe sepsis potassium supplementation and also metabolic acidosis. Improved patient's creatinine remains at the 3.35 -Anion metabolic acidosis probably secondary to acute renal failure as well as lactic acidosis -acute renal failure secondary to most probably acute tubular necrosis from severe sepsis IV fluids and nephrology: The patient IV fluids as per nephrology -Mildly elevated troponin secondary to severe sepsis and renal failure -Elevated TSH and as well as free T4 these abnormalities are probably secondary to sepsis, will need a repeat T4 and TSH in about couple weeks -Elevated liver enzymes patient appears to have elevated liver enzymes during the her previous hospitalization as well and patient was diagnosed with primary biliary cirrhosis . Patient liver enzymes are bit better compared to admission -Generalized deconditioning -Hypertension: Holding off antihypertensive medications because of concerns of hypotension secondary to severe sepsis -Chronic of right-sided hydronephrosis -DVT prophylaxis with subcutaneous heparin GI prophylaxis with Protonix or Pepcid
[2021-04-15] MEDS: SODIUM BICARBONATE TAB 650 MG TAB PO SCH ×3 (12:49→20:13)
[2021-04-15] MEDS: LEVOTHYROXINE IVP 100 MCG/5 ML VIAL IV SCH (12:49)
[2021-04-15] MEDS: CHLORHEXIDINE GLUCONATE 15 ML CUP MUCOUS MEM SCH ×2 (12:49→20:13)
[2021-04-15] MEDS: FAMOTIDINE 20 MG/2 ML VIAL IV SCH (12:49)
[2021-04-15] MEDS: HEPARIN SODIUM,PORCINE/PF 5,000 UNIT/0.5 ML SYRINGE SQ SCH ×2 (12:49→20:13)
[2021-04-15] MEDS: ASPIRIN 81 MG PO SCH (12:50)
--- NOTE | 2021-04-15 12:53 | CT ---
EXAMINATION TYPE: CT brain wo con DATE OF EXAM: 04/15/2021 HISTORY: altered mental status CT DLP: 1047.4 mGycm. Automated Exposure Control for Dose Reduction was Utilized. TECHNIQUE: CT scan of the head is performed without contrast. COMPARISON: CT brain 4 days ago. FINDINGS: There is no acute intracranial hemorrhage or midline shift identified. There is mild to m oderate diffuse ventricular and sulcal prominence consistent with diffuse age-related cerebral atroph y greatest over the bilateral frontal and temporal lobes. There is mild low-attenuation in the periv entricular white matter consistent with chronic small vessel ischemic change. The globes are intact and the visualized sinuses are clear. Bilateral basal ganglia calcifications are again seen. IMPRESSION: No acute intracranial hemorrhage or midline shift. There is mild to moderate diffuse ce rebral atrophy greatest over bilateral frontal and temporal lobes and mild chronic small vessel ische dallin change redemonstrated. No significant change from CT 4 days ago.
--- NOTE | 2021-04-15 13:42 | IR ---
EXAMINATION TYPE: IR nephrostomy, US guide intraoperative DATE OF EXAM: 04/15/2021 COMPARISON: CT dated 07/24/2020, ultrasound kidneys 04/13/2021 HISTORY: Hydronephrosis, ureteral obstruction PROCEDURE: Maximal barrier technique was utilized. The skin overlying the right kidney was localized using ultrasound and the overlying skin prepped and draped. Ultrasound was utilized with sterile te chnique. Lidocaine used for local anesthesia. Skin elías was made with a scalpel. Access was gained under ultrasound with a 21-gauge needle to the posterior right kidney. Urine returned in the hub of the needle. A 0.018 inch wire was advanced. The access site was dilated and subsequently an 8.5 Fren ch catheter was advanced over wire in the renal pelvis and fixed in place. Urine returned in the hub of the catheter. Catheter was fixed to the skin with a sterile dressing placed. The patient remain ed in stable condition without complication. The patient was discharged to observation. IMPRESSION: STATUS POST right NEPHROSTOMY TUBE PLACEMENT WITH ULTRASOUND AND FLUOROSCOPIC GUIDANCE. THIS PROCEDURE WAS PERFORMED BY THE UNDERSIGNED.
--- NOTE | 2021-04-15 16:18 | P.PN ---
Subjective Progress Note Date: 04/15/21 Principal diagnosis: Need for NG tube/Dobbhoff replacement (This is a 80-year-old white female admitted to the hospital with altered mental status and subsequently diagnosed with severe sepsis septic shock secondary to UTI which she is currently in the intensive care unit on mechanical ventilation. Yesterday the initial plan was to proceed with the double-J stent placement [facility] urology, however the procedure was unsuccessful in the plan is to proceed with nephrostomy tube today. Yesterday attempted Dobbhoff tube placement, however was unable to pass. Plan was to start patient on TPN, however ICU team did not want to proceed with parental nutrition. Dr. Song was able to pass an OG tube this morning. Patient continues to remain off sedation, only responsive to painful stimuli. Objective - Vital Signs Vital signs: Vital Signs Temp 97.5 F L 04/15/21 04:00 Pulse 87 04/15/21 07:00 Resp 21 04/15/21 07:00 BP 123/51 04/15/21 07:00 Pulse Ox 99 04/15/21 07:00 Intake & Output 04/14/21 04/15/21 04/15/21 18:59 06:59 18:59 Intake Total 910 600 50 Output Total 185 275 15 Balance 725 325 35 Weight 85.7 kg 85.7 kg Intake: IV 835 600 50 Dextrose 5% in Water 1, 75 000 ml @ 75 mls/hr IV . [id number] DEBORA with Sod Bicarb Syr 8.4% (1 Meq/ml ) 150 ml Rx#:[id number] Sodium Chloride 0.9% 1, 460 600 50 000 ml @ 50 mls/hr IV . Q20H [facility] Rx#:[id number] Intake, IV Titration 75 Amount Dextrose 5% in Water 1, 75 000 ml @ 75 mls/hr IV . [id number] DEBORA with Sod Bicarb Syr 8.4% (1 Meq/ml ) 150 ml Rx#:[id number] Output: Urine 185 275 15 Estimated Blood Loss 0 Other: Voiding Method Indwelling Catheter Indwelling Catheter - Exam General appearance: The patient is on mechanical ventilation, only responsive to painful stimuli. HET: Head is normocephalic and atraumatic. Conjunctiva pink. Sclera anicteric. Neck: Supple without lymphadenopathy. Abdomen: Soft, nontender, nondistended with bowel sounds. No guarding or rigidity. Extremities: Normal skin color and turgor. No pedal edema Skin: No rashes, no jaundice Neurological: On mechanical ventilation, unable to follow commands. Responsive to painful stimuli.. - Labs CBC & Chem 7: 04/15/21 05:00 04/15/21 05:00 Labs: Abnormal Lab Results - Last 24 Hours (Table) 04/14/21 04/14/21 04/15/21 Range/Units 12:02 19:10 05:00 RBC (3.80-5.40) m/uL Hgb (11.4-16.0) gm/dL Hct (34.0-46.0) % RDW (11.5-15.5) % ABG pH (7.35-7.45) ABG pCO2 (35-45) mmHg ABG pO2 (83-108) mmHg ABG O2 Saturation (94-97) % Sodium 136 L (137-145) mmol/L Chloride 109 H (98-107) mmol/L Carbon Dioxide 17 L (22-30) mmol/L BUN 83 H (7-17) mg/dL Creatinine 3.35 H (0.52-1.04) mg/dL POC Glucose (mg/dL) 107 H 112 H (75-99) mg/dL Calcium 6.6 L (8.4-10.2) mg/dL Phosphorus 6.1 H (2.5-4.5) mg/dL 04/15/21 04/15/21 Range/Units 05:00 05:15 RBC 3.04 L (3.80-5.40) m/uL Hgb 10.1 L (11.4-16.0) gm/dL Hct 29.6 L (34.0-46.0) % RDW 17.3 H (11.5-15.5) % ABG pH 7.52 H (7.35-7.45) ABG pCO2 26 L (35-45) mmHg ABG pO2 149 H (83-108) mmHg ABG O2 Saturation 99.0 H (94-97) % Sodium (137-145) mmol/L Chloride (98-107) mmol/L Carbon Dioxide (22-30) mmol/L BUN (7-17) mg/dL Creatinine (0.52-1.04) mg/dL POC Glucose (mg/dL) (75-99) mg/dL Calcium (8.4-10.2) mg/dL Phosphorus (2.5-4.5) mg/dL Microbiology - Last 24 Hours (Table) 04/13/21 07:58 Blood Culture - Preliminary Blood No Growth after 48 hours 04/13/21 08:07 Blood Culture - Preliminary Blood No Growth after 48 hours Assessment and Plan (1) Sepsis Narrative/Plan: An 80-year-old female who is admitted to the ICU and subsequently intubated and sedated. The patient's been weaned from her sedation however still unable to follow commands, only responding to painful stimuli. Dobbhoff tube placement was attempted multiple times without success. Recommendation was to start TPN to see if once patient had surgery she became more responsive to see if she would be able to weaned from mechanical ventilation, otherwise to proceed with EGD and PEG tube placement. Current Visit: Yes Status: Acute Code(s): A41.9 - SEPSIS, UNSPECIFIED ORGANISM SNOMED Code(s): 55785657 (2) Altered mental status Current Visit: Yes Status: Acute Code(s): R41.82 - ALTERED MENTAL STATUS, UNSPECIFIED SNOMED Code(s): 802043682 (3) ARF (acute renal failure) Current Visit: Yes Status: Acute Code(s): N17.9 - ACUTE KIDNEY FAILURE, UNSPECIFIED SNOMED Code(s): 65086073 (4) Urinary tract infection Narrative/Plan: Urology following patient, plans was for cystoscopy with double-J cath, that was unsuccessful therefore plan is for nephrostomy tube today. Current Visit: Yes Status: Acute Code(s): N39.0 - URINARY TRACT INFECTION, SITE NOT SPECIFIED SNOMED Code(s): 46350466 Plan: 1. OG-tube was able to be placed per Dr. Song 2. Consult dietitian to initiate tube feedings 3. Continue medical management with ICU rolling mill operator Thank you for this consultation, we will sign off at this time Dr. Henry Mitchell I agree with the dictator's note, documented as a scribe by Jackelyn Soto.
[2021-04-15 19:00] LABS: Glucose,Whole Blood 74 mg/dL (75-99)
[2021-04-15] MEDS: ATORVASTATIN 20 MG TAB PO SCH (20:13)
[2021-04-16 00:01] LABS: Glucose,Whole Blood 71 mg/dL (75-99)
[2021-04-16] MEDS: SODIUM CHLORIDE 0.9% 1,000 ML IV SCH (02:00)
[2021-04-16 04:26] LABS: Anisocytosis Slight; Basophils % (A) 0 %; Eosinophils % (A) 0 %; HCT 34.3 % (34.0-46.0); HGB 10.7 gm/dL (11.4-16.0); Hypochromasia Slight; Lymphocytes # (A) 0.4 k/uL (1.0-4.8); Lymphocytes % (A) 4 %; MCH 31.2 pg (25.0-35.0); MCHC 31.1 g/dL (31.0-37.0); MCV 100.2 fL (80.0-100.0); Macrocytosis Slight; Mean Platelet Volume 7.8; Monocytes # (A) 0.5 k/uL (0-1.0); Monocytes % (A) 5 %; Neutrophils % (A) 88 %; Platelet Count 189 k/uL (150-450); RBC 3.42 m/uL (3.80-5.40); RDW 17.4 % (11.5-15.5); WBC 9.1 k/uL (3.8-10.6)
[2021-04-16 04:41] LABS: Albumin 2.3 g/dL (3.5-5.0); Calcium 7.2 mg/dL (8.4-10.2); Potassium 4.6 mmol/L (3.5-5.1); Total Bilirubin 1.4 mg/dL (0.2-1.3)
[2021-04-16 05:57] LABS: Glucose,Whole Blood 86 mg/dL (75-99)
[2021-04-16] MEDS ORDERED: LEVOTHYROXINE IVP 100 MCG/5 ML VIAL IV SCH (06:00)
[2021-04-16 06:07] LABS: ABG Base Excess -3.3 mmol/L; ABG HCO3 20 mmol/L (21-25); ABG Oxygen Saturation 98.1 % (94-97); ABG PCO2 25 mmHg (35-45); ABG PO2 105 mmHg (83-108); ABG TCO2 21 mmol/L (19-24); Allen Test Performed? Yes
--- NOTE | 2021-04-16 08:16 | XR ---
EXAMINATION TYPE: XR chest 1V portable DATE OF EXAM: 04/16/2021, CT 07/24/2020 COMPARISON: Prior chest x-ray 04/15/2021 HISTORY: Intubated TECHNIQUE: Single frontal view of the chest is obtained. FINDINGS: Endotracheal tube and orogastric tube are present, orogastric tube shows the distal tip in the retrocardiac region. Aorta is dense. There is no evident pneumothorax. Bibasilar increased atten uation persists. Heart remains enlarged. Right-sided PICC line shows the distal tip in the right atri um. Bilateral shoulder arthroplasties are present. There is prominence and central vascularity and in terstitium. There are overlying artifacts. IMPRESSION: Correlate for pneumonia, congestive heart failure, ARDS. Possible basilar effusions. Pat ient with known hiatal hernia and partial intrathoracic stomach, NG tube placement is indeterminate b ut possibly within the intrathoracic stomach, patient is rotated.
[2021-04-16] MEDS: CHLORHEXIDINE GLUCONATE 15 ML CUP MUCOUS MEM SCH (08:34)
[2021-04-16] MEDS: ASPIRIN 81 MG PO SCH (08:34)
[2021-04-16] MEDS: SODIUM BICARBONATE TAB 650 MG TAB PO SCH (08:34)
[2021-04-16] MEDS: HEPARIN SODIUM,PORCINE/PF 5,000 UNIT/0.5 ML SYRINGE SQ SCH (08:34)
[2021-04-16] MEDS: FAMOTIDINE 20 MG/2 ML VIAL IV SCH (08:35)
[2021-04-16] MEDS ORDERED: SODIUM BICARB 8.4% 50 ML SYR (1 MEQ/ML) IV STA (08:39)
[2021-04-16] MEDS ORDERED: SODIUM BICARB 8.4% 50 ML SYR (1 MEQ/ML) ONE (08:49)
--- NOTE | 2021-04-16 09:38 | P.PN ---
Subjective Patient is seen in follow-up for acute kidney injury. Renal function stable. Maintained on normal saline. Intubated. On 40% FiO2. Urine output better. Now 20-30 mL an hour. Had right sided nephrostomy tube placed on April 15. Vital signs are stable. General: The patient appeared well nourished and normally developed. HEENT: Intubated. LUNGS: Breath sounds decreased. HEART: Rate and Rhythm are regular. ABDOMEN: Soft, no distention. EXTREMITITES: Trace edema. Objective - Vital Signs Vital signs: Vital Signs Temp 98.2 F 04/16/21 04:00 Pulse 101 H 04/16/21 07:00 Resp 13 04/16/21 07:00 BP 123/62 04/16/21 07:00 Pulse Ox 96 04/16/21 07:00 Intake & Output 04/15/21 04/16/21 04/16/21 18:59 06:59 18:59 Intake Total 820 861 Output Total 440 365 Balance 380 496 Weight 85.7 kg 84.912 kg Intake: IV 750 600 Sodium Chloride 0.9% 1, 650 600 000 ml @ 50 mls/hr IV . Q20H DEBORA Rx#:[id number] cefTRIAXone 1 gm In 100 Sodium Chloride 0.9% 50 ml @ 100 mls/hr IVPB Q24HR [facility] Rx#:[id number] Tube Feeding 40 171 Other 30 90 Output: Drainage 175 35 Right Back 175 35 Urine 265 330 Other: Voiding Method Indwelling Catheter Indwelling Catheter # Bowel Movements 3 - Labs CBC & Chem 7: 04/16/21 03:33 04/16/21 03:33 Labs: Abnormal Lab Results - Last 24 Hours (Table) 04/15/21 04/15/21 04/15/21 Range/Units 05:00 18:59 23:59 RBC (3.80-5.40) m/uL Hgb (11.4-16.0) gm/dL MCV (80.0-100.0) fL RDW (11.5-15.5) % Neutrophils # (1.3-7.7) k/uL Lymphocytes # (1.0-4.8) k/uL Sodium (137-145) mmol/L Chloride (98-107) mmol/L Carbon Dioxide (22-30) mmol/L BUN (7-17) mg/dL Creatinine (0.52-1.04) mg/dL POC Glucose (mg/dL) 74 L 71 L (75-99) mg/dL Calcium (8.4-10.2) mg/dL Total Bilirubin (0.2-1.3) mg/dL AST (14-36) U/L ALT (4-34) U/L Alkaline Phosphatase (38-126) U/L Total Protein (6.3-8.2) g/dL Albumin (3.5-5.0) g/dL Procalcitonin 0.93 H (0.02-0.09) ng/mL 04/16/21 04/16/21 Range/Units 03:33 03:33 RBC 3.42 L (3.80-5.40) m/uL Hgb 10.7 L (11.4-16.0) gm/dL MCV 100.2 H (80.0-100.0) fL RDW 17.4 H (11.5-15.5) % Neutrophils # 8.0 H (1.3-7.7) k/uL Lymphocytes # 0.4 L (1.0-4.8) k/uL Sodium 136 L (137-145) mmol/L Chloride 108 H (98-107) mmol/L Carbon Dioxide 15 L (22-30) mmol/L BUN 92 H (7-17) mg/dL Creatinine 3.32 H (0.52-1.04) mg/dL POC Glucose (mg/dL) (75-99) mg/dL Calcium 7.2 L (8.4-10.2) mg/dL Total Bilirubin 1.4 H (0.2-1.3) mg/dL AST 145 H (14-36) U/L ALT 73 H (4-34) U/L Alkaline Phosphatase 575 H (38-126) U/L Total Protein 6.0 L (6.3-8.2) g/dL Albumin 2.3 L (3.5-5.0) g/dL Procalcitonin (0.02-0.09) ng/mL Microbiology - Last 24 Hours (Table) 04/15/21 10:50 Urine Culture - Preliminary Urine,Ureter 04/13/21 07:58 Blood Culture - Preliminary Blood No Growth after 48 hours 04/13/21 08:07 Blood Culture - Preliminary Blood No Growth after 48 hours Assessment and Plan Plan: Assessment: 1. Acute kidney injury secondary to ATN secondary to infection. Also has right-sided hydronephrosis. Creatinine stable at 3.3 to today. Urine output 20-30 mL an hour. Baseline creatinine 1-1.2. Right-sided hydronephrosis noted on kidney ultrasound. 2. Metabolic acidosis secondary to acute kidney injury. Partially compensatory for respiratory alkalosis. Maintained on oral bicarb. 3. Hyperkalemia secondary to acute kidney injury and metabolic acidosis. Improved. 4. History of right-sided hydronephrosis - ureteral stent could not be placed. Nephrostomy tube pending. Urology following. 5. Chronic diastolic CHF with moderate to severe mitral regurgitation, tricuspid regurgitation and pulmonary hypertension. 6. Acute hypoxic respiratory failure. 7. Hyponatremia secondary to acute kidney injury. Hypervolemic. Improved. Stable. 8. Hyperphosphatemia secondary to acute kidney injury. Plan: No response in urine output post IV Lasix given April 14. Stop normal saline. Avoid nephrotoxins. Continue to monitor renal function and urine output. Continue to assess daily for need for renal replacement therapy. No urgency at this time. Add PhosLo. Maintain tube feeds. Increase dose of oral bicarb. 2 A sodium bicarb IV push now. Overall prognosis guarded.
--- NOTE | 2021-04-16 10:12 | P.PN ---
Subjective Progress Note Date: 04/16/21 04/13/2021, the patient is being seen for a follow-up. The patient is currently sedated, comfortable likely distress. Patient is being gradually weaned off to assess the patient's underlying mental status. The patient's propofol has been cut down from 30 g down to 5 mg/kg per minute. The patient is not following any commands. She is not grimacing and she is not withdrawing to painful stimulation. The patient is currently on a mechanical ventilator. She is an assist-control mode at the rate of 12 with a tidal volume of 400 and FiO2 of 50% with a PEEP of 5. The chest x-ray showing bibasilar effusion and atelectatic changes in lung bases bilaterally. There is also cardiomegaly. There is may be some mild interstitial edema. The patient also has a pH of 7.45 with a pCO2 of 29 and pO2 of 85 based on the above-mentioned ventilator setting. Ejection fraction is around 55-60%. She has moderate severe mitral regurgitation with a pulmonary artery pressure of 60 based on the echocardiogram. There is a concern for underlying liver cirrhosis. 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 The patient also has a previous history of right kidney hydronephrosis with a insertion of a double-J stent ultrasound of the kidney will be done. Creatinine for now is stable at 3.39. Note that the patient is currently on no pressors. The patient has negative cultures. The patient remains on IV Rocephin. The patient has a white cell count of 7.7 with hemoglobin of 11.0 which is stable compared to yesterday. On today's evaluation of 04/14/2021, the patient remains off sedation for the past 24 hours. I stop the sedation yesterday and I monitor the mental status over the next 24 hours. This morning, she seems to be more responsive note that she was completely unresponsive yesterday. She opens eyes occasionally. She does occasionally grimace to deep painful stimulation. She is moving her head also. No purposeful activity. Doesn't follow any orders or commands. She remains intubated on a mechanical ventilator. On today's evaluation, she is on assist-control at the rate of 12 with a tidal volume of 400 and FiO2 of 50% with a PEEP of 5. Her blood gases from this morning is showing a pH of 7.54 with a pCO2 of 26 and pO2 of 124. His chest x-ray from today is showing adequate positioning of the oral tracheal tube. The patient also has a PICC line in the right upper extremity. There are small bilateral pleural effusions. There is also cardiomegaly. Note that the patient had an attempted Dobbhoff catheter insertion yesterday and this again failed by gastroenterology. We are seeking the possibility of school directed PEG tube insertion by gastroenterology. Meanwhile, hemodynamically, the patient is stable. The patient remains on a bicarb infusion at the rate of 75 mL an hour and his serum bicarb today is at 21. Her BUN is at 91 with a creatinine of 3.6. The patient had an ultrasound the kidneys yesterday that showed evidence of hydronephrosis on the right which was again seen and this was comparable to the previous ultrasound from 2019 and there was a simple cyst in the involving the left kidney. The cultures remain negative. Urine cultures negative. Blood cultures have been sent. There is also still pending for now. The patient remains on IV Rocephin. The patient is afebrile. White cell count is still low. The ammonia level was also low at 31. Her CODE STATUS is DNR/DNI. On today's evaluation of 04/15/2021, the patient remains intubated on a mechanical ventilator. This morning, she is an assist-control mode at a rate of 12 with tidal volume of 400 and FiO2 of 40% with a PEEP of 5. Chest x-ray showing small bilateral pleural effusion and some cardiomegaly. ET tube is in a good location. Blood gases from today showing a pH of 7.52 with a pCO2 of 26 and a pO2 of 149. Meanwhile, neurologically, the patient remains off sedation. The patient is still quite lethargic. She remains only to deep painful s timulation. No seizure activity has been noted. Meanwhile, we are considering a CAT scan of the brain in view of her slow neurologic recovery off sedation. We think her diminished level of consciousness probably related to metabolic encephalopathy. The patient continues to be in renal failure. Creatinine is currently at 3.35 in the urine output is quite low despite being on Lasix. Her net fluid balance over the past 24 hours has been +1.7 L and the patient is hesitant hours positive fluid balance for today. She was given Lasix yesterday with limited response in terms of urine output. The patient was taken to the operating room yesterday by urology. Discussed the case with Dr. Hernandez. The initial plan was to proceed with a double-J stent placement on the right. Nevertheless, the procedure itself was unsuccessful as the urologist was unable to identify the ureteral orifice and this was essentially a failed procedure. The plan for now is to obtain consent from the family to proceed with a nephrostomy tube insertion. In terms of the renal function, creatinine remains elevated at 3.35. Discussed the case with nephrology. Would like to go to dialysis as a last resort. Meanwhile, we have requested gastroenterology to insert an OG. The attempt was unsuccessful. I did a bedside procedure today when I inserted the catheter over the laryngoscope and awaiting a chest x-ray for [place] acute positioning. The patient remains nothing by mouth for now. The cultures are all negative for now. The patient is on empiric antibiotic coverage with IV Rocephin. The patient remains on IV fluids and the patient is receiving normal saline at the rate of 50 mL an hour. Serum bicarb today is at 17. No pressors. Hemodynamically stable. Afebrile. 04/16/2021, the patient remains intubated on mechanical ventilator. Unfortunately, neurologically she is still unresponsive and she remains encephalopathic. She grimaces only to deep painful stimulation. Nevertheless, she does not open up her eyes spontaneously. She does not follow commands. She does not do any purposeful activity. CAT scan of the brain was done yesterday and it showed chronic changes including mild to moderate diffuse cerebral atrophy and chronic small vessel ischemic change. No other acute abdominal mellitus have been noted. I have obviously concerned of an underlying encephalopathy in neurologic consultation will be obtained. Meanwhile, were able to insert an OG tube yesterday and the tube is sitting probably at the GE junction. Restart enteral feeding for nutritional support and the patient is currently on vital AF at the rate of 20 mL an hour. Once feeding was started, the patient started having liquidy stool and she has a fecal management system in place for now and output is in order of 30-50 mL an hour. The patient will have a stool for C. diff checked. Meanwhile, she remains intubated on a mechanical ventilator. This morning, she had an assist-control of 12 with a tidal volume of 400 and FiO2 of 40% with a PEEP of 5. blood gas as reports that showed a pH of 7.5 with a pCO2 of 25 and a pO2 of 105. A showing bilateral pleural effusion, cardiomegaly, increased infiltration of the lung bases and pulmonary edema. ET tube is in a good location. As far as her sepsis, she is currently on no pressors. She underwent a nephrostomy tube insertion yesterday. He made after the tube insertion and output was in order of 1 75 mL of urine in [place] output dropped and over the past few hours the patient is producing only 45 mL over the past 12 hours and output is bloody. The John catheter is producing approximately 20-30 mL an hour. The creatinine has improved much in the creatinine today's at 3.32. The patient continues to have a component of non-anion gap metabolic acidosis. The patient was given a total of 350 mEq of sodium bicarb by nephrology and the patient was started on bicarbonate tablets 1300 mg by mouth twice a day. IV fluids have been cut down to KVO. She remains on IV Rocephin. Maze afebrile. She is hemodynamically stable. She has some increased edema in upper and lower extremities. No seizure activity has been noted. I feeling that she is a bit more active and she is trying to move her head in different directions. I have not seen any activity and her legs or arms. She does not open up her eyes spontaneously. Objective - Vital Signs Vital signs: Vital Signs Temp 98.2 F 04/16/21 04:00 Pulse 101 H 04/16/21 07:00 Resp 13 04/16/21 07:00 BP 123/62 04/16/21 07:00 Pulse Ox 96 04/16/21 07:00 Intake & Output 04/15/21 04/16/21 04/16/21 18:59 06:59 18:59 Intake Total 820 861 Output Total 440 365 Balance 380 496 Weight 85.7 kg 84.912 kg Intake: IV 750 600 Sodium Chloride 0.9% 1, 650 600 000 ml @ 50 mls/hr IV . Q20H [facility] Rx#:[id number] cefTRIAXone 1 gm In 100 Sodium Chloride 0.9% 50 ml @ 100 mls/hr IVPB Q24HR [facility] Rx#:[id number] Tube Feeding 40 171 Other 30 90 Output: Drainage 175 35 Right Back 175 35 Urine 265 330 Other: Voiding Method Indwelling Catheter Indwelling Catheter # Bowel Movements 3 - Exam No acute distress, sedated, with an orally placed endotracheal tube. An NG was placed. Noted the patient is unresponsive this morning. The patient is off sedation for the past 72 hours and she remains unresponsive and only to painful stimulation. Head exam was generally normal. There was no scleral icterus or corneal arcus. Mucous membranes were moist. HEENT examination is grossly unremarkable. Neck supple. Full range of motion. No adenopathy thyromegaly or neck vein distention. Cardiovascular examination reveals regular rhythm rate. S1-S2 normal. No S3 or S4. No discernible murmur noted. Lungs reveal few scattered rhonchi. Breath sounds equal bilaterally. No wheezes or crackles. Abdomen is soft without bowel sounds. No masses. She has nephrostomy tube in her right length. Output is bloody at this point in time. There is some limited amount of urine output. The patient also has a John catheter. Abdomen is nondistended. No direct tenderness. No rebound tenderness. No guarding. Extremities are intact. No cyanosis or clubbing. There is significant edema both in the upper extremities and lower extremities. Skin is without rash or lesion. Areas of ecchymosis in the left upper extremity and some superficial skin abrasion the left upper extremity. Neurologic examination and reactive pupils. Positive cough. Positive gag. Grimace is only to deep painful stimulation. Overall, unresponsive - Labs CBC & Chem 7: 04/16/21 03:33 04/16/21 03:33 Labs: Abnormal Lab Results - Last 24 Hours (Table) 04/15/21 04/15/21 04/15/21 Range/Units 05:00 18:59 23:59 RBC (3.80-5.40) m/uL Hgb (11.4-16.0) gm/dL MCV (80.0-100.0) fL RDW (11.5-15.5) % Neutrophils # (1.3-7.7) k/uL Lymphocytes # (1.0-4.8) k/uL Sodium (137-145) mmol/L Chloride (98-107) mmol/L Carbon Dioxide (22-30) mmol/L BUN (7-17) mg/dL Creatinine (0.52-1.04) mg/dL POC Glucose (mg/dL) 74 L 71 L (75-99) mg/dL Calcium (8.4-10.2) mg/dL Total Bilirubin (0.2-1.3) mg/dL AST (14-36) U/L ALT (4-34) U/L Alkaline Phosphatase (38-126) U/L Total Protein (6.3-8.2) g/dL Albumin (3.5-5.0) g/dL Procalcitonin 0.93 H (0.02-0.09) ng/mL 04/16/21 04/16/21 Range/Units 03:33 03:33 RBC 3.42 L (3.80-5.40) m/uL Hgb 10.7 L (11.4-16.0) gm/dL MCV 100.2 H (80.0-100.0) fL RDW 17.4 H (11.5-15.5) % Neutrophils # 8.0 H (1.3-7.7) k/uL Lymphocytes # 0.4 L (1.0-4.8) k/uL Sodium 136 L (137-145) mmol/L Chloride 108 H (98-107) mmol/L Carbon Dioxide 15 L (22-30) mmol/L BUN 92 H (7-17) mg/dL Creatinine 3.32 H (0.52-1.04) mg/dL POC Glucose (mg/dL) (75-99) mg/dL Calcium 7.2 L (8.4-10.2) mg/dL Total Bilirubin 1.4 H (0.2-1.3) mg/dL AST 145 H (14-36) U/L ALT 73 H (4-34) U/L Alkaline Phosphatase 575 H (38-126) U/L Total Protein 6.0 L (6.3-8.2) g/dL Albumin 2.3 L (3.5-5.0) g/dL Procalcitonin (0.02-0.09) ng/mL Microbiology - Last 24 Hours (Table) 04/15/21 10:50 Urine Culture - Preliminary Urine,Ureter 04/13/21 07:58 Blood Culture - Preliminary Blood No Growth after 48 hours 04/13/21 08:07 Blood Culture - Preliminary Blood No Growth after 48 hours Assessment and Plan Plan: 1 Acute hypoxemic respiratory failure secondary to urinary tract infection/u rosepsis, with intubation and mechanical ventilation on 04/11/2021 . Today showing small bilateral pleural effusions. Oxygenation is stable. Ventilation is stable. No active pulmonary issues for now and the patient remains intubated on a mechanical ventilator because of altered mentation and ongoing issues with renal insufficiency/failure and encephalopathy. No major changes in her condition. Chest x-ray showing pulmonary edema and development of bilateral pleural effusion. She is able to oxygenate adequately for now. 2 sepsis secondary to urinary tract infection. Cultures are negative and the patient is on Rocephin recovered and the patient's cultures of been all negative. 3 Hyperkalemia, treated, recovered 4 Acute renal failure, possibly on top of chronic kidney disease, the patient has a right-sided hydronephrosis , attempted to insert the double-J catheters on the right and this was failed due to failure to identify the ureteral orifice. Patient underwent a nephrostomy tube insertion yesterday. Creatinine is still elevated at 3.35 and the patient has a component of non-anion gap metabolic acidosis. Nephrology is on the case. Upper from the nephrostomy is bloody 5 History of hiatal hernia. 6 History of right hydronephrosis with a previous insertion and removal of a stent placement. The patient is post nephrostomy tube insertion 7 History of biliary cirrhosis. LFTs are abnormal and the patient has elevated alkaline phosphatase 8 History of hypertension. 9 Hypothyroidism. 10 History of hyperlipidemia. 11 History of acid reflux disease. 12 History of cancer of the spine. 13 Moderate to severe MR and secondary pulmoinary hypertension, normal ejection fraction severe secondary pulmonary hypertension with a right-sided pressure of around 60 mmHg. 14 diarrhea 15 altered mentation, consider metabolic encephalopathy. She's been off sedation for the past 72 hours. No reasonable neurologic recovery. Neurology will be consulted. Plan: CAT scan of the brain, no contrast was noted and the patient's findings are essentially chronic. She likely has metabolic encephalopathy. She remains unresponsive. Nephrology consultation will be obtained. Check stool for C. diff nephrostomy tube insertion site and output from the right kidney is being monitored Agree on the bicarb IV fluids are currently at KVO Enteral feedings have been initiated We'll keep the patient intubated on a mechanical ventilator for now as long as she remains quite encephalopathic. Continue IV Rocephin Monitor cultures DNR/DNI CODE STATUS We'll continue to follow make further recommendations. Currently care evaluation that was on a more than 30 minutes. Time with Patient: Greater than 30
[2021-04-16 11:33] LABS: Glucose,Whole Blood 113 mg/dL (75-99)
--- NOTE | 2021-04-16 11:50 | P.CNNES ---
History of Present Illness Consult date: 04/16/21 Requesting physician: Clair Oakley Reason for Consult: altered mental status History of Present Illness: This is an 80-year-old woman medical history of spinal cancer hypertension, chronic kidney insufficiency, hydronephrosis with stent biliary cirrhosis, hypothyroidism, pulmonary hypertension who presented emergency department on 04/11/2021 for altered mental status. Neurology is consulted for continued altered mentation. History is obtained from medical records since the patient is unable to provide history. Per record is seems that the patient has been having urinary frequency and it seems that the one the family members checked up on her patient was poorly responsive or unresponsive as a result EMS was called and the per the patient hospital. On presentation the patient and was hypotensive, bradycardic as a result the patient was intubated and on a ventilator on 04/11. Was felt the patient had sepsis secondary due to urinary tract infection. During hospital stay the patient was on Rocephin and her cultures were negative. Patient has been off sedation for the past 72 hours and continues to have altered mentation. Some of the work-up in the hospital consisted of: Patient got a repeated CT of the head done on 04/15/2021 ordered by the ICU team and it's reported as no acute intracranial hemorrhage or midline shift. There is mild to moderate diffuse cerebral atrophy greatest over the bilateral frontal and temporal lobe mild chronic small vessel ischemic the change redemonstrated. No significant change from the CT head 4 days ago. On initial presentation the patient's white blood cell 6.4 and the most current is 9.1 which is normal. Initially her potassium was 7.1 and on presentation and that resolved and was current is 4.6. Also the sodium on presentation was 131 and the most recent is 136. Creatinine on presentation was 3.49 and the most current 3.32. Upon reviewing the patient's previous creatinine levels in our system was 1.17. Initially the AST was 291 and the most recent is 145 ALT was initially 111 and the most recent one is 73. Her ammonia level on 04/13/2021 was 31 which was just slightly elevated and the most current is 176 which was today Her most recent POC glucose has been in the range of 70s to 80s the Losec got was 71 yesterday overnight. As stated above her initial urinalysis was positive for ureter tract infection. Review of Systems Review of system is a limited but the prone positive and negative as per HPI Past Medical History Past Medical History: Cancer, GERD/Reflux, Hypertension, Osteoarthritis (OA) Additional Past Medical History / Comment(s): no blood pressure meds, states hx of cancer spine , hiatal hernia, right hydronephrosis, states stomach pain and nausea. History of Any Multi-Drug Resistant Organisms: None Reported Past Surgical History: Back Surgery, Cholecystectomy, Joint Replacement, Orthopedic Surgery Additional Past Surgical History / Comment(s): kidney stent, sarah shoulder surgery, sarah total knees. Past Anesthesia/Blood Transfusion Reactions: No Reported Reaction Past Psychological History: Anxiety Smoking Status: Never smoker Past Alcohol Use History: None Reported Past Drug Use History: None Reported - Past Family History Mother Family Medical History: No Reported History Medications and Allergies Home Medications Medication Instructions Recorded Confirmed Type Aspirin 81 mg PO DAILY 30 Days #30 chew 03/10/21 04/11/21 Rx Furosemide [Lasix] 20 mg PO DAILY #90 tab 03/10/21 04/11/21 Rx Atorvastatin [Lipitor] 20 mg PO HS 04/11/21 04/11/21 History Omeprazole 20 mg PO DAILY 04/11/21 04/11/21 History Potassium Chloride ER [K-Dur 20] 40 meq PO DAILY 04/11/21 04/11/21 History amLODIPine [Norvasc] 10 mg PO DAILY 04/11/21 04/11/21 History traMADol HCL 50 mg PO Q6H PRN 04/11/21 04/11/21 History Allergies Allergy/AdvReac Type Severity Reaction Status Date / Time codeine AdvReac dizziness Verified 04/11/21 16:58 and passes out Physical Examination - Vital Signs Vital Signs: Vital Signs Temp Pulse Resp BP Pulse Ox 04/16/21 10:00 104 H 21 114/46 96 04/16/21 09:00 110 H 24 113/67 98 04/16/21 08:00 98.3 F 101 H 16 102/85 96 04/16/21 07:00 101 H 13 123/62 96 04/16/21 06:00 102 H 13 116/62 98 04/16/21 05:00 100 14 111/50 98 04/16/21 04:00 98.2 F 98 13 124/86 97 04/16/21 03:00 96 13 111/49 97 04/16/21 02:00 93 16 106/59 04/16/21 01:00 96 13 107/61 04/16/21 00:13 81 11 L 110/50 96 04/16/21 00:00 97.5 F L 78 13 106/61 95 04/15/21 23:00 79 13 119/49 97 04/15/21 22:00 98 17 121/48 04/15/21 21:00 87 15 112/48 97 04/15/21 20:00 97.7 F 84 14 121/53 98 04/15/21 19:00 77 13 115/55 99 04/15/21 18:00 73 17 115/52 78 L 04/15/21 17:00 78 16 115/51 99 04/15/21 16:00 73 17 104/49 95 04/15/21 15:00 77 12 102/45 98 04/15/21 14:00 87 13 114/54 98 04/15/21 13:00 74 12 104/43 98 04/15/21 12:00 98.0 F 74 15 113/62 98 04/15/21 11:00 105/80 Intake and Output 04/15/21 04/16/21 04/16/21 22:59 06:59 14:59 Intake Total 320 861 20 Output Total 110 365 Balance 210 496 20 Intake: IV 250 600 Sodium Chloride 0.9% 1, 250 600 000 ml @ 50 mls/hr IV . Q20H [facility] [place] Rx#:[id number] Tube Feeding 40 171 20 Other 30 90 Output: Drainage 35 Right Back 35 Urine 110 330 Other: Voiding Method Indwelling Catheter Indwelling Catheter Weight 84.912 kg GENERAL: The patient is lying in bed and does not seem in acute distress. CHEST: The heart rate is regular rate rhythm. No murmurs to auscultation. LUNG: Clear to auscultation bilaterally no wheezing noted throughout. Not labored breathing. Is intubated and on ventilator. ABDOMEN/GI: Bowel sounds present in all 4 quadrants. No tenderness to palpation throughout. NEUROLOGICAL: Limited because of patient's condition. Higher mental function: Comatose. The patient is unresponsive, not following commands or attempting to verbalize. . Cranial nerves: Her eyes were closed and had to manually open them. The pupils are round, equal (3-4mm) and reactive to light. Primary gaze is midline bilaterally. Has positive corneal reflex bilaterally. No facial weakness. Is breathing over the vent. Has a gag reflex. Motor: The strength is 0/5 throughout but has with painful stimuli she has minimally withdrawl of bilateral lower extremities while to upper she would turn her neck side to side. Normal bulk and slight decreased tone in upper extremities. No spontaneous movement noted. Cerebellum: Could not assess. Sensation: Could not assess light touch but to painful stimuli she has sensation to all extremities. Reflexes (right/left): 2+ upper and 1+ lowers. Plantars are mute bilaterally. Results Feliz virus speech are is not detected. - Laboratory Findings CBC and BMP: 04/16/21 03:33 04/16/21 03:33 Abnormal Lab Findings: Abnormal Labs 04/11/21 04/11/21 04/11/21 15:09 15:09 15:09 RBC 3.47 L Hgb 10.7 L Hct MCV RDW 17.5 H Neutrophils # Lymphocytes # 0.5 L PT 12.4 H INR 1.2 H APTT 39.1 H ABG pH ABG pCO2 ABG pO2 ABG HCO3 ABG O2 Saturation Sodium Potassium Chloride Carbon Dioxide BUN Creatinine Glucose POC Glucose (mg/dL) Calcium Phosphorus Total Bilirubin AST ALT Alkaline Phosphatase Ammonia Troponin I Total Protein Albumin Procalcitonin TSH Free T4 Urine Appearance Turbid H Urine Protein 2+ H Urine Blood Moderate H Ur Leukocyte Esterase Large H Urine RBC 143 H Urine WBC >182 H Urine WBC Clumps Many H Ur Squamous Epith Cells 6 H Amorphous Sediment Moderate H Urine Bacteria Many H Urine Mucus Few H 04/11/21 04/11/21 04/11/21 15:09 15:09 16:37 RBC Hgb Hct MCV RDW Neutrophils # Lymphocytes # PT INR APTT ABG pH ABG pCO2 32 L ABG pO2 ABG HCO3 ABG O2 Saturation Sodium 131 L Potassium 7.1 H* Chloride Carbon Dioxide 16 L BUN 89 H Creatinine 3.49 H Glucose POC Glucose (mg/dL) Calcium 8.0 L Phosphorus Total Bilirubin 2.1 H AST 291 H ALT 111 H Alkaline Phosphatase 770 H Ammonia Troponin I 0.066 H* Total Protein Albumin 2.6 L Procalcitonin TSH 14.100 H Free T4 2.41 H Urine Appearance Urine Protein Urine Blood Ur Leukocyte Esterase Urine RBC Urine WBC Urine WBC Clumps Ur Squamous Epith Cells Amorphous Sediment Urine Bacteria Urine Mucus 04/11/21 04/11/21 04/11/21 19:14 20:33 22:13 RBC Hgb Hct MCV RDW Neutrophils # Lymphocytes # PT INR APTT ABG pH ABG pCO2 ABG pO2 ABG HCO3 ABG O2 Saturation Sodium Potassium 6.2 H* Chloride Carbon Dioxide BUN Creatinine Glucose POC Glucose (mg/dL) 137 H 159 H Calcium Phosphorus Total Bilirubin AST ALT Alkaline Phosphatase Ammonia Troponin I Total Protein Albumin Procalcitonin TSH Free T4 Urine Appearance Urine Protein Urine Blood Ur Leukocyte Esterase Urine RBC Urine WBC Urine WBC Clumps Ur Squamous Epith Cells Amorphous Sediment Urine Bacteria Urine Mucus 04/11/21 04/12/21 04/12/21 23:38 03:44 03:44 RBC 3.11 L Hgb 10.2 L Hct 30.8 L MCV RDW 17.0 H Neutrophils # Lymphocytes # 0.4 L PT INR APTT ABG pH ABG pCO2 ABG pO2 ABG HCO3 ABG O2 Saturation Sodium 133 L Potassium 6.3 H* Chloride Carbon Dioxide 19 L BUN 88 H Creatinine 3.38 H Glucose 119 H POC Glucose (mg/dL) 135 H Calcium 7.9 L Phosphorus Total Bilirubin AST ALT Alkaline Phosphatase Ammonia Troponin I Total Protein Albumin Procalcitonin TSH Free T4 Urine Appearance Urine Protein Urine Blood Ur Leukocyte Esterase Urine RBC Urine WBC Urine WBC Clumps Ur Squamous Epith Cells Amorphous Sediment Urine Bacteria Urine Mucus 04/12/21 04/12/21 04/12/21 04:55 06:09 14:13 RBC Hgb Hct MCV RDW Neutrophils # Lymphocytes # PT INR APTT ABG pH 7.49 H ABG pCO2 28 L ABG pO2 80 L ABG HCO3 ABG O2 Saturation Sodium Potassium 6.2 H* Chloride Carbon Dioxide BUN Creatinine Glucose POC Glucose (mg/dL) 122 H Calcium Phosphorus Total Bilirubin AST ALT Alkaline Phosphatase Ammonia Troponin I Total Protein Albumin Procalcitonin TSH Free T4 Urine Appearance Urine Protein Urine Blood Ur Leukocyte Esterase Urine RBC Urine WBC Urine WBC Clumps Ur Squamous Epith Cells Amorphous Sediment Urine Bacteria Urine Mucus 04/12/21 04/12/21 04/13/21 18:03 20:11 03:40 RBC 3.34 L Hgb 11.0 L Hct MCV 102.1 H RDW 17.4 H Neutrophils # Lymphocytes # 0.4 L PT INR APTT ABG pH ABG pCO2 ABG pO2 ABG HCO3 ABG O2 Saturation Sodium Potassium 5.3 H Chloride Carbon Dioxide BUN Creatinine Glucose POC Glucose (mg/dL) 122 H Calcium Phosphorus Total Bilirubin AST ALT Alkaline Phosphatase Ammonia Troponin I Total Protein Albumin Procalcitonin TSH Free T4 Urine Appearance Urine Protein Urine Blood Ur Leukocyte Esterase Urine RBC Urine WBC Urine WBC Clumps Ur Squamous Epith Cells Amorphous Sediment Urine Bacteria Urine Mucus 04/13/21 04/13/21 04/13/21 03:40 04:44 09:35 RBC Hgb Hct MCV RDW Neutrophils # Lymphocytes # PT INR APTT ABG pH ABG pCO2 29 L ABG pO2 ABG HCO3 20 L ABG O2 Saturation Sodium 133 L Potassium 5.3 H Chloride 109 H Carbon Dioxide 15 L BUN 88 H Creatinine 3.39 H Glucose POC Glucose (mg/dL) Calcium 7.8 L Phosphorus Total Bilirubin AST ALT Alkaline Phosphatase Ammonia 31 H Troponin I Total Protein Albumin Procalcitonin TSH Free T4 Urine Appearance Urine Protein Urine Blood Ur Leukocyte Esterase Urine RBC Urine WBC Urine WBC Clumps Ur Squamous Epith Cells Amorphous Sediment Urine Bacteria Urine Mucus 04/13/21 04/13/21 04/13/21 17:16 18:10 23:16 RBC Hgb Hct MCV RDW Neutrophils # Lymphocytes # PT INR APTT ABG pH ABG pCO2 ABG pO2 ABG HCO3 ABG O2 Saturation Sodium 133 L Potassium Chloride Carbon Dioxide 19 L BUN 88 H Creatinine 3.58 H Glucose 129 H POC Glucose (mg/dL) 110 H 136 H Calcium 7.6 L Phosphorus Total Bilirubin AST ALT Alkaline Phosphatase Ammonia Troponin I Total Protein Albumin Procalcitonin TSH Free T4 Urine Appearance Urine Protein Urine Blood Ur Leukocyte Esterase Urine RBC Urine WBC Urine WBC Clumps Ur Squamous Epith Cells Amorphous Sediment Urine Bacteria Urine Mucus 04/14/21 04/14/21 04/14/21 03:50 03:50 05:10 RBC 3.13 L Hgb 10.2 L Hct 30.6 L MCV RDW 17.5 H Neutrophils # Lymphocytes # 0.4 L PT INR APTT ABG pH 7.54 H ABG pCO2 26 L ABG pO2 124 H ABG HCO3 ABG O2 Saturation 99.2 H Sodium 132 L Potassium Chloride Carbon Dioxide 21 L BUN 91 H Creatinine 3.66 H Glucose 119 H POC Glucose (mg/dL) Calcium 7.5 L Phosphorus Total Bilirubin AST 167 H ALT 80 H Alkaline Phosphatase 645 H Ammonia Troponin I Total Protein 5.9 L Albumin 2.2 L Procalcitonin TSH Free T4 Urine Appearance Urine Protein Urine Blood Ur Leukocyte Esterase Urine RBC Urine WBC Urine WBC Clumps Ur Squamous Epith Cells Amorphous Sediment Urine Bacteria Urine Mucus 04/14/21 04/14/21 04/15/21 12:02 19:10 05:00 RBC Hgb Hct MCV RDW Neutrophils # Lymphocytes # PT INR APTT ABG pH ABG pCO2 ABG pO2 ABG HCO3 ABG O2 Saturation Sodium 136 L Potassium Chloride 109 H Carbon Dioxide 17 L BUN 83 H Creatinine 3.35 H Glucose POC Glucose (mg/dL) 107 H 112 H Calcium 6.6 L Phosphorus 6.1 H Total Bilirubin AST ALT Alkaline Phosphatase Ammonia Troponin I Total Protein Albumin Procalcitonin TSH Free T4 Urine Appearance Urine Protein Urine Blood Ur Leukocyte Esterase Urine RBC Urine WBC Urine WBC Clumps Ur Squamous Epith Cells Amorphous Sediment Urine Bacteria Urine Mucus 04/15/21 04/15/21 04/15/21 05:00 05:00 05:15 RBC 3.04 L Hgb 10.1 L Hct 29.6 L MCV RDW 17.3 H Neutrophils # Lymphocytes # PT INR APTT ABG pH 7.52 H ABG pCO2 26 L ABG pO2 149 H ABG HCO3 ABG O2 Saturation 99.0 H Sodium Potassium Chloride Carbon Dioxide BUN Creatinine Glucose POC Glucose (mg/dL) Calcium Phosphorus Total Bilirubin AST ALT Alkaline Phosphatase Ammonia Troponin I Total Protein Albumin Procalcitonin 0.93 H TSH Free T4 Urine Appearance Urine Protein Urine Blood Ur Leukocyte Esterase Urine RBC Urine WBC Urine WBC Clumps Ur Squamous Epith Cells Amorphous Sediment Urine Bacteria Urine Mucus 04/15/21 04/15/21 04/16/21 18:59 23:59 03:33 RBC 3.42 L Hgb 10.7 L Hct MCV 100.2 H RDW 17.4 H Neutrophils # 8.0 H Lymphocytes # 0.4 L PT INR APTT ABG pH ABG pCO2 ABG pO2 ABG HCO3 ABG O2 Saturation Sodium Potassium Chloride Carbon Dioxide BUN Creatinine Glucose POC Glucose (mg/dL) 74 L 71 L Calcium Phosphorus Total Bilirubin AST ALT Alkaline Phosphatase Ammonia Troponin I Total Protein Albumin Procalcitonin TSH Free T4 Urine Appearance Urine Protein Urine Blood Ur Leukocyte Esterase Urine RBC Urine WBC Urine WBC Clumps Ur Squamous Epith Cells Amorphous Sediment Urine Bacteria Urine Mucus 04/16/21 03:33 RBC Hgb Hct MCV RDW Neutrophils # Lymphocytes # PT INR APTT ABG pH ABG pCO2 ABG pO2 ABG HCO3 ABG O2 Saturation Sodium 136 L Potassium Chloride 108 H Carbon Dioxide 15 L BUN 92 H Creatinine 3.32 H Glucose POC Glucose (mg/dL) Calcium 7.2 L Phosphorus Total Bilirubin 1.4 H AST 145 H ALT 73 H Alkaline Phosphatase 575 H Ammonia Troponin I Total Protein 6.0 L Albumin 2.3 L Procalcitonin TSH Free T4 Urine Appearance Urine Protein Urine Blood Ur Leukocyte Esterase Urine RBC Urine WBC Urine WBC Clumps Ur Squamous Epith Cells Amorphous Sediment Urine Bacteria Urine Mucus Assessment and Plan Assessment: Altered mental status likely due to hepatic encephalopathy/metabolic encephalopathy (Acute kidney insuffiency, hyponatremia--improving, borderline low hypoglycemia) and component of septic encephalopathy History of biliary cirrhosis. Currently Patient has elevated liver function as well as ammonia level Sepsis secondary due to urinary tract infection Acute renal failure Acute Hyponatremia (inintially 131-->improved to 136) Acute hypoxic respiratory failure (intubated and mech ventilation on 04/11/21) Hyperkalemia--- resolved History of cancer of the spine (unsure of the details) Hyper thousand History of hypertension History of right hydronephrosis with previous insertion removal stent placement. Moderate severe mitral regurgitation and severe pulmonary hypertension Plan: Patient got a repeated CT of the head done on 04/15/2021 ordered by the ICU team and it's reported as no acute intracranial hemorrhage or midline shift. There is mild to moderate diffuse cerebral atrophy greatest over the bilateral frontal and temporal lobe mild chronic small vessel ischemic the change redemonstrated. No significant change from the CT head 4 days ago. Initially the AST was 291 and the most recent is 145 ALT was initially 111 and the most recent one is 73. Her ammonia level on 04/13/2021 was 31 which was just slightly elevated and the most current is 176 which was today TSH is 14.1 which is elevated and the free T4 is 2.41 which is also elevated. This seems sick euthyroid syndrome and will defer further thyroid management to primary team. I ordered the a routine EEG. I will not start the patient on antiepileptic drug unless there is epileptiform discharges or seizure on the EEG. Nephrology is on board Regarding the elevated ammonia level consider using lactulose and we'll defer the management to the primary team/ICU team. Please avoid any further hypoglycemic event and we'll defer the management to the primary/ICU team. We'll defer the rest of the medical management to the primary team as well as ICU team. The plan is discussed with the patient nurse. Thank you for the consultation. Victor M Anthony MD Neuro-Hospitalist Time with Patient: Greater than 30
[2021-04-16] MEDS ORDERED: RIFAXIMIN 550 MG TABLET PO SCH (12:00)
[2021-04-16] MEDS: CALCIUM ACETATE 667 MG TAB PO SCH ×2 (12:00→16:32)
[2021-04-16] MEDS ORDERED: LACTULOSE 20 GM/30 ML CUP PO SCH (12:00)
[2021-04-16] MEDS ORDERED: CALCIUM ACETATE 667 MG TAB PO SCH (12:30)
--- NOTE | 2021-04-16 12:30 | P.PN ---
Subjective 80-year-old female was brought in after an episode of unresponsiveness. Patient was subsequently intubated. Patient is being admitted for severe sepsis which was believed to be secondary to urinary tract infection patient urine analysis is significantly abnormal and looked purulent. Patient appears to have multiorgan dysfunction as well. Patient was apparently not doing well since last couple days and family has been with her all night last night earlier today morning patient was found to be unresponsive. Patient is found to be hyponatremic with hyperkalemia of 7.1 bradycardia anion gap metabolic acidosis lactic acid is presently not available elevated creatinine of 3.49 baseline is around 1. Patient has elevated liver enzymes these appear to be chronic since her last hospitalization and patient was diagnosed with primary biliary cirrhosis at that time. Patient has highly elevated TSH and free T4 is around 2.41. Patient is presently intubated. Patient is presently not on any pressor support, receiving fluids at 1 30 mL per hour. Patient received calcium gluconate insulin and beta agonist for hyperkalemia, I'm also ordering Kayexalate. Patient was recently hospital is about 3 weeks ago for dehydration generalized weakness subsequently discharged to [facility]acute [facility] patient is supposed to be there for about a month after 2 weeks please stop drinking rehabilitation because of which patient was taken home about a week ago. Patient does have some cognitive impairment although doesn't have any significant dementia as per the the patient's family. Patient usually uses a cane for ambulation. Fairly functional.patient had Morganella morganii which is sensitive to Ur generation cephalosporins from her recent urine cultures. . 04/12/2021 Patient remains a major to support patient's IV normal saline was decreased as her respiratory status is bit worse. Patient actually received Lasix once. Patient's creatinine is bit worse and is 3.8 DOWN THE ROCEPHIN DOSE TO 1 G DAILY URINE CULTURES ARE STILL PENDING. 04/13/2021 is a mechanical ventilator had an ultrasound of the kidney which showed hydronephrosis and urology is evaluating the patient patient creatinine is fairly stable at 3.39 urine output is only 10 mL per hour nephrology is following the patient urine cultures are although negative. Chest x-ray showed mild interstitial edema. In spite of weaning of on the sedation patient is still not awake enough ammonia level was obtained which is fairly close to normal patient may need a CT of the head if she doesn't respond by tomorrow morning. 04/14/2021 Patient's sedation is completely of for about a day patient is bit more responsive today because of which will continue to monitor her urine cultures are so far negative. Patient remains intubated on mechanical ventilator on a ssist control ventilation with set up respiratory rate of 12 patient is breathing over the ventilator tidal volume of 400 50% PEEP of 5 blood gases are GERD except for mild alkalosis, unable to place an NG tube because of her hiatal hernia Dobbhoff will be attempted with the upper GI endoscopy. On a PEG tube insertion by gastroenterology patient remains on bicarbonate infusion nephrology is following the patient patient doesn't creatinine is 3.6 ultrasound of the kidney showed hydronephrosis on the right, patient remains on IV Rocephin. 04/15/2021 Patient is a mechanical ventilator patient is an episode of 40% PEEP of 5 patient is still not responding off sedation patient will undergo CT of the head. Patient creatinine is 3.35 low urine output despite being on Lasix. Patient is positive fluid balance of 1.7 L last 24 hours. Patient has hydronephrosis plan to put a triple stent with failed., Patient probably will need a nephrostomy tube. Patient's urine cultures are negative. 04/16/2021 Remains on mechanical ventilator patient is still unresponsive and remains severely encephalopathic, patient only responds to painful stimuli. He is not following commands. Computed tomography scan of the head was done which showed chronic changes [id number] diffuse and laterally. Patient has elevated ammonia level patient was already started on lactulose patient is having bowel movement when I evaluated the patient and the patient was also started on rifaximin mean liver enzymes are getting better unsure whether patient has cirrhosis. Neurology evaluated the patient. Patient has an OG tube now.. Patient has around 30 mL per hour of output from the John catheter creatinine improved marginally patient is receiving bicarbonate nephrology is managing the fluids patient remains afebrile. Review of systems: Unable to obtain due to her clinical condition All inpatient medications were reviewed and appropriate changes in these medications as dictated in the interval history and assessment and plan. Objective - Vital Signs Vital signs: Vital Signs Temp 98.3 F 04/16/21 08:00 Pulse 102 H 04/16/21 11:00 Resp 14 04/16/21 11:00 BP 100/54 04/16/21 11:00 Pulse Ox 96 04/16/21 11:00 Intake & Output 04/15/21 04/16/21 04/16/21 18:59 06:59 18:59 Intake Total 820 861 260 Output Total 440 365 85 Balance 380 496 175 Weight 85.7 kg 84.912 kg Intake: IV 750 600 80 0.9NS @KVO 30 Sodium Chloride 0.9% 1, 650 600 50 000 ml @ 50 mls/hr IV . Q20H [facility] Rx#:[id number] cefTRIAXone 1 gm In 100 Sodium Chloride 0.9% 50 ml @ 100 mls/hr IVPB Q24HR [facility] Rx#:[id number] Tube Feeding 40 171 100 Other 30 90 80 Output: Drainage 175 35 Right Back 175 35 Urine 265 330 85 Other: Voiding Method Indwelling Catheter Indwelling Catheter # Bowel Movements 3 2 - Exam PHYSICAL EXAMINATION: GENERAL: Patient is intubated and started on propofol on ventilatory support. Thin built female HEENT: Pupils are round and equally reacting to light. EOMI. No scleral icterus. No conjunctival pallor. Normocephalic, atraumatic. No pharyngeal erythema. No thyromegaly. CARDIOVASCULAR: S1 and S2 present. No murmurs, rubs, or gallops. PULMONARY: Few scattered rhonchi ABDOMEN: Soft, nontender, nondistended, normoactive bowel sounds. No palpable organomegaly. The catheter in place MUSCULOSKELETAL: No joint swelling or deformity. EXTREMITIES: No cyanosis, clubbing, or pedal edema. NEUROLOGICAL: Intubated and sedated SKIN: No rashes. - Labs CBC & Chem 7: 04/16/21 03:33 04/16/21 03:33 Labs: Abnormal Lab Results - Last 24 Hours (Table) 04/15/21 04/15/21 04/15/21 Range/Units 05:00 18:59 23:59 RBC (3.80-5.40) m/uL Hgb (11.4-16.0) gm/dL MCV (80.0-100.0) fL RDW (11.5-15.5) % Neutrophils # (1.3-7.7) k/uL Lymphocytes # (1.0-4.8) k/uL Sodium (137-145) mmol/L Chloride (98-107) mmol/L Carbon Dioxide (22-30) mmol/L BUN (7-17) mg/dL Creatinine (0.52-1.04) mg/dL POC Glucose (mg/dL) 74 L 71 L (75-99) mg/dL Calcium (8.4-10.2) mg/dL Total Bilirubin (0.2-1.3) mg/dL AST (14-36) U/L ALT (4-34) U/L Alkaline Phosphatase (38-126) U/L Ammonia (<30) umol/L Total Protein (6.3-8.2) g/dL Albumin (3.5-5.0) g/dL Procalcitonin 0.93 H (0.02-0.09) ng/mL 04/16/21 04/16/21 04/16/21 Range/Units 03:33 03:33 10:20 RBC 3.42 L (3.80-5.40) m/uL Hgb 10.7 L (11.4-16.0) gm/dL MCV 100.2 H (80.0-100.0) fL RDW 17.4 H (11.5-15.5) % Neutrophils # 8.0 H (1.3-7.7) k/uL Lymphocytes # 0.4 L (1.0-4.8) k/uL Sodium 136 L (137-145) mmol/L Chloride 108 H (98-107) mmol/L Carbon Dioxide 15 L (22-30) mmol/L BUN 92 H (7-17) mg/dL Creatinine 3.32 H (0.52-1.04) mg/dL POC Glucose (mg/dL) (75-99) mg/dL Calcium 7.2 L (8.4-10.2) mg/dL Total Bilirubin 1.4 H (0.2-1.3) mg/dL AST 145 H (14-36) U/L ALT 73 H (4-34) U/L Alkaline Phosphatase 575 H (38-126) U/L Ammonia 176 H (<30) umol/L Total Protein 6.0 L (6.3-8.2) g/dL Albumin 2.3 L (3.5-5.0) g/dL Procalcitonin (0.02-0.09) ng/mL 04/16/21 Range/Units 11:21 RBC (3.80-5.40) m/uL Hgb (11.4-16.0) gm/dL MCV (80.0-100.0) fL RDW (11.5-15.5) % Neutrophils # (1.3-7.7) k/uL Lymphocytes # (1.0-4.8) k/uL Sodium (137-145) mmol/L Chloride (98-107) mmol/L Carbon Dioxide (22-30) mmol/L BUN (7-17) mg/dL Creatinine (0.52-1.04) mg/dL POC Glucose (mg/dL) 113 H (75-99) mg/dL Calcium (8.4-10.2) mg/dL Total Bilirubin (0.2-1.3) mg/dL AST (14-36) U/L ALT (4-34) U/L Alkaline Phosphatase (38-126) U/L Ammonia (<30) umol/L Total Protein (6.3-8.2) g/dL Albumin (3.5-5.0) g/dL Procalcitonin (0.02-0.09) ng/mL Microbiology - Last 24 Hours (Table) 04/15/21 10:50 Urine Culture - Final Urine,Ureter 04/13/21 08:07 Blood Culture - Preliminary Blood No Growth after 72 hours 04/13/21 07:58 Blood Culture - Preliminary Blood No Growth after 72 hours Assessment and Plan Plan: Possible severe sepsis: Probably secondary to urinary tract infection urine cultures and blood cultures are negative. Patient remains intubated and is on 1 g of Rocephin at this time Right-sided hydronephrosis and pyelonephritis: Patient may need ureteral stent as urology was unable to place a ureteral stent test today. -Severe toxic encephalopathy and hepatic encephalopathy -Acute hypoxic respiratory failure secondary to severe sepsis -Hyperammonemia probably due to hepatitis secondary to sepsis patient is receiving Lasix and the rifaximin. May be contributing to her at her encephalopathic state. Patient does have history of primary biliary cirrhosis. -Hyperkalemia: Multifactorial secondary to acute renal failure which is again secondary to acute tubular necrosis from severe sepsis potassium supplementation and also metabolic acidosis. Improved patient's creatinine remains at the 3.35 -Anion metabolic acidosis probably secondary to acute renal failure as well as lactic acidosis -acute renal failure secondary to most probably acute tubular necrosis from sev ere sepsis IV fluids and nephrology: The patient IV fluids as per nephrology -Mildly elevated troponin secondary to severe sepsis and renal failure -Elevated TSH and as well as free T4 these abnormalities are probably secondary to sepsis, will need a repeat T4 and TSH in about couple weeks -Elevated liver enzymes patient appears to have elevated liver enzymes during the her previous hospitalization as well and patient was diagnosed with primary biliary cirrhosis . Patient liver enzymes are bit better compared to admission -Generalized deconditioning -Hypertension: Holding off antihypertensive medications because of concerns of hypotension secondary to severe sepsis -Chronic of right-sided hydronephrosis -DVT prophylaxis with subcutaneous heparin GI prophylaxis with Protonix or Pepcid
--- NOTE | 2021-04-16 13:33 | CDI ---
Documentation Clarification Form Date: 04/16/2021 01:17:42 PM From: Akilah Fagan RN, CCDS Admit Date: 04/11/2021 05:41:00 PM Patient Name: Melly Lake Visit Number: [id number] ATTENTION: The Clinical Documentation Specialists (CDI) and [facility] Coding Staff appreciate your assistance in clarifying documentation. Please respond to the clarification below the line at the bottom and electronically sign. The CDI & [facility] Coding staff will review the response and follow-up if needed. Please note: Queries are made part of the Legal Health Record. If you have any questions, please contact the author of this message via ITS. Dr. Pepe Daniel Unspecified CKD is documented Pulmonary and Neurorology progress notes. Additional clarification regarding the stage of CKD is requested. History/Risk Factors: Patients Historical BUN/CR/GFR: 35/1.17/44 JULIA with ATN, Right sided hydronephrosis, chronic diastolic CHF, acute hypoxic respiratory failure, hyponatremia, hypervolemic Clinical Indicators: Current BUN: 89/88/91/83/92 CR: 3.49/3.38/3.58/3.66/3.35/3.32 GFR: 12//04/13-04/16 Pulmonary Progress notes: "Acute renal failure, possibly on top of chronic kidney disease, the patient has a right-sided hydronephrosis , attempted to insert the double-J catheters on the right and this was failed due to failure to identify the ureteral orifice." 04/16 Neurology consult: "This is an 80-year-old woman medical history of spinal cancer hypertension, chronic kidney insufficiency, hydronephrosis with stent biliary cirrhosis, hypothyroidism, pulmonary hypertension who presented emergency department on 04/11/2021 for altered mental status." Treatment: Consults: Nephrology on case 04/13 D5W with 3 amps Bicarb @75 cc/hr. 04/12 Lasix 60 mg IVP OT, followed by 100 mg IVP OT 04/14 Lasix 80 mg IVP OT 04/11 IVF bolus 1L 0.9% NS Please clarify the stage of the CKD, if known: [ ] CKD Stage 1 (GFR > 90) [ ] CKD Stage 2 (GFR 60-89) [ ] CKD Stage 3 (GFR 30-59) [ ] CKD Stage 3a (GFR 45-59) [ ] CKD Stage 3b (GFR 30-44) [ ] CKD Stage 4 (GFR 15-29) [ ] CKD Stage 5 (GFR <15) [ ] ESRD [ ] Other, please specify [ ] Unable to determine (Template last revised: December 2020) AKI/ATN __ MTDD
[2021-04-16 14:03] VITALS: BMI 30.2
--- NOTE | 2021-04-16 16:14 | EEG ---
ELECTROENCEPHALOGRAM REPORT DATE OF SERVICE: 04/16/2021. CLINICAL HISTORY: This is an 80-year-old woman with continued altered mental status. The video EEG is obtained to evaluate for seizure and epileptiform activity. RELEVANT MEDICATION: The patient is not on any antiepileptic drug. EEG TYPE: A routine 21-channel EEG is performed with video using the 10/20 electrode placement system. DESCRIPTION: The patient is intubated on a ventilator. The patient is not on any sedation. The background consists of low- to moderate-voltage non-rhythmic 1-2 hertz delta activity. There is no physiological sleep architecture seen. There is no focal slowing seen. There is significant diffuse myogenic artifact seen throughout the study. Interictal and ictal is none. ACTIVATION PROCEDURES: Photic stimulation did not evoke a posterior driving response. There is significant myogenic artifact during photic stimulation obscuring the background. Hyperventilation was not performed. CLINICAL INTERPRETATION: This is an abnormal routine EEG. The background slowing is suggestive of severe encephalopathy, likely due to metabolic encephalopathy. There are no focal slowing, epileptiform discharge or seizure on the EEG. Clinical correlation is recommended. MMODL / IJN: [id number] / [facility] MEDICAL CENTERMarilee
[2021-04-16 16:55] VITALS: TEMP 97.9
[2021-04-16] MEDS ORDERED: LORazepam 2 MG/ML INJ IV PRN (18:05)
[2021-04-16 18:14] VITALS: BP 114/51; PULSE 98
[2021-04-16] MEDS: MORPHINE SULFATE (100 MG/2 ML) 100 MG in SODIUM CHLORIDE 0.9% 100 ML IV SCH (18:42)
[2021-04-16] MEDS: SCOPOLAMINE 1.5MG/72HR PATCH TRANSDERM SCH (18:44)
[2021-04-16] MEDS ORDERED: SODIUM BICARBONATE TAB 650 MG TAB PO SCH (21:00)
--- NOTE | 2021-04-17 08:32 | P.PN ---
Subjective Progress Note Date: 04/17/21 patient seen yesterday. Had rt nephrostomy tube placed for a upj obstruction, uti w sepsis. Her creatinine didnt change much in the first 24 hours. Will continue to monitor. The upj obstruction will need to be addressed upon recovery. She will need to fu with Dr Leung. Objective - Vital Signs Vital signs: Vital Signs Temp 97.9 F 04/16/21 16:00 Pulse 98 04/16/21 18:00 Resp 16 04/16/21 18:00 BP 114/51 04/16/21 18:00 Pulse Ox 95 04/16/21 18:00 Intake & Output 04/16/21 04/17/21 04/17/21 18:59 06:59 18:59 Intake Total 545 1.734 Output Total 185 1040 Balance 360 -1038.266 Weight 84.912 kg Intake: IV 130 0.9NS @KVO 80 Sodium Chloride 0.9% 1, 50 000 ml @ 50 mls/hr IV . Q20H [facility] Rx#:[id number] Intake, IV Titration 1.734 Amount Morphine Sulfate (100 mg/ 1.734 2 ml) 100 mg In Sodium Chloride 0.9% 100 ml @ 1 MG/HR 1.02 mls/hr IV . Q24H [facility] Rx#:[id number] Oral 0 Tube Feeding 200 Other 215 Output: Drainage 40 Right Back 40 Urine 185 1000 Uretheral (John) 500 Other: Voiding Method Indwelling Catheter # Bowel Movements 1 1 - Labs CBC & Chem 7: 04/16/21 03:33 04/16/21 03:33 Labs: Abnormal Lab Results - Last 24 Hours (Table) 04/16/21 04/16/21 04/16/21 Range/Units 04:22 10:20 11:21 ABG pH 7.50 H (7.35-7.45) ABG pCO2 25 L (35-45) mmHg ABG HCO3 20 L (21-25) mmol/L ABG O2 Saturation 98.1 H (94-97) % POC Glucose (mg/dL) 113 H (75-99) mg/dL Ammonia 176 H (<30) umol/L Microbiology - Last 24 Hours (Table) 04/15/21 10:50 Urine Culture - Final Urine,Ureter 04/13/21 08:07 Blood Culture - Preliminary Blood No Growth after 72 hours 04/13/21 07:58 Blood Culture - Preliminary Blood No Growth after 72 hours
[2021-04-17] MEDS ORDERED: FAMOTIDINE 20 MG TAB PO SCH (09:00)
--- NOTE | 2021-04-17 11:47 | P.PN ---
Subjective Progress Note Date: 04/17/21 04/13/2021, the patient is being seen for a follow-up. The patient is currently sedated, comfortable likely distress. Patient is being gradually weaned off to assess the patient's underlying mental status. The patient's propofol has been cut down from 30 g down to 5 mg/kg per minute. The patient is not following any commands. She is not grimacing and she is not withdrawing to painful stimulation. The patient is currently on a mechanical ventilator. She is an assist-control mode at the rate of 12 with a tidal volume of 400 and FiO2 of 50% with a PEEP of 5. The chest x-ray showing bibasilar effusion and atelectatic changes in lung bases bilaterally. There is also cardiomegaly. There is may be some mild interstitial edema. The patient also has a pH of 7.45 with a pCO2 of 29 and pO2 of 85 based on the above-mentioned ventilator setting. Ejection fraction is around 55-60%. She has moderate severe mitral regurgitation with a pulmonary artery pressure of 60 based on the echocardiogram. There is a concern for underlying liver cirrhosis. 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 The patient also has a previous history of right kidney hydronephrosis with a insertion of a double-J stent ultrasound of the kidney will be done. Creatinine for now is stable at 3.39. Note that the patient is currently on no pressors. The patient has negative cultures. The patient remains on IV Rocephin. The patient has a white cell count of 7.7 with hemoglobin of 11.0 which is stable compared to yesterday. On today's evaluation of 04/14/2021, the patient remains off sedation for the past 24 hours. I stop the sedation yesterday and I monitor the mental status over the next 24 hours. This morning, she seems to be more responsive note that she was completely unresponsive yesterday. She opens eyes occasionally. She does occasionally grimace to deep painful stimulation. She is moving her head also. No purposeful activity. Doesn't follow any orders or commands. She remains intubated on a mechanical ventilator. On today's evaluation, she is on assist-control at the rate of 12 with a tidal volume of 400 and FiO2 of 50% with a PEEP of 5. Her blood gases from this morning is showing a pH of 7.54 with a pCO2 of 26 and pO2 of 124. His chest x-ray from today is showing adequate positioning of the oral tracheal tube. The patient also has a PICC line in the right upper extremity. There are small bilateral pleural effusions. There is also cardiomegaly. Note that the patient had an attempted Dobbhoff catheter insertion yesterday and this again failed by gastroenterology. We are seeking the possibility of school directed PEG tube insertion by gastroenterology. Meanwhile, hemodynamically, the patient is stable. The patient remains on a bicarb infusion at the rate of 75 mL an hour and his serum bicarb today is at 21. Her BUN is at 91 with a creatinine of 3.6. The patient had an ultrasound the kidneys yesterday that showed evidence of hydronephrosis on the right which was again seen and this was comparable to the previous ultrasound from 2019 and there was a simple cyst in the involving the left kidney. The cultures remain negative. Urine cultures negative. Blood cultures have been sent. There is also still pending for now. The patient remains on IV Rocephin. The patient is afebrile. White cell count is still low. The ammonia level was also low at 31. Her CODE STATUS is DNR/DNI. On today's evaluation of 04/15/2021, the patient remains intubated on a mechanical ventilator. This morning, she is an assist-control mode at a rate of 12 with tidal volume of 400 and FiO2 of 40% with a PEEP of 5. Chest x-ray showing small bilateral pleural effusion and some cardiomegaly. ET tube is in a good location. Blood gases from today showing a pH of 7.52 with a pCO2 of 26 and a pO2 of 149. Meanwhile, neurologically, the patient remains off sedation. The patient is still quite lethargic. She remains only to deep painful s timulation. No seizure activity has been noted. Meanwhile, we are considering a CAT scan of the brain in view of her slow neurologic recovery off sedation. We think her diminished level of consciousness probably related to metabolic encephalopathy. The patient continues to be in renal failure. Creatinine is currently at 3.35 in the urine output is quite low despite being on Lasix. Her net fluid balance over the past 24 hours has been +1.7 L and the patient is hesitant hours positive fluid balance for today. She was given Lasix yesterday with limited response in terms of urine output. The patient was taken to the operating room yesterday by urology. Discussed the case with Dr. Hernandez. The initial plan was to proceed with a double-J stent placement on the right. Nevertheless, the procedure itself was unsuccessful as the urologist was unable to identify the ureteral orifice and this was essentially a failed procedure. The plan for now is to obtain consent from the family to proceed with a nephrostomy tube insertion. In terms of the renal function, creatinine remains elevated at 3.35. Discussed the case with nephrology. Would like to go to dialysis as a last resort. Meanwhile, we have requested gastroenterology to insert an OG. The attempt was unsuccessful. I did a bedside procedure today when I inserted the catheter over the laryngoscope and awaiting a chest x-ray for [place] acute positioning. The patient remains nothing by mouth for now. The cultures are all negative for now. The patient is on empiric antibiotic coverage with IV Rocephin. The patient remains on IV fluids and the patient is receiving normal saline at the rate of 50 mL an hour. Serum bicarb today is at 17. No pressors. Hemodynamically stable. Afebrile. 04/16/2021, the patient remains intubated on mechanical ventilator. Unfortunately, neurologically she is still unresponsive and she remains encephalopathic. She grimaces only to deep painful stimulation. Nevertheless, she does not open up her eyes spontaneously. She does not follow commands. She does not do any purposeful activity. CAT scan of the brain was done yesterday and it showed chronic changes including mild to moderate diffuse cerebral atrophy and chronic small vessel ischemic change. No other acute abdominal mellitus have been noted. I have obviously concerned of an underlying encephalopathy in neurologic consultation will be obtained. Meanwhile, were able to insert an OG tube yesterday and the tube is sitting probably at the GE junction. Restart enteral feeding for nutritional support and the patient is currently on vital AF at the rate of 20 mL an hour. Once feeding was started, the patient started having liquidy stool and she has a fecal management system in place for now and output is in order of 30-50 mL an hour. The patient will have a stool for C. diff checked. Meanwhile, she remains intubated on a mechanical ventilator. This morning, she had an assist-control of 12 with a tidal volume of 400 and FiO2 of 40% with a PEEP of 5. blood gas as reports that showed a pH of 7.5 with a pCO2 of 25 and a pO2 of 105. A showing bilateral pleural effusion, cardiomegaly, increased infiltration of the lung bases and pulmonary edema. ET tube is in a good location. As far as her sepsis, she is currently on no pressors. She underwent a nephrostomy tube insertion yesterday. He made after the tube insertion and output was in order of 1 75 mL of urine in [place] output dropped and over the past few hours the patient is producing only 45 mL over the past 12 hours and output is bloody. The John catheter is producing approximately 20-30 mL an hour. The creatinine has improved much in the creatinine today's at 3.32. The patient continues to have a component of non-anion gap metabolic acidosis. The patient was given a total of 350 mEq of sodium bicarb by nephrology and the patient was started on bicarbonate tablets 1300 mg by mouth twice a day. IV fluids have been cut down to KVO. She remains on IV Rocephin. Maze afebrile. She is hemodynamically stable. She has some increased edema in upper and lower extremities. No seizure activity has been noted. I feeling that she is a bit more active and she is trying to move her head in different directions. I have not seen any activity and her legs or arms. She does not open up her eyes spontaneously. The patient is seen today 04/17/2021 on the regular medical floor. Last evening about 8:00 PM the patient's family had requested for terminal wean on the patient. She was extubated and placed in comfort care. She is currently on 2 L nasal cannula. Morphine drip had been initiated and currently at 2 mg per hour. Scopolamine patch in place. Family is at the bedside. Objective - Vital Signs Vital signs: Vital Signs Temp 97.9 F 04/16/21 16:00 Pulse 98 04/16/21 18:00 Resp 16 04/16/21 18:00 BP 114/51 04/16/21 18:00 Pulse Ox 95 04/16/21 18:00 Intake & Output 04/16/21 04/17/21 04/17/21 18:59 06:59 18:59 Intake Total 545 1.734 Output Total 185 1040 Balance 360 -1038.266 Weight 84.912 kg Intake: IV 130 0.9NS @KVO 80 Sodium Chloride 0.9% 1, 50 000 ml @ 50 mls/hr IV . Q20H [facility] Rx#:[id number] Intake, IV Titration 1.734 Amount Morphine Sulfate (100 mg/ 1.734 2 ml) 100 mg In Sodium Chloride 0.9% 100 ml @ 1 MG/HR 1.02 mls/hr IV . Q24H [facility] Rx#:[id number] Oral 0 Tube Feeding 200 Other 215 Output: Drainage 40 Right Back 40 Urine 185 1000 Uretheral (John) 500 Other: Voiding Method Indwelling Catheter Indwelling Catheter # Bowel Movements 1 1 1 - Exam GENERAL EXAM: 80-year-old female patient, on 2 L nasal cannula, on morphine drip, in comfort care. HEAD: Normocephalic. EYES: Normal reaction of pupils, equal size. NOSE: Clear with pink turbinates. THROAT: No erythema or exudates. NECK: No masses, no JVD. CHEST: No chest wall deformity. LUNGS: Equal air entry with bilateral scattered rhonchi. CVS: S1 and S2 normal with no audible murmur, regular rhythm. ABDOMEN: No hepatosplenomegaly, normal bowel sounds, no guarding or rigidity. SPINE: No scoliosis or deformity SKIN: No rashes CENTRAL NERVOUS SYSTEM: No focal deficits, tone is normal in all 4 extremities. EXTREMITIES: There is no peripheral edema. No clubbing, no cyanosis. Peripheral pulses are intact. - Labs CBC & Chem 7: 04/16/21 03:33 04/16/21 03:33 Labs: Abnormal Lab Results - Last 24 Hours (Table) 04/16/21 Range/Units 04:22 ABG pH 7.50 H (7.35-7.45) ABG pCO2 25 L (35-45) mmHg ABG HCO3 20 L (21-25) mmol/L ABG O2 Saturation 98.1 H (94-97) % Microbiology - Last 24 Hours (Table) 04/13/21 07:58 Blood Culture - Preliminary Blood No Growth after 96 hours 04/13/21 08:07 Blood Culture - Preliminary Blood No Growth after 96 hours 04/15/21 10:50 Urine Culture - Final Urine,Ureter Assessment and Plan Assessment: 1 Acute hypoxemic respiratory failure secondary to urinary tract infection/urosepsis, with intubation and mechanical ventilation on 04/11/2021 . The family had decided on a terminal wean at 8 PM on 04/16/2021. She is currently in comfort care. On 2 L nasal cannula. On morphine drip. 2 Sepsis secondary to urinary tract infection. Cultures are negative and the patient was on Rocephin recovered and the patient's cultures of been all negative. 3 Hyperkalemia, treated, recovered 4 Acute renal failure, possibly on top of chronic kidney disease, the patient has a right-sided hydronephrosis , attempted to insert the double-J catheters on the right and this was failed due to failure to identify the ureteral orifice. Patient underwent a nephrostomy tube insertion yesterday. Creatinine is still elevated at 3.35 and the patient has a component of non-anion gap metabolic acidosis. Nephrology is on the case. Upper from the nephrostomy is bloody 5 History of hiatal hernia. 6 History of right hydronephrosis with a previous insertion and removal of a stent placement. The patient is post nephrostomy tube insertion 7 History of biliary cirrhosis. LFTs are abnormal and the patient has elevated alkaline phosphatase 8 History of hypertension. 9 Hypothyroidism. 10 History of hyperlipidemia. 11 History of acid reflux disease. 12 History of cancer of the spine. 13 Moderate to severe MR and secondary pulmoinary hypertension, normal ejection fraction severe secondary pulmonary hypertension with a right-sided pressure of around 60 mmHg. 14 diarrhea 15 altered mentation, consider metabolic encephalopathy. Plan: The patient is currently in comfort care She was terminally weaned last evening approximately 8 PM per family request Currently on 2 L nasal cannula Currently on a morphine drip at 2 mg per hour Family is at the by bedside I, the cosigning physician, performed a history & physical examination of the patient. Lungs sounds with bilateral scattered rhonchi. Maintaining good O2 saturations in the 90s on 2 L/m per nasal cannula. I discussed the assessment and plan of care with my nurse practitioner, Selene Belcher. I attest to the above note as dictated by her.
--- NOTE | 2021-04-17 17:15 | P.PN ---
Subjective Progress Note Date: 04/17/21 80-year-old female was brought in after an episode of unresponsiveness. Patient was subsequently intubated. Patient is being admitted for severe sepsis which was believed to be secondary to urinary tract infection patient urine analysis is significantly abnormal and looked purulent. Patient appears to have multiorgan dysfunction as well. Patient was apparently not doing well since last couple days and family has been with her all night last night earlier today morning patient was found to be unresponsive. 04/17/2021 Patient is seen and evaluated for follow-up on the regular medical floor. Last evening about 8:00 PM the patient's family had requested for terminal wean on the patient. She was extubated and placed in comfort care. She is currently on 2 L nasal cannula. Morphine drip had been initiated and currently at 2 mg per hour. Scopolamine patch in place. Family is at the bedside. Patient seems to be comfortable Comfort care orders in place Objective - Vital Signs Vital signs: Vital Signs Temp 97.9 F 04/16/21 16:00 Pulse 98 04/16/21 18:00 Resp 16 04/16/21 18:00 BP 114/51 04/16/21 18:00 Pulse Ox 95 04/16/21 18:00 Intake & Output 04/16/21 04/17/21 04/17/21 18:59 06:59 18:59 Intake Total 545 1.734 Output Total 185 1040 Balance 360 -1038.266 Weight 84.912 kg Intake: IV 130 0.9NS @KVO 80 Sodium Chloride 0.9% 1, 50 000 ml @ 50 mls/hr IV . Q20H [facility] Rx#:[id number] Intake, IV Titration 1.734 Amount Morphine Sulfate (100 mg/ 1.734 2 ml) 100 mg In Sodium Chloride 0.9% 100 ml @ 1 MG/HR 1.02 mls/hr IV . Q24H [facility] Rx#:[id number] Oral 0 Tube Feeding 200 Other 215 Output: Drainage 40 Right Back 40 Urine 185 1000 Uretheral (John) 500 Other: Voiding Method Indwelling Catheter Indwelling Catheter # Bowel Movements 1 1 1 - Exam GENERAL: Patient is intubated and started on propofol on ventilatory support. Thin built female HEENT: Pupils are round and equally reacting to light. EOMI. No scleral icterus. No conjunctival pallor. Normocephalic, atraumatic. No pharyngeal erythema. No thyromegaly. CARDIOVASCULAR: S1 and S2 present. No murmurs, rubs, or gallops. PULMONARY: Few scattered rhonchi ABDOMEN: Soft, nontender, nondistended, normoactive bowel sounds. No palpable organomegaly. The catheter in place MUSCULOSKELETAL: No joint swelling or deformity. EXTREMITIES: No cyanosis, clubbing, or pedal edema. NEUROLOGICAL: Intubated and sedated SKIN: No rashes. - Labs CBC & Chem 7: 04/16/21 03:33 04/16/21 03:33 Labs: Abnormal Lab Results - Last 24 Hours (Table) 04/16/21 Range/Units 04:22 ABG pH 7.50 H (7.35-7.45) ABG pCO2 25 L (35-45) mmHg ABG HCO3 20 L (21-25) mmol/L ABG O2 Saturation 98.1 H (94-97) % Microbiology - Last 24 Hours (Table) 04/13/21 07:58 Blood Culture - Preliminary Blood No Growth after 96 hours 04/13/21 08:07 Blood Culture - Preliminary Blood No Growth after 96 hours 04/15/21 10:50 Urine Culture - Final Urine,Ureter Assessment and Plan Assessment: Possible severe sepsis: Probably secondary to urinary tract infection urine cultures and blood cultures are negative. Patient remains intubated and is on 1 g of Rocephin at this time Right-sided hydronephrosis and pyelonephritis: Patient may need ureteral stent as urology was unable to place a ureteral stent test today. -Severe toxic encephalopathy and hepatic encephalopathy -Acute hypoxic respiratory failure secondary to severe sepsis -Hyperammonemia probably due to hepatitis secondary to sepsis patient is receiving Lasix and the rifaximin. May be contributing to her at her encephalopathic state. Patient does have history of primary biliary cirrhosis. -Hyperkalemia: Multifactorial secondary to acute renal failure which is again secondary to acute tubular necrosis from severe sepsis potassium supplementation and also metabolic acidosis. Improved patient's creatinine remains at the 3.35 -Anion metabolic acidosis probably secondary to acute renal failure as well as lactic acidosis -acute renal failure secondary to most probably acute tubular necrosis from severe sepsis IV fluids and nephrology: The patient IV fluids as per nephrology -Mildly elevated troponin secondary to severe sepsis and renal failure -Elevated TSH and as well as free T4 these abnormalities are probably secondary to sepsis, will need a repeat T4 and TSH in about couple weeks -Elevated liver enzymes patient appears to have elevated liver enzymes during the her previous hospitalization as well and patient was diagnosed with primary biliary cirrhosis . Patient liver enzymes are bit better compared to admission -Generalized deconditioning -Hypertension: Holding off antihypertensive medications because of concerns of hypotension secondary to severe sepsis -Chronic of right-sided hydronephrosis -DVT prophylaxis with subcutaneous heparin GI prophylaxis with Protonix or Pepcid
[2021-04-17] MEDS: ATROPINE OPHTH SOLN 1% 5ML BTL SUBLINGUAL PRN (19:33)
[2021-04-17 21:36] VITALS: RESP 6
[2021-04-18] MEDS: ATROPINE OPHTH SOLN 1% 5ML BTL SUBLINGUAL PRN (12:14)
[2021-04-18] MEDS: MORPHINE SULFATE (100 MG/2 ML) 100 MG in SODIUM CHLORIDE 0.9% 100 ML IV SCH (14:04)
[2021-04-19] MEDS: MORPHINE SULFATE (100 MG/2 ML) 100 MG in SODIUM CHLORIDE 0.9% 100 ML IV SCH (04:52)
--- NOTE | 2021-04-19 11:13 | P.PN ---
Subjective Progress Note Date: 04/18/21 Principal diagnosis: UTI/severe sepsis Right-sided hydronephrosis/pyelonephritis Encephalopathy; toxic and hepatic Acute hypoxic respiratory failure 80-year-old female was brought in after an episode of unresponsiveness. Patient was subsequently intubated. Patient is being admitted for severe sepsis which was believed to be secondary to urinary tract infection patient urine analysis is significantly abnormal and looked purulent. Patient appears to have multiorgan dysfunction as well. Patient was apparently not doing well since last couple days and family has been with her all night last night earlier today morning patient was found to be unresponsive. 04/17/2021 Patient is seen and evaluated for follow-up on the regular medical floor. Last evening about 8:00 PM the patient's family had requested for terminal wean on the patient. She was extubated and placed in comfort care. She is currently on 2 L nasal cannula. Morphine drip had been initiated and currently at 2 mg per hour. Scopolamine patch in place. Family is at the bedside. Patient seems to be comfortable Comfort care orders in place 04/18/2021 Patient remains on IV morphine infusion; discussed with nursing staff no overnight events or signs or symptoms of pain; patient not respond to any verbal or tactile stimulation; remains comfortable and pain-free; we will continue with comfort care measures escalating therapy as needed Objective - Vital Signs Vital signs: Vital Signs Temp 97.9 F 04/16/21 16:00 Pulse 98 04/16/21 18:00 Resp 6 L 04/18/21 03:00 BP 114/51 04/16/21 18:00 Pulse Ox 95 04/16/21 18:00 Intake & Output 04/17/21 04/18/21 04/18/21 18:59 06:59 18:59 Intake Total 0 120 Balance 0 120 Weight 84.912 kg Intake: IV 120 0.9NS @KVO 120 Oral 0 Other: Voiding Method Indwelling Catheter Indwelling Catheter Indwelling Catheter # Bowel Movements 1 - Exam GENERAL: Patient is intubated and started on propofol on ventilatory support. Thin built female HEENT: Pupils are round and equally reacting to light. EOMI. No scleral ic terus. No conjunctival pallor. Normocephalic, atraumatic. No pharyngeal erythema. No thyromegaly. CARDIOVASCULAR: S1 and S2 present. No murmurs, rubs, or gallops. PULMONARY: Few scattered rhonchi ABDOMEN: Soft, nontender, nondistended, normoactive bowel sounds. No palpable organomegaly. The catheter in place MUSCULOSKELETAL: No joint swelling or deformity. EXTREMITIES: No cyanosis, clubbing, or pedal edema. NEUROLOGICAL: Intubated and sedated SKIN: No rashes. - Labs CBC & Chem 7: 04/16/21 03:33 04/16/21 03:33 Labs: Microbiology - Last 24 Hours (Table) 04/13/21 08:07 Blood Culture - Preliminary Blood No Growth after 120 hours 04/13/21 07:58 Blood Culture - Preliminary Blood No Growth after 120 hours Assessment and Plan Assessment: Possible severe sepsis: Probably secondary to urinary tract infection urine cultures and blood cultures are negative. Patient remains intubated and is on 1 g of Rocephin at this time Right-sided hydronephrosis and pyelonephritis: Patient may need ureteral stent as urology was unable to place a ureteral stent test today. -Severe toxic encephalopathy and hepatic encephalopathy -Acute hypoxic respiratory failure secondary to severe sepsis -Hyperammonemia probably due to hepatitis secondary to sepsis patient is receivi ng Lasix and the rifaximin. May be contributing to her at her encephalopathic state. Patient does have history of primary biliary cirrhosis. -Hyperkalemia: Multifactorial secondary to acute renal failure which is again secondary to acute tubular necrosis from severe sepsis potassium supplementation and also metabolic acidosis. Improved patient's creatinine remains at the 3.35 -Anion metabolic acidosis probably secondary to acute renal failure as well as lactic acidosis -acute renal failure secondary to most probably acute tubular necrosis from severe sepsis IV fluids and nephrology: The patient IV fluids as per nephrology -Mildly elevated troponin secondary to severe sepsis and renal failure -Elevated TSH and as well as free T4 these abnormalities are probably secondary to sepsis, will need a repeat T4 and TSH in about couple weeks -Elevated liver enzymes patient appears to have elevated liver enzymes during the her previous hospitalization as well and patient was diagnosed with primary biliary cirrhosis . Patient liver enzymes are bit better compared to admission -Generalized deconditioning -Hypertension: Holding off antihypertensive medications because of concerns of hypotension secondary to severe sepsis -Chronic of right-sided hydronephrosis -DVT prophylaxis with subcutaneous heparin GI prophylaxis with Protonix or Pepcid
[2021-04-19] MEDS: SCOPOLAMINE 1.5MG/72HR PATCH TRANSDERM SCH (18:25)
--- NOTE | 2021-04-19 21:13 | P.PN ---
Subjective Progress Note Date: 04/19/21 Principal diagnosis: UTI/severe sepsis Right-sided hydronephrosis/pyelonephritis Encephalopathy; toxic and hepatic Acute hypoxic respiratory failure 80-year-old female was brought in after an episode of unresponsiveness. Patient was subsequently intubated. Patient is being admitted for severe sepsis which was believed to be secondary to urinary tract infection patient urine analysis is significantly abnormal and looked purulent. Patient appears to have multiorgan dysfunction as well. Patient was apparently not doing well since last couple days and family has been with her all night last night earlier today morning patient was found to be unresponsive. 04/17/2021 Patient is seen and evaluated for follow-up on the regular medical floor. Last evening about 8:00 PM the patient's family had requested for terminal wean on the patient. She was extubated and placed in comfort care. She is currently on 2 L nasal cannula. Morphine drip had been initiated and currently at 2 mg per hour. Scopolamine patch in place. Family is at the bedside. Patient seems to be comfortable Comfort care orders in place 04/18/2021 Patient remains on IV morphine infusion; discussed with nursing staff no overnight events or signs or symptoms of pain; patient not respond to any verbal or tactile stimulation; remains comfortable and pain-free; we will continue with comfort care measures escalating therapy as needed 04/19/2021 Patient is seen at bedside; does not respond to any verbal or tactile stimulation; comfort care package on board Objective - Vital Signs Vital signs: Vital Signs Temp 97.9 F 04/16/21 16:00 Pulse 98 04/16/21 18:00 Resp 6 L 04/18/21 20:00 BP 114/51 04/16/21 18:00 Pulse Ox 95 04/16/21 18:00 Intake & Output 04/19/21 04/19/21 04/20/21 06:59 18:59 06:59 Intake Total 120 Output Total 0 Balance 120 Intake: IV 120 0.9NS @KVO 120 Output: Urine 0 Other: Voiding Method Indwelling Catheter Indwelling Catheter Indwelling Catheter - Exam GENERAL: Patient is intubated and started on propofol on ventilatory support. Thin built female HEENT: Pupils are round and equally reacting to light. EOMI. No scleral icterus. No conjunctival pallor. Normocephalic, atraumatic. No pharyngeal erythema. No thyromegaly. CARDIOVASCULAR: S1 and S2 present. No murmurs, rubs, or gallops. PULMONARY: Few scattered rhonchi ABDOMEN: Soft, nontender, nondistended, normoactive bowel sounds. No palpable organomegaly. The catheter in place MUSCULOSKELETAL: No joint swelling or deformity. EXTREMITIES: No cyanosis, clubbing, or pedal edema. NEUROLOGICAL: Intubated and sedated SKIN: No rashes. - Labs CBC & Chem 7: 04/16/21 03:33 04/16/21 03:33 Labs: Microbiology - Last 24 Hours (Table) 04/13/21 08:07 Blood Culture - Final Blood No Growth after 144 hours 04/13/21 07:58 Blood Culture - Final Blood No Growth after 144 hours Assessment and Plan Assessment: Possible severe sepsis: Probably secondary to urinary tract infection urine cultures and blood cultures are negative. Patient remains intubated and is on 1 g of Rocephin at this time Right-sided hydronephrosis and pyelonephritis: Patient may need ureteral stent as urology was unable to place a ureteral stent test today. -Severe toxic encephalopathy and hepatic encephalopathy -Acute hypoxic respiratory failure secondary to severe sepsis -Hyperammonemia probably due to hepatitis secondary to sepsis patient is receiving Lasix and the rifaximin. May be contributing to her at her encephalopathic state. Patient does have history of primary biliary cirrhosis. -Hyperkalemia: Multifactorial secondary to acute renal failure which is again secondary to acute tubular necrosis from severe sepsis potassium supplementation and also metabolic acidosis. Improved patient's creatinine remains at the 3.35 -Anion metabolic acidosis probably secondary to acute renal failure as well as lactic acidosis -acute renal failure secondary to most probably acute tubular necrosis from severe sepsis IV fluids and nephrology: The patient IV fluids as per nephrology -Mildly elevated troponin secondary to severe sepsis and renal failure -Elevated TSH and as well as free T4 these abnormalities are probably secondary to sepsis, will need a repeat T4 and TSH in about couple weeks -Elevated liver enzymes patient appears to have elevated liver enzymes during the her previous hospitalization as well and patient was diagnosed with primary biliary cirrhosis . Patient liver enzymes are bit better compared to admission -Generalized deconditioning -Hypertension: Holding off antihypertensive medications because of concerns of hypotension secondary to severe sepsis -Chronic of right-sided hydronephrosis -DVT prophylaxis with subcutaneous heparin GI prophylaxis with Protonix or Pepcid
--- NOTE | 2021-04-23 08:17 | P.DS ---
Providers Date of admission: 04/11/21 17:41 Expected date of discharge: 04/20/21 Attending physician: Matthew Edwards MD Consults: 04/11/21 17:41 Consult Physician Stat Consulting Provider: Steve Anthony Consult Reason/Comments: ICU Do you want consulting provider notified?: Already Contacted 04/11/21 17:54 Consult Physician Routine Consulting Provider: Edith Wright Consult Reason/Comments: ATN Do you want consulting provider notified?: Yes 04/14/21 09:42 Consult Physician Routine Consulting Provider: Alan Donaldson Consult Reason/Comments: right hydronephrosis, JULIA Do you want consulting provider notified?: Yes 04/16/21 10:04 Consult Physician Routine Consulting Provider: Victor M Anthony Consult Reason/Comments: altered mental status Do you want consulting provider notified?: Yes Primary care physician: Dixie Staples Hospital Course: 80-year-old female was brought in after an episode of unresponsiveness. Patient was subsequently intubated. Patient is being admitted for severe sepsis which was believed to be secondary to urinary tract infection patient urine analysis is significantly abnormal and looked purulent. Patient appears to have multiorgan dysfunction as well. Patient was apparently not doing well since last couple days and family has been with her all night last night earlier today morning patient was found to be unresponsive. 04/17/2021 Patient is seen and evaluated for follow-up on the regular medical floor. Last evening about 8:00 PM the patient's family had requested for terminal wean on the patient. She was extubated and placed in comfort care. She is currently on 2 L nasal cannula. Morphine drip had been initiated and currently at 2 mg per hour. Scopolamine patch in place. Family is at the bedside. Patient seems to be comfortable Comfort care orders in place 04/18/2021 Patient remains on IV morphine infusion; discussed with nursing staff no overnight events or signs or symptoms of pain; patient not respond to any verbal or tactile stimulation; remains comfortable and pain-free; we will continue with comfort care measures escalating therapy as needed 04/19/2021 Patient is seen at bedside; does not respond to any verbal or tactile stimulation; comfort care package on board 04/20/2021 Patient at 01:16 Patient Condition at Discharge: Poor Plan - Discharge Summary Discharge Rx Participant: No New Discharge Prescriptions: No Action Aspirin 81 mg PO DAILY 30 Days #30 chew Furosemide [Lasix] 20 mg PO DAILY #90 tab traMADol HCL 50 mg PO Q6H PRN PRN Reason: Pain Atorvastatin [Lipitor] 20 mg PO HS amLODIPine [Norvasc] 10 mg PO DAILY Potassium Chloride ER [K-Dur 20] 40 meq PO DAILY Omeprazole 20 mg PO DAILY Discharge Medication List Aspirin 81 mg PO DAILY 30 Days #30 chew 03/10/21 [Rx] Furosemide [Lasix] 20 mg PO DAILY #90 tab 03/10/21 [Rx] Atorvastatin [Lipitor] 20 mg PO HS 04/11/21 [History] Omeprazole 20 mg PO DAILY 04/11/21 [History] Potassium Chloride ER [K-Dur 20] 40 meq PO DAILY 04/11/21 [History] amLODIPine [Norvasc] 10 mg PO DAILY 04/11/21 [History] traMADol HCL 50 mg PO Q6H PRN 04/11/21 [History] Follow up Appointment(s)/Referral(s): None,Stated [REFERRING] - 1-2 days Discharge Disposition: - Preliminary Cause of Preliminary Cause of : Sepsis
== END 2021-04-20 03:15 | disposition expired | DRG 870 ==
LOC: EC 15:01 → 2SICU 17:41 → 5NMEDONC 04-16 21:55
PROVIDERS: ADMIT Internal Medicine; ATTEND Internal Medicine
DX: A41.9 Sepsis, unspecified organism (principal); G92 Toxic encephalopathy; J18.9 Pneumonia, unspecified organism; J96.01 Acute respiratory failure with hypoxia; N17.0 Acute kidney failure with tubular necrosis; R65.21 Severe sepsis with septic shock; E72.20 Disorder of urea cycle metabolism, unspecified; E87.1 Hypo-osmolality and hyponatremia; E87.4 Mixed disorder of acid-base balance; I50.32 Chronic diastolic (congestive) heart failure; N13.6 Pyonephrosis; J98.11 Atelectasis; I13.0 Hypertensive heart and chronic kidney disease with heart failure and stage 1 through stage 4 chronic kidney disease, or unspecified chronic kidney disease; E16.2 Hypoglycemia, unspecified; E83.39 Other disorders of phosphorus metabolism; E87.5 Hyperkalemia; Z66 Do not resuscitate; Z51.5 Encounter for palliative care; K72.90 Hepatic failure, unspecified without coma; Z20.822 Contact with and (suspected) exposure to COVID-19; I27.29 Other secondary pulmonary hypertension; F03.90 Unspecified dementia, unspecified severity, without behavioral disturbance, psychotic disturbance, mood disturbance, and anxiety; G31.9 Degenerative disease of nervous system, unspecified; K74.3 Primary biliary cirrhosis; E78.5 Hyperlipidemia, unspecified; F41.9 Anxiety disorder, unspecified; E03.9 Hypothyroidism, unspecified; I08.1 Rheumatic disorders of both mitral and tricuspid valves; K21.9 Gastro-esophageal reflux disease without esophagitis; E07.81 Sick-euthyroid syndrome; R19.7 Diarrhea, unspecified; K44.9 Diaphragmatic hernia without obstruction or gangrene; R77.8 Other specified abnormalities of plasma proteins; E86.0 Dehydration; M19.90 Unspecified osteoarthritis, unspecified site; Z79.82 Long term (current) use of aspirin; Z79.899 Other long term (current) drug therapy; Z96.653 Presence of artificial knee joint, bilateral; Z85.89 Personal history of malignant neoplasm of other organs and systems; Z53.9 Procedure and treatment not carried out, unspecified reason; Z78.1 Physical restraint status; Z71.3 Dietary counseling and surveillance; Z90.49 Acquired absence of other specified parts of digestive tract; Z98.890 Other specified postprocedural states
CPT/HCPCS: 31500; 36415; 36573; 36600; 50433; 70450; 71045; 74018; 76770; 80048; 80053; 81001; 82140; 82805; 84100; 84132; 84145; 84439; 84443; 84484; 85025; 85027; 85610; 85730; 87040; 87086; 87324; 87635; 93005; 94002; 94003; 94644; 95822; 96374; 96375; 99291